=== PATIENT | female | born 1950 | race Hispanic/Latino ===

== ENCOUNTER 2021-06-17 10:28 | Emergency (ER) | payer OTHER ==
[2021-06-17 11:01] LABS: Absolute Lymphocytes (CBC) 1.4 K/uL (0.7-4.9); Basophils % 0.9 % (0-1.3); Hematocrit 31.3 % (36.0-45.0); Lymphocytes % 19.1 % (15.3-44.8); MPV 7.1 fL (7.6-11.3); RBC Red Blood Cell Count 3.62 M/uL (3.86-4.86)
--- NOTE | 2021-06-17 11:14 | RAD REPORT ---
EXAM DESCRIPTION: CT - Head Brain Wo Cont - 06/17/2021 11:06 am CLINICAL HISTORY: AMS;Confused COMPARISON: No comparisons TECHNIQUE: All CT scans are performed using dose optimization technique as appropriate and may inclu de automated exposure control or mA/KV adjustment according to patient size. FINDINGS: No intracranial hemorrhage, hydrocephalus or extra-axial fluid collection.No areas of brai n edema or evidence of midline shift. The paranasal sinuses and mastoids are clear. The calvarium is intact. IMPRESSION: No acute intracranial abnormality.
[2021-06-17 11:19] LABS: BUN Blood Urea Nitrogen 66 mg/dL (7-18); Bicarbonate 23 mmol/L (21-32); Magnesium 1.6 mg/dL (1.8-2.4); Potassium 4.4 mmol/L (3.5-5.1); Sodium Level 137 mmol/L (136-145); Troponin (Emerg Dept Use Only) < 0.02 ng/mL (0.0-0.045)
[2021-06-17 11:21] LABS: Glucose Level 404 mg/dL (74-106)
--- NOTE | 2021-06-17 11:21 | RAD REPORT ---
EXAM DESCRIPTION: RAD - Chest Single View - 06/17/2021 11:14 am CLINICAL HISTORY: AMS COMPARISON: Chest Pa And Lat (2 Views) dated 03/30/2016 FINDINGS: Lines: None. Lungs: No evidence of edema or pneumonia. Pleural: No significant pleural effusions or pneumothorax. Cardiac: The heart size is within normal limits. Bones: No acute fractures. Sternotomy. Other: IMPRESSION: No acute cardiopulmonary disease.
[2021-06-17 11:27] LABS: Protime INR 1.34
[2021-06-17] MEDS ORDERED: INSULIN -REGULAR HUMAN 50 UNIT/0.5 ML ML ONE (12:21)
[2021-06-17] MEDS ORDERED: NA CHLORIDE 0.9% 1,000 ML ONE (12:41)
--- NOTE | 2021-06-17 14:31 | EDPHYS ---
Physician Documentation [facility] Name: Consuelo Trujillo Age: 70 yrs Sex: Female : 1950 Arrival Date: 06/17/2021 Time: 10:25 Bed 4 Private MD: ED Physician Gorge Munoz HPI: 06/17 13:57 This 70 yrs old Female presents to ER via EMS with complaints of Altered rn Mental Status. 13:57 The patient presents with decreased responsiveness. Onset: The symptoms/episode rn began/occurred this morning. Possible causes: unknown. Associated signs and symptoms: Pertinent positives: confusion, Pertinent negatives: abdominal pain, chest pain, headache, shortness of breath. Current symptoms: In the emergency department the patient's symptoms have improved. The patient has experienced similar episodes in the past. The patient has been recently seen by a physician:. Per EMS report patient was at doctor's office and became lethargic. No seizure-like activity. Did not complain about anything prior to. Has been reports some decreased appetite and not really eating or drinking much lately. states has a history of small seizures and compliant with medication.. Historical: - Allergies: 10:33 PENICILLINS; ss 10:33 Hydrocodone Bitartrate; ss - Home Meds: 10:33 ranolazine 500 mg oral Tb12 1 tab 2 times per day [Active]; metoprolol succinate ER 50 ss mg 1 tablet PO BID [Active]; mirtazapine 15 mg Oral TbDi 1 tab once daily [Active]; atorvastatin 40 mg oral tab 1 tab once daily [Active]; Eliquis 5 mg oral tab 1 tab 2 times per day [Active]; quetiapine 25 mg oral tab 1 tab nightly [Active]; furosemide 40 mg Oral tab 2 tabs once daily [Active]; omeprazole 40 mg Oral cpDR 1 cap once daily [Active]; - PMHx: 10:33 Diabetes mellitus; End stage renal disease; CAD; GERD; Hypertensive disorder; ss Depressive disorder; Anxiety; L 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 - Family history:: not pertinent. - Social history:: Smoking status: Patient denies any tobacco usage or history of. - Hospitalizations: : No recent hospitalization is reported. ROS: 14:26 Constitutional: Negative for fever, chills, and weight loss, Eyes: Negative for injury, rn pain, redness, and discharge, ENT: Negative for injury, pain, and discharge, Neck: Negative for injury, pain, and swelling, Cardiovascular: Negative for chest pain, palpitations, and edema, Respiratory: Negative for shortness of breath, cough, wheezing, and pleuritic chest pain, Abdomen/GI: Negative for abdominal pain, nausea, vomiting, diarrhea, and constipation, Back: Negative for injury and pain, : Negative for injury, bleeding, discharge, and swelling, MS/Extremity: Negative for injury and deformity, Skin: Negative for injury, rash, and discoloration, Neuro: Negative for headache, numbness, tingling, and seizure. Exam: 14:26 Constitutional: This is a well developed, well nourished patient who is awake, rn somnolent but awakens to voice and painful stimulation Head/Face: Normocephalic, atraumatic. Eyes: Periorbital areas with no swelling, redness, or edema. ENT: Dry mucous membranes Neck: Trachea midline, no masses palpated, and no cervical lymphadenopathy. Supple, full range of motion without nuchal rigidity, or vertebral point tenderness. No Meningismus. Cardiovascular: Regular rate and rhythm . No pulse deficits. Respiratory: No increased work of breathing, no retractions or nasal flaring. Abdomen/GI: Soft, non-tender Skin: Warm, dry MS/ Extremity: Pulses equal, no cyanosis. Neuro: Somnolent but awakens to voice and painful stimulus. Moves all 4 extremities with residual weakness of the left side due to previous stroke. 14:26 ECG was reviewed by the Attending Physician. rn Vital Signs: 12:32 BP 99 / 69; Pulse 65; Resp 12; Pulse Ox 97% on NC; Pain 0/10; ch5 12:45 BP 99 / 67; Pulse 15; Resp 61; Pulse Ox 100% on R/A; hb 13:31 BP 110 / 56; Pulse 63; Resp 14; Pulse Ox 100% on R/A; hb MDM: 10:25 Patient medically screened. rn 14:26 Differential Diagnosis: CVA, electrolyte abnormality, hypoglycemia, intracranial bleed, rn seizure, TIA, volume depletion. Data reviewed: vital signs, nurses notes, lab test result(s), EKG, radiologic studies, CT scan, plain films, and as a result, I will discharge patient. 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 Interpretation: normal. Test interpretation: by ED physician or midlevel provider: ECG, plain radiologic studies, Chest x-ray negative for acute pneumonia or pneumothorax. 14:26 Counseling: I had a detailed discussion with the patient and/or guardian regarding: the rn historical points, exam findings, and any diagnostic results supporting the discharge/admit diagnosis, lab results, radiology results, the need for outpatient follow up, to return to the emergency department if symptoms worsen or persist or if there are any questions or concerns that arise at home. Response to treatment: the patient's symptoms have markedly improved after treatment, the patient's condition has returned to base line, the patient is now symptom free, patient is well hydrated. and as a result, I will discharge patient. Special discussion: I discussed with the patient/guardian in detail that at this point there is no indication for admission to the hospital. It is understood, however, that if the symptoms persist or worsen the patient needs to return immediately for re-evaluation. ED course: Patient with complete return to baseline after fluids and insulin. No acute findings and work-up here. Could have had a small seizure given altered mental status and with time return to baseline. CT head does not show anything acute. Patient states that she is hungry and wants to go home. states that she is at baseline currently. Return precautions given and understood.. 06/17 10: Order name: Basic Metabolic Panel; Complete Time: rn 06/17 10: Order name: CBC with Diff; Complete Time: rn 06/17 10: Order name: Magnesium; Complete Time: rn 06/17 10: Order name: Protime (+inr); Complete Time: : rn 06/17 10: Order name: Ptt, Activated; Complete Time: 12: rn 06/17 10: Order name: Troponin (emerg Dept Use Only); Complete Time: rn 06/17 10: Order name: CT Head Brain wo Cont; Complete Time: 11:22 rn 06/17 10:26 Order name: XRAY Chest (1 view); Complete Time: 11:22 rn 06/17 10:31 Order name: glucometer results - FOR PT WITH NO ID; Complete Time: 14:26 hb 06/17 12:21 Order name: SARS-COV-2 RT PCR; Complete Time: 12:30 EDMS 06/17 13:51 Order name: glucometer results - FOR PT WITH NO ID hb 06/17 13:51 Order name: Glucose, Ancillary(No Armband) EDMS 06/17 10:26 Order name: EKG; Complete Time: 10:29 rn 06/17 10:26 Order name: Cardiac monitoring; Complete Time: : rn 06/17 10:26 Order name: EKG - Nurse/Tech; Complete Time: : rn 06/17 10:26 Order name: IV Saline Lock; Complete Time: : rn 06/17 10:26 Order name: Labs collected and sent; Complete Time: 11:38 rn 06/17 10:26 Order name: NPO; Complete Time: : rn 06/17 10:26 Order name: O2 Per Protocol; Complete Time: : rn 06/17 10:26 Order name: O2 Sat Monitoring; Complete Time: : rn 06/17 10:26 Order name: Glucose Level; Complete Time: 10:31 rn EC:26 Rate is 114 beats/min. Rhythm is regular. QRS [place] is Normal. [place] interval is normal. rn QRS interval is normal. QT interval is normal. No Q waves. T waves are Normal. No ST changes noted. Clinical impression: Sinus tachycardia. Interpreted by me. Reviewed by me. Administered Medications: 12:00 Drug: Insulin Regular Human 10 units {Co-Signature: ch5 (Khoa Potter RN).} Route: hb Sub-Q; Site: left upper arm; 12:26 Follow up: Response: Blood sugar is lowered ch5 12:26 Drug: NS 0.9% 1000 ml Route: IV; Rate: 1 bolus; Site: right forearm; ch5 Point of Care Testing: Blood Glucose: 13:50 Blood Glucose: 288 mg/dL; hb Ranges: Critical Glucose Levels:Adult <50 mg/dl or >400 mg/dl <40 mg/dl or >180 mg/dl Disposition Summary: 10/05/21 14:30 Discharge Ordered Location: Home rn Problem: new rn Symptoms: have improved rn Condition: Stable rn Diagnosis - Altered mental status, unspecified rn - Hyperglycemia, unspecified rn - Dehydration rn Followup: rn - With: Private Physician - When: As needed - Reason: Recheck today's complaints, Re-evaluation by your physician Discharge Instructions: - Discharge Summary Sheet rn - Confusion rn - Dehydration, Adult rn - Hyperglycemia rn Forms: - Medication Reconciliation Form rn - Thank You Letter rn - 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 EDLA EDMS
--- NOTE | 2021-06-17 14:31 | ER ---
Nurse's Notes [facility] Name: Consuelo Trujillo Age: 70 yrs Sex: Female : 1950 Arrival Date: 06/17/2021 Time: 10:25 Bed 4 Private MD: Diagnosis: Altered mental status, unspecified;Hyperglycemia, unspecified;Dehydration Presentation: 06/17 10:25 Chief complaint: EMS states: Pt was at a follow up appointment at Dr. Bunn office ss when she suddenly became lethargic and drowsy. HX of CVA, DVT. Coronavirus screen: Client denies travel out of the [place] in the last 14 days. Ebola Screen: Patient denies exposure to infectious person. Patient denies travel to an Ebola-affected area in the 21 days before illness onset. Initial Sepsis Screen: Does the patient meet any 2 criteria? No. Patient's initial sepsis screen is negative. Does the patient have a suspected source of infection? No. Patient's initial sepsis screen is negative. Risk Assessment: Do you want to hurt yourself or someone else? Unable to obtain. Onset of symptoms was June 17, 2021. 10:25 Method Of Arrival: EMS: [facility] ss 10:25 Acuity: SUE 2 ss 10:27 Care prior to arrival: IV initiated. 20 GA, in the right antecubital area. ss 10:30 Care prior to arrival: Reported VS en route were 112/78 110 87% O2 VIA 3L NC BGL 369. ss Historical: - Allergies: 10:33 PENICILLINS; ss 10:33 Hydrocodone Bitartrate; ss - Home Meds: 10:33 ranolazine 500 mg oral Tb12 1 tab 2 times per day [Active]; metoprolol succinate ER 50 ss mg 1 tablet PO BID [Active]; mirtazapine 15 mg Oral TbDi 1 tab once daily [Active]; atorvastatin 40 mg oral tab 1 tab once daily [Active]; Eliquis 5 mg oral tab 1 tab 2 times per day [Active]; quetiapine 25 mg oral tab 1 tab nightly [Active]; furosemide 40 mg Oral tab 2 tabs once daily [Active]; omeprazole 40 mg Oral cpDR 1 cap once daily [Active]; - PMHx: 10:33 Diabetes mellitus; End stage renal disease; CAD; GERD; Hypertensive disorder; ss Depressive disorder; Anxiety; L 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 - Family history:: not pertinent. - Social history:: Smoking status: Patient denies any tobacco usage or history of. - Hospitalizations: : No recent hospitalization is reported. Screenin:27 Abuse screen: Denies threats or abuse. Denies injuries from another. Nutritional hb screening: No deficits noted. Tuberculosis screening: No symptoms or risk factors identified. Assessment: 10:48 Reassessment: at bedside. Pt seems to be improving. Is becoming more alert. Dr. loan Munoz notified. 11:45 Reassessment: Patient appears in no apparent distress at this time. Patient and/or hb family updated on plan of care and expected duration. Pain level reassessed. Patient is alert, oriented x 3, equal unlabored respirations, skin warm/dry/pink. 12:45 Reassessment: Patient appears in no apparent distress at this time. No changes from hb previously documented assessment. Patient and/or family updated on plan of care and expected duration. Pain level reassessed. 13:31 Reassessment: Patient appears in no apparent distress at this time. No changes from hb previously documented assessment. Patient and/or family updated on plan of care and expected duration. Pain level reassessed. 14:25 Reassessment: Patient appears in no apparent distress at this time. Patient and/or hb family updated on plan of care and expected duration. Pain level reassessed. Patient is alert, oriented x 3, equal unlabored respirations, skin warm/dry/pink. Vital Signs: 12:32 BP 99 / 69; Pulse 65; Resp 12; Pulse Ox 97% on NC; Pain 0/10; ch5 12:45 BP 99 / 67; Pulse 15; Resp 61; Pulse Ox 100% on R/A; hb 13:31 BP 110 / 56; Pulse 63; Resp 14; Pulse Ox 100% on R/A; hb ED Course: 10:25 Patient arrived in ED. ss 10:25 Gorge Munoz MD is Attending Physician. rn 10:27 Triage completed. ss 10:27 Arm band placed on. hb 11:05 CT Head Brain wo Cont In Process Unspecified. EDMS 11:13 XRAY Chest (1 view) In Process Unspecified. EDMS 11:18 Khoa Potter, RN is Primary Nurse. [facility] 14:22 glucometer results - FOR PT WITH NO ID Sent. hb 15:07 No provider procedures requiring assistance completed. IV discontinued, intact, hb bleeding controlled, No redness/swelling at site. Pressure dressing applied. Administered Medications: 12:00 Drug: Insulin Regular Human 10 units {Co-Signature: 5 (Koha Potter RN).} Route: hb Sub-Q; Site: left upper arm; 12:26 Follow up: Response: Blood sugar is lowered [facility] 12:26 Drug: NS 0.9% 1000 ml Route: IV; Rate: 1 bolus; Site: right forearm; [facility] Point of Care Testing: Blood Glucose: 13:50 Blood Glucose: 288 mg/dL; hb Ranges: Outcome: 14:30 Discharge ordered by MD. rn 15:07 Discharged to home via wheelchair, with significant other. hb 15:07 Condition: stable 15:07 Discharge instructions given to patient, significant other, Instructed on discharge instructions, follow up and referral plans. medication usage, Demonstrated understanding of instructions, follow-up care, medications. 15:07 Patient left the ED. hb Signatures: Dispatcher [employer] EDSC Gorge Munoz MD MD rn Smirch, Shelby, RN RN ss Baxter, Heather, RN RN Khoa Potter, RN RN [facility] Khoa Potter RN [facility]
[2021-06-17 15:12] VITALS: O2SAT 100
[2021-06-17 15:13] VITALS: BP 110/56
--- NOTE | 2021-06-17 18:06 | EKG ---
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
== END 2021-06-17 15:07 | disposition home or self-care (01) ==
LOC: ER 10:28
DX: E11.65 Type 2 diabetes mellitus with hyperglycemia (principal); E86.0 Dehydration; E11.22 Type 2 diabetes mellitus with diabetic chronic kidney disease; I13.2 Hypertensive heart and chronic kidney disease with heart failure and with stage 5 chronic kidney disease, or end stage renal disease; I50.9 Heart failure, unspecified; N18.6 End stage renal disease; Z99.2 Dependence on renal dialysis; Z20.822 Contact with and (suspected) exposure to COVID-19
CPT/HCPCS: 93005; 85025; 80048; 36415; 83735; 85610; 82947 ×2; 85730; 84484; 70450; 71045; 96372; 99284; U0003; J7030

== ENCOUNTER 2021-09-08 11:35 | Emergency (ER) | payer OTHER ==
--- NOTE | 2021-09-08 12:53 | RAD REPORT ---
EXAM DESCRIPTION: US - Extremity Venous Uni Ltd - 09/08/2021 12:45 pm CLINICAL HISTORY: Pain;Swelling Leg swelling and edema. COMPARISON: No comparisons FINDINGS: Right lower extremity venous system was interrogated with Doppler technique. Normal flow, compressibility and augmentation was noted. There is no DVT present. IMPRESSION: No evidence of right lower extremity deep venous thrombosis.
[2021-09-08] MEDS ORDERED: TRAMADOL HCL 50 MG TAB ONE (14:30)
--- NOTE | 2021-09-08 14:43 | RAD REPORT ---
EXAM DESCRIPTION: US - Lower Extremity Artery Uni Ltd - 09/08/2021 2:08 pm CLINICAL HISTORY: SWELLING COMPARISON: No comparisons FINDINGS: Grayscale, color and spectral right lower extremity arterial Doppler was performed. Largely biphasic waveforms are seen to the level of the right popliteal artery. Monophasic waveforms are seen popliteal artery and distal. No complete occlusion evident. IMPRESSION: Right lower extremity arterial Doppler demonstrates mildly disease waveforms of a diffus e pattern. This suggests mild inflow disease.
--- NOTE | 2021-09-08 14:57 | EDPHYS ---
Physician Documentation [facility] Name: Consuelo Trujillo Age: 70 yrs Sex: Female : 1950 Arrival Date: 09/08/2021 Time: 11:36 Bed 20 Private MD: DANYEL Physician Christopher Gentile HPI: 09/08 15:15 This 70 yrs old Female presents to ER via Wheelchair with complaints of Leg kb Pain. 15:15 The patient presents with pain, swelling. The complaints affect the right leg. Context: kb The problem was sustained at home. Onset: The symptoms/episode began/occurred 2 month(s) ago. Modifying factors: The symptoms are alleviated by nothing. the symptoms are aggravated by nothing. Associated signs and symptoms: Pertinent positives: swelling, Pertinent negatives calf tenderness, fever, nausea, numbness, rash, tingling, vomiting, warmth, weakness. Treatment prior to arrival includes: no previous treatment. Severity of symptoms: At their worst the symptoms were moderate, in the emergency department the symptoms are unchanged. The patient has not experienced similar symptoms in the past. The patient has not recently seen a physician. states pt has had pain and swelling in right leg for months. PT told them to get it checked for a DVT. . Historical: - Allergies: 11:44 hydrocodone bitartrate; ap3 11:44 PENICILLINS; ap3 - Home Meds: 13:31 atorvastatin 40 mg Oral tab 1 tab once daily [Active]; sodium bicarbonate 650 mg Oral eo2 tab 650 mg twice a day [Active]; warfarin 5 mg Oral tab 1 tab once daily [Active]; aspirin 81 mg Oral TbEC 1 tab once daily [Active]; cyanocobalamin (vitamin B-12) 1,000 mcg oral cap [Active]; divalproex 500 mg oral Tb24 2 tabs once daily [Active]; ferrous sulfate 325 mg (65 mg iron) Oral cpER [Active]; furosemide 20 mg Oral tab .5 tab 2 times per day [Active]; levothyroxine 150 mcg cap 1 cap once daily [Active]; ranolazine 500 mg Oral Tb12 1 tab 2 times per day [Active]; - PMHx: 11:44 angina pectoris; Anxiety; CAD; CHF; chronic DVT; CVA; depressive disorder; diabetes ap3 mellitus; End stage renal disease; GERD; Hyperlipidemia; Hypertensive disorder; L sided weakness from previous CVA; Sleep Apnea; - Immunization history:: Client reports receiving the 2nd dose of the Covid vaccine. - Social history:: Smoking status: Patient denies any tobacco usage or history of. ROS: 15:08 Constitutional: Negative for fever, chills, and weight loss. kb 15:08 MS/extremity: Positive for pain, swelling, of the right leg. 15:08 All other systems are negative. Exam: 15:08 Constitutional: This is a well developed, well nourished patient who is awake, alert, kb and in no acute distress. Head/Face: Normocephalic, atraumatic. ENT: Moist Mucous membranes Cardiovascular: Regular rate and rhythm with a normal S1 and S2. No gallops, murmurs, or rubs. No pulse deficits. Respiratory: Respirations even and unlabored. No increased work of breathing. Talking in full sentences Skin: Warm, dry with normal turgor. Normal color. Neuro: Awake and alert, GCS 15, oriented to person, place, time, and situation. Moves all extremities. Normal gait. Psych: Awake, alert, with orientation to person, place and time. Behavior, mood, and affect are within normal limits. 15:08 Musculoskeletal/extremity: Extremities: grossly normal except: noted in the right leg: pain, swelling, ROM: no acute changes, Circulation is intact in all extremities. Sensation intact. Vital Signs: 11:46 BP 191 / 92; Pulse 85; Resp 17; Temp 97.6(TE); Pulse Ox 98% ; Weight 86.18 kg; Height 5 ap3 ft. 3 in. (160.02 cm); Pain 8/10; 13:07 BP 168 / 75; Pulse 77; Resp 17; Pulse Ox 96% ; Pain 9/10; eo2 14:28 BP 178 / 84; Pulse 73; Resp 17; Pulse Ox 95% ; Pain 8/10; eo2 15:00 BP 162 / 76; Pulse 72; Resp 17; Pulse Ox 95% ; eo2 15:34 Pain 5/10; eo2 15:50 Pain 5/10; eo2 11:46 Body Mass Index 33.66 (86.18 kg, 160.02 cm) ap3 MDM: 12:38 Patient medically screened. kb 14:56 Data reviewed: vital signs, nurses notes. Data interpreted: Pulse oximetry: on room air kb is 96 %. Interpretation: normal. Counseling: I had a detailed discussion with the patient and/or guardian regarding: the historical points, exam findings, and any diagnostic results supporting the discharge/admit diagnosis, radiology results, the need for outpatient follow up, a family practitioner, to return to the emergency department if symptoms worsen or persist or if there are any questions or concerns that arise at home. 09/08 11:55 Order name: Extremity Venous Unilateral Ltd; Complete Time: 12:57 kb 09/08 13:05 Order name: LE Artery Uni Ltd; Complete Time: 14:45 kb Administered Medications: 14:34 Drug: traMADol 50 mg Route: PO; eo2 15:34 Follow up: Pain 01/20 Adult eo2 Disposition: 09/09 12:57 Co-signature as Attending Physician, Christopher Gentile MD I agree with the assessment and sudha plan of care. Disposition Summary: 09/08/21 14:56 Discharge Ordered Location: Home kb Condition: Stable kb Diagnosis - Pain in right leg kb Followup: kb - With: Emergency Department - When: As needed - Reason: Worsening of condition Followup: kb - With: Private Physician - When: 2 - 3 days - Reason: Recheck today's complaints, Continuance of care, Re-evaluation by your physician Discharge Instructions: - Discharge Summary Sheet kb - Musculoskeletal Pain kb - Edema, [id number] kb Forms: - Medication Reconciliation Form kb - Thank You Letter kb - Antibiotic Education kb - Prescription Opioid Use kb Signatures: Dispatcher [employer] EDAga Kenny, DIRECTOR OF INSTITUTIONAL RESEARCH-C DIRECTOR OF INSTITUTIONAL RESEARCH-Christopher Marshall MD MD cha Prokisch, Amanda, RN RN ap3 Bela Lanier, RN RN eo2
--- NOTE | 2021-09-08 14:57 | ER ---
Nurse's Notes [facility] Name: Consuelo Trujillo Age: 70 yrs Sex: Female : 1950 Arrival Date: 09/08/2021 Time: 11:36 Bed 20 Private MD: Diagnosis: Pain in right leg Presentation: 09/08 11:42 Chief complaint: Spouse and/or significant other states: patient has right lower leg ap3 pain. Patient reports swelling in the right leg. Leg is observed to have an tommie wrap from above the knee to the ankle. Patient was seen by home health this morning and was advised to come get evaluated to rule out blood clot. Coronavirus screen: At this time, the client does not indicate any symptoms associated with coronavirus-19. Ebola Screen: No symptoms or risks identified at this time. Initial Sepsis Screen: Does the patient meet any 2 criteria? No. Patient's initial sepsis screen is negative. Does the patient have a suspected source of infection? No. Patient's initial sepsis screen is negative. Risk Assessment: Do you want to hurt yourself or someone else? Patient reports no desire to harm self or others. Onset of symptoms was September 08, 2021. 11:42 Method Of Arrival: Wheelchair ap3 11:46 Acuity: SUE 3 ap3 Triage Assessment: 11:45 General: Appears in no apparent distress. Behavior is calm, cooperative. Pain: ap3 Complains of pain in right leg. Neuro: Level of Consciousness is awake, alert, Oriented to person, place, time, situation, Gait is unsteady, Speech is normal. Cardiovascular: Patient's skin is warm and dry. Respiratory: Airway is patent Respiratory effort is even, unlabored, Respiratory pattern is regular, symmetrical. Musculoskeletal:. Historical: - Allergies: 11:44 hydrocodone bitartrate; ap3 11:44 PENICILLINS; ap3 - Home Meds: 13:31 atorvastatin 40 mg Oral tab 1 tab once daily [Active]; sodium bicarbonate 650 mg Oral eo2 tab 650 mg twice a day [Active]; warfarin 5 mg Oral tab 1 tab once daily [Active]; aspirin 81 mg Oral TbEC 1 tab once daily [Active]; cyanocobalamin (vitamin B-12) 1,000 mcg oral cap [Active]; divalproex 500 mg oral Tb24 2 tabs once daily [Active]; ferrous sulfate 325 mg (65 mg iron) Oral cpER [Active]; furosemide 20 mg Oral tab .5 tab 2 times per day [Active]; levothyroxine 150 mcg cap 1 cap once daily [Active]; ranolazine 500 mg Oral Tb12 1 tab 2 times per day [Active]; - PMHx: 11:44 angina pectoris; Anxiety; CAD; CHF; chronic DVT; CVA; depressive disorder; diabetes ap3 mellitus; End stage renal disease; GERD; Hyperlipidemia; Hypertensive disorder; L sided weakness from previous CVA; Sleep Apnea; - Immunization history:: Client reports receiving the 2nd dose of the Covid vaccine. - Social history:: Smoking status: Patient denies any tobacco usage or history of. Screenin:47 Abuse screen: Denies threats or abuse. Nutritional screening: No deficits noted. ap3 Tuberculosis screening: No symptoms or risk factors identified. Fall Risk Fall in past 12 months (25 points). Secondary diagnosis (15 points) impaired mobility, No IV (0 pts). Ambulatory Aid- None/Bed Rest/Nurse Assist (0 pts). Gait- Weak (10 pts.). Mental Status- Oriented to own ability (0 pts). Total Gill Fall Scale indicates High Risk Score (45 or more points). Fall prevention measures have been instituted. Frequent Obs/Assessments Occuring Family Present and informed to notify staff if the need to leave the bedside As available patient and family educated on Fall Prevention Program and Strategies. Assessment: 13:37 General: Appears in no apparent distress. uncomfortable, Behavior is calm, cooperative. eo2 Neuro: Denies dizziness, headache. Cardiovascular: Denies chest pain. Respiratory: Denies shortness of breath. Musculoskeletal: Swelling present in right leg, going for over two months per , worsened in the last week Reports pain, difficulty moving RLE. Vital Signs: 11:46 BP 191 / 92; Pulse 85; Resp 17; Temp 97.6(TE); Pulse Ox 98% ; Weight 86.18 kg; Height 5 ap3 ft. 3 in. (160.02 cm); Pain 8/10; 13:07 BP 168 / 75; Pulse 77; Resp 17; Pulse Ox 96% ; Pain 9/10; eo2 14:28 BP 178 / 84; Pulse 73; Resp 17; Pulse Ox 95% ; Pain 8/10; eo2 15:00 BP 162 / 76; Pulse 72; Resp 17; Pulse Ox 95% ; eo2 15:34 Pain 5/10; eo2 15:50 Pain 5/10; eo2 11:46 Body Mass Index 33.66 (86.18 kg, 160.02 cm) ap3 ED Course: 11:36 Patient arrived in ED. ds1 11:47 Triage completed. ap3 11:48 Arm band placed on right wrist. ap3 11:48 Patient has correct armband on for positive identification. Adult w/ patient. Pulse ox ap3 on. NIBP on. 11:55 Aga Egan FNP-C is PHCP. kb 11:55 Christopher Gentile MD is Attending Physician. kb 12:45 US Extremity Venous Unilateral Ltd In Process Unspecified. EDMS 13:07 Door closed. Noise minimized. Warm blanket given. eo2 13:07 No provider procedures requiring assistance completed. eo2 13:30 Bela Lanier, RN is Primary Nurse. eo2 14:07 US LE Artery Uni Ltd In Process Unspecified. EDMS 15:50 Patient did not have IV access during this emergency room visit. eo2 Administered Medications: 14:34 Drug: traMADol 50 mg Route: PO; eo2 15:34 Follow up: Pain 5/10 Adult eo2 Outcome: 14:56 Discharge ordered by . kb 15:50 Discharged to home via wheelchair, with family. eo2 15:50 Condition: stable 15:50 Discharge instructions given to patient, family, Instructed on discharge instructions, follow up and referral plans. Demonstrated understanding of instructions, follow-up care. 15:51 Patient left the ED. eo2 Signatures: Dispatcher [employer] EDNE Aga Egan FNP-C FNP-Ckb Sanford, Demi ds1 Gay Reyes RN RN ap3 Bela Lanier, CRIS LYNCH eo2
[2021-09-08 16:11] VITALS: TEMP 97.6
[2021-09-08 16:16] VITALS: O2SAT 95
[2021-09-08 16:17] VITALS: BP 162/76
== END 2021-09-08 15:51 | disposition home or self-care (01) ==
LOC: ER 11:35
DX: M79.604 Pain in right leg (principal); E11.22 Type 2 diabetes mellitus with diabetic chronic kidney disease; I13.2 Hypertensive heart and chronic kidney disease with heart failure and with stage 5 chronic kidney disease, or end stage renal disease; I50.9 Heart failure, unspecified; N18.6 End stage renal disease; Z86.718 Personal history of other venous thrombosis and embolism; Z86.73 Personal history of transient ischemic attack (TIA), and cerebral infarction without residual deficits; Z79.01 Long term (current) use of anticoagulants; Z88.0 Allergy status to penicillin; Z88.5 Allergy status to narcotic agent
CPT/HCPCS: 93926; 93971; 99284

== ENCOUNTER 2021-11-22 08:12 | Inpatient (IN) | payer OTHER ==
[2021-11-22 09:23] LABS: Absolute Lymphocytes (CBC) 1.4 K/uL (0.7-4.9); Hematocrit 25.7 % (36.0-45.0); Lymphocytes % 38.5 % (15.3-44.8); MPV 7.6 fL (7.6-11.3)
[2021-11-22 09:25] LABS: Protime INR 3.28
[2021-11-22 09:57] LABS: AST/SGOT 10 U/L (15-37); Albumin 2.3 g/dL (3.4-5.0); Alkaline Phosphatase 69 U/L (45-117); BUN Blood Urea Nitrogen 52 mg/dL (7-18); Bicarbonate 22 mmol/L (21-32); Bilirubin Total 0.2 mg/dL (0.2-1.0); Glucose Level 96 mg/dL (74-106); NT PRO-BNP 60449 pg/mL (<125); Potassium 4.4 mmol/L (3.5-5.1); Protein, Total 5.8 g/dL (6.4-8.2); Sodium Level 134 mmol/L (136-145)
[2021-11-22 09:58] LABS: ALT/SGPT < 6 U/L (12-78); Bilirubin Direct < 0.1 mg/dL (0-0.2)
--- NOTE | 2021-11-22 10:43 | RAD REPORT ---
EXAM DESCRIPTION: RAD - Chest Single View - 11/22/2021 9:49 am CLINICAL HISTORY: SOB Chest pain. COMPARISON: Chest Single View dated 06/17/2021; Chest Pa And Lat (2 Views) dated 03/30/2016 FINDINGS: Portable technique limits examination quality. Moderate pulmonary edema is suspected with small pleural effusions. Atelectasis is also likely presen t left lung base. The heart is moderately enlarged. Sternotomy wires present. IMPRESSION: Moderate CHF versus volume overload pattern.
--- NOTE | 2021-11-22 12:56 | RAD REPORT ---
EXAM DESCRIPTION: CT - Chest Abd Pelvis Wo Con - 11/22/2021 12:48 pm CLINICAL HISTORY: Chest and abdomen pain. abd pain COMPARISON: No comparisons TECHNIQUE: Limited noncontrast study was performed. All CT scans are performed using dose optimization technique as appropriate and may include automated exposure control or mA/KV adjustment according to patient size. FINDINGS: Mild to moderate pulmonary edema is present.Bilateral pleural effusions are present, large r on the left.No intrathoracic adenopathy. A significant anasarca pattern is present. Cholelithiasis. Solid organ is are unremarkable for limited noncontrast study. IVC filter noted. Mild free fluid is seen in the left upper quadrant. No bowel obstruction. Small volume of free fluid is seen in the anterior pelvis. Normal appendix. Heavy atherosclerosis. Multilevel spinal degenerative changes. IMPRESSION: Moderate CHF versus volume overload pattern in the chest. Advanced soft tissue anasarca. Small amount of free fluid in the left upper quadrant. Cholelithiasis.
--- NOTE | 2021-11-22 14:25 | EDPHYS ---
Physician Documentation [facility] Name: Consuelo Trujillo Age: 71 yrs Sex: Female : 1950 Arrival Date: 11/22/2021 Time: 08:15 Bed 15 Private MD: Michelle Currie ED Physician Christopher Gentile HPI: 11/22 09:08 This 71 yrs old Female presents to ER via Wheelchair with complaints of pm1 Constipation, Leg Swelling. 09:08 Patient presented to ER with a primary complaint of generalized swelling. Swelling has pm1 been going on for approximately 3 weeks per . Patient seen by community health education coordinator Dr. Sosa about 5 weeks ago and was prescribed Bumex 1 mg twice daily. Patient states swelling increased and was eventually increased by PCP to 2 mg twice daily. Patient's swelling worse yesterday with some generalized weakness and she was given 3 mg Bumex yesterday after her contacted Dr. Currie. Severity of symptoms: in the emergency department the symptoms are worse. The patient has experienced similar episodes in the past, chronically, but today's symptoms are worse, Patient with history of CHF. Patient also complaining of constipation for three days that was addressed with lactulose by her PCP and patient had a BM yesterday. Historical: - Allergies: 08:42 hydrocodone bitartrate; ww 08:42 PENICILLINS; ww - Home Meds: 08:42 warfarin 3 mg oral tab [Active]; ranolazine 500 mg Oral Tb12 1 tab 2 times per day ww [Active]; levothyroxine 150 mcg cap 1 cap once daily [Active]; atorvastatin 40 mg Oral tab 1 tab once daily [Active]; aspirin 81 mg Oral TbEC 1 tab once daily [Active]; divalproex 500 mg Oral Tb24 2 tabs once daily [Active]; cyanocobalamin (vitamin B-12) 1,000 mcg Oral cap [Active]; ferrous sulfate 325 mg (65 mg iron) Oral cpER [Active]; isosorbide dinitrate 10 mg Oral tab 1 tab 3 times per day [Active]; Bumex 1 mg Oral tab 1 tab 2 times per day [Active]; Coreg 6.25 mg Oral tab 1 tab 2 times per day [Active]; omeprazole 40 mg Oral cpDR 1 cap once daily [Active]; mirtazapine 15 mg Oral tab 1 tab once daily [Active]; meclizine 12.5 mg Oral chew every 8 hours [Active]; hydralazine 50 mg Oral tab every 8 hours [Active]; tamsulosin 0.4 mg oral cap 1 cap once daily [Active]; - PMHx: 08:42 angina pectoris; CAD; Sleep Apnea; L sided weakness from previous CVA; Hypertensive ww disorder; Hyperlipidemia; GERD; End stage renal disease; diabetes mellitus; depressive disorder; CVA; chronic DVT; CHF; Anxiety; - Immunization history:: Adult Immunizations up to date. - Social history:: Smoking status: Patient denies any tobacco usage or history of. ROS: 09:08 Constitutional: Negative for fever, chills, and weight loss, Cardiovascular: Negative pm1 for chest pain, palpitations, and edema. 09:08 Back: Negative for injury and pain, MS/Extremity: Negative for injury and deformity, Skin: Negative for injury, rash, and discoloration. 09:08 Respiratory: Positive for shortness of breath, Negative for cough. 09:08 Abdomen/GI: Positive for constipation, Negative for abdominal pain, nausea, vomiting, and diarrhea. 09:08 Neuro: Positive for weakness, generalized. 09:08 All other systems are negative. Exam: 09:08 Head/Face: Normocephalic, atraumatic. pm1 09:08 Back: No spinal tenderness. No costovertebral tenderness. Full range of motion. Skin: Warm, dry with normal turgor. Normal color with no rashes, no lesions, and no evidence of cellulitis. MS/ Extremity: Pulses equal, no cyanosis. Neurovascular intact. Full, normal range of motion. 09:08 Constitutional: The patient appears in no acute distress, alert, awake, comfortable, non-diaphoretic, non-toxic, well developed, well hydrated, well groomed, well nourished, obese. 09:08 Cardiovascular: Edema: Patient with edema present from feet to thighs bilaterally, ascites, mild swelling to face and neck and left upper estremity. 09:08 Respiratory: Exam negative for acute changes, the patient does not display signs of respiratory distress, Respirations: normal, Breath sounds: decreased breath sounds, are located in both bases. 09:08 Abdomen/GI: Inspection: distension, that is mild, obese Palpation: abdomen is soft and non-tender, in all quadrants. 09:08 Neuro: Exam negative for acute changes, Orientation: is normal, Mentation: is normal, Motor: is normal. Vital Signs: 08:40 BP 164 / 80; Pulse 79; Resp 13; Temp 97.9; Pulse Ox 94% on R/A; Weight 107.05 kg; ww Height 5 ft. 2 in. (157.48 cm); 10:38 BP 168 / 86; Pulse 66; Resp 16; Temp 98.7; Pain 0/10; cb5 08:40 Body Mass Index 43.16 (107.05 kg, 157.48 cm) ww MDM: 08:52 Patient medically screened. pm1 08:52 Patient medically screened. [facility] 10:16 Data reviewed: vital signs. pm1 14:23 Physician consultation: Saroj Oneal was called at 14:23, was contacted at 14:23, pm1 regarding admission, patient's condition, would like consultation with Dr. Oneal, would like medications started, Lasix, 80 mg now . 14:41 Physician consultation: Drew Oneal MD would like further tests performed, pm1 echocardiogram, cannon catheter and lasix, in the emergency department to see patient at 14:34. 11/22 09:07 Order name: Basic Metabolic Panel; Complete Time: 10:16 pm1 11/22 09:07 Order name: CBC with Diff; Complete Time: 09:27 pm1 11/22 09:07 Order name: LFT's; Complete Time: 10:16 pm1 11/22 09:07 Order name: NT PRO-BNP; Complete Time: 10:16 pm1 11/22 09:07 Order name: PT-INR; Complete Time: 09:27 pm1 11/22 09:07 Order name: Troponin HS; Complete Time: 10:16 pm1 03 09:29 Order name: COVID-19 SARS RT PCR (Document "Date of Onset" if Symptomatic) pm1 11/22 09:30 Order name: SARS-COV-2 RT PCR; Complete Time: 11:20 EDMS 11/22 14:56 Order name: Ferritin EDMS 11/22 14:56 Order name: Transferrin Sat/Iron Binding EDMS 11/22 14:58 Order name: Creatine Phosphokinase EDNY 11/22 14:58 Order name: Magnesium EDMS 11/22 14:58 Order name: Osmolality, Urine EDMS 11/22 14:58 Order name: Phosphorus EDMS 11/22 09:07 Order name: XRAY Chest (1 view); Complete Time: 10:48 pm1 11/22 09:07 Order name: EKG; Complete Time: 09:08 pm1 11/22 09:07 Order name: Cardiac monitoring; Complete Time: 09:14 pm1 11/22 09:07 Order name: EKG - Nurse/Tech; Complete Time: 09:14 pm1 11/22 09:07 Order name: IV Saline Lock; Complete Time: 09:16 pm1 11/22 09:07 Order name: Labs collected and sent; Complete Time: 09:16 pm1 11/22 09:07 Order name: O2 Per Protocol; Complete Time: 09:14 pm1 11/22 09:07 Order name: O2 Sat Monitoring; Complete Time: 09:14 pm1 11/22 12:23 Order name: CT Chest Abdomen Pelvis W/O Contrast; Complete Time: 13:31 aa5 11/22 14:41 Order name: Cannon; Complete Time: 15:00 pm1 11/22 14:58 Order name: UR POTASSIUM EDMS 11/22 14:58 Order name: UR SODIUM EDMS 11/22 15:08 Order name: PTH Intact EDMS 11/22 15:08 Order name: Vitamin D, 25 ([place]), TOTAL EDMS Administered Medications: 14:55 Drug: Lasix (furosemide) 80 mg Route: IVP; Site: right antecubital; cb5 Disposition Summary: 11/22/21 14:25 Hospitalization Ordered Hospitalization Status: Inpatient Admission pm1 Provider: Saroj Oneal pm1 Location: Telemetry/[facility] (Inpatient) pm1 Condition: Stable pm1 Problem: new pm1 Symptoms: have improved pm1 Bed/Room Type: Standard pm1 Room Assignment: 219(11/22/21 15:39) dw Diagnosis - 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 Signatures: Dispatcher [employer] EDMS Emily Callejas, RN RN Christopher Redmond MD MD cha Marinas, Patrick, CLINICAL ADMINISTRATOR CLINICAL ADMINISTRATOR pm1 Norma Nugent RN RN ww Laura Méndez RN RN cb5 Corrections: (The following items were deleted from the chart) 11/22 12:43 11:16 Abdomen Pelvis Wo Con+CT.RAD.BRZ ordered. EDNY EDNY 15:39 14:25 pm1 toro
--- NOTE | 2021-11-22 14:25 | ER ---
Nurse's Notes [facility] Name: Consuelo Trujillo Age: 71 yrs Sex: Female : 1950 Arrival Date: 11/22/2021 Time: 08:15 Bed 15 Private MD: Michelle Currie Diagnosis: Acute on chronic combined systolic (congestive) and diastolic (congestive) heart failure Presentation: 11/22 08:40 Chief complaint: Spouse and/or significant other states: Generalized swelling all over ww the body. Had constipation and received some medicine from PCP and had a bowel movement yesterday. Spouse states she was removed from HD about 3 months ago. Has a history of blood clots and right leg is swollen and painful to touch. Coronavirus screen: Vaccine status: Patient reports receiving the 2nd dose of the covid vaccine. Client denies travel out of the [place] in the last 14 days. Ebola Screen: Patient denies travel to an Ebola-affected area in the 21 days before illness onset. Initial Sepsis Screen: Does the patient meet any 2 criteria? No. Patient's initial sepsis screen is negative. Does the patient have a suspected source of infection? No. Patient's initial sepsis screen is negative. Risk Assessment: Do you want to hurt yourself or someone else? Patient reports no desire to harm self or others. Onset of symptoms is unknown. 08:40 Method Of Arrival: Wheelchair ww 08:40 Acuity: SUE 3 ww Triage Assessment: 08:42 General: Appears uncomfortable, Behavior is calm. Pain: Complains of pain in right leg. ww Neuro: Level of Consciousness is awake, alert, obeys commands, Oriented to person, place, time, situation, Weakness. Cardiovascular: Capillary refill is sluggish Patient's skin is warm and dry. Rhythm is regular. Respiratory: Airway is patent Respiratory effort is labored, Respiratory pattern is regular, symmetrical. GI: Abdomen is obese. Derm: Skin generalized edema with eczema to the back. Historical: - Allergies: 08:42 hydrocodone bitartrate; ww 08:42 PENICILLINS; ww - Home Meds: 08:42 warfarin 3 mg oral tab [Active]; ranolazine 500 mg Oral Tb12 1 tab 2 times per day ww [Active]; levothyroxine 150 mcg cap 1 cap once daily [Active]; atorvastatin 40 mg Oral tab 1 tab once daily [Active]; aspirin 81 mg Oral TbEC 1 tab once daily [Active]; divalproex 500 mg Oral Tb24 2 tabs once daily [Active]; cyanocobalamin (vitamin B-12) 1,000 mcg Oral cap [Active]; ferrous sulfate 325 mg (65 mg iron) Oral cpER [Active]; isosorbide dinitrate 10 mg Oral tab 1 tab 3 times per day [Active]; Bumex 1 mg Oral tab 1 tab 2 times per day [Active]; Coreg 6.25 mg Oral tab 1 tab 2 times per day [Active]; omeprazole 40 mg Oral cpDR 1 cap once daily [Active]; mirtazapine 15 mg Oral tab 1 tab once daily [Active]; meclizine 12.5 mg Oral chew every 8 hours [Active]; hydralazine 50 mg Oral tab every 8 hours [Active]; tamsulosin 0.4 mg oral cap 1 cap once daily [Active]; - PMHx: 08:42 angina pectoris; CAD; Sleep Apnea; L sided weakness from previous CVA; Hypertensive ww disorder; Hyperlipidemia; GERD; End stage renal disease; diabetes mellitus; depressive disorder; CVA; chronic DVT; CHF; Anxiety; - Immunization history:: Adult Immunizations up to date. - Social history:: Smoking status: Patient denies any tobacco usage or history of. Screenin:46 Abuse screen: Denies threats or abuse. Denies injuries from another. Nutritional cb5 screening: No deficits noted. Tuberculosis screening: No symptoms or risk factors identified. Fall Risk Ambulatory Aid- Crutches/Cane/Walker (15 pts). Sepsis Screening: . Infection: Patient has no suspected or documented infection. Exposure risk/Travel Screening: None identified. 08:49 Abuse screen: Denies threats or abuse. Denies injuries from another. Nutritional ww screening: No deficits noted. Tuberculosis screening: No symptoms or risk factors identified. Assessment: 08:41 General: Appears uncomfortable, obese, Behavior is calm, cooperative, appropriate for cb5 age. Pain: Complains of pain in generalized pain. Neuro: No deficits noted. Level of Consciousness is awake, alert, obeys commands, Oriented to person, place, time, situation, Appropriate for age. Cardiovascular: Reports fatigue, shortness of breath, history of CABG Heart tones S1 S2 Capillary refill < 3 seconds Rhythm is. Respiratory: Reports shortness of breath Airway is patent Breath sounds with wheezes bilaterally. GI: Bowel sounds present X 4 quads. Abd is soft Abd is non tender. : No deficits noted. EENT: No deficits noted. Derm: Skin is fragile, with poor turgor pt with poor skin turgor. Musculoskeletal: Swelling edema nirmal lower extremity, and lhands. Requested patients to remove round metal object from patients left ring finger due to swelling.. removed and has in his possession. 10:00 Reassessment: Patient and/or family updated on plan of care and expected duration. Pain cb5 level reassessed. Vital Signs: 08:40 BP 164 / 80; Pulse 79; Resp 13; Temp 97.9; Pulse Ox 94% on R/A; Weight 107.05 kg; ww Height 5 ft. 2 in. (157.48 cm); 10:38 BP 168 / 86; Pulse 66; Resp 16; Temp 98.7; Pain 0/10; cb5 08:40 Body Mass Index 43.16 (107.05 kg, 157.48 cm) ww ED Course: 08:15 Patient arrived in ED. as 08:15 Michelle Currie MD is Private Physician. as 08:41 Laura Méndez, CRIS is Primary Nurse. cb5 08:42 Triage completed. ww 08:42 Arm band placed on right wrist. ww 08:44 Alfredo Frazier NP is PHCP. pm1 08:44 Christopher Gentile MD is Attending Physician. pm1 08:49 Patient has correct armband on for positive identification. Placed in gown. Bed in low ww position. Call light in reach. Side rails up X 1. Adult w/ patient. 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 Pulse ox on. NIBP on. 09:15 Initial lab(s) drawn, by me, sent to lab. Inserted saline lock: 20 gauge in right dh3 antecubital area, using aseptic technique. Blood collected. 09:16 Basic Metabolic Panel Sent. cb5 09:16 CBC with Diff Sent. cb5 09:16 LFT's Sent. cb5 09:16 NT PRO-BNP Sent. cb5 09:16 PT-INR Sent. cb5 09:16 Troponin HS Sent. cb5 09:50 XRAY Chest (1 view) In Process Unspecified. EDMS 11:59 COVID-19 SARS RT PCR (Document "Date of Onset" if Symptomatic) Sent. aa5 12:43 CT Chest Abdomen Pelvis W/O Contrast In Process Unspecified. EDMS 14:24 Saroj Oneal is Hospitalizing Provider. pm1 14:40 [place] cath inserted, using sterile technique, 18 Fr., by ok, balloon inflated, to cb5 gravity drainage, other pt huan procedure well. Used customer support technician. Received yellow urine in return. 16:18 Report given to Gave report to Cameron Bishop cb5 Administered Medications: 14:55 Drug: Lasix (furosemide) 80 mg Route: IVP; Site: right antecubital; cb5 Output: 16:25 Urine: 450ml; Total: 450ml. cb5 Outcome: 14:25 Decision to Hospitalize by Provider. pm1 16:28 Patient left the ED. cb5 Signatures: Dispatcher [employer] EDNE Sofía Diez Audri, RN RN aa5 Alfredo Frazier, GRANITE INSTALLER GRANITE INSTALLER pm1 Kaley Rutherford 3 Norma Nugent, RN RN ww Laura Méndez, RN RN cb5
[2021-11-22] MEDS ORDERED: FUROSEMIDE 40 MG/4 ML VIAL ONE (14:41)
[2021-11-22] MEDS: FUROSEMIDE 100 MG/10 ML VIAL IV SCH ×2 (15:00→21:19)
--- NOTE | 2021-11-22 15:08 | P.CNS ---
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 GFR on admission is 11 ml/min. Allergies hydrocodone Allergy (Verified 11/22/21 16:55) Hives/Rash Penicillins Allergy (Verified 11/22/21 16:55) Hives/Rash Review of Systems General: Weakness Eyes: Unremarkable ENT: Other (facial swelling) Respiratory: Shortness of Breath, SOB with Excertion Cardiovascular: Orthopnea, Edema Gastrointestinal: Unremarkable Genitourinary: Unremarkable Musculoskeletal: Pedal edema Integumentary: As per HPI Neurological: Weakness Lymphatics: Unremarkable Physical Examination General: Other (chronically ill appearing) HEENT: Atraumatic, Normocephalic, Other (facial edema) Neck: Supple, JVD not distended Respiratory: Normal air movement Cardiovascular: No rubs, No murmurs Gastrointestinal: Soft and benign, No guarding Musculoskeletal: Swelling Integumentary: No warmth Neurological: Other (lethargy) Urinary: Other (no bladder distention) External genitalia: Deferred Rectal: Deferred Laboratory Data (last 24 hrs) 11/22/21 09:15: PT 37.0 H, INR 3.28 11/22/21 09:15: WBC 3.60 L, Hgb 8.3 L, Hct 25.7 L, Plt Count 159 11/22/21 09:15: Sodium 134 L, Potassium 4.4, BUN 52 H, Creatinine 3.90 H, Glucose 96, Total Bilirubin 0.2, AST 10 L, ALT < 6 L, Alkaline Phosphatase 69 Conclusions/Impression: # EUNICE vs progressive proteinuric CKD4-5 presumed to be 2/2 DM/Htn Baseline GFR 15-17 as of 08/2021 GFR 11 on hosp adm Hx of EUNICE 2/2 ischemic ATN in the setting of SSS c/b cardiac arrest. Received HD 12/2020-04/2021. F/u urinalysis, urine chem, upcr, CPK Insert cannon Renal diet At high risk of needing HD in the next 2-3d Monitor I/O, renal panel # Anasarca +Hypoalbuminemia BNP sig elevated TTE on 08/20 showed LVEF 40-44%, gr. 1 diastolic dysfxn. Recheck TTE Start Lasix 160 mg IV q6h x 8 doses Insert cannon # RLE provoked DVT (from R femoral dialysis catheter) Hx provoked SVC thrombus (from dialysis catheter) & bilateral PE, started therapeutic anticoagulation on 03/19/21 S/p IVC filter placement on 06/02 using Cordis TrapEase vena cava filter Will need to wear graduated compression stocking (GCS) thigh-high on RLE, at least 20-30 mmHg, for at least 2 years, wear during the daytime, remove at bedtime, to prevent post-thrombotic syndrome Check BLE dopper US Has been on coumadin planned for long-term Monitor INR # CAD s/p LA s/p PCI s/p CABG, SSS s/p PPM Per other services Lasix as above Continue other cardioprudent meds # PVD Per Surgery service # Anemia F/u iron panel Resume Retacrit # HyperPO4 Was on sevelamer at home Monitor Ca & Phos Avoid Ca-based phos binder # Secondary hyperPTH Cont Calcitriol 0.25 mcg po daily Cont D3 2000 IU po daily # Debility PT/OT
--- NOTE | 2021-11-22 15:42 | P.HP ---
Certification for Inpatient Patient admitted to: Inpatient With expected LOS: >2 Midnights Practitioner: I am a practitioner with admitting privileges, knowledge of patient current condition, hospital course, and medical plan of care. Services: Services provided to patient in accordance with Admission requirements found in Title 42 Section 412.3 of the Code of Federal Regulations Patient History Date of Service: 11/22/21 Reason for admission: Anasarca History of Present Illness: 71-year-old woman with a history of CAD s/p CABG, end-stage renal disease, off dialysis for months, history of congestive heart failure, hypothyroidism was brought to the emergency department accompanied by her with a complaint of progressive generalized edema and shortness of breath. Hemodialysis was discontinued a few months ago due to multiple DVTs associated with multiple dialysis catheter. Chest x-ray in the ED demonstrated pulmonary edema. Patient has massive lower extremity edema. Her PCP recently increased her Bumex dose which did not help the edema. Patient has failed outpatient treatment and she is admitted for further management. - Past Medical/Surgical History -: ESRD -: Chronic diastolic heart failure -: Hypertension -: Diabetes mellitus -: Hypothyroidism -: Coronary artery disease -: CABG - Family History Family History: Reviewed- Non-Contributory - Social History Alcohol use: No CD- Drugs: No Place of Residence: Home Physical Examination - Physical Exam General: In no apparent distress, Oriented x3 HEENT: PERRLA, Mucous membr. moist/pink, Sclerae nonicteric Neck: Supple, JVD not distended Respiratory: Diminished, Crackles/rales (Mild bibasilar rales) Cardiovascular: Regular rate/rhythm, Normal S1 S2, No murmurs, Edema (3+ bilateral lower extremity edema up to thighs) Gastrointestinal: Normal bowel sounds, Soft and benign, Non-distended, No tenderness Musculoskeletal: Swelling (Bilateral legs) Integumentary: No breakdown, No erythema, No cyanosis Neurological: Normal speech, Other (No focal motor deficits) Lymphatics: No axilla or inguinal lymphadenopathy - Studies Laboratory Data (last 24 hrs) 11/22/21 09:15: PT 37.0 H, INR 3.28 11/22/21 09:15: WBC 3.60 L, Hgb 8.3 L, Hct 25.7 L, Plt Count 159 11/22/21 09:15: Sodium 134 L, Potassium 4.4, BUN 52 H, Creatinine 3.90 H, Glucose 96, Total Bilirubin 0.2, AST 10 L, ALT < 6 L, Alkaline Phosphatase 69 Assessment and Plan - Problems (Diagnosis) (1) Anasarca associated with disorder of kidney Current Visit: Yes Status: Acute (2) ESRD (end stage renal disease) Current Visit: Yes Status: Acute (3) Acute on chronic diastolic heart failure Current Visit: Yes Status: Acute (4) Morbid obesity Current Visit: Yes Status: Acute (5) Diabetes mellitus Current Visit: Yes Status: Acute (6) History of DVT (deep vein thrombosis) Current Visit: Yes Status: Acute (7) Chronic anticoagulation Current Visit: Yes Status: Acute - Plan Admit patient to the medical floor. Consulted nephrology. Patient seen by Dr. Oneal and she is started on high-dose Lasix. [place] catheter inserted Strict intake and output monitoring. Daily weight Check TSH Monitor renal function on IV Lasix Resume Coumadin at a lower dose. Monitor PT and INR Continue home dose heart failure and CAD medications. Insulin sliding scale for glucose management. - Advance Directives Does patient have a Living Will: No Does patient have a Durable POA for Healthcare: No
[2021-11-22 16:36] LABS: Ferritin 117.1 ng/mL (8-388); Magnesium 1.7 mg/dL (1.8-2.4); Phosphorus 3.3 mg/dL (2.5-4.9)
[2021-11-22] MEDS: INSULIN -REGULAR HUMAN 50 UNIT/0.5 ML ML SQ SCH ×2 (16:55→21:00)
[2021-11-22] MEDS ORDERED: ONDANSETRON 4 MG/2 ML VIAL IV PRN (16:55)
[2021-11-22] MEDS: WARFARIN SODIUM 1 MG TAB PO SCH (17:00)
[2021-11-22 18:50] VITALS: BMI 43.1
[2021-11-22 21:03] LABS: Urine Appearance CLOUDY (Clear); Urine Bilirubin NEGATIVE (Negative); Urine Blood 1+ (Negative); Urine Color YELLOW (Yellow); Urine Glucose NEGATIVE (Negative); Urine Protein 1+ (Negative); Urine Specific Gravity <=1.005 (1.005-1.030); Urine Urobilinogen 0.2 mg/dL (0.2-1.0)
[2021-11-22 21:04] LABS: Urine Microscopic Reflex ORDER UMIC
[2021-11-22 21:09] LABS: Urine Bacteria >50 /HPF (<20)
[2021-11-23] MEDS: FUROSEMIDE 100 MG/10 ML VIAL IV SCH ×4 (03:34→21:32)
[2021-11-23 06:25] LABS: Hematocrit 28.6 % (36.0-45.0); Lymphocytes % 27.5 % (15.3-44.8); MPV 7.3 fL (7.6-11.3); Protime INR 3.28; RBC Red Blood Cell Count 3.02 M/uL (3.86-4.86)
[2021-11-23 06:32] LABS: Potassium 4.5 mmol/L (3.5-5.1)
[2021-11-23 06:55] LABS: Magnesium 1.8 mg/dL (1.8-2.4); Phosphorus 3.5 mg/dL (2.5-4.9)
[2021-11-23 06:56] LABS: Thyroid Stimulating Hormone 55.1 uIU/mL (0.360-3.740)
[2021-11-23] MEDS: INSULIN -REGULAR HUMAN 50 UNIT/0.5 ML ML SQ SCH ×4 (07:30→21:00)
[2021-11-23] MEDS ORDERED: INFLUENZA VACCINE (for 6+ mo) 0.5 ML DOSE IMVAC ONE (11:00)
[2021-11-23] MEDS: CALCIUM CARBONATE CHEW 500MG TAB PO SCH (11:03)
[2021-11-23] MEDS: ASPIRIN 81 MG CHEWABLE TABLET PO SCH (11:04)
[2021-11-23] MEDS: HYDRALAZINE HCL 25 MG TABLET PO SCH ×2 (11:04→21:33)
[2021-11-23] MEDS: TAMSULOSIN 0.4 MG SR CAP PO SCH (11:05)
[2021-11-23] MEDS: CYANOCOBALAMIN 1,000 MCG TAB PO SCH (11:06)
[2021-11-23] MEDS: MECLIZINE HCL 12.5 MG TAB PO SCH ×2 (13:31→21:34)
[2021-11-23] MEDS: ISOSORBIDE DINIT 20 MG TAB PO SCH ×2 (13:32→21:34)
--- NOTE | 2021-11-23 13:42 | P.PN ---
Subjective Date of Service: 11/23/21 Chief Complaint: Anasarca Patient is doing much better today. She is more awake and alert. Her peripheral edema has significantly improved compared to yesterday. She denies shortness of breath but she is maintained on 2 L oxygen by nasal cannula. Physical Examination - Vital Signs Temperature: 97.8 F Blood Pressure: 128/62 Pulse: 85 Respirations: 16 Pulse Ox (%): 98 - Physical Exam General: Alert, In no apparent distress, Oriented x3 HEENT: Mucous membr. moist/pink, Sclerae nonicteric Neck: Supple, JVD not distended Respiratory: Clear to auscultation bilaterally, Normal air movement Cardiovascular: Regular rate/rhythm, Normal S1 S2, Edema (Bilateral lower extremities significantly improved) Gastrointestinal: Soft and benign, Non-distended, No tenderness Musculoskeletal: Swelling (Bilateral lower extremities.) Integumentary: Other (Bilateral lower extremity venous stasis dermatitis) Neurological: Normal speech, Normal strength at 5/5 x4 extr, Cranial nerves 3-12 intact Assessment And Plan - Current Problems (Diagnosis) (1) Anasarca associated with disorder of kidney Current Visit: Yes Status: Acute (2) ESRD (end stage renal disease) Current Visit: Yes Status: Acute (3) Acute on chronic diastolic heart failure Current Visit: Yes Status: Acute (4) Morbid obesity Current Visit: Yes Status: Acute (5) Diabetes mellitus Current Visit: Yes Status: Acute (6) History of DVT (deep vein thrombosis) Current Visit: Yes Status: Acute (7) Chronic anticoagulation Current Visit: Yes Status: Acute - Plan Patient clinically improved. Continue Lasix therapy as recommended by nephrology Maintain Hays catheter Intake and output monitoring. Daily weight Renal function is stable on IV Lasix Continue Coumadin at a lower dose. Monitor PT and INR Continue home dose heart failure and CAD medications. Insulin sliding scale for glucose management.
--- NOTE | 2021-11-23 15:06 | P.PN ---
Subjective Date of Service: 11/23/21 Chief Complaint: Anasarca Subjective: Other (Became unresponsive today. Head CT done.) Physical Examination - Vital Signs Temperature: 97.8 F Blood Pressure: 128/62 Pulse: 85 Respirations: 16 Pulse Ox (%): 98 - Physical Exam General: Other (appears chronically ill) HEENT: Atraumatic, Normocephalic Neck: Supple, JVD not distended Respiratory: Other (symmetric chest expansion) Cardiovascular: No rubs, No murmurs Gastrointestinal: Soft and benign, No guarding Musculoskeletal: No clubbing, Swelling Integumentary: No warmth Neurological: Normal tone Lymphatics: No axilla or inguinal lymphadenopathy Urinary: Cannon catheter, Other (no bladder distention) External genitalia: Deferred Rectal: Deferred Assessment And Plan - Plan # EUNICE vs progressive proteinuric CKD4-5 presumed to be 2/2 DM/Htn Baseline GFR 15-17 as of 08/2021 GFR 11 on hosp adm, at 12 today Hx of EUNICE 2/2 ischemic ATN in the setting of SSS c/b cardiac arrest. Received HD 12/2020-04/2021. Urinalysis inadeq sample, urine chem non-prerenal, mild proteinuria, CPK wnl no rhabdo No emergent indication for HD Vascular Surg eval for AVF vs AVG as outpt Cont cannon Renal diet Monitor I/O, renal panel # Anasarca +Hypoalbuminemia BNP sig elevated TTE on 08/20 showed LVEF 40-44%, gr. 1 diastolic dysfxn Cont Lasix 160 mg IV q6h x 8 doses Cont cannon # AMS CT head on 11/23 unremarkable Monitor Continue anti-epileptic/s # RLE provoked DVT (from R femoral dialysis catheter) Hx provoked SVC thrombus (from dialysis catheter) & bilateral PE, started therapeutic anticoagulation on 03/19/21 S/p IVC filter placement on 06/02 using Cordis TrapEase vena cava filter Will need to wear graduated compression stocking (GCS) thigh-high on RLE, at le ast 20-30 mmHg, for at least 2 years, wear during the daytime, remove at bedtime, to prevent post-thrombotic syndrome Has been on coumadin planned for long-term Monitor INR # CAD s/p CA s/p PCI s/p CABG, SSS s/p PPM Per other services Lasix as above Continue other cardioprudent meds # PVD Per Surgery service # Anemia Iron panel showed adeq iron stores Received Epo on 11/23 # HyperPO4 Sevelamer # Secondary hyperPTH Cont Calcitriol 0.25 mcg po daily Cont D3 2000 IU po daily # Debility PT/OT
[2021-11-23] MEDS ORDERED: levETIRAcetam 500 MG in NA CHLORIDE 0.9% 100 ML IV SCH (15:45)
[2021-11-23] MEDS ORDERED: EPOETIN ALFA 10,000 UNIT/ML VIAL SQ SCH (16:00)
[2021-11-23] MEDS ORDERED: levETIRAcetam 500 MG in NA CHLORIDE 0.9% 100 ML IV ONE (16:00)
[2021-11-23] MEDS: WARFARIN SODIUM 1 MG TAB PO SCH (16:41)
--- NOTE | 2021-11-23 16:47 | RAD REPORT ---
EXAM DESCRIPTION: CT - Head Brain Wo Cont - 11/23/2021 4:34 pm CLINICAL HISTORY: code stroke COMPARISON: Pelvis Wo Cont dated 07/05/2021Head Brain Wo Cont dated 06/17/2021 TECHNIQUE: All CT scans are performed using dose optimization technique as appropriate and may inclu de automated exposure control or mA/KV adjustment according to patient size. FINDINGS: No intracranial hemorrhage, hydrocephalus or extra-axial fluid collection.No areas of brai n edema or evidence of midline shift. Cerebral atrophy. The paranasal sinuses and mastoids are clear. The calvarium is intact. IMPRESSION: No acute intracranial abnormality.
[2021-11-23] MEDS: DIVALPROEX ER 250 MG TAB PO SCH (21:32)
[2021-11-23] MEDS: ATORVASTATIN 40 MG TAB PO SCH (21:32)
[2021-11-23] MEDS: MIRTAZAPINE 15 MG TAB PO SCH (21:33)
[2021-11-23] MEDS: carvediloL 6.25 MG TAB PO SCH (21:33)
[2021-11-23] MEDS: QUETIAPINE 25 MG TAB PO SCH (21:34)
[2021-11-24 05:36] LABS: Absolute Lymphocytes (CBC) 1.2 K/uL (0.7-4.9); Hematocrit 25.5 % (36.0-45.0); Lymphocytes % 35.4 % (15.3-44.8); MPV 7.9 fL (7.6-11.3); RBC Red Blood Cell Count 2.71 M/uL (3.86-4.86)
[2021-11-24 05:43] LABS: Magnesium 1.8 mg/dL (1.8-2.4); Phosphorus 3.6 mg/dL (2.5-4.9); Potassium 4.5 mmol/L (3.5-5.1)
[2021-11-24] MEDS: FUROSEMIDE 100 MG/10 ML VIAL IV SCH ×2 (05:43→10:23)
[2021-11-24] MEDS: LEVOTHYROXINE SOD 0.075 MG TAB PO SCH (05:47)
[2021-11-24 05:48] LABS: Protime INR 2.64
[2021-11-24] MEDS: INSULIN -REGULAR HUMAN 50 UNIT/0.5 ML ML SQ SCH ×4 (07:30→20:45)
[2021-11-24] MEDS ORDERED: VITAMIN D 1000 UNIT TAB PO SCH (09:00)
[2021-11-24] MEDS: SEVELAMER CARBONATE 800 MG TABLET PO SCH ×3 (10:21→16:34)
[2021-11-24] MEDS: ISOSORBIDE DINIT 20 MG TAB PO SCH ×3 (10:21→20:44)
[2021-11-24] MEDS: VITAMIN D 1000 UNIT TAB PO SCH (10:21)
[2021-11-24] MEDS: HYDRALAZINE HCL 25 MG TABLET PO SCH ×3 (10:21→20:44)
[2021-11-24] MEDS: MECLIZINE HCL 12.5 MG TAB PO SCH ×3 (10:21→20:44)
[2021-11-24] MEDS: PANTOPRAZOLE 40MG TABLET PO SCH (10:22)
[2021-11-24] MEDS: carvediloL 6.25 MG TAB PO SCH ×2 (10:22→20:44)
[2021-11-24] MEDS: FERROUS SULFATE 325 MG TAB PO SCH (10:22)
[2021-11-24] MEDS: DIVALPROEX ER 250 MG TAB PO SCH ×2 (10:22→20:44)
[2021-11-24] MEDS: CALCITROL 0.25 MCG CAP PO SCH (10:23)
[2021-11-24] MEDS ORDERED: Levofloxacin500mg IV 500 MG/100 ML BAG IV SCH (14:00)
--- NOTE | 2021-11-24 15:19 | P.PN ---
Subjective Date of Service: 11/24/21 Chief Complaint: Anasarca Patient is drowsy today. More arousable at the moment. Suspect that she is assisted in the afternoon. Patient given a dose of IV Keppra. She continues to diurese well with the IV Lasix. Physical Examination - Vital Signs Temperature: 97.1 F Blood Pressure: 130/62 Pulse: 73 Respirations: 16 Pulse Ox (%): 96 - Physical Exam General: Other (Drowsy) HEENT: PERRLA, Mucous membr. moist/pink, Sclerae nonicteric Neck: Supple, JVD not distended Respiratory: Clear to auscultation bilaterally, Normal air movement Cardiovascular: Regular rate/rhythm, Normal S1 S2, Edema (Bilateral legs) Gastrointestinal: Normal bowel sounds, Soft and benign, Non-distended, No tenderness Musculoskeletal: No tenderness Integumentary: No rashes, No cyanosis Neurological: Normal strength at 5/5 x4 extr, Other (Drowsy) Assessment And Plan - Current Problems (Diagnosis) (1) Anasarca associated with disorder of kidney Current Visit: Yes Status: Acute (2) ESRD (end stage renal disease) Current Visit: Yes Status: Acute (3) Acute on chronic diastolic heart failure Current Visit: Yes Status: Acute (4) Morbid obesity Current Visit: Yes Status: Acute (5) Diabetes mellitus Current Visit: Yes Status: Acute (6) History of DVT (deep vein thrombosis) Current Visit: Yes Status: Acute (7) Chronic anticoagulation Current Visit: Yes Status: Acute - Plan UA suggest the presence of UTI, urine culture growing gram-negative rods. Started IV Levaquin. Follow urine culture. Lasix therapy as recommended by nephrology. It appears patient will complete the higher dose Lasix today. Maintain Hays catheter Intake and output monitoring. Daily weight Renal function is stable on IV Lasix Continue Coumadin for history of DVT. Monitor PT and INR Continue home dose heart failure and CAD medications. Insulin sliding scale for glucose management. Continue Depakote for history of seizures.
[2021-11-24] MEDS: WARFARIN SODIUM 1 MG TAB PO SCH (16:34)
[2021-11-24] MEDS: QUETIAPINE 25 MG TAB PO SCH (20:44)
[2021-11-24] MEDS: ATORVASTATIN 40 MG TAB PO SCH (20:44)
[2021-11-24] MEDS: MIRTAZAPINE 15 MG TAB PO SCH (20:45)
[2021-11-24] MEDS: LACTULOSE 20 GM/30 ML UCUP PO PRN (22:46)
--- NOTE | 2021-11-24 23:04 | PN ---
Date of Progress Note: 11/24/2021 Chief Complaint: Lhsxo-fw-tizipng kidney injury, fluid overload, anasarca. History Of Present Illness: The patient developed gjjkw-pz-hmudxoh kidney injury. She has history o f proteinuric chronic kidney disease stage 4 advancing to stage 5 baseline. GFR is 15. During this admission the baseline creatinine level was elevated and GFR dropped to 11. Renal function is platea uing and GFR is worse. The patient has fluid overload. She denies fever or chills. Physical Examination: Lungs: Equal chest expansion. Heart: S1, S2. Abdomen: Soft, benign. Extremities: Edema present. Impression And Plan: 1.Acute kidney injury on chronic kidney disease. The patient has nonoliguric urine output. The pat ient developed acute kidney injury due to acute tubular necrosis in setting of cardiac arrest and sic k sinus syndrome. The patient received dialysis November 14 and November 18. Urinalysis was inadequate and the patient will have a urinalysis evaluated. CPK was within normal limits. With no evidence of rhabdomyolysis. At this point, renal function is gradually improving and dialysis is on hold. [facility] Service is evaluating for evaluate for possible AV fistula or AV graft. Plan is to monitor deborah l function and continue Hays catheter. Monitor I's and O's and provide adequate hydration. 2.Anasarca. The patient has multiple medical problems. She has history of left ventricular ejectio n fraction of 40%-44%, diastolic congestive heart failure and systolic congestive heart failure. The patient will continue Lasix IV 160 mg every 6 hours for 8 doses. 3.Altered mental status. The patient had a CT scan done on November 23, which was unremarkable and t he patient will continue on antiepileptic medication. 4.Coronary artery disease with history of myocardial infarction, history of percutaneous coronary in tervention, status post coronary artery bypass graft. Lasix for congestive heart failure will be giv en. 5.Hyperphosphatemia. Continue Renvela. 6.Secondary hyperparathyroidism. Continue calcitriol and vitamin D. EB/MODL Voice ID: [id number] Report ID: [id number]
[2021-11-25] MEDS: LEVOTHYROXINE SOD 0.075 MG TAB PO SCH (05:36)
[2021-11-25 05:46] LABS: Absolute Lymphocytes (CBC) 1.1 K/uL (0.7-4.9); Lymphocytes % 23.4 % (15.3-44.8); MPV 7.3 fL (7.6-11.3); RBC Red Blood Cell Count 2.64 M/uL (3.86-4.86)
[2021-11-25 05:48] LABS: Protime INR 2.23
[2021-11-25 06:00] LABS: Albumin 1.9 g/dL (3.4-5.0); Magnesium 1.8 mg/dL (1.8-2.4); Phosphorus 3.5 mg/dL (2.5-4.9); Potassium 4.3 mmol/L (3.5-5.1)
[2021-11-25 06:43] LABS: Potassium 4.4 mmol/L (3.5-5.1)
[2021-11-25] MEDS: INSULIN -REGULAR HUMAN 50 UNIT/0.5 ML ML SQ SCH ×4 (07:30→20:24)
[2021-11-25] MEDS ORDERED: ERTAPENEM SODIUM 1 GM VIAL IVPB SCH (08:00)
[2021-11-25] MEDS ORDERED: Meropenem 1,000 MG in NA CHLORIDE 0.9% 100 ML IV SCH (09:00)
[2021-11-25] MEDS: Meropenem 500 MG in NA CHLORIDE 0.9% 100 ML IV SCH ×2 (09:21→20:22)
[2021-11-25] MEDS: DIVALPROEX ER 250 MG TAB PO SCH ×2 (11:12→20:22)
[2021-11-25] MEDS: FERROUS SULFATE 325 MG TAB PO SCH (11:12)
[2021-11-25] MEDS: SEVELAMER CARBONATE 800 MG TABLET PO SCH ×3 (11:12→17:44)
[2021-11-25] MEDS: PANTOPRAZOLE 40MG TABLET PO SCH (11:13)
[2021-11-25] MEDS: CALCIUM CARBONATE CHEW 500MG TAB PO SCH (11:13)
[2021-11-25] MEDS: CALCITROL 0.25 MCG CAP PO SCH (11:13)
[2021-11-25] MEDS: TAMSULOSIN 0.4 MG SR CAP PO SCH (11:13)
[2021-11-25] MEDS: carvediloL 6.25 MG TAB PO SCH ×2 (11:14→20:24)
[2021-11-25] MEDS: ISOSORBIDE DINIT 20 MG TAB PO SCH ×3 (11:14→20:23)
[2021-11-25] MEDS: HYDRALAZINE HCL 25 MG TABLET PO SCH ×3 (11:14→20:23)
[2021-11-25] MEDS: ASPIRIN 81 MG CHEWABLE TABLET PO SCH (11:14)
[2021-11-25] MEDS: CYANOCOBALAMIN 1,000 MCG TAB PO SCH (11:20)
[2021-11-25] MEDS: VITAMIN D 1000 UNIT TAB PO SCH (11:20)
[2021-11-25] MEDS: MECLIZINE HCL 12.5 MG TAB PO SCH ×3 (11:20→20:23)
--- NOTE | 2021-11-25 12:48 | P.PN ---
Subjective Date of Service: 11/25/21 Chief Complaint: Anasarca Subjective: Improving (Found to have ESBL UTI) Physical Examination - Vital Signs Temperature: 98.8 F Blood Pressure: 140/57 Pulse: 79 Respirations: 20 Pulse Ox (%): 98 - Physical Exam General: Cooperative, Other (emotionally labile) HEENT: Atraumatic, Normocephalic Cardiovascular: Regular rate/rhythm, Normal S1 S2, Edema Musculoskeletal: Swelling Assessment And Plan - Current Problems (Diagnosis) (1) Acute on chronic diastolic heart failure Current Visit: Yes Status: Acute (2) Anasarca associated with disorder of kidney Current Visit: Yes Status: Acute (3) Chronic anticoagulation Current Visit: Yes Status: Acute (4) Diabetes mellitus Current Visit: Yes Status: Acute (5) ESRD (end stage renal disease) Current Visit: Yes Status: Acute (6) History of DVT (deep vein thrombosis) Current Visit: Yes Status: Acute (7) Morbid obesity Current Visit: Yes Status: Acute Physician Review Additional Text: Assessment Patient is a 71 year old female with a past medical history of morbid obesity, ESRD, HTN, CAD S/P CABG. She was brought in by for progressively worsening anasarca and shortness of breath. Her renal function was found to have acute on chronic, non-oliguric renal failure. She is in early recovery for EUNICE. Acute on chronic renal failure Anasarca HD access issues ESBL UTI Morbid obesity CAD S/P CABG PLAN: Started on meropenem for Klebsiella ESBL UTI DC levofloxacin Continue lasix for management of volume overload Maintain Hays catheter Intake and output monitoring. Continue Coumadin for history of DVT. INR of 2.23 today Continue home dose heart failure and CAD medications. Continue Depakote for history of seizures Insulin sliding scale
--- NOTE | 2021-11-25 13:41 | RAD REPORT ---
EXAM DESCRIPTION: US - Lower Extremity Arterial Bilat - 11/25/2021 6:55 am CLINICAL HISTORY: Leg pain COMPARISON: None FINDINGS: The common femoral, superficial femoral and popliteal arteries bilaterally demonstrate monophasic wav eforms The posterior tibial and dorsalis pedis arteries demonstrate monophasic waveforms bilaterally. Grayscale, color and spectral analysis performed on all vessels IMPRESSION: Monophasic bilateral arterial waveforms. This may indicate aortoiliac disease
[2021-11-25] MEDS: WARFARIN SODIUM 2 MG TAB PO SCH (17:44)
[2021-11-25] MEDS: QUETIAPINE 25 MG TAB PO SCH (20:22)
[2021-11-25] MEDS: BUMETANIDE 1 MG TABLET PO SCH (20:23)
[2021-11-25] MEDS: MIRTAZAPINE 15 MG TAB PO SCH (20:23)
[2021-11-25] MEDS: ATORVASTATIN 40 MG TAB PO SCH (20:23)
[2021-11-26] MEDS: ACETAMINOPHEN 500 MG TAB PO PRN ×3 (02:50→22:03)
--- NOTE | 2021-11-26 03:16 | PN ---
Date of Progress Note: 11/25/2021 Chief Complaint: Acute on chronic kidney injury, fluid overload, anasarca, urinary tract infection. Subjective: Patient has history of chronic kidney disease stage 4, which is advancing to stage 5. G FR is 13, it dropped to 11, but it has improved somewhat and patient has nonoliguric urine output. Review of Systems: Denies fever, chills. Objective: Lungs: Clear to auscultation bilaterally. Heart: S1, S2. Abdomen: Soft, benign. Extremities: Edema present. Impression And Plan: 1.Acute kidney injury on chronic kidney disease. Renal function is plateauing. Urine output is sta ble. The patient developed acute kidney injury due to acute tubular necrosis in setting of cardiac a rrest and sick sinus syndrome. CPK was within normal limits. There is no evidence of rhabdomyolysis . Patient has urinary tract infection. Continue antibiotics. 2.Anasarca. The patient has multiple medical problems including history of congestive heart failure with systolic dysfunction. Continue low-sodium diet. Patient will continue Lasix 160 mg every 6 ho urs for 8 doses. 3.Altered mental status. The patient had a CT scan done on November 23, was unremarkable for stroke. Patient will continue anti-epileptic medication. 4.Coronary artery disease. Continue Lasix for congestive heart failure. 5.Hyperphosphatemia. Patient is taking Renvela. Continue low-phosphorous diet. 6.Secondary hyperparathyroidism of renal origin. Continue vitamin D and. 7.calcitriol. EB/MODL Voice ID: [id number] Report ID: [id number]
[2021-11-26] MEDS: LEVOTHYROXINE SOD 0.075 MG TAB PO SCH ×2 (05:32→06:00)
[2021-11-26 05:38] LABS: Protime INR 1.77
[2021-11-26 05:48] LABS: Albumin 1.9 g/dL (3.4-5.0); Phosphorus 3.3 mg/dL (2.5-4.9); Potassium 4.2 mmol/L (3.5-5.1)
--- NOTE | 2021-11-26 07:25 | EKG ---
Test Date: 2021-11-25 Test Time: 09:42:04 Paper Processing Machine Helper: MIKE MEASUREMENT RESULTS: Intervals: Rate: 82 ND: 142 QRSD: 122 QT: 400 QTc: 467 [place]: P: 39 ND: 142 QRS: 141 T: 72 INTERPRETIVE STATEMENTS: Normal sinus rhythm Right bundle branch block T wave abnormality, consider inferior ischemia Abnormal ECG Compared to ECG 11/22/2021 09:09:54 T-wave abnormality now present Possible ischemia now present Myocardial infarct finding no longer present Electronically Signed On 11-26-21 07:22:13 CDT by Waylon Shanks
[2021-11-26] MEDS: INSULIN -REGULAR HUMAN 50 UNIT/0.5 ML ML SQ SCH ×4 (07:30→21:00)
[2021-11-26] MEDS ORDERED: WARFARIN SODIUM 3 MG TAB PO SCH (09:00)
--- NOTE | 2021-11-26 09:49 | P.PN ---
Subjective Date of Service: 11/26/21 Chief Complaint: Anasarca Subjective: Improving (Patient is doing well. Completing a course of meropenem) Physical Examination - Vital Signs Temperature: 97 F Blood Pressure: 108/45 Pulse: 78 Respirations: 19 Pulse Ox (%): 94 - Physical Exam General: Alert, Cooperative, Obese HEENT: Atraumatic, Normocephalic Neck: Supple Respiratory: Clear to auscultation bilaterally, Normal air movement Cardiovascular: Regular rate/rhythm, Normal S1 S2 Gastrointestinal: Soft and benign, Non-distended Musculoskeletal: Swelling Neurological: Normal speech, Normal affect Assessment And Plan - Current Problems (Diagnosis) (1) Acute on chronic diastolic heart failure Current Visit: Yes Status: Acute (2) Anasarca associated with disorder of kidney Current Visit: Yes Status: Acute (3) Chronic anticoagulation Current Visit: Yes Status: Acute (4) Diabetes mellitus Current Visit: Yes Status: Acute (5) ESRD (end stage renal disease) Current Visit: Yes Status: Acute (6) History of DVT (deep vein thrombosis) Current Visit: Yes Status: Acute (7) Morbid obesity Current Visit: Yes Status: Acute Physician Review Additional Text: Assessment Patient is a 71 year old female with a past medical history of morbid obesity, ESRD, HTN, CAD S/P CABG, cardiac arrest after SSS. She was brought in by for progressively worsening anasarca and shortness of breath. Her renal function was found to have acute on chronic, non-oliguric renal failure. She was found to have ESBL UTI. Currently w/o HD access after multiple line- associated DVTs Acute on chronic renal failure - non-oliguric Anasarca HD access issues - hx of DVTs. ESBL UTI Morbid obesity CAD S/P CABG PLAN: Day 2 of 3 of meropenem for Klebsiella ESBL UTI Plan to discharge w/o long-term IV antibiotics Monitor I/O Continue Coumadin for history of recurrent DVT. INR goal of 2-3 Briefly held warfarin for subtherapeutic INR, now resumed at a lower dose. INR 1.77 Continue home dose heart failure and CAD medications. Continue Depakote for history of seizures Insulin sliding scale Will need to follow up with her Vascular surgeon for AVF/graft placement
[2021-11-26] MEDS: VITAMIN D 1000 UNIT TAB PO SCH (09:55)
[2021-11-26] MEDS: ASPIRIN 81 MG CHEWABLE TABLET PO SCH (09:55)
[2021-11-26] MEDS: carvediloL 6.25 MG TAB PO SCH ×2 (09:55→22:03)
[2021-11-26] MEDS: CALCIUM CARBONATE CHEW 500MG TAB PO SCH (09:55)
[2021-11-26] MEDS: MECLIZINE HCL 12.5 MG TAB PO SCH ×3 (09:56→22:01)
[2021-11-26] MEDS: CYANOCOBALAMIN 1,000 MCG TAB PO SCH (09:56)
[2021-11-26] MEDS: HYDRALAZINE HCL 25 MG TABLET PO SCH ×3 (09:56→22:02)
[2021-11-26] MEDS: TAMSULOSIN 0.4 MG SR CAP PO SCH (09:56)
[2021-11-26] MEDS: CALCITROL 0.25 MCG CAP PO SCH (09:59)
[2021-11-26] MEDS: PANTOPRAZOLE 40MG TABLET PO SCH (09:59)
[2021-11-26] MEDS: BUMETANIDE 1 MG TABLET PO SCH ×2 (09:59→22:02)
[2021-11-26] MEDS: DIVALPROEX ER 250 MG TAB PO SCH ×2 (09:59→22:01)
[2021-11-26] MEDS: ISOSORBIDE DINIT 20 MG TAB PO SCH ×3 (09:59→22:03)
[2021-11-26] MEDS: SEVELAMER CARBONATE 800 MG TABLET PO SCH ×3 (10:00→17:51)
[2021-11-26] MEDS: Meropenem 500 MG in NA CHLORIDE 0.9% 100 ML IV SCH ×2 (10:00→22:01)
[2021-11-26] MEDS: FERROUS SULFATE 325 MG TAB PO SCH (10:03)
[2021-11-26] MEDS ORDERED: CODEINE 30MG/APAP 300MG TAB PO ONE (12:41)
[2021-11-26] MEDS: LACTULOSE 20 GM/30 ML UCUP PO PRN (12:57)
--- NOTE | 2021-11-26 13:08 | ECHO ---
HEIGHT: 5 ft 2 in WEIGHT: 236 lb 0 oz DATE OF STUDY: 11/26/[address]: Prince Remy Sánchez MD 2-DIMENSIONAL: YES M.MODE: YES DOPPLER: YES COLOR FLOW: YES TDS: NO PORTABLE: NO DEFINITY: NO BUBBLE STUDY: NO DIAGNOSIS: RULE OUT CONGESTIVE HEART FAILURE CARDIAC HISTORY: CATHERIZATION:YES SURGERY: YES PROSTHETIC VALVE: NO PACEMAKER: YES MEASUREMENTS (cm) DIASTOLIC (NORMALS) SYSTOLIC (NORMALS) IVSd 1.2 (0.6-1.2) LA Diam 4.0 (1.9-4.0) LVEF 40-45% LVIDd 4.9 (3.5-5.7) LVIDs 3.6 (2.0-3.5) %FS % LVPWd 1.3 (0.6-1.2) Ao Diam 2.5 (2.0-3.7) 2 DIMENSIONAL ASSESSMENT: RIGHT ATRIUM: NORMAL LEFT ATRIUM: NORMAL RIGHT VENTRICLE: NORMAL LEFT VENTRICLE: NORMAL TRICUSPID VALVE: NORMAL MITRAL VALVE: NORMAL PULMONIC VALVE: NORMAL AORTIC VALVE: NORMAL PERICARDIAL EFFUSION: NONE AORTIC ROOT: NORMAL LEFT VENTRICULAR WALL MOTION: MILD GLOBAL HYPOKINESIS. DOPPLER/COLOR FLOW: NORMAL COMMENTS: MILD GLOBAL HYPOKINESIS. LEFT VENTRICULAR EJECTION FRACTION 40-45%. NO EFFUSION. TECHNOLOGIST: Jarett CABRAL
[2021-11-26] MEDS: WARFARIN SODIUM 2 MG TAB PO SCH (17:51)
[2021-11-26 20:52] VITALS: O2SAT 98
[2021-11-26] MEDS: ATORVASTATIN 40 MG TAB PO SCH (22:01)
[2021-11-26] MEDS: MIRTAZAPINE 15 MG TAB PO SCH (22:03)
[2021-11-26] MEDS: QUETIAPINE 25 MG TAB PO SCH (22:03)
--- NOTE | 2021-11-27 03:12 | PN ---
Date of Progress Note: 11/26/2021 Chief Complaint: Acute kidney injury on advanced chronic kidney disease, fluid overload, anasarca, u rinary tract infection. The patient has history of chronic kidney disease stage 4, is advancing to s tage 5. ESR dropped to 13 and later on to 11. The patient has nonoliguric urine output. She does n ot have uremic symptomatology. She denies nausea and vomiting. Metallic taste in her mouth. Renal function somewhat improved over last 24 hours. The patient is on IV Lasix for diastolic congestive h eart failure and fluid overload. Review of Systems: Denies fever or chills. Physical Examination: Lungs: Clear to auscultation bilaterally. Heart: S1 and S2. Abdomen: Soft. Benign. Extremities: Edema present. Impression And Plan: 1.Acute kidney injury on chronic kidney disease. Renal function is plateauing. 2.Urine output is stable. Continue IV Lasix. CPK level was normal. There is no evidence of rhabdo myolysis. Patient has urinary tract infection. Continue cefepime. 3.Anasarca. Patient will continue low-sodium diet. Monitor blood pressure closely and adjust medic ation according to blood pressure level. 4.Patient will continue IV Lasix. Monitor potassium level. EB/MODL Voice ID: [id number] Report ID: [id number]
[2021-11-27 05:50] LABS: Protime INR 1.36
[2021-11-27] MEDS: LEVOTHYROXINE SOD 0.075 MG TAB PO SCH (06:25)
[2021-11-27] MEDS: INSULIN -REGULAR HUMAN 50 UNIT/0.5 ML ML SQ SCH ×2 (07:30→11:30)
[2021-11-27] MEDS ORDERED: NA CHLORIDE 0.9% 100 ML ONE (08:36)
[2021-11-27] MEDS ORDERED: Meropenem 500 MG VIAL IV ONE (08:38)
[2021-11-27] MEDS: LACTULOSE 20 GM/30 ML UCUP PO PRN (08:45)
[2021-11-27] MEDS: CALCITROL 0.25 MCG CAP PO SCH (08:46)
[2021-11-27] MEDS: VITAMIN D 1000 UNIT TAB PO SCH (08:46)
[2021-11-27] MEDS: CYANOCOBALAMIN 1,000 MCG TAB PO SCH (08:46)
[2021-11-27] MEDS: DIVALPROEX ER 250 MG TAB PO SCH (08:46)
[2021-11-27] MEDS: CALCIUM CARBONATE CHEW 500MG TAB PO SCH (08:46)
[2021-11-27] MEDS: FERROUS SULFATE 325 MG TAB PO SCH (08:46)
[2021-11-27] MEDS: TAMSULOSIN 0.4 MG SR CAP PO SCH (08:46)
[2021-11-27] MEDS: HYDRALAZINE HCL 25 MG TABLET PO SCH (08:47)
[2021-11-27] MEDS: carvediloL 6.25 MG TAB PO SCH (08:47)
[2021-11-27] MEDS: BUMETANIDE 1 MG TABLET PO SCH (08:47)
[2021-11-27] MEDS: ASPIRIN 81 MG CHEWABLE TABLET PO SCH (08:47)
[2021-11-27] MEDS: PANTOPRAZOLE 40MG TABLET PO SCH (08:47)
[2021-11-27] MEDS: ISOSORBIDE DINIT 20 MG TAB PO SCH (08:47)
[2021-11-27] MEDS: SEVELAMER CARBONATE 800 MG TABLET PO SCH ×2 (08:48→12:37)
[2021-11-27] MEDS: MECLIZINE HCL 12.5 MG TAB PO SCH (08:48)
[2021-11-27] MEDS: Meropenem 500 MG in NA CHLORIDE 0.9% 100 ML IV SCH (08:50)
--- NOTE | 2021-11-27 09:27 | P.DS ---
Admission Date: 11/22/21 Discharge Date: 11/27/21 Disposition: ROUTINE DISCHARGE Discharge Condition: GOOD Reason for Admission: Anasarca - Problems (1) Acute on chronic diastolic heart failure Current Visit: Yes Status: Acute (2) Anasarca associated with disorder of kidney Current Visit: Yes Status: Acute (3) Chronic anticoagulation Current Visit: Yes Status: Acute (4) Diabetes mellitus Current Visit: Yes Status: Acute (5) ESRD (end stage renal disease) Current Visit: Yes Status: Acute (6) History of DVT (deep vein thrombosis) Current Visit: Yes Status: Acute (7) Morbid obesity Current Visit: Yes Status: Acute Hospital Course: Patient is a 71 year old female with a past medical history of morbid obesity, ESRD, HTN, CAD S/P CABG, cardiac arrest after SSS. She was brought in by for progressively worsening anasarca and shortness of breath. Her renal function was found to have acute on chronic, non-oliguric renal failure. She was found to have ESBL UTI. She received 3 days of Meropenem. She is currently w/o HD access after multiple line-associated DVTs. She will need to follow up with Vascular surgery. Nephrology has reached out to Marianne Stephenson MD to address access placement Vital Signs/Physical Exam: Temp Pulse Resp BP Pulse Ox 98.1 F 74 16 167/72 H 97 11/27/21 08:00 11/27/21 08:47 11/27/21 08:00 11/27/21 08:47 11/27/21 08:00 General: Alert, In no apparent distress, Cooperative, Obese HEENT: Atraumatic, Normocephalic Respiratory: Clear to auscultation bilaterally, Normal air movement Cardiovascular: Regular rate/rhythm, Normal S1 S2 Neurological: Normal speech, Normal affect Laboratory Data at Discharge: WBC 4.60 K/uL (4.3-10.9) D 11/25/21 05:25 Hgb 8.4 g/dL (12.0-15.0) L 11/25/21 05:25 Hct 25.0 % (36.0-45.0) L 11/25/21 05:25 Plt Count 133 K/uL (152-406) L 11/25/21 05:25 PT 15.0 SECONDS (9.5-12.5) H 11/27/21 05:27 INR 1.36 11/27/21 05:27 Sodium 138 mmol/L (136-145) 11/26/21 05:05 Potassium 4.2 mmol/L (3.5-5.1) 11/26/21 05:05 BUN 52 mg/dL (7-18) H 11/26/21 05:05 Creatinine 3.59 mg/dL (0.55-1.3) H 11/26/21 05:05 Glucose 80 mg/dL (74-106) 11/26/21 05:05 Phosphorus 3.3 mg/dL (2.5-4.9) 11/26/21 05:05 Magnesium 1.8 mg/dL (1.8-2.4) 11/25/21 05:25 Total Bilirubin 0.2 mg/dL (0.2-1.0) 11/22/21 09:15 AST 10 U/L (15-37) L 11/22/21 09:15 ALT < 6 U/L (12-78) L 11/22/21 09:15 Alkaline Phosphatase 69 U/L (45-117) 11/22/21 09:15 Home Medications: Aspirin 81 mg PO DAILY 11/23/21 Atorvastatin Calcium 40 mg PO BEDTIME 11/23/21 Calcium Carbonate [Calcium] 600 mg PO DAILY 11/23/21 Cholecalciferol (Vitamin D3) [Vitamin D3] 25 mcg PO DAILY 11/23/21 Divalproex Sodium [Divalproex Sodium ER] 500 mg PO BID 11/23/21 Hydralazine [Apresoline*] 50 mg PO TID 11/23/21 Iron 18 mg PO DAILY 11/23/21 Isosorbide Dinit [Isordil*] 20 mg PO TID 11/23/21 Lactulose 10 gm PO DAILYPRN PRN 11/23/21 Levothyroxine Sodium [Levothyroxine] 150 mcg PO [id number] 11/23/21 Meclizine HCl 12.5 mg PO TID 11/23/21 Mecobalamin [B12 Active] 1,000 mcg PO DAILY 11/23/21 Mirtazapine 15 mg PO BEDTIME 11/23/21 Omeprazole [Prilosec] 40 mg PO DAILY 11/23/21 Quetiapine [Seroquel*] 25 mg PO BEDTIME 11/23/21 Ranolazine [Ranolazine ER] 500 mg PO BID 11/23/21 Tamsulosin [Flomax*] 0.4 mg PO DAILY 11/23/21 carvediloL [Carvedilol] 6.25 mg PO BID 11/23/21 Bumetanide 1 mg PO BID #60 11/27/21 Calcitrol [Rocaltrol*] 0.25 mcg PO DAILY cap 11/27/21 Sevelamer Carbonate [Renvela*] 800 mg PO TIDWM tablet 11/27/21 Warfarin Sodium [Coumadin*] 2.5 mg PO DAILY #30 tab 11/27/21 New Medications: Bumetanide 1 mg PO BID #60 Warfarin Sodium [Coumadin*] 2.5 mg PO DAILY #30 tab Followup: Michelle Currie DO [Primary Care Provider] -
[2021-11-27] MEDS: ACETAMINOPHEN 500 MG TAB PO PRN (09:47)
[2021-11-27 12:34] VITALS: BP 182/75; TEMP 98
--- NOTE | 2021-11-28 02:49 | PN ---
Date of Progress Note: 11/27/2021 Chief Complaint: [id number]-[id number] kidney disease. History Of Present Illness: The patient has underlying advanced chronic kidney disease. She present ed to the hospital with fluid overload and anasarca. She is on IV Lasix and she also had urinary tra ct infection and she is on antibiotics for the urinary tract infection. She denies uremic symptomato logy. Denies nausea or vomiting. Denies metallic taste in her mouth. Renal function has improved o edwardo last few days and the patient will have p.o. intake for maintenance diuretic management. Review of Systems: Denies complaints. Physical Examination: Lungs: Clear to auscultation bilaterally. Heart: S1, S2. Abdomen: Soft, benign. Extremities: Edema present. Impression And Plan: 1.Acute kidney injury. Renal function has improved and serum creatinine level is plateauing. 2.Urine output is stable. Continue p.o. Bumex for maintenance diuretic effect. 3.There is no evidence of rhabdomyolysis. 4.Urinary tract infection. The patient denies hematuria or dysuria and she is on cefepime. 5.Anasarca. Continue low-sodium diet. The patient completed treatment with IV Lasix. Monitor elec trolytes and renal panel. EB/MODL Voice ID: [id number] Report ID: [id number]
== END 2021-11-27 14:37 | disposition home health service (06) | DRG 291 ==
LOC: ER 08:12 → ERHOLD 15:41 → 2ND 16:19
PROVIDERS: ADMIT Internal Medicine; ATTEND Internal Medicine
DX: I13.2 Hypertensive heart and chronic kidney disease with heart failure and with stage 5 chronic kidney disease, or end stage renal disease (principal); N18.6 End stage renal disease; I50.33 Acute on chronic diastolic (congestive) heart failure; N17.9 Acute kidney failure, unspecified; Z68.41 Body mass index [BMI] 40.0-44.9, adult; N39.0 Urinary tract infection, site not specified; Z16.12 Extended spectrum beta lactamase (ESBL) resistance; N25.81 Secondary hyperparathyroidism of renal origin; E11.22 Type 2 diabetes mellitus with diabetic chronic kidney disease; E66.01 Morbid (severe) obesity due to excess calories; B96.1 Klebsiella pneumoniae [K. pneumoniae] as the cause of diseases classified elsewhere; I25.10 Atherosclerotic heart disease of native coronary artery without angina pectoris; E83.39 Other disorders of phosphorus metabolism; E03.9 Hypothyroidism, unspecified; R53.81 Other malaise; Z86.718 Personal history of other venous thrombosis and embolism; Z79.01 Long term (current) use of anticoagulants; Z95.1 Presence of aortocoronary bypass graft; Z20.822 Contact with and (suspected) exposure to COVID-19
CPT/HCPCS: 36415; 51702; 70450; 71045; 71250; 74176; 80048; 80069; 80076; 81003; 81015; 82306; 82550; 82728; 82947; 83540; 83735; 83880; 83935; 83970; 84100; 84132; 84300; 84439; 84443; 84466; 84484; 85025; 85610; 86704; 86706; 86803; 87077; 87086; 87088; 87186; 87340; 93005; 93306; 93925; 94760; 96374; 99285; J1940; J1953; J8597; Q5105; U0003

== ENCOUNTER 2021-12-31 06:28 | Inpatient (IN) | payer OTHER ==
[2021-12-31 07:07] LABS: Hematocrit 26.7 % (36.0-45.0); RBC Red Blood Cell Count 2.91 M/uL (3.86-4.86)
--- NOTE | 2021-12-31 07:23 | RAD REPORT ---
EXAM DESCRIPTION: RAD - Chest Single View - 12/31/2021 7:06 am CLINICAL HISTORY: SOB COMPARISON: Chest Single View dated 12/18/2021; Chest Single View dated 11/22/2021; Chest Single View d ated 06/17/2021; Chest Pa And Lat (2 Views) dated 03/30/2016; Chest Abd Pelvis Wo Con dated 11/22/2021 FINDINGS: Lines: None. Lungs: Widespread pulmonary opacities with decreased lung volumes compared with 12/18/2021. Pleural: Moderate left pleural effusion. Probable small right pleural effusion . Cardiac: Cardiomegaly. Sternotomy. Bones: No acute fractures. Other: IMPRESSION: Pulmonary edema with bilateral effusions, moderate on the left. Decreased lung volumes s singh 12/18/2021.
[2021-12-31 07:26] LABS: Potassium 3.5 mmol/L (3.5-5.1)
--- NOTE | 2021-12-31 07:43 | EDPHYS ---
Physician Documentation [facility] Name: Consuelo Trujillo Age: 71 yrs Sex: Female : 1950 Arrival Date: 12/31/2021 Time: 06:35 Bed 3 Private MD: ED Physician Christopher Gentile HPI: 12/31 07:38 This 71 yrs old Female presents to ER via EMS with complaints of Doesn't Feel sudha Right. 07:38 The patient has shortness of breath at rest. Onset: The symptoms/episode began/occurred sudha 2 day(s) ago. Duration: The symptoms are continuous, and are steadily getting worse. The patient's shortness of breath has no apparent modifying factors. Onset: The symptoms/episode began/occurred this morning, today. Associated signs and symptoms: Pertinent positives: dizziness. Severity of symptoms: At their worst the symptoms were mild in the emergency department the symptoms are unchanged. Historical: - Allergies: 06:38 hydrocodone bitartrate; sm5 06:38 PENICILLINS; sm5 - Home Meds: 06:38 aspirin 81 mg Oral TbEC 1 tab once daily [Active]; atorvastatin 40 mg Oral tab 1 tab sm5 once daily [Active]; Bumex 1 mg Oral tab 1 tab 2 times per day [Active]; Coreg 6.25 mg Oral tab 1 tab 2 times per day [Active]; cyanocobalamin (vitamin B-12) 1,000 mcg Oral cap [Active]; divalproex 500 mg Oral Tb24 2 tabs once daily [Active]; ferrous sulfate 325 mg (65 mg iron) Oral cpER [Active]; hydralazine 50 mg Oral tab every 8 hours [Active]; isosorbide dinitrate 10 mg Oral tab 1 tab 3 times per day [Active]; levothyroxine 150 mcg cap 1 cap once daily [Active]; meclizine 12.5 mg Oral chew every 8 hours [Active]; mirtazapine 15 mg Oral tab 1 tab once daily [Active]; omeprazole 40 mg Oral cpDR 1 cap once daily [Active]; ranolazine 500 mg Oral Tb12 1 tab 2 times per day [Active]; tamsulosin 0.4 mg Oral cap 1 cap once daily [Active]; warfarin 3 mg Oral tab [Active]; - PMHx: 06:38 angina pectoris; Anxiety; Sleep Apnea; 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 - Social history:: Smoking status: Patient denies any tobacco usage or history of. - Family history:: not pertinent. ROS: 07:38 Constitutional: Negative for fever, chills, and weight loss, Eyes: Negative for injury, sudha pain, redness, and discharge, ENT: Negative for injury, pain, and discharge, Neck: Negative for injury, pain, and swelling, Cardiovascular: Negative for chest pain, palpitations, and edema, Abdomen/GI: Negative for abdominal pain, nausea, vomiting, diarrhea, and constipation, Back: Negative for injury and pain, : Negative for injury, bleeding, discharge, and swelling, MS/Extremity: Negative for injury and deformity, Skin: Negative for injury, rash, and discoloration, Psych: Negative for depression, anxiety, suicide ideation, homicidal ideation, and hallucinations, Allergy/Immunology: Negative for hives, rash, and allergies, Endocrine: Negative for neck swelling, polydipsia, polyuria, polyphagia, and marked weight changes, Hematologic/Lymphatic: Negative for swollen nodes, abnormal bleeding, and unusual bruising. 07:38 Respiratory: Positive for cough, shortness of breath. 07:38 Neuro: Positive for seizure activity. Exam: 07:38 Constitutional: This is a well developed, well nourished patient who is awake, alert, sudha and in no acute distress. Head/Face: Normocephalic, atraumatic. Eyes: Pupils equal round and reactive to light, extra-ocular motions intact. Lids and lashes normal. Conjunctiva and sclera are non-icteric and not injected. Cornea within normal limits. Periorbital areas with no swelling, redness, or edema. ENT: Nares patent. No nasal discharge, no septal abnormalities noted. Tympanic membranes are normal and external auditory canals are clear. Oropharynx with no redness, swelling, or masses, exudates, or evidence of obstruction, uvula midline. Mucous membranes moist. Neck: Trachea midline, no thyromegaly or masses palpated, and no cervical lymphadenopathy. Supple, full range of motion without nuchal rigidity, or vertebral point tenderness. No Meningismus. Chest/axilla: Normal chest wall appearance and motion. Nontender with no deformity. No lesions are appreciated. Cardiovascular: Regular rate and rhythm with a normal S1 and S2. No gallops, murmurs, or rubs. Normal PMI, no JVD. No pulse deficits. Abdomen/GI: Soft, non-tender, with normal bowel sounds. No distension or tympany. No guarding or rebound. No evidence of tenderness throughout. Back: No spinal tenderness. No costovertebral tenderness. Full range of motion. Female : Normal external genitalia. Skin: Warm, dry with normal turgor. Normal color with no rashes, no lesions, and no evidence of cellulitis. MS/ Extremity: Pulses equal, no cyanosis. Neurovascular intact. Full, normal range of motion. Neuro: Awake and alert, GCS 15, oriented to person, place, time, and situation. Cranial nerves II-XII grossly intact. Motor strength 5/5 in all extremities. Sensory grossly intact. Cerebellar exam normal. Normal gait. Psych: Awake, alert, with orientation to person, place and time. Behavior, mood, and affect are within normal limits. 07:38 Respiratory: the patient does not display signs of respiratory distress, Respirations: normal, no acute changes, Breath sounds: decreased breath sounds, that are mild, rhonchi, that are mild, Respiratory rate: 20 07:41 Radiologist reports: see report [facility] 07:44 ECG was reviewed by the Attending Physician. [facility] Vital Signs: 06:35 BP 166 / 93; Pulse 80; Resp 20; Temp 98(O); Pulse Ox 100% on R/A; Weight 107.05 kg; sm5 Height 5 ft. 3 in. (160.02 cm); 08:38 BP 170 / 90; Pulse 77; Temp 96.9(TE); Pulse Ox 100% on 2 lpm NC; Pain 3/10; dw3 10:12 BP 177 / 84; Pulse 78; Resp 27; Temp 96.2(TE); Pulse Ox 95% on 2 lpm NC; Pain 2/10; dw3 12:01 BP 147 / 86; Pulse 79; Resp 19; Temp 97.6; Pulse Ox 95% on 2 lpm NC; Pain 3/10; dw3 06:35 Body Mass Index 41.81 (107.05 kg, 160.02 cm) 5 12:01 pt stated "she feels pain at her naval." 11/20 dw3 MDM: 07:17 Patient medically screened. [facility] 07:40 Differential diagnosis: asthma, Bronchitis CHF exacerbation, pulmonary edema, reactive sudha airway disease. Antibiotic administration: Not indicated. The patient's Wells Deep Vein Thrombosis Score was calculated as follows: Total Score: 0-2 Pts- Low Risk. The patient's pulmonary embolism risk score was calculated as follows: Total Score: 0-2 points. This patient was found to be at low risk for a pulmonary embolism by using the Well's assessment criteria. Immunization status: Pneumococcal vaccine: Influenza vaccine: Data reviewed: vital signs, nurses notes, lab test result(s), EKG, radiologic studies, CT scan, plain films. Data interpreted: media monitor: rate is 80 beats/min, rhythm is regular, Pulse oximetry: on room air is 100 %. Test interpretation: by ED physician or midlevel provider: ECG, plain radiologic studies. Counseling: I had a detailed discussion with the patient and/or guardian regarding: the presence of at least one elevated blood pressure reading (>120/80) during this emergency department visit, lab results, radiology results, the need for outpatient follow up. 12/31 06:54 Order name: Basic Metabolic Panel [facility] 12/31 06:54 Order name: CBC with Diff; Complete Time: 07:35 [facility] 12/31 06:54 Order name: Troponin HS [facility] 12/31 07:34 Order name: Depakote [facility] 12/31 07:50 Order name: SARS-COV-2 RT PCR (Document "Date of Onset" if Symptomatic) [facility] 12/31 09:16 Order name: Urine Culture [facility] 12/31 09:16 Order name: Urine Dipstick-Ancillary [facility] 12/31 10:04 Order name: CBC with Automated Diff [facility] 12/31 10:04 Order name: CBC with Automated Diff [facility] 12/31 10:04 Order name: Comprehensive Metabolic Panel [facility] 12/31 10:04 Order name: Comprehensive Metabolic Panel [facility] 12/31 10:04 Order name: Magnesium [facility] 12/31 10:04 Order name: Magnesium [facility] 12/31 10:04 Order name: NT PRO-BNP [facility] 12/31 06:54 Order name: XRAY Chest (1 view); Complete Time: 07:35 5 12/31 07:42 Order name: Head Brain Wo Cont CT bd 12/31 10:04 Order name: Echo with Doppler [facility] 12/31 10:04 Order name: Echo with Doppler [facility] 12/31 10:04 Order name: NT PRO-BNP [facility] 12/31 10:04 Order name: Phosphorus [facility] 12/31 10:04 Order name: Phosphorus [facility] 12/31 10:07 Order name: Troponin High Sensitivity [facility] 12/31 10:07 Order name: Troponin High Sensitivity [facility] 12/31 10:07 Order name: Troponin High Sensitivity [facility] 12/31 13:55 Order name: Glucose, Ancillary Testing [facility] 12/31 15:16 Order name: Glucose, Ancillary Testing [facility] 12/31 17:50 Order name: Glucose, Ancillary Testing [facility] 12/31 19:40 Order name: Glucose, Ancillary Testing [facility] 12/31 06:54 Order name: EKG; Complete Time: 06:55 [facility] 12/31 06:54 Order name: Cardiac monitoring; Complete Time: 07:02 [facility] 12/31 06:54 Order name: EKG - Nurse/Tech; Complete Time: 07:28 [facility] 12/31 06:54 Order name: IV Saline Lock; Complete Time: 07:02 [facility] 12/31 06:54 Order name: Labs collected and sent; Complete Time: 07:02 [facility] 12/31 06:54 Order name: O2 Per Protocol; Complete Time: 07:02 [facility] 12/31 06:54 Order name: O2 Sat Monitoring; Complete Time: 07:02 [facility] 12/31 07:34 Order name: Urine Dipstick-Ancillary (obtain specimen); Complete Time: 09:36 [facility] 12/31 07:34 Order name: Seizure Precautions; Complete Time: 07:45 [facility] 12/31 07:35 Order name: [place]; Complete Time: 09:35 [facility] 12/31 10:04 Order name: CONS Physician Consult [facility] 12/31 10:04 Order name: Heart Healthy [facility] EC:44 Rate is 79 beats/min. Rhythm is regular. QRS Rhodelia is Normal. ME interval is normal. QRS sudha interval is normal. QT interval is normal. No Q waves. T waves are Normal. No ST changes noted. Clinical impression: NSR w/ Non-specific ST/T Changes and No evidence of ischemia. Interpreted by me. Reviewed by me. Administered Medications: 08:45 Drug: Keppra (levETIRAcetam) 1000 mg Route: IV; Rate: per protocol; Site: right dw3 antecubital; 09:00 Follow up: IV Status: Completed infusion dw3 09:10 Drug: Lasix (furosemide) 40 mg Route: IVP; Site: right antecubital; dw3 10:15 Follow up: Response: No adverse reaction dw3 13:55 Drug: D10 in Water [2 mL/kg] 250 ml Route: IVP; Site: right antecubital; aa5 Disposition Summary: 12/31/21 07:43 Hospitalization Ordered Hospitalization Status: Inpatient Admission sudha Provider: Yoon Silverman cha Location: Telemetry/MedSurg (Inpatient) sudha Condition: Stable sudha Problem: new sudha Symptoms: have improved sudha Bed/Room Type: Standard sudha Room Assignment: 222(12/31/21 15:30) bd Diagnosis - Unspecified combined systolic (congestive) and diastolic (congestive) heart failure sudha - Epileptic seizures related to external causes sudha - Obesity, unspecified sudha - Pleural condition, unspecified sudha Forms: - Medication Reconciliation Form sudha - SBAR form sudha Signatures: Dispatcher [employer] EDJosselyn Arceo Corey, MD MD cha Calderon, Audri, RN RN aa5 Agata Gonzales RN RN sm5 Maribel Galloway, RN RN dw3 Corrections: (The following items were deleted from the chart) 15:30 07:43 sudha bd
--- NOTE | 2021-12-31 07:43 | ER ---
Nurse's Notes [facility] Name: Consuelo Trujillo Age: 71 yrs Sex: Female : 1950 Arrival Date: 12/31/2021 Time: 06:35 Bed 3 Private MD: Diagnosis: Unspecified combined systolic (congestive) and diastolic (congestive) heart failure;Epileptic seizures related to external causes;Obesity, unspecified;Pleural condition, unspecified Presentation: 12/31 06:35 Chief complaint: EMS states: called ems stating pt has not been feeling well [facility] the past few days, unsure if pt had a seizure as she has a hx of seizures. pt states she is unable to catch her breath, wears O2 at home hx of copd. also states she is more swollen than normal. Coronavirus screen: Vaccine status: Patient reports receiving the 2nd dose of the covid vaccine. Ebola Screen: No symptoms or risks identified at this time. Initial Sepsis Screen: Does the patient meet any 2 criteria? No. Patient's initial sepsis screen is negative. Does the patient have a suspected source of infection? No. Patient's initial sepsis screen is negative. Risk Assessment: Do you want to hurt yourself or someone else? Patient reports no desire to harm self or others. Onset of symptoms was December 31, 2021. 06:35 Method Of Arrival: EMS: [place] [id number] 06:35 Acuity: SUE 3 5 Triage Assessment: 06:39 General: Appears in no apparent distress. Behavior is cooperative. Pain: Denies pain. sm5 Neuro: No deficits noted. Level of Consciousness is awake, alert, obeys commands, Oriented to person, place, time, situation. Cardiovascular: Capillary refill < 3 seconds Patient's skin is warm and dry. Cardiovascular: Edema pitting to bilateral lower extremities. Respiratory: Reports shortness of breath Airway is patent Trachea midline Respiratory effort is even, unlabored. GI: Abdomen is obese. Historical: - Allergies: 06:38 hydrocodone bitartrate; sm5 06:38 PENICILLINS; sm5 - Home Meds: 06:38 aspirin 81 mg Oral TbEC 1 tab once daily [Active]; atorvastatin 40 mg Oral tab 1 tab sm5 once daily [Active]; Bumex 1 mg Oral tab 1 tab 2 times per day [Active]; Coreg 6.25 mg Oral tab 1 tab 2 times per day [Active]; cyanocobalamin (vitamin B-12) 1,000 mcg Oral cap [Active]; divalproex 500 mg Oral Tb24 2 tabs once daily [Active]; ferrous sulfate 325 mg (65 mg iron) Oral cpER [Active]; hydralazine 50 mg Oral tab every 8 hours [Active]; isosorbide dinitrate 10 mg Oral tab 1 tab 3 times per day [Active]; levothyroxine 150 mcg cap 1 cap once daily [Active]; meclizine 12.5 mg Oral chew every 8 hours [Active]; mirtazapine 15 mg Oral tab 1 tab once daily [Active]; omeprazole 40 mg Oral cpDR 1 cap once daily [Active]; ranolazine 500 mg Oral Tb12 1 tab 2 times per day [Active]; tamsulosin 0.4 mg Oral cap 1 cap once daily [Active]; warfarin 3 mg Oral tab [Active]; - PMHx: 06:38 angina pectoris; Anxiety; Sleep Apnea; 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 - Social history:: Smoking status: Patient denies any tobacco usage or history of. - Family history:: not pertinent. Screenin:41 Abuse screen: Denies threats or abuse. Denies injuries from another. Nutritional sm5 screening: No deficits noted. Tuberculosis screening: No symptoms or risk factors identified. Fall Risk No fall in past 12 months (0 pts). Secondary diagnosis (15 points) CVA, IV access (20 points). Ambulatory Aid- None/Bed Rest/Nurse Assist (0 pts). Gait- Normal/Bed Rest/Wheelchair (0 pts) Mental Status- Oriented to own ability (0 pts). Total Gill Fall Scale indicates Low Risk Score (25-44 pts). Fall prevention measures have been instituted. Side Rails Up X 2 Placed close to Nursing Station 1:1 attendant Assigned to Pt. Frequent Obs/Assesments occuring. Assessment: 07:50 General: Appears in no apparent distress. Behavior is calm, cooperative, quiet. Neuro: dw3 Level of Consciousness is awake, alert, obeys commands, Oriented to person, place, time, situation. Cardiovascular: Heart tones S1 S2 present. Respiratory: Breath sounds with wheezes bilaterally. GI: Bowel sounds present X 4 quads. normoactive Reports constipation, for the past 3 to 4 days. : No signs and/or symptoms were reported regarding the genitourinary system. EENT: Reports decreased hearing in right ear and left ear. Derm: Skin is thin, with poor turgor Skin is pt has some slight brownish discoloration on both her right and left arms Skin temperature is cold. Musculoskeletal: Capillary refill unable to test, pt has pink nail hebrew on both finger nails and toe nails . 07:50 Pain: Complains of pain in xiphoid area and mid-sternal area Pain currently is 3 out of dw3 10 on a pain scale. 19:32 General: attempted to call report. Per Elizabeth Agata will call back for report lg3 shortly. . Vital Signs: 06:35 BP 166 / 93; Pulse 80; Resp 20; Temp 98(O); Pulse Ox 100% on R/A; Weight 107.05 kg; sm5 Height 5 ft. 3 in. (160.02 cm); 08:38 BP 170 / 90; Pulse 77; Temp 96.9(TE); Pulse Ox 100% on 2 lpm NC; Pain 3/10; dw3 10:12 BP 177 / 84; Pulse 78; Resp 27; Temp 96.2(TE); Pulse Ox 95% on 2 lpm NC; Pain 2/10; dw3 12:01 BP 147 / 86; Pulse 79; Resp 19; Temp 97.6; Pulse Ox 95% on 2 lpm NC; Pain 3/10; dw3 06:35 Body Mass Index 41.81 (107.05 kg, 160.02 cm) 5 12:01 pt stated "she feels pain at her naval." 310 3 ED Course: 06:35 Patient arrived in ED. 5 06:38 Triage completed. 5 06:41 Arm band placed on right wrist. 5 06:41 Patient has correct armband on for positive identification. Bed in low position. Call [facility] light in reach. Side rails up X2. phototypesetting equipment monitor on. Pulse ox on. NIBP on. 06:51 Agata Gonzales, RN is Primary Nurse. 5 06:52 Maintain EMS IV. Dressing intact. Good blood return noted. Site clean \\T\\ dry. Gauge \\T\\ sm 5 site: 20G RAC. 07:03 Basic Metabolic Panel Sent. lg3 07:03 CBC with Diff Sent. lg3 07:03 Troponin HS Sent. lg3 07:07 XRAY Chest (1 view) In Process Unspecified. EDMS 07:17 Christopher Gentile MD is Attending Physician. sudha 07:42 Yoon Silverman MD is Hospitalizing Provider. sudha 08:25 Head Brain Wo Cont CT In Process Unspecified. EDMS 09:00 [place] cath inserted, using sterile technique, 16 Fr., by ca, balloon inflated, to dw3 gravity drainage, urine specimen collected. returned cloudy urine. Patient tolerated well. Administered Medications: 08:45 Drug: Keppra (levETIRAcetam) 1000 mg Route: IV; Rate: per protocol; Site: right dw3 antecubital; 09:00 Follow up: IV Status: Completed infusion dw3 09:10 Drug: Lasix (furosemide) 40 mg Route: IVP; Site: right antecubital; dw3 10:15 Follow up: Response: No adverse reaction dw3 13:55 Drug: D10 in Water [2 mL/kg] 250 ml Route: IVP; Site: right antecubital; aa5 Outcome: 07:43 Decision to Hospitalize by Provider. sudha 20:08 Patient left the ED. tw5 Signatures: Dispatcher [employer] EDMI Christopher Gentile MD MD cha Calderon, Audri, RN RN aa5 Maria Esther Price, RN RN taty3 Sandhya Nugent tw5 Agata Gonzales, RN RN 5 Maribel Galloway, RN RN dw3 Corrections: (The following items were deleted from the chart) 10:14 08:38 BP 170 / 90; Pulse 77bpm; Pulse Ox 100% 2 lpm Nasal Cannula; Temp 96.9F Temporal; dw3 dw3
[2021-12-31] MEDS ORDERED: LEVETIRACETAM 500 MG/5 ML VIAL IV ONE (07:54)
[2021-12-31] MEDS ORDERED: FUROSEMIDE 40 MG TABLET ONE (07:55)
[2021-12-31] MEDS ORDERED: NA CHLORIDE 0.9% 100 ML IV ONE (07:55)
[2021-12-31] MEDS ORDERED: FUROSEMIDE 40 MG/4 ML VIAL ONE (08:01)
--- NOTE | 2021-12-31 08:40 | RAD REPORT ---
EXAM DESCRIPTION: CT - Head Brain Wo Cont - 12/31/2021 8:23 am CLINICAL HISTORY: Weakness COMPARISON: Ct Stroke Brain Wo Cont dated 12/18/2021; Head Brain Wo Cont dated 11/23/2021 TECHNIQUE: All CT scans are performed using dose optimization technique as appropriate and may inclu de automated exposure control or mA/KV adjustment according to patient size. FINDINGS: No intracranial hemorrhage, hydrocephalus or extra-axial fluid collection.No areas of brai n edema or evidence of midline shift. Cerebral atrophy and mild chronic small vessel ischemic changes . Remote right thalamic infarct. The paranasal sinuses and mastoids are clear. The calvarium is intact. IMPRESSION: No acute intracranial abnormality.
[2021-12-31 09:16] LABS: Urine Blood Trace-intact (Negative); Urine Glucose Negative (Negative); Urine Protein 3+ (Negative)
[2021-12-31] MEDS ORDERED: ONDANSETRON 4 MG/2 ML VIAL IV PRN (10:00)
[2021-12-31] MEDS ORDERED: CALCITROL 0.25 MCG CAP PO SCH (12:00)
[2021-12-31] MEDS ORDERED: EPOETIN ALFA-EPBX 10,000 UNIT/ML VIAL SQ SCH (12:00)
--- NOTE | 2021-12-31 12:14 | CON ---
Date of Consultation: 12/31/2021 Reason For Consultation: Elevated BUN and creatinine. History Of Present Illness: This is a 71year-old female, well known to me from the office with significant past medical history of diabetes since 1999, complicated with neuropathy and nephropathy, CAD status post CABG x2 complicated with congestive heart failure, ejection fraction of 45% as of March 2021, status post cardiac arrest, status post ICD placement, hyperlipidemia, PAD, chronic kidney disease stage 4/5, normal size kidney secondary to diabetes nephropathy chronic and cardiorenal, the patient's baseline creatinine as of an early December was 2.8 with GFR of 17. The patient required dialysis back last year. Weaned from the dialysis back in April 2021. The patient came to the office early in the month in December 09. At that time, she was feeling well. Kidney function was stable. For that reason, we added metolazone for better volume control. The patient according to the family started having seizure for the last few days on and off. To the point that she has postictal and without waking up in between, for that reason brought to the hospital. Upon arrival to the hospital, the patient found to have elevation in BUN and creatinine, creatinine 3.9, GFR of 11. No hyponatremia. The patient still on nasal cannula. The patient found to be over volume. For that reason, we have been consulted. The patient compliant with her medications including the metolazone and the Bumex. Past Medical History: Includes; 1. Seizure. 2. Diabetes complicated with neuropathy and nephropathy. 3. CAD, status post CABG, complicated with congestive heart failure, status post cardiac arrest, status post ICD. 4. Chronic kidney disease, stage 4/5, secondary to cardiorenal, diabetes nephropathy, normal-sized kidney. 5. Renal cyst. 6. Seizure. 7. Hyperlipidemia. Past Surgical History: Includes CABG, ICD placement. Family History: Positive for hypertension and diabetes. Social History: Denied smoking, denied drinking, denied drug abuse. Review of Systems: Head and Neck: No red eye. No ear pain. GI: No nausea. No vomiting. : No polyuria. No dysuria. No hematuria. Channel Layer: No vaginal discharge. Respiratory: Has shortness of breath. Cardiovascular: Has leg edema. Has orthopnea. Endocrine: No polydipsia. Skin: No rash. Neuro: Has seizure. Musculoskeletal: Generalized fatigue. Physical Examination: General: When I saw the patient; the patient lying on the stretcher. Vital Signs: Blood pressure 142/62, pulse of 88. Chest: Crackles bilateral. Heart: S1, S2. Systolic murmur. Abdomen: Soft, nontender. Extremity: Plus edema. Neuro: The patient is sleepy, moving 4 extremities. No focality. Laboratory Data: WBC 3.3, H and H 9/26.7, platelet 153. Sodium 138, potassium 3.5, bicarb 28, BUN 60, creatinine 3.9, GFR of 11, calcium 7.8. Assessment And Plan: 1. Acute kidney injury on advanced chronic kidney disease, slow progression, the acute kidney injury is mostly secondary to cardiorenal. Given the recurrent seizure to rule out any rhabdomyolysis, I am going to go ahead and send for CK. We will start the patient on aggressive diuresis including the Bumex and metolazone and we will monitor the patient on a daily basis. If kidney function continued to decline, the patient may need to re-initiate the renal replacement therapy. The current presentation with altered mental status I doubt to be secondary to uremia as her BUN not significantly increased compared to when I saw her a few days ago. Nevertheless if kidney function worsening, the patient may need renal replacement therapy. 2. Hypokalemia. I am not going to be supplementing currently given the advanced kidney disease. We will monitor cautiously. We will send for magnesium level. 3. Congestive heart failure with exacerbation as above. 4. Anemia with the presence of renal failure. I am going to send for anemia workup and we will follow up the patient. The anemia workup was done on . We will start the patient on IV iron and FIDELIA. 5. Hypertension. We will utilize blood pressure for more diuresis. Avoid HANNAH inhibitor or ARB. 6. Diabetes as by primary. 7. Seizure as by primary and Neurology. Time spent examining the patient, [id number], discussing the case with by bedside, reviewing the data including radiology and laboratory, discussing the case with the production team member including ER staff, nursing, and hospitalist 65 minutes. NEGRA Voice ID: [id number] Report ID: [id number] [facility] HOSPITALRubén
[2021-12-31 13:38] VITALS: BMI 43.0
[2021-12-31] MEDS ORDERED: DEXTROSE 10%-WATER 500 ML IV ONE (13:50)
[2021-12-31] MEDS ORDERED: HEPARIN 5000 UNIT/ML 1 ML VIAL ONE (14:11)
[2021-12-31] MEDS ORDERED: CALCITROL 0.25 MCG CAP PO ONE (14:14)
[2021-12-31] MEDS: HEPARIN 5000 UNIT/ML 1 ML VIAL SQ SCH ×2 (15:05→22:42)
[2021-12-31] MEDS: SOD FERRIC GLUC COMPLX/SUCROSE 250 MG in NA CHLORIDE 0.9% 250 ML IV SCH (15:13)
[2021-12-31] MEDS ORDERED: D5W 1,000 ML IV ONE (18:23)
[2021-12-31] MEDS ORDERED: D5W 1,000 ML IV SCH (18:30)
[2021-12-31] MEDS: BUMETANIDE 1 MG/4 ML VIAL IV SCH (22:45)
[2022-01-01 06:08] LABS: Absolute Lymphocytes (CBC) 0.8 K/uL (0.7-4.9); Hematocrit 27.3 % (36.0-45.0); Lymphocytes % 24.9 % (15.3-44.8); MPV 7.7 fL (7.6-11.3); RBC Red Blood Cell Count 2.94 M/uL (3.86-4.86)
[2022-01-01 06:46] LABS: AST/SGOT 9 U/L (15-37); Albumin 2.1 g/dL (3.4-5.0); Alkaline Phosphatase 64 U/L (45-117); BUN Blood Urea Nitrogen 61 mg/dL (7-18); Bicarbonate 27 mmol/L (21-32); Bilirubin Total 0.2 mg/dL (0.2-1.0); Creatine Phosphokinase 52 U/L (26-192); Glucose Level 87 mg/dL (74-106); Magnesium 1.5 mg/dL (1.8-2.4); NT PRO-BNP 95401 pg/mL (<125); Phosphorus 3.5 mg/dL (2.5-4.9); Potassium 3.5 mmol/L (3.5-5.1); Protein, Total 5.5 g/dL (6.4-8.2); Sodium Level 138 mmol/L (136-145); Troponin High Sensitivity 47.2 pg/mL (<58.9)
[2022-01-01 06:47] LABS: ALT/SGPT < 10 U/L (12-78)
[2022-01-01] MEDS: HEPARIN 5000 UNIT/ML 1 ML VIAL SQ SCH ×2 (08:13→21:53)
[2022-01-01] MEDS: BUMETANIDE 1 MG/4 ML VIAL IV SCH ×3 (08:14→21:53)
[2022-01-01] MEDS ORDERED: ENOXAPARIN 40 MG/0.4 ML SQ SCH (09:00)
[2022-01-01] MEDS ORDERED: METOLAZONE 2.5 MG TABLET PO SCH ×2 (09:00→21:00)
[2022-01-01] MEDS ORDERED: POTASSIUM 25 MEQ EFFERV TAB PO ONE (11:47)
[2022-01-01] MEDS ORDERED: Magnesium Sulfate 2gm IVPB 2 G/50 ML BAG IV ONE (11:47)
[2022-01-01] MEDS ORDERED: CALCITROL 0.25 MCG CAP PO SCH (12:00)
[2022-01-01] MEDS ORDERED: ALBUMIN HUMAN 25% 100 ML IV ONE (12:06)
--- NOTE | 2022-01-01 12:30 | PN ---
Date of Progress Note: 01/01/2022 Subjective: The patient was admitted with status epileptic, altered mental status. The patient today more awake. Yesterday, we started the patient on the Bumex. The patient had good urine output, but blood pressure still elevated. The patient still has shortness of breath, on nasal cannula. Physical Examination: Vital Signs: Blood pressure 195/84, pulse of 75, afebrile. The patient had urine output of 850, even balance. Chest: Crackles bilateral. Heart: S1, S2. Systolic murmur. Abdomen: Soft, nontender. Extremities: +2 edema, but much better than before with showing some skin wrinkles. Neurological: Alert, oriented x3. No focal. No tremor. Laboratory Data: WBC 3.1, H and H 9.1/27.3, platelet of 156. Sodium 138, potassium 3.5, bicarb 27, BUN 61, creatinine 3.8, GFR of 12. Calcium 7.6, phosphorus 3.5, magnesium 1.5. Troponin 59. BNP 95,000. TSH 33. Albumin 2.1. Corrected calcium is 9.2. Urinalysis; +3 protein. Current Medications: The patient on include; 1. IV iron. 2. Heparin. 3. Bumex 2 mg b.i.d. 4. Metolazone 2.5 mg daily. 5. Zofran. 6. D5. 7. Calcitriol. Assessment And Plan: 1. Acute kidney injury on advanced chronic kidney disease secondary to cardiorenal, used to be on dialysis and weaned the acute kidney injury. The patient does not have any uremic symptoms. No hyperkalemia yet. She is over volume. I am going to go ahead and increase her Bumex to 2 mg t.i.d., increase metolazone to 5 [address] We will place the patient on nitroglycerin and we will monitor. I had long discussion with the patient regarding that. If kidney function continued to decline, the patient may need to initiate on renal replacement therapy. Discussed with the patient and family including the by bedside, verbalized understanding and agreement. We will monitor closely. 2. Hypertension, not controlled. Given the over volume, I am going to go ahead and start the patient on nitroglycerin. We will resume her carvedilol. We will increase her Bumex and metolazone. We will try to achieve better volume control. 3. Anasarca, multifactorial, secondary to cardiorenal/hypothyroidism. We will increase levothyroxine to 175 and we will increase the diuresis as above. 4. Iron deficiency anemia. Start the patient on IV iron. 5. Anemia of chronic kidney disease, received FIDELIA. 6. Secondary hyperparathyroidism. Continue calcitriol. I am going to increase it to 0.5. 7. Hypokalemia. We will supplement cautiously. 8. Hypomagnesemia. We will supplement. 9. Congestive heart failure with exacerbation. We will optimize the fluid status. We will follow up with Cardiology. Time spent examining the patient, [id number] communicating with the patient and family, discussing the case with the nursing staff, reviewing the data including lab and radiology,discussing with other speciality placing order 35 minutes NEGRA Voice ID: [id number] Report ID: [id number] ALAN
[2022-01-01] MEDS ORDERED: cloNIDine HCL 0.1 MG TAB PO ONE (15:43)
[2022-01-01] MEDS: carvediloL 12.5 MG TAB PO SCH (17:00)
--- NOTE | 2022-01-01 19:46 | P.HP ---
Certification for Inpatient Patient admitted to: Inpatient With expected LOS: >2 Midnights Patient will require the following post-hospital care: None Practitioner: I am a practitioner with admitting privileges, knowledge of patient current condition, hospital course, and medical plan of care. Services: Services provided to patient in accordance with Admission requirements found in Title 42 Section 412.3 of the Code of Federal Regulations Patient History Date of Service: 12/31/21 Reason for admission: Fluid overload; acute on chronic respiratory distress History of Present Illness: Patient is a 71-year-old female came to the hospital with shortness of breath. Patient was confused and altered. Patient was found to be hypoxic and hypoglycemic. Patient was brought into the emergency room for further evaluation. Patient was also found to have elevated creatinine. Baseline creatinine is 2.8. Patient came in with a creatinine of 3.8. Patient will be admitted to the hospital for further treatment. Patient will be gently diuresed. Patient will also be monitored for the amount of insulin she is taking. Continue with oral hypoglycemic agents. Patient will be admitted for further treatment. Allergies hydrocodone Allergy (Verified 11/22/21 16:55) Hives/Rash Penicillins Allergy (Verified 11/22/21 16:55) Hives/Rash Home Medications: Aspirin 81 mg PO DAILY 11/23/21 Atorvastatin Calcium 40 mg PO BEDTIME 11/23/21 Calcium Carbonate [Calcium] 600 mg PO DAILY 11/23/21 Cholecalciferol (Vitamin D3) [Vitamin D3] 25 mcg PO DAILY 11/23/21 Hydralazine [Apresoline*] 50 mg PO TID 11/23/21 Iron 18 mg PO DAILY 11/23/21 Isosorbide Dinit [Isordil*] 20 mg PO TID 11/23/21 Lactulose 10 gm PO DAILYPRN PRN 11/23/21 Levothyroxine Sodium [Levothyroxine] 150 mcg PO [id number] 11/23/21 Meclizine HCl 12.5 mg PO TID 11/23/21 Mecobalamin [B12 Active] 1,000 mcg PO DAILY 11/23/21 Mirtazapine 15 mg PO BEDTIME 11/23/21 Omeprazole [Prilosec] 40 mg PO DAILY 11/23/21 Ranolazine [Ranolazine ER] 500 mg PO BID 11/23/21 Tamsulosin [Flomax*] 0.4 mg PO DAILY 11/23/21 carvediloL [Carvedilol] 6.25 mg PO BID 11/23/21 Bumetanide [Bumex*] 1 mg PO BID #60 tab 11/27/21 Calcitrol [Rocaltrol*] 0.25 mcg PO DAILY cap 11/27/21 Sevelamer Carbonate [Renvela*] 800 mg PO TIDWM tablet 11/27/21 Divalproex ER [Depakote *ER] 750 mg PO BID #180 tab 12/21/21 Warfarin Sodium [Coumadin*] 3 mg PO DAILY 12/31/21 - Past Medical/Surgical History Has patient received pneumonia vaccine in the past: Yes Diabetic: Yes -: Chronic kidney disease stage V -: Chronic diastolic heart failure -: Hypertension -: Diabetes mellitus -: Hypothyroidism -: Coronary artery disease -: CABG -: Clemente knee replacement - Family History Father Family History: Reviewed- Non-Contributory - Social History Smoking Status: Never smoker Alcohol use: No CD- Drugs: No Caffeine use: No Review of Systems 10-point ROS is otherwise unremarkable Physical Examination - Vital Signs Temperature: 98.0 F Blood Pressure: 147/67 Pulse: 83 Respirations: 20 Pulse Ox (%): 95 - Physical Exam General: Alert, In no apparent distress, Oriented x3 HEENT: Atraumatic, PERRLA, Mucous membr. moist/pink, EOMI, Sclerae nonicteric Neck: Supple, 2+ carotid pulse no bruit, No LAD, Without JVD or thyroid abnormality Respiratory: Diminished, Crackles/rales Cardiovascular: Regular rate/rhythm, Normal S1 S2, No murmurs Gastrointestinal: Normal bowel sounds, Soft and benign, Non-distended, No tenderness, Other (Abdominal swelling) Musculoskeletal: No clubbing, No tenderness Integumentary: Tenderness/swelling, Other (Patient with bilateral lower extremity edema) Neurological: Sensation intact, Cranial nerves 3-12 intact, Normal affect, Abnormal gait, Abnormal speech, Abnormal strength Lymphatics: No axilla or inguinal lymphadenopathy Assessment & Plan - Problems (Diagnosis) (1) Chronic kidney disease, stage V Current Visit: Yes Status: Acute (2) AMS (altered mental status) Current Visit: No Status: Acute (3) Acute on chronic diastolic heart failure Current Visit: No Status: Acute (4) Anasarca associated with disorder of kidney Current Visit: No Status: Acute (5) Diabetes mellitus Current Visit: No Status: Acute (6) Hypoglycemia Current Visit: Yes Status: Acute - Plan Plan: 1. Nephrology consultation 2. Diurese 3. Monitor strict blood sugar control 4. HD evaluation 5. Monitor CBC 6. GI/DVT prophylaxis Discharge Plan: Home Plan to discharge in: Greater than 2 days - Advance Directives Does patient have a Living Will: No Does patient have a Durable POA for Healthcare: No - Code Status/Comfort Care Code Status Assessed: Yes Code Status: Full Code Critical Care: No Time Spent Managing PTS Care (In Minutes): 45
--- NOTE | 2022-01-01 19:47 | P.PN ---
Subjective Date of Service: 01/01/22 Subjective: No new changes, No C/O voiced, Improving, Doing well Review of Systems 10-point ROS is otherwise unremarkable Physical Examination - Vital Signs Temperature: 98.0 F Blood Pressure: 147/67 Pulse: 83 Respirations: 20 Pulse Ox (%): 95 - Physical Exam General: Alert, In no apparent distress, Oriented x3 HEENT: Atraumatic, PERRLA, EOMI Neck: Supple, JVD not distended Respiratory: Clear to auscultation bilaterally, Normal air movement Cardiovascular: Regular rate/rhythm, Normal S1 S2 Gastrointestinal: Normal bowel sounds, No tenderness Musculoskeletal: No tenderness Integumentary: No rashes Neurological: Normal speech, Normal tone, Normal affect Lymphatics: No axilla or inguinal lymphadenopathy - Studies Medications List Reviewed: Yes Assessment & Plan - Problems (Diagnosis) (1) Chronic kidney disease, stage V Current Visit: Yes Status: Acute (2) AMS (altered mental status) Current Visit: No Status: Acute (3) Acute on chronic diastolic heart failure Current Visit: No Status: Acute (4) Anasarca associated with disorder of kidney Current Visit: No Status: Acute (5) Diabetes mellitus Current Visit: No Status: Acute (6) Hypoglycemia Current Visit: Yes Status: Acute - Plan Plan: 1. Nephrology and neurology consultation 2. Continue with diuresing 3. Monitor strict blood sugar control 4. Continue with antiepileptics 5. Monitor labs 6. GI/DVT prophylaxis Discharge Plan: Home Plan to discharge in: Greater than 2 days - Advance Directives Does patient have a Living Will: No Does patient have a Durable POA for Healthcare: No - Code Status/Comfort Care Code Status: Full Code Critical Care: No Time Spent Managing PTS Care (In Minutes): 35
[2022-01-01] MEDS: METOLAZONE 5 MG TABLET PO SCH (21:54)
[2022-01-02 05:07] LABS: Albumin 2.1 g/dL (3.4-5.0); Phosphorus 3.6 mg/dL (2.5-4.9); Potassium 3.8 mmol/L (3.5-5.1)
[2022-01-02] MEDS ORDERED: LEVOTHYROXINE SOD 0.125 MG TAB PO SCH (06:30)
[2022-01-02] MEDS ORDERED: LEVOTHYROXINE SOD 0.05 MG TABLET PO SCH (06:30)
[2022-01-02] MEDS: carvediloL 12.5 MG TAB PO SCH (06:41)
[2022-01-02] MEDS ORDERED: HOME MED 1 EA UNK (Lactulose [Lactulose] 10 GM/15 ML Solution) PO PRN (08:46)
[2022-01-02] MEDS ORDERED: HOME MED 1 EA UNK (Omeprazole [Prilosec] 40 MG Capsule.Dr) PO SCH (09:00)
[2022-01-02] MEDS: TAMSULOSIN 0.4 MG SR CAP PO SCH (09:00)
[2022-01-02] MEDS ORDERED: ALBUMIN HUMAN 25% 100 ML IV ONE (09:00)
[2022-01-02] MEDS ORDERED: HOME MED 1 EA UNK (Calcium Carbonate [Calcium] 600 MG Tablet) PO SCH (09:00)
[2022-01-02] MEDS ORDERED: HOME MED 1 EA UNK (Iron [Iron] 18 MG Tablet) PO SCH (09:00)
[2022-01-02] MEDS ORDERED: HOME MED 1 EA UNK (Cholecalciferol (Vitamin D3) [Vitamin D3] 25 MCG Capsule) PO SCH (09:00)
[2022-01-02] MEDS ORDERED: HOME MED 1 EA UNK (Mecobalamin [B12 Active] 1,000 MCG Tab.Chew) PO SCH (09:00)
[2022-01-02] MEDS: BUMETANIDE 1 MG TABLET PO SCH ×2 (10:11→20:29)
[2022-01-02] MEDS: HYDRALAZINE HCL 25 MG TABLET PO SCH ×3 (10:12→20:28)
[2022-01-02] MEDS: ASPIRIN 81 MG CHEWABLE TABLET PO SCH (10:12)
[2022-01-02] MEDS: CALCITROL 0.25 MCG CAP PO SCH (10:13)
[2022-01-02] MEDS: carvediloL 6.25 MG TAB PO SCH ×2 (10:14→20:29)
[2022-01-02] MEDS: CALCIUM CARBONATE 500 MG TAB PO SCH (10:14)
[2022-01-02] MEDS: HEPARIN 5000 UNIT/ML 1 ML VIAL SQ SCH ×2 (10:15→20:34)
[2022-01-02] MEDS: DIVALPROEX ER 250 MG TAB PO SCH ×2 (10:22→20:32)
[2022-01-02] MEDS: MECLIZINE HCL 12.5 MG TAB PO SCH ×3 (10:25→20:33)
[2022-01-02] MEDS: METOLAZONE 5 MG TABLET PO SCH ×2 (10:59→20:28)
[2022-01-02] MEDS: ISOSORBIDE DINIT 20 MG TAB PO SCH ×3 (11:00→20:33)
[2022-01-02] MEDS: LACTULOSE 20 GM/30 ML UCUP PO PRN (11:00)
[2022-01-02] MEDS: NITROGLYCERIN 0.4 MG/HR (10 MG) PATCH TD SCH (11:04)
[2022-01-02] MEDS: SEVELAMER CARBONATE 800 MG TABLET PO SCH ×2 (13:29→18:30)
--- NOTE | 2022-01-02 14:15 | P.PN ---
Subjective Date of Service: 01/02/22 Chief Complaint: Fluid overload; acute on chronic respiratory distress Subjective: No new changes Physical Examination - Vital Signs Temperature: 97.1 F Blood Pressure: 187/85 Pulse: 70 Respirations: 18 Pulse Ox (%): 96 - Physical Exam General: Other (appears chronically ill) HEENT: Atraumatic, Normocephalic Neck: Supple, JVD not distended Respiratory: Other (Symmetric chest expansion) Cardiovascular: No rubs, No murmurs Gastrointestinal: Soft and benign, No guarding Musculoskeletal: Swelling Integumentary: No warmth Neurological: Normal speech, Normal tone Lymphatics: No axilla or inguinal lymphadenopathy Urinary: Other (No bladder distention) External genitalia: Deferred Rectal: Deferred - Studies Microbiology Data (last 24 hrs): 12/31/21 09:16 Catheterized Urine [place] Count - Final >100,000 CFU/ML. 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 Received HD 12/2020-04/2021. Renal diet Monitor I/O, renal panel AV fistula planning/surgery as outpt # KlebsiellaUTI Abx per primary team # Hx of seizure Depakote # Htn BP above goal Start Amlodipine 5 mg po daily Increase Hydralazine to 100 mg po tid Increase Carvedilol 6.25 mg po bid # Anasarca +Hypoalbuminemia BNP sig elevated TTE on 08/20 showed LVEF 40-44%, gr. 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) & bilateral PE, started therapeutic anticoagulation on 03/19/21 S/p IVC filter placement on 06/02 using Cordis TrapEase vena cava filter Will need to wear graduated compression stocking (GCS) thigh-high on RLE, at least 20-30 mmHg, for at least 2 years, wear during the daytime, remove at bedtime, to prevent post-thrombotic syndrome Has been on coumadin planned for long-term Monitor INR # CAD s/p OR s/p PCI s/p CABG, SSS s/p PPM Per other services Diuretics as above Continue other cardioprudent meds # PVD Per Surgery service # Anemia Received Epo 10T u SQ on 12/19/21 Dose Epo on 01/03 when BP better controlled # HyperPO4 Sevelamer # Secondary hyperPTH Cont Calcitriol 0.25 mcg po daily Cont D3 2000 IU po daily # Debility PT/OT # Dispo Dc tomorrow if BP better controlled
[2022-01-02] MEDS: ACETAMINOPHEN 500 MG TAB PO PRN (14:26)
[2022-01-02] MEDS ORDERED: AMLODIPINE 5 MG TAB PO STA (14:39)
[2022-01-02] MEDS ORDERED: HYDRALAZINE HCL 25 MG TABLET PO STA (14:41)
[2022-01-02 18:52] LABS: Protime INR 2.01
[2022-01-02] MEDS: WARFARIN SODIUM 3 MG TAB PO SCH (20:31)
[2022-01-02] MEDS: MIRTAZAPINE 15 MG TAB PO SCH (20:31)
[2022-01-02] MEDS: FERROUS SULFATE 325 MG TAB PO SCH (20:33)
[2022-01-02] MEDS: ATORVASTATIN 40 MG TAB PO SCH (20:41)
--- NOTE | 2022-01-02 23:32 | CON ---
Consultation called because of altered mental status. History Of Present Illness: Ms. Trujillo is a 71-year-old right-handed patient with history o f seizures, chronic kidney failure, diabetes type 2, hypertension, hypothyroidism, and remote stroke, who per her has had perhaps about 4 or 5 seizures since Wednesday. Today is Wednesday and said sh lavinia would become unresponsive maybe 30 minutes or more. Did not initially want to come back to the [facility] as she was admitted earlier this month with seizures and her Depakote dosage was adjusted from 500 twice a day to 750 twice a day. Blood levels at her last visit prior to this admission of Depako te was 54.8 on the 19 of December, on the 02 January 71.9. The patient and her said she has be en poorly hydrated and in addition, appeared to have urinary tract infection as noted at last 3 visit s, she grew Klebsiella pneumoniae ESBL in the urine and again, on the when she came in, there wa s ESBL Klebsiella pneumoniae identified in the urine. Throughout, she remained afebrile, but has had very elevated blood pressures. Since hospitalization, her said she may have had a brief epi sode earlier in the week, but no further seizure-like activity and she has been back to her normal [facility] level of functioning. Past Medical History: As noted. Past Surgical History: Coronary artery bypass grafting. Allergies: HYDROCODONE AND PENICILLIN. Medications: At home, aspirin 81 mg daily, atorvastatin 40 mg daily, calcium 600 mg daily, vitamin D 3 daily, valproic acid 750 mg twice daily, Apresoline 50 mg 3 times daily, iron supplement ation 18 mg daily, Isordil 20 mg 3 times daily, lactulose 10 g daily, levothyroxine 150 mcg daily, me clizine 12.5 mg twice daily, vitamin B12 1000 mcg daily, mirtazapine 15 mg at night, Prilosec 40 mg d aily, Seroquel 25 mg at bedtime, carvedilol 6.25 mg twice daily, Bumex 1 mg daily, Rocaltrol __ daily, Renvela 800 mg 3 times daily, and Coumadin 2.5 mg daily. Her INR last checked was 1.38 on December 18, 2021. Family History: Noncontributory. Review of Systems: No recent fevers, chills, nausea, vomiting, myalgias, arthralgias, rash, headache, or weight change, just the confusion and seizure-like activity, which did not involve tonic or clonic changes, but just confusion and poor responsiveness. Physical Examination: Vital Signs: Blood pressure 187/85, pulse 70, respiratory rate 18, temperature 97.1, oxygen saturati on 96% on oxygen 4 L. General: Ms. Trujillo is sitting in a chair beside the bed. She had lunch. She is in no acute distre ss. HEENT: She is normocephalic, atraumatic. Sclerae anicteric. Oropharynx is pink and moist. Neck: Supple. Chest: Clear. Heart: Regular. Extremities: Show no clubbing, cyanosis, or edema. Neurological: She is alert and oriented to situation, place, and person. She follows commands appro priately. She has no significant deficits of cranial nerves. Motor, no focal weakness in the arms a nd legs. Sensory exam, stocking-glove loss, light touch temperature. Reflexes are symmetric in uppe r and lower extremities. Coordination is slow and intact in upper and lower extremities. In terms o f gait, she did ambulate about 120 feet, did use a 2-wheeled walker and standby assistance and she di d sit to stand without an assistive device. Assessment: Ms. Trujillo is a 71-year-old patient with multiple medical problems as indicated includin g seizures. She has had urinary tract infections at least 3 different admissions with Klebsiella pne umoniae, extended-spectrum beta-lactamase and is now on antibiotics. She is managed by primary team for her urinary tract infection, which may be a reason for lowered seizure threshold and seizures. Plan: 1.At this point, Keppra 750 twice daily. If additional seizures occur, increase Depakote to 1000 mg twice daily. 2.The patient is told of the importance to hydrate to help with kidney function. She is currently n ot on dialysis, that is being evaluated by the Renal Service. 3.Recommend cranberry 400 mg twice daily. 4.A routine electroencephalogram may be ordered outpatient to evaluate for potential interictal epil eptiform activity. 5.The patient may be discharged home today. MOISE Voice ID: [id number] Report ID: [id number]
[2022-01-03 05:42] LABS: Hematocrit 26.4 % (36.0-45.0); Lymphocytes % 30.7 % (15.3-44.8); MPV 7.9 fL (7.6-11.3); RBC Red Blood Cell Count 2.85 M/uL (3.86-4.86)
[2022-01-03 05:46] LABS: Protime INR 2.02
[2022-01-03 05:59] LABS: Albumin 2.1 g/dL (3.4-5.0); Magnesium 1.8 mg/dL (1.8-2.4); Phosphorus 3.6 mg/dL (2.5-4.9); Potassium 3.8 mmol/L (3.5-5.1)
[2022-01-03] MEDS ORDERED: HOME MED 1 EA UNK (Levothyroxine Sodium [Levothyroxine] 150 MCG Capsule) PO SCH (06:00)
[2022-01-03] MEDS: LEVOTHYROXINE SOD 0.075 MG TAB PO SCH (06:30)
[2022-01-03] MEDS ORDERED: EPOETIN ALFA-EPBX 10,000 UNIT/ML VIAL SQ ONE ×2 (09:00)
[2022-01-03] MEDS: HYDRALAZINE HCL 25 MG TABLET PO SCH ×2 (09:00→13:09)
[2022-01-03] MEDS: HEPARIN 5000 UNIT/ML 1 ML VIAL SQ SCH (09:14)
[2022-01-03] MEDS: VITAMIN D 1000 UNIT TAB PO SCH (09:15)
[2022-01-03] MEDS: MECLIZINE HCL 12.5 MG TAB PO SCH ×3 (09:15→22:25)
[2022-01-03] MEDS: METOLAZONE 5 MG TABLET PO SCH (09:15)
[2022-01-03] MEDS: CYANOCOBALAMIN 1,000 MCG TAB PO SCH (09:16)
[2022-01-03] MEDS: FERROUS SULFATE 325 MG TAB PO SCH ×2 (09:16→22:25)
[2022-01-03] MEDS: TAMSULOSIN 0.4 MG SR CAP PO SCH (09:16)
[2022-01-03] MEDS: DIVALPROEX ER 250 MG TAB PO SCH ×2 (09:16→22:23)
[2022-01-03] MEDS: PANTOPRAZOLE 40MG TABLET PO SCH (09:16)
[2022-01-03] MEDS: BUMETANIDE 1 MG TABLET PO SCH ×2 (09:16→22:25)
[2022-01-03] MEDS: ISOSORBIDE DINIT 20 MG TAB PO SCH ×3 (09:16→22:25)
[2022-01-03] MEDS: NITROGLYCERIN 0.4 MG/HR (10 MG) PATCH TD SCH (09:17)
[2022-01-03] MEDS: ASPIRIN 81 MG CHEWABLE TABLET PO SCH (09:17)
[2022-01-03] MEDS: SEVELAMER CARBONATE 800 MG TABLET PO SCH ×3 (09:17→16:18)
[2022-01-03] MEDS: carvediloL 6.25 MG TAB PO SCH ×2 (09:17→22:23)
[2022-01-03] MEDS: CALCITROL 0.25 MCG CAP PO SCH (09:17)
--- NOTE | 2022-01-03 12:47 | P.PN ---
Subjective Date of Service: 01/03/22 Chief Complaint: Fluid overload; acute on chronic respiratory distress Subjective no overnight events BP better controlled Cr stable ca be discharged from nephrology point of view Physical exam General: Awake and alert, NAD, obese on O2 CHEST; CTAB, no wheezes or rales HEART : RRR. 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 Received HD 12/2020-04/2021. Renal diet Monitor I/O, renal panel no indication for renal replacement therapy at this time AV fistula planning/surgery as outpt # KlebsiellaUTI Abx per primary team # Hx of seizure Depakote # Htn BP controlled on Hydralazine and Carvedilol 6.25 mg po bid # Anasarca +Hypoalbuminemia BNP sig elevated TTE on 08/20 showed LVEF 40-44%, gr. 1 diastolic dysfxn Cont Bumex + Metolazone # CAD s/p [place] s/p PCI s/p CABG, SSS s/p PPM Per other services Diuretics as above Continue other cardioprudent meds # PVD Per Surgery service # Anemia Received Epo 10T u SQ on 12/19/21 Dose Epo on 01/03 when BP better controlled # HyperPO4 Sevelamer # Secondary hyperPTH Cont Calcitriol 0.25 mcg po daily Cont D3 2000 IU po daily # Debility PT/OT Physical Examination - Vital Signs Temperature: 96.9 F Blood Pressure: 129/61 Pulse: 60 Respirations: 16 Pulse Ox (%): 94 - Studies Medications List Reviewed: Yes
[2022-01-03] MEDS: SOD FERRIC GLUC COMPLX/SUCROSE 250 MG in NA CHLORIDE 0.9% 250 ML IV SCH (13:09)
[2022-01-03] MEDS: ACETAMINOPHEN 500 MG TAB PO PRN (16:18)
[2022-01-03] MEDS: WARFARIN SODIUM 3 MG TAB PO SCH (16:19)
[2022-01-03 17:03] LABS: Urine Appearance TURBID (Clear); Urine Bilirubin Negative (Negative); Urine Blood Trace-intact (Negative); Urine Glucose Negative (Negative); Urine Protein 3+ (Negative); Urine Urobilinogen 0.2 mg/dL (0.2-1.0); Urine pH 7.5 (5.0-7.0)
[2022-01-03 17:06] LABS: Urine Bacteria LOADED /HPF (<20); Urine Color DK YELLOW (Yellow); Urine Microscopic Reflex ORDER UMIC
[2022-01-03] MEDS: ATORVASTATIN 40 MG TAB PO SCH (22:24)
[2022-01-04] MEDS: HYDRALAZINE HCL 25 MG TABLET PO SCH ×5 (00:06→21:13)
[2022-01-04] MEDS: METOLAZONE 5 MG TABLET PO SCH ×4 (00:06→21:11)
[2022-01-04] MEDS: MIRTAZAPINE 15 MG TAB PO SCH ×3 (00:07→21:12)
--- NOTE | 2022-01-04 02:26 | P.PN ---
Date of Service: 01/04/22 Received a call at 02:10 from patient's nurse stating that she experienced an absence seizure lasting about 1 minute. States she was just staring blankly and would not respond. I went to assess patient and she was awake, alert, oriented x4. However when speaking with her, she was declining to take any of her antihypertensive medications and sounded very paranoid that we would not give her the correct medications. Per Dr. Hartman's last note, he recommended to increase Depakote from 75 to 100 twice daily if patient experienced another seizure. Will increase at this time. <Anne Hanson - Last Filed: 01/04/22 02:26> Agree with plan of care as mentioned above <Yoon Silverman - Last Filed: 01/04/22 21:40>
[2022-01-04 05:35] LABS: Protime INR 2.46
[2022-01-04 05:49] LABS: Albumin 2.2 g/dL (3.4-5.0); Phosphorus 3.5 mg/dL (2.5-4.9); Potassium 3.9 mmol/L (3.5-5.1)
[2022-01-04] MEDS ORDERED: DIAZEPAM 5 MG TABLET PO ONE (05:49)
[2022-01-04] MEDS: LEVOTHYROXINE SOD 0.075 MG TAB PO SCH (06:11)
[2022-01-04] MEDS: VITAMIN D 1000 UNIT TAB PO SCH (09:33)
[2022-01-04] MEDS: CALCIUM CARBONATE 500 MG TAB PO SCH (09:33)
[2022-01-04] MEDS: ASPIRIN 81 MG CHEWABLE TABLET PO SCH (09:33)
[2022-01-04] MEDS: CALCITROL 0.25 MCG CAP PO SCH (09:34)
[2022-01-04] MEDS: BUMETANIDE 1 MG TABLET PO SCH ×2 (09:34→21:13)
[2022-01-04] MEDS: CYANOCOBALAMIN 1,000 MCG TAB PO SCH (09:34)
[2022-01-04] MEDS: DIVALPROEX ER 250 MG TAB PO SCH ×2 (09:34→21:12)
[2022-01-04] MEDS: PANTOPRAZOLE 40MG TABLET PO SCH (09:35)
[2022-01-04] MEDS: TAMSULOSIN 0.4 MG SR CAP PO SCH (09:35)
[2022-01-04] MEDS: MECLIZINE HCL 12.5 MG TAB PO SCH ×3 (09:35→21:12)
[2022-01-04] MEDS: ISOSORBIDE DINIT 20 MG TAB PO SCH ×3 (09:35→21:12)
[2022-01-04] MEDS: FERROUS SULFATE 325 MG TAB PO SCH ×2 (09:35→21:11)
[2022-01-04] MEDS: carvediloL 6.25 MG TAB PO SCH ×2 (09:35→21:12)
[2022-01-04] MEDS: SEVELAMER CARBONATE 800 MG TABLET PO SCH ×3 (09:35→16:12)
[2022-01-04] MEDS: NITROGLYCERIN 0.4 MG/HR (10 MG) PATCH TD SCH (09:35)
[2022-01-04] MEDS: Meropenem 500 MG in NA CHLORIDE 0.9% 100 ML IV SCH ×2 (13:27→16:12)
--- NOTE | 2022-01-04 15:31 | P.PN ---
Subjective Date of Service: 01/04/22 Chief Complaint: Fluid overload; acute on chronic respiratory distress Subjective had seizure last night Cr stable pt had 2 seizure epiosde during this hospitalization will monitor fo now and consider to initiate renal replacement therapy Physical exam General: Awake and alert, NAD, obese on O2 CHEST; CTAB, no wheezes or rales HEART : RRR. 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 Received HD 12/2020-04/2021. Renal diet Monitor I/O, renal panel no indication for renal replacement therapy at this time AV fistula planning/surgery as outpt # Klebsiella UTI Abx per primary team # Hx of seizure Depakote, dose increase plan to repeat EEG and head CT will monitor fo now and consider to initiate renal replacement therapy # Htn BP controlled on Hydralazine and Carvedilol 6.25 mg po bid # Anasarca +Hypoalbuminemia BNP sig elevated TTE on 08/20 showed LVEF 40-44%, gr. 1 diastolic dysfxn Cont Bumex + Metolazone # CAD s/p [place] s/p PCI s/p CABG, SSS s/p PPM Per other services Diuretics as above Continue other cardioprudent meds # PVD Per Surgery service # Anemia Received Epo 10T u SQ on 12/19/21 Dose Epo on 01/03 when BP better controlled # HyperPO4 Sevelamer # Secondary hyperPTH Cont Calcitriol 0.25 mcg po daily Cont D3 2000 IU po daily # Debility PT/OT Physical Examination - Vital Signs Temperature: 96.9 F Blood Pressure: 171/76 Pulse: 75 Respirations: 18 Pulse Ox (%): 94 - Studies Medications List Reviewed: Yes
[2022-01-04] MEDS: ATORVASTATIN 40 MG TAB PO SCH (21:13)
--- NOTE | 2022-01-04 21:26 | P.PN ---
Date of Service: 01/04/22 Subjective Subjective: Patient s/p seizures; post-ictal today; will function slowly worsening. Spoke with nephrology and they are contemplating starting dialysis. Patient also with multidrug-resistant UTI and will start antibiotic therapy. Patient may need central line prior to discharge. Family decided to proceed with SNF and hoping to go to [facility] Review of Systems 10-point ROS is otherwise unremarkable Physical Examination - Vital Signs reviewed - Physical Exam General: Alert, In no apparent distress, Oriented x3 Respiratory: Clear to auscultation bilaterally, Normal air movement Cardiovascular: Regular rate/rhythm, Normal S1 S2 Gastrointestinal: Normal bowel sounds, No tenderness Neurological: NO focal deficits Assessment & Plan - Problems (Diagnosis) (1) Chronic kidney disease, stage V Current Visit: Yes Status: Acute (2) AMS (altered mental status) Current Visit: No Status: Acute (3) Acute on chronic diastolic heart failure Current Visit: No Status: Acute (4) Anasarca associated with disorder of kidney Current Visit: No Status: Acute (5) Diabetes mellitus Current Visit: No Status: Acute (6) Hypoglycemia Current Visit: Yes Status: Acute (7) ESBL Klebsiella Current Visit: Yes Status: Acute (6) Hypoglycemia Current Visit: Yes Status: Acute - Plan Continue with plan of care: 1. Nephrology consultation appreciated 2. Continue with diuresing 3. Monitor strict blood sugar control 4. Continue with antiepileptics 5. EEG 6. PT eval 7. [place] has decided [place] [facility] [place] and they would request [facility] 8. IV meropenem x7 to 10 days 9. GI/DVT prophylaxis - Advance Directives Does patient have a Living Will: No Does patient have a Durable POA for Healthcare: No - Code Status/Comfort Care Code Status: Full Code
--- NOTE | 2022-01-04 21:33 | P.PN ---
Date of Service: 01/03/22 Subjective Subjective: Patient doing better. Waiting for repeat UA. Continue with diuresing along with strict blood sugar control. Renal function is stable. Review of Systems 10-point ROS is otherwise unremarkable Physical Examination - Vital Signs reviewed - Physical Exam General: Alert, In no apparent distress, Oriented x3 Respiratory: Clear to auscultation bilaterally, Normal air movement Cardiovascular: Regular rate/rhythm, Normal S1 S2 Gastrointestinal: Normal bowel sounds, No tenderness Neurological: NO focal deficits Assessment & Plan - Problems (Diagnosis) (1) Chronic kidney disease, stage V Current Visit: Yes Status: Acute (2) AMS (altered mental status) Current Visit: No Status: Acute (3) Acute on chronic diastolic heart failure Current Visit: No Status: Acute (4) Anasarca associated with disorder of kidney Current Visit: No Status: Acute (5) Diabetes mellitus Current Visit: No Status: Acute (6) Hypoglycemia Current Visit: Yes Status: Acute (7) ESBL Klebsiella Current Visit: Yes Status: Acute (6) Hypoglycemia Current Visit: Yes Status: Acute - Plan Continue with plan of care: 1. Nephrology consultation appreciated 2. Continue with diuresing 3. Monitor strict blood sugar control 4. Continue with antiepileptics 5. EEG 6. PT eval 7. Family has decided to go to a senior living facility and they would request [facility] 8. UA with micro pending 9. GI/DVT prophylaxis - Advance Directives Does patient have a Living Will: No Does patient have a Durable POA for Healthcare: No - Code Status/Comfort Care Code Status: Full Code
--- NOTE | 2022-01-04 21:37 | P.PN ---
Date of Service: 01/02/22 Subjective Subjective: Patient doing better. Patient is doing well with no new complaints. Review of Systems 10-point ROS is otherwise unremarkable Physical Examination - Vital Signs reviewed - Physical Exam General: Alert, In no apparent distress, Oriented x3 Respiratory: Clear to auscultation bilaterally, Normal air movement Cardiovascular: Regular rate/rhythm, Normal S1 S2 Gastrointestinal: Normal bowel sounds, No tenderness Neurological: NO focal deficits Assessment & Plan - Problems (Diagnosis) (1) Chronic kidney disease, stage V Current Visit: Yes Status: Acute (2) AMS (altered mental status) Current Visit: No Status: Acute (3) Acute on chronic diastolic heart failure Current Visit: No Status: Acute (4) Anasarca associated with disorder of kidney Current Visit: No Status: Acute (5) Diabetes mellitus Current Visit: No Status: Acute (6) Hypoglycemia Current Visit: Yes Status: Acute (7) UTI Current Visit: Yes Status: Acute (6) Hypoglycemia Current Visit: Yes Status: Acute - Plan Continue with plan of care: 1. Nephrology consultation appreciated 2. Continue with diuresing 3. Monitor strict blood sugar control 4. Continue with antibiotics 5. Continue with Depakote 6. Arrange for outpatient home health 7. GI/DVT prophylaxis - Advance Directives Does patient have a Living Will: No Does patient have a Durable POA for Healthcare: No - Code Status/Comfort Care Code Status: Full Code
[2022-01-05 04:19] LABS: Protime INR 2.37
[2022-01-05 04:35] LABS: Albumin 2.1 g/dL (3.4-5.0); Phosphorus 3.6 mg/dL (2.5-4.9); Potassium 3.8 mmol/L (3.5-5.1)
[2022-01-05] MEDS: LEVOTHYROXINE SOD 0.075 MG TAB PO SCH (05:37)
[2022-01-05] MEDS: NITROGLYCERIN 0.4 MG/HR (10 MG) PATCH TD SCH (08:05)
[2022-01-05] MEDS: Meropenem 500 MG in NA CHLORIDE 0.9% 100 ML IV SCH ×4 (08:05→21:37)
[2022-01-05] MEDS: PANTOPRAZOLE 40MG TABLET PO SCH (08:06)
[2022-01-05] MEDS: SEVELAMER CARBONATE 800 MG TABLET PO SCH ×3 (08:06→16:28)
[2022-01-05] MEDS: ISOSORBIDE DINIT 20 MG TAB PO SCH ×3 (08:06→21:40)
[2022-01-05] MEDS: DIVALPROEX ER 250 MG TAB PO SCH ×2 (08:07→21:38)
[2022-01-05] MEDS: VITAMIN D 1000 UNIT TAB PO SCH (08:07)
[2022-01-05] MEDS: FERROUS SULFATE 325 MG TAB PO SCH ×2 (08:07→21:38)
[2022-01-05] MEDS: CYANOCOBALAMIN 1,000 MCG TAB PO SCH (08:07)
[2022-01-05] MEDS: CALCITROL 0.25 MCG CAP PO SCH (08:08)
[2022-01-05] MEDS: CALCIUM CARBONATE 500 MG TAB PO SCH (08:08)
[2022-01-05] MEDS: MECLIZINE HCL 12.5 MG TAB PO SCH ×3 (08:09→21:40)
[2022-01-05] MEDS: TAMSULOSIN 0.4 MG SR CAP PO SCH (08:09)
[2022-01-05] MEDS: BUMETANIDE 1 MG TABLET PO SCH ×2 (08:09→21:39)
[2022-01-05] MEDS: HYDRALAZINE HCL 25 MG TABLET PO SCH ×3 (08:10→21:39)
[2022-01-05] MEDS: METOLAZONE 5 MG TABLET PO SCH ×2 (08:10→21:37)
[2022-01-05] MEDS: carvediloL 6.25 MG TAB PO SCH ×2 (08:10→21:39)
[2022-01-05] MEDS: ASPIRIN 81 MG CHEWABLE TABLET PO SCH (08:14)
--- NOTE | 2022-01-05 16:07 | P.PN ---
Subjective Date of Service: 01/05/22 Chief Complaint: Fluid overload; acute on chronic respiratory distress Subjective: No new changes, Tolerating diet (Still mild shortness of breath, feels drowsy today. Easily arousable and conversant Spouse at bedside discussed with also No new seizures overnight) Physical Examination - Vital Signs Temperature: 97.2 F Blood Pressure: 147/65 Pulse: 68 Respirations: 16 Pulse Ox (%): 95 - Studies Medications List Reviewed: Yes Assessment And Plan Physician Review: Patient Assessed, Agree with Above Assessment and Plan Physician Review Additional Text: - Physical Exam General: Alert, In no apparent distress, Oriented x3 Respiratory: Clear to auscultation bilaterally, Normal air movement Cardiovascular: Regular rate/rhythm, Normal S1 S2 Gastrointestinal: Normal bowel sounds, No tenderness Neurological: NO focal deficits Assessment & Plan - Problems (Diagnosis) (1) Chronic kidney disease, stage V Current Visit: Yes Status: Acute (2) AMS (altered mental status) Current Visit: No Status: Acute (3) Acute on chronic diastolic heart failure Current Visit: No Status: Acute (4) Anasarca associated with disorder of kidney Current Visit: No Status: Acute (5) Diabetes mellitus Current Visit: No Status: Acute (6) Hypoglycemia Current Visit: Yes Status: Acute (7) ESBL Klebsiella Current Visit: Yes Status: Acute (6) Hypoglycemia Current Visit: Yes Status: Acute Patient with history of prolonged EUNICE on CKD, hypertension, seizure disorder, diabetes admitted for Klebsiella UTI, recurrent seizures as well as noted with marked azotemia. Renal planning initiation of renal replacement therapy. - Plan Continue empiric antibiotics for Klebsiella UTI Blood cultureno growth to date Follow nephrology plan for initiation of Replacement therapy for CKD stage V C clinically fluid overloaded, continue diuretics, follow-up with dialysis initiation Still mild weakness expected to improve with azotemia clearance, initiate PT and OT Follow case management for plan for SNF post discharge Spouse and patient discussed with and they are agreeable to SNF Status post evaluation by neurology, Depakote dose increased, no recurrent seizures now -Continue IV meropenem x7 to 10 days total until 01/11 9. GI/DVT prophylaxis
[2022-01-05] MEDS: ATORVASTATIN 40 MG TAB PO SCH (21:39)
[2022-01-05] MEDS: MIRTAZAPINE 15 MG TAB PO SCH (21:40)
--- NOTE | 2022-01-05 22:05 | PN ---
Date of Progress Note: 01/05/2022 Chief Complaint: Advanced chronic kidney disease stage 4/5 due to diabetes mellitus and hypertension . Baseline creatinine level is 4 and 3.8. Baseline GFR 15 to 17. Subjective: The patient presented to the hospital because of generalized weakness. She was found to have elevated BUN and creatinine levels. She was found to have seizure activity during this hospita lization. The patient has fluid overload, acute on chronic respiratory failure. Review of Systems: The patient is feeling better today. Physical Examination: Lungs: Clear to auscultation bilaterally. Heart: S1, S2. Abdomen: Benign. Extremities: Edema present. Impression And Plan: 1.Chronic kidney disease stage 4/5 due to diabetes mellitus and hypertension. There is ongoing acut e on chronic kidney injury with prerenal azotemia. The patient has history of acute kidney injury se condary to ischemic acute tubular necrosis in the setting of sick sinus syndrome with cardiac arrest. The patient previously was dialyzed in 2020. Subsequently, she was taken off dialysis. She may ne ed dialysis in near future if renal function does not improve. Continue to monitor urine output, kalie ctrolytes, BUN and creatinine. 2.Urinary tract infection with klebsiella. Continue antibiotics. 3.History of seizure. The patient received Depakote dose adjustment per Primary team. 4.Hypertension. Continue hydralazine and carvedilol. 5.Anasarca secondary to hypoalbuminemia and advanced chronic kidney disease. Continue Bumex and met olazone. Monitor electrolytes, including magnesium level. 6.Congestive heart failure with diastolic dysfunction and systolic dysfunction. Continue diuretics. EB/MODL Voice ID: [id number] Report ID: [id number]
[2022-01-06] MEDS: ACETAMINOPHEN 500 MG TAB PO PRN (01:11)
[2022-01-06 04:16] LABS: Protime INR 1.7
[2022-01-06] MEDS ORDERED: LEVOTHYROXINE SOD 0.075 MG TAB ONE (05:13)
[2022-01-06] MEDS: LACTULOSE 20 GM/30 ML UCUP PO PRN (05:28)
[2022-01-06] MEDS ORDERED: LEVOTHYROXINE SOD 0.075 MG TAB PO SCH (06:30)
[2022-01-06] MEDS: VITAMIN D 1000 UNIT TAB PO SCH (08:52)
[2022-01-06] MEDS: CALCIUM CARBONATE 500 MG TAB PO SCH (08:52)
[2022-01-06] MEDS: HYDRALAZINE HCL 25 MG TABLET PO SCH ×3 (08:52→22:22)
[2022-01-06] MEDS: FERROUS SULFATE 325 MG TAB PO SCH (08:52)
[2022-01-06] MEDS: CYANOCOBALAMIN 1,000 MCG TAB PO SCH (08:53)
[2022-01-06] MEDS: TAMSULOSIN 0.4 MG SR CAP PO SCH (08:53)
[2022-01-06] MEDS: SEVELAMER CARBONATE 800 MG TABLET PO SCH ×2 (08:53→12:45)
[2022-01-06] MEDS: ISOSORBIDE DINIT 20 MG TAB PO SCH ×3 (08:53→22:22)
[2022-01-06] MEDS: ASPIRIN 81 MG CHEWABLE TABLET PO SCH (08:54)
[2022-01-06] MEDS: BUMETANIDE 1 MG TABLET PO SCH ×2 (08:54→22:21)
[2022-01-06] MEDS: carvediloL 6.25 MG TAB PO SCH ×2 (08:55→22:23)
[2022-01-06] MEDS: MECLIZINE HCL 12.5 MG TAB PO SCH ×3 (08:55→22:22)
[2022-01-06] MEDS: METOLAZONE 5 MG TABLET PO SCH ×2 (08:55→22:23)
[2022-01-06] MEDS: DIVALPROEX ER 250 MG TAB PO SCH ×2 (08:55→22:22)
[2022-01-06] MEDS: PANTOPRAZOLE 40MG TABLET PO SCH (08:55)
[2022-01-06] MEDS: Meropenem 500 MG in NA CHLORIDE 0.9% 100 ML IV SCH ×2 (08:56→22:24)
[2022-01-06] MEDS: CALCITROL 0.25 MCG CAP PO SCH (08:56)
[2022-01-06] MEDS: NITROGLYCERIN 0.4 MG/HR (10 MG) PATCH TD SCH (08:57)
--- NOTE | 2022-01-06 10:17 | P.PN ---
Subjective Date of Service: 01/06/22 Chief Complaint: Fluid overload; acute on chronic respiratory distress Subjective: No new changes, No C/O voiced (anxious to go home soon) Physical Examination - Vital Signs Temperature: 97.1 F Blood Pressure: 163/69 Pulse: 94 Respirations: 20 Pulse Ox (%): 97 - Studies Medications List Reviewed: Yes Assessment And Plan Physician Review: Patient Assessed, Agree with Above Assessment and Plan Physician Review Additional Text: - Physical Exam General: Alert, In no apparent distress, Oriented x3 Respiratory: Clear to auscultation bilaterally, Normal air movement Cardiovascular: Regular rate/rhythm, Normal S1 S2 Gastrointestinal: Normal bowel sounds, No tenderness Neurological: NO focal deficits Assessment & Plan - Problems (Diagnosis) (1) Chronic kidney disease, stage V Current Visit: Yes Status: Acute (2) AMS (altered mental status) Current Visit: No Status: Acute (3) Acute on chronic diastolic heart failure Current Visit: No Status: Acute (4) Anasarca associated with disorder of kidney Current Visit: No Status: Acute (5) Diabetes mellitus Current Visit: No Status: Acute (6) Hypoglycemia Current Visit: Yes Status: Acute (7) ESBL Klebsiella Current Visit: Yes Status: Acute (6) Hypoglycemia Current Visit: Yes Status: Acute Patient with history of prolonged EUNICE on CKD, hypertension, seizure disorder, diabetes admitted for Klebsiella UTI, recurrent seizures as well as noted with marked azotemia. Renal planning initiation of renal replacement therapy. - Plan -follow plan for HD start -Family hesitant to start , will defer to renal team to d/w more with them -Benefit of HD for volume control discussed Continue empiric antibiotics for Klebsiella UTI -Blood cultureno growth till date -Replacement therapy for CKD stage V -clinically fluid overloaded, continue diuretics, Still mild weakness expected to improve with azotemia clearance, initiate PT and OT Follow case management for plan for SNF post discharge Spouse and patient discussed with and they are agreeable to SNF Status post evaluation by neurology, Depakote dose increased, no recurrent seizures now -Continue IV meropenem x7 to 10 days total until 01/11 GI/DVT prophylaxis 01/06/22 10:14
[2022-01-06] MEDS: SOD FERRIC GLUC COMPLX/SUCROSE 250 MG in NA CHLORIDE 0.9% 250 ML IV SCH (13:17)
--- NOTE | 2022-01-06 15:17 | RAD REPORT ---
EXAM DESCRIPTION: RAD - Chest Single View - 01/06/2022 3:03 pm CLINICAL HISTORY: COPD COMPARISON: Chest Single View dated 12/31/2021; Chest Single View dated 12/18/2021; Chest Single View d ated 11/22/2021; Chest Single View dated 06/17/2021; Chest Abd Pelvis Wo Con dated 11/22/2021 FINDINGS: Lines: None. Lungs: Widespread pulmonary opacities again identified . Pleural: Similar to slightly decreased left pleural effusion . Small right effusion probably present. Cardiac: Cardiomegaly. Sternotomy. Bones: No acute fractures. Other: IMPRESSION: Pulmonary edema with only slight decrease in size of the left pleural effusion.
--- NOTE | 2022-01-06 19:33 | PN ---
Date of Progress Note: 01/06/2022 Subjective: The patient was admitted with postictal altered mental status, cardiorenal syndrome. The patient was diuresed. Her swelling has been subsided. The patient seen by Neurology. The patient still requires high FiO2 because of the respiratory distress. Physical Examination: Vital Signs: Blood pressure 140/89, pulse of 83, afebrile. General: The patient had good urine output voiding. Chest: Crackles bilateral. Heart: S1, S2. Systolic murmur. Abdomen: Soft, nontender. Extremities: +1 edema, much better than before. Neuro: Alert. No tremor. Sleepy. Laboratory Data: WBC 3.1, H and H 8.7/26.4. Sodium 133, potassium 3.8, bicarb 29, BUN 67, creatinine 4.2, GFR of 10, calcium 7.9, phosphorus 3.6, albumin 2.1. Corrected calcium is 9.5. Current Medications: The patient on include, 1. Meropenem 500 b.i.d. 2. Flomax. 3. IV iron. 4. Epogen. 5. Coumadin. 6. Calcium carbonate. 7. Atorvastatin. 8. Carvedilol 6.25 b.i.d. 9. Nitroglycerin. 10. Isosorbide. 11. Ranexa. 12. Metolazone 5 mg b.i.d. 13. Renvela. 14. Pantoprazole. 15. Levothyroxine. 16. Calcitriol. 17. Cholecalciferol. Assessment And Plan: 1. Acute kidney injury on advanced chronic kidney disease, poor recovery, nonoliguric, still on the over volume side. I am going to go ahead and continue current diuresis. I had a long discussion with by bedside regarding the need to initiate renal replacement therapy given the lack of improvement since admission and possible that she has some uremic symptoms causing her altered mental status and poor improvement. The patient and verbalized understanding. We will proceed with the placement of the PermCath. We will consult Surgery, and we will do dialysis after. 2. Hypertension, controlled. We will continue to utilize blood pressure for more diuresis and ultrafiltration after dialysis to establish better volume control. 3. Anasarca, multifactorial, secondary to cardiorenal and hepatorenal. We will continue supplement, followup TSH. 4. Anemia of chronic kidney disease/iron deficiency anemia. Continue IV iron. Status post FIDELIA. 5. Iron deficiency anemia. Continue IV iron. 6. SHPTH Phos normalized. I am going to go ahead and decrease her Renvela and continue with the calcium carbonate. 7. Seizure, postictal as by Neurology. 8. Diabetes as by primary. 9. Coronary artery disease with congestive heart failure exacerbation as above. Time spent examining the patient, [id number] communicating with the patient and family, discussing the case with the nursing staff, reviewing the data including lab and radiology,discussing with other speciality placing order 35 minutes NEGRA Voice ID: [id number] Report ID: [id number] ALAN
[2022-01-06] MEDS: ATORVASTATIN 40 MG TAB PO SCH (22:22)
[2022-01-06] MEDS: MIRTAZAPINE 15 MG TAB PO SCH (22:23)
[2022-01-07 04:28] LABS: Protime INR 1.39
[2022-01-07 04:40] LABS: AST/SGOT 10 U/L (15-37); Alkaline Phosphatase 74 U/L (45-117); BUN Blood Urea Nitrogen 67 mg/dL (7-18); Bicarbonate 29 mmol/L (21-32); Bilirubin Total 0.2 mg/dL (0.2-1.0); Glucose Level 116 mg/dL (74-106); Magnesium 1.8 mg/dL (1.8-2.4); Potassium 3.8 mmol/L (3.5-5.1); Protein, Total 5.1 g/dL (6.4-8.2); Sodium Level 133 mmol/L (136-145)
[2022-01-07 04:41] LABS: ALT/SGPT < 6 U/L (12-78)
[2022-01-07] MEDS: LEVOTHYROXINE SOD 0.075 MG TAB PO SCH (05:45)
[2022-01-07] MEDS: LEVOTHYROXINE SOD 0.1 MG TAB PO SCH (05:45)
[2022-01-07] MEDS: PANTOPRAZOLE 40MG TABLET PO SCH (07:30)
[2022-01-07] MEDS: VITAMIN D 1000 UNIT TAB PO SCH (09:00)
[2022-01-07] MEDS: BUMETANIDE 1 MG TABLET PO SCH ×2 (09:00→21:35)
[2022-01-07] MEDS: ASPIRIN 81 MG CHEWABLE TABLET PO SCH (09:00)
[2022-01-07] MEDS: MECLIZINE HCL 12.5 MG TAB PO SCH ×3 (09:00→21:37)
[2022-01-07] MEDS: METOLAZONE 5 MG TABLET PO SCH ×2 (09:00→21:36)
[2022-01-07] MEDS: DIVALPROEX ER 250 MG TAB PO SCH ×2 (09:00→21:35)
[2022-01-07] MEDS: carvediloL 6.25 MG TAB PO SCH ×2 (09:00→21:36)
[2022-01-07] MEDS: HYDRALAZINE HCL 25 MG TABLET PO SCH ×3 (09:00→21:36)
[2022-01-07] MEDS: TAMSULOSIN 0.4 MG SR CAP PO SCH (09:00)
[2022-01-07] MEDS: CALCIUM CARBONATE 500 MG TAB PO SCH (09:00)
[2022-01-07] MEDS: CYANOCOBALAMIN 1,000 MCG TAB PO SCH (09:00)
[2022-01-07] MEDS: CALCITROL 0.25 MCG CAP PO SCH (09:00)
[2022-01-07] MEDS: ISOSORBIDE DINIT 20 MG TAB PO SCH ×3 (09:00→21:37)
[2022-01-07] MEDS: Meropenem 500 MG in NA CHLORIDE 0.9% 100 ML IV SCH ×2 (09:38→21:37)
[2022-01-07] MEDS ORDERED: VALPROATE SODIUM INJ 1,000 MG in NA CHLORIDE 0.9% 100 ML IV ONE (11:35)
--- NOTE | 2022-01-07 12:31 | P.OP ---
Preoperative diagnosis: Acute on Chronic Renal Failure Postoperative diagnosis: Acute on Chronic Renal Failure Primary procedure: Placement of Temporary LEFT Femoral HD Catheter Secondary procedure: micro-introducer used Anesthesia: 1% Lidocaine Estimated blood loss: <10cc Specimen: none Findings: dark, non-pulsatile blood returned Complications: None Implants: Mah[employer]ker Uncuffed Double Lumen HD Catheter Transferred to: Other (floor bed) Condition: Good
--- NOTE | 2022-01-07 12:48 | P.PN ---
Subjective Date of Service: 01/07/22 Chief Complaint: Fluid overload; acute on chronic respiratory distress Subjective: No new changes (Noted with mild confusion and drowsiness this morning, nurse unsure if she was postictal Tunnel dialysis line placement consult Bedside temporary dialysis line placed For initiation of dialysis today) Physical Examination - Vital Signs Temperature: 97.1 F Blood Pressure: 157/68 Pulse: 74 Respirations: 16 Pulse Ox (%): 95 - Studies Medications List Reviewed: Yes Assessment And Plan Physician Review: Patient Assessed, Agree with Above Assessment and Plan Physician Review Additional Text: - Physical Exam General: Alert, In no apparent distress, Oriented x3, alert, in mild discomfort Respiratory: Clear to auscultation bilaterally, Normal air movement Cardiovascular: Regular rate/rhythm, Normal S1 S2 Gastrointestinal: Normal bowel sounds, No tenderness Neurological: NO focal deficits Assessment & Plan - Problems (Diagnosis) (1) Chronic kidney disease, stage V Current Visit: Yes Status: Acute (2) AMS (altered mental status) Current Visit: No Status: Acute (3) Acute on chronic diastolic heart failure Current Visit: No Status: Acute (4) Anasarca associated with disorder of kidney Current Visit: No Status: Acute (5) Diabetes mellitus Current Visit: No Status: Acute (6) Hypoglycemia Current Visit: Yes Status: Acute (7) ESBL Klebsiella Current Visit: Yes Status: Acute (6) Hypoglycemia Current Visit: Yes Status: Acute Patient with history of prolonged EUNICE on CKD, hypertension, seizure disorder, diabetes admitted for Klebsiella UTI, recurrent seizures as well as noted with marked azotemia. Renal planning initiation of renal replacement therapy. - Plan -Follow initiation of dialysis today Continue temporary dialysis catheter use We will recall neurology for evaluation for recurrent seizure Obtain valproic acid level today Dose IV Depakote after level obtain Resume current p.o. Depakote levelstatus post increase after admission Continue PT OT, plan for SNF after stable on dialysis Follow volume status with ultrafiltration in dialysis continue diuretics, Status post evaluation by neurology, Depakote dose increased, no recurrent seizures now Continue IV meropenem x7 to 10 days total for Klebsiella UTI until 01/11 GI/DVT prophylaxis 01/07/22 12:46 Time Spent Managing PTS Care (In Minutes): 35
--- NOTE | 2022-01-07 13:00 | EKG ---
Test Date: 2022-01-06 Test Time: 01:47:21 Marble Machine Operator: RT-O MEASUREMENT RESULTS: Intervals: Rate: 82 NE: 176 QRSD: 140 QT: 414 QTc: 483 [place]: P: 57 NE: 176 QRS: 25 T: 26 INTERPRETIVE STATEMENTS: Normal sinus rhythm Right bundle branch block Septal infarct, age undetermined Abnormal ECG Compared to ECG 12/31/2021 07:11:11 Myocardial infarct finding now present Electronically Signed On 01-07-22 12:57:40 CDT by Waylon Shanks
[2022-01-07] MEDS: NITROGLYCERIN 0.4 MG/HR (10 MG) PATCH TD SCH (13:01)
--- NOTE | 2022-01-07 15:24 | PN ---
Date of Progress Note: 01/07/2022 Subjective: The patient doing the same. The patient had episode of seizure today. The patient is scheduled for PermCath placement. Currently, more awake after the seizure. Objective: Vital Signs: Blood pressure 157/68, pulse of 74, afebrile. Chest: Crackles bilateral. Heart: S1, S2. Systolic murmur. Abdomen: Soft, nontender. Extremities: Plus edema. Neurologic: Alert. No focality. Laboratory Data: WBC 3.1, H and H 8.7/26.4. Sodium 133, potassium 3.8, bicarb 29, BUN 67, creatinine 4.4, GFR of 10, calcium of 8. Albumin of 2. Current Medications: The patient on include; 1. Aspirin. 2. Meropenem. 3. Flomax. 4. IV iron. 5. Epogen. 6. Coumadin. 7. Calcium carbonate. 8. Carvedilol 6.25. 9. Hydralazine 100 t.i.d. 10. Ranexa. 11. Remeron. 12. Bumex 1 mg b.i.d. 13. Metolazone 5 b.i.d. 14. Pantoprazole. 15. Levothyroxine. 16. Calcitriol. Assessment And Plan: 1. Acute kidney injury on advanced chronic kidney disease secondary to cardiorenal, diabetes nephropathy. The acute component is secondary to cardiorenal, nonoliguric. The patient still on the over volume side. I am going to continue on the diuresis. The patient is scheduled to have PermCath placement and initiate dialysis. Unfortunately with the seizure, we will go ahead and place a temporary catheter and we will follow up to convert to tunneled catheter. 2. Hypertension. We will continue to utilize blood pressure for more diuresis. 3. Anasarca secondary to cardiorenal/hypothyroidism. Yesterday, we increased the levothyroxine. Continue diuresis to establish better volume control. 4. Anemia of chronic kidney disease with iron deficiency anemia. Continue IV iron. Continue FIDELIA. 5. Secondary hyperparathyroidism. Continue current binder. We will monitor the patient. 6. Seizure, uncontrolled. We will follow up with Neurology. 7. Diabetes as by primary. 8. Congestive heart failure exacerbation with cardiorenal as above. Time spent examining the patient, [id number] communicating with the patient and family, discussing the case with the nursing staff, reviewing the data including lab and radiology,discussing with other speciality placing order 35 minutes NEGRA Voice ID: [id number] Report ID: [id number] MTDD
--- NOTE | 2022-01-07 18:30 | CON ---
Date of Consultation: 01/06/2022 Brief History Of Present Illness: The patient is a 71-year-old female, who presented to the hospital with shortness of breath. She was confused and altered. She was found to be hypoxic and hypoglycem ic. She was brought to the emergency room on 12/31/2021, had a workup and had preexisting medical co ndition of chronic renal dysfunction and now appears to have acute on chronic renal dysfunction neces sitating initiation of hemodialysis. She is admitted for evaluation of the above stated condition. Past Medical History: Significant for CKD stage 5, chronic diastolic heart failure, hypertension, di abetes, hypothyroidism, coronary artery disease. Past Surgical History: Includes CABG, bilateral knee replacements, hemodialysis catheter placement m ultiple times before in the past, she cannot recall details of that. Allergies: TO HYDROCODONE AND PENICILLIN. Home Medications: Include aspirin, atorvastatin, calcium, vitamin D3, Apresoline, iron, Isordil, lac tulose, levothyroxine, meclizine, B12, mirtazapine, Prilosec, ranolazine, Flomax, carvedilol, Bumex, calcitriol, Renvela, Depakote, Coumadin. Family History: Noncontributory. Social History: She denies smoking, alcohol, or recreational drug use. Review of Systems: Ten-point review of systems other than HPI, she has general malaise, weakness and fatigue. Physical Examination: Vital Signs: At the time of my examination; her BMI is 43. Her blood pressure is 125/69, heart rate 74, respiratory rate 17, temperature 97.0, SpO2 100% on nasal cannula oxygen 2 L. General: She is awake. She is lethargic, but arousable. She answers questions appropriately for th e most part, but is continuously complaining of malaise, fatigue, and her is by her bedside w ho gives majority of information regarding her condition. She requires frequent awakening to complet e the exam. HEENT: Otherwise normocephalic. Neck: Supple without JVD. Chest: Expansion and excursion. Cardiovascular: Regular rate and rhythm. Pulmonary: Decreased breath sounds bilaterally. Abdomen: Obese, soft, nontender. Extremities: She has a well-healed surgical scar in the right groin area and previous surgical scars on her abdomen are noted as well. She does have general anasarca consistent with fluid overload as well examination with edema. Laboratory Data: Revealed her PT was 26.5 and INR was 2.37. Sodium 133, potassium 3.8, chloride 100 , carbon dioxide 29, BUN 67, creatinine 4.2, glucose of 115. Her calcium was 7.9, phosphorus 3.6, ma gnesium was 1.7. She had imaging performed, which included a head CT on 12/31 for her altered mental status, which showed no acute intracranial abnormality. She had a chest x-ray performed on 01/06, o fficially read as pulmonary edema with only slight decrease in size of the left pleural effusion. Assessment And Plan: A 71-year-old female, who comes in with signs and symptoms of acute on chronic renal failure. 1.Continue medical management. 2.I have explained the risks, benefits, and alternatives of placement of tunneled hemodialysis merlin ter including, but not limited to bleeding, infection, damage to surrounding tissue, need for further operation and procedures. The patient's family agrees to proceed as indicated. Thank you for this interesting consult. TAMMI/KERI Voice ID: [id number] Report ID: [id number]
[2022-01-07] MEDS: WARFARIN SODIUM 3 MG TAB PO SCH (18:51)
[2022-01-07] MEDS: MIRTAZAPINE 15 MG TAB PO SCH (21:36)
[2022-01-07] MEDS: ATORVASTATIN 40 MG TAB PO SCH (21:37)
--- NOTE | 2022-01-07 23:21 | OP ---
Date of Procedure: 01/07/2022 Surgeon: Chepe Sterling MD, Preoperative Diagnosis: Gxfkz-pj-htxmmsy renal failure. Postoperative Diagnosis: Pkgit-pe-iohsgeu renal failure. Procedure: Placement of a temporary left femoral hemodialysis catheter. Secondary procedure was santa rointroducer was utilized. Anesthesia: 1% lidocaine plain utilized. Estimated Blood Loss: Less than 10 cc. Specimen: None. Findings: Dark nonpulsatile blood return. Complications: None. Implants: Mahurkar cuffed double-lumen hemodialysis catheter. Condition: The patient remained on the floor bed and in good condition throughout the procedure. Indications: The patient is a 71-year-old female with wuwlf-er-phohndz renal failure, who was recent ly scheduled for placement of tunneled hemodialysis catheter. However, she had a seizure event on e floor and has a past medical history significant for seizure disorder. As such it was determined t hat she should have temporary hemodialysis to optimize her medical condition prior to general anesthe babatunde or increased anesthetic being applied in the operating room, as she wanted a higher level of lynnette tion for her tunnel hemodialysis catheter placement. As such, I opted to discuss the placement of a temporary hemodialysis catheter, have her medical condition optimized, have neurologic clearance with Dr. Hartman prior to any surgical intervention being entertained to make sure the patient is as opt imized as possible for the operating room. Procedure In Detail: The patient was prepped and draped in the usual sterile fashion in the bed. Af ter interrogating the left groin with ultrasound, I identified the femoral artery and femoral vein. Then, I placed additional prep in the left groin area. I used a microintroducer set to anesthetize t he skin and cannulated the left femoral vein with dark red nonpulsatile blood return. A small roddy i ncision was made after advancing the microwire into the groin and the needle was removed. The introd ucer sheath was then advanced over the microwire at this point. The micro wire was removed and the i nner portion of the introducer sheath was removed. Dark red nonpulsatile blood was returned. At thi s point, I advanced a standard wire through the introducer sheath and removed the introducer sheath. At this point, the standard wire was placed. I performed sequential dilatation using dilators and u ltimately placed the catheter in using Seldinger technique over a wire. At this point, the wire was removed and the catheter was tested and yfn back dark red nonpulsatile blood and flushed quite easil y with sterile saline at this point. At this point then, I secured the catheter to the skin using an attached 2-0 nylon suture and a sterile dressing placed over top. The patient tolerated the procedu re well with no evidence of any complication and remained in the room throughout the procedure in goo d condition. All counts were correct at the end of the case. TAMMI/KERI Voice ID: [id number] Report ID: [id number]
[2022-01-08 04:18] LABS: Protime INR 1.28
[2022-01-08 04:39] LABS: AST/SGOT 13 U/L (15-37); Albumin 2.1 g/dL (3.4-5.0); Alkaline Phosphatase 64 U/L (45-117); BUN Blood Urea Nitrogen 49 mg/dL (7-18); Bicarbonate 28 mmol/L (21-32); Bilirubin Total 0.3 mg/dL (0.2-1.0); Glucose Level 85 mg/dL (74-106); Magnesium 1.8 mg/dL (1.8-2.4); Potassium 3.6 mmol/L (3.5-5.1); Protein, Total 5.3 g/dL (6.4-8.2); Sodium Level 138 mmol/L (136-145)
[2022-01-08 04:42] LABS: ALT/SGPT < 6 U/L (12-78)
[2022-01-08] MEDS: LEVOTHYROXINE SOD 0.1 MG TAB PO SCH (06:08)
[2022-01-08] MEDS: LEVOTHYROXINE SOD 0.075 MG TAB PO SCH (06:08)
[2022-01-08] MEDS: PANTOPRAZOLE 40MG TABLET PO SCH (07:30)
[2022-01-08] MEDS ORDERED: VALPROATE SODIUM INJ 1,000 MG in NA CHLORIDE 0.9% 100 ML IV ONE (08:00)
[2022-01-08] MEDS: carvediloL 6.25 MG TAB PO SCH ×2 (09:00→21:42)
[2022-01-08] MEDS: METOLAZONE 5 MG TABLET PO SCH ×2 (09:00→21:43)
[2022-01-08] MEDS: HYDRALAZINE HCL 25 MG TABLET PO SCH ×3 (09:00→21:00)
[2022-01-08] MEDS: VITAMIN D 1000 UNIT TAB PO SCH (11:07)
[2022-01-08] MEDS: TAMSULOSIN 0.4 MG SR CAP PO SCH (11:07)
[2022-01-08] MEDS: CALCITROL 0.25 MCG CAP PO SCH (11:07)
[2022-01-08] MEDS: ASPIRIN 81 MG CHEWABLE TABLET PO SCH (11:07)
[2022-01-08] MEDS: CYANOCOBALAMIN 1,000 MCG TAB PO SCH (11:07)
[2022-01-08] MEDS: MECLIZINE HCL 12.5 MG TAB PO SCH ×3 (11:08→21:44)
[2022-01-08] MEDS: BUMETANIDE 1 MG TABLET PO SCH ×2 (11:08→21:42)
[2022-01-08] MEDS: ISOSORBIDE DINIT 20 MG TAB PO SCH ×3 (11:10→21:42)
[2022-01-08] MEDS: CALCIUM CARBONATE 500 MG TAB PO SCH (11:11)
[2022-01-08] MEDS: DIVALPROEX ER 250 MG TAB PO SCH ×3 (11:24→21:43)
--- NOTE | 2022-01-08 12:50 | P.PN ---
Subjective Date of Service: 01/08/22 Chief Complaint: Fluid overload; acute on chronic respiratory distress Subjective: New changes (Initiated on hemodialysis yesterday Shortness of breath better today Status post temporary dialysis catheter placement yesterday, refused permacath placement today) Physical Examination - Vital Signs Temperature: 97.6 F Blood Pressure: 132/63 Pulse: 83 Respirations: 18 Pulse Ox (%): 90 - Studies Medications List Reviewed: Yes Assessment And Plan Physician Review: Patient Assessed, Agree with Above Assessment and Plan Physician Review Additional Text: - Physical Exam General: Alert, In no apparent distress, Oriented x3, alert, on nasal cannula O2 Respiratory: Clear to auscultation bilaterally, Normal air movement Cardiovascular: Regular rate/rhythm, Normal S1 S2 Gastrointestinal: Normal bowel sounds, No tenderness Neurological: NO focal deficits Assessment & Plan - Problems (Diagnosis) (1) Chronic kidney disease, stage V Current Visit: Yes Status: Acute (2) AMS (altered mental status) Current Visit: No Status: Acute (3) Acute on chronic diastolic heart failure Current Visit: No Status: Acute (4) Anasarca associated with disorder of kidney Current Visit: No Status: Acute (5) Diabetes mellitus Current Visit: No Status: Acute (6) Hypoglycemia Current Visit: Yes Status: Acute (7) ESBL Klebsiella Current Visit: Yes Status: Acute (6) Hypoglycemia Current Visit: Yes Status: Acute Patient with history of prolonged EUNICE on CKD, hypertension, seizure disorder, history of cardiac arrest during hospitalization in August 2021 that was complicated with worsening of renal function and initiated on dialysis but have recurrent dialysis line associated DVT; diabetes admitted for Klebsiella UTI, recurrent seizures as well as noted with marked azotemia. Renal initiation of renal replacement therapy. - Plan Continue hemodialysis todaystarted yesterday Refusing tunneled dialysis catheter placement today, site fear of cardiac arrest with surgery We will consult cardiology for clearance Still low valproic acid level despite loading dose yesterday O2 on dialysis now Increase dose to twice daily although I am unsure if patient is actually getting her dose Do IV loading dose for now Continue temporary dialysis catheter use Patient refusing SNF/acute rehab, wants to be discharged home with home PT Start arrangement for outpatient dialysis placement Volume status improving, wean O2 off with daily ultrafiltration Continue PT/OT s/p evaluation by neurology, Depakote dose increased Continue IV meropenem x7 to 10 days total for Klebsiella UTI until 01/11 GI/DVT prophylaxis 01/08/22 12:48 Time Spent Managing PTS Care (In Minutes): 35
--- NOTE | 2022-01-08 15:52 | PN ---
Date of Progress Note: 01/08/2022 Subjective: The patient was admitted with acute kidney injury on advanced chronic kidney disease. The patient had dialysis yesterday. We managed to remove 2 L. The patient is supposed to be scheduled for PermCath today, but she refused. Physical Examination: Vital Signs: Blood pressure 132/63, pulse of 83, afebrile. Chest: Crackles bilateral. Heart: S1, S2. Systolic murmur. Abdomen: Soft, nontender. Extremities: +2 edema. Neurologic: Alert. No focality. Laboratory Data: WBC 3.1, H and H 8.7/26.4. Sodium 138, potassium 3.6, bicarb 28, BUN 49, creatinine 3.5, GFR of 13, calcium 8.1, albumin 2.1. Corrected calcium 9.7. Current Medications: The patient on include; 1. Meropenem. 2. Aspirin. 3. Flomax. 4. IV iron. 5. Epogen. 6. Coumadin. 7. Calcium carbonate. 8. Carvedilol 6.25 b.i.d. 9. Hydralazine 100 t.i.d. 10. Metolazone. 11. Lactulose. 12. Bumex. 13. Levothyroxine 175. 14. Meclizine. 15. Depakote. 16. Isosorbide. 17. Ranexa. Assessment And Plan: 1. Acute kidney injury on advanced chronic kidney disease secondary to cardiorenal, over volume. I am going to do another session of dialysis today. We will try to establish better volume control. I had long discussion with the patient regarding the need for dialysis. The patient verbalized understanding. I agree on that. We will proceed. 2. Hypertension, controlled, optimal. With starting dialysis and starting ultrafiltration, I am going to go ahead and decrease hydralazine to 50 t.i.d. with parameter to hold it if the blood pressure up below 150 to allow better blood pressure for ultrafiltration. 3. Anemia of iron deficiency and chronic kidney disease. Continue IV iron and Epogen. 4. Cardiorenal syndrome. We will try to establish better volume control with dialysis and diuresis. 5. Diabetes as by primary. 6. Seizure as by Neurology. time spend exam the patient face to face diswcussing with patient, placing order , reviewing the data , discussing the case with user experience team lead including nursing and hospitalist 35min JUANITA/KERI Voice ID: [id number] Report ID: [id number]
[2022-01-08] MEDS: NITROGLYCERIN 0.4 MG/HR (10 MG) PATCH TD SCH (17:38)
[2022-01-08] MEDS: WARFARIN SODIUM 3 MG TAB PO SCH (17:40)
--- NOTE | 2022-01-08 18:47 | P.PN ---
Subjective Date of Service: 01/08/22 Chief Complaint: Fluid overload; acute on chronic respiratory distress Subjective: Improving (Patient was scheduled for placement of tunnelled HD catheter today, she had a possible seizure yesterday, but has been doing well.) Physical Examination - Vital Signs Temperature: 96.5 F Blood Pressure: 135/65 Pulse: 84 Respirations: 20 Pulse Ox (%): 96 - Physical Exam General: Alert, In no apparent distress, Cooperative, Obese Cardiovascular: Other (LEFT femoral HD catheter in place.) - Studies Medications List Reviewed: Yes Assessment And Plan - Current Problems (Diagnosis) (1) Chronic kidney disease, stage V Current Visit: Yes Status: Acute Plan: - Discussed case with Dr. Hartman regarding management of possible seizure - patient loaded with Dilantin per Dr. Hartman recommendation - patient has temporaryHD catheter in place, used for dialysis yesterday - patient has decided not to have permacath placed today, she wants to reconsider dialysis - continue medical management Physician Review: Patient Assessed, Agree with Above Assessment and Plan
[2022-01-08] MEDS: Meropenem 500 MG in NA CHLORIDE 0.9% 100 ML IV SCH (21:37)
[2022-01-08] MEDS: MIRTAZAPINE 15 MG TAB PO SCH (21:42)
[2022-01-08] MEDS: ATORVASTATIN 40 MG TAB PO SCH (21:43)
--- NOTE | 2022-01-09 05:05 | P.PN ---
Subjective Date of Service: 01/09/22 Chief Complaint: Fluid overload; acute on chronic respiratory distress Subjective: No new changes Physical Examination - Vital Signs Temperature: 97.3 F Blood Pressure: 156/66 Pulse: 84 Respirations: 18 Pulse Ox (%): 99 - Physical Exam General: Other (Frail-looking) HEENT: Atraumatic, Normocephalic Neck: Supple, JVD not distended Respiratory: Other (Symmetric chest expansion) Cardiovascular: No rubs, No murmurs Gastrointestinal: Soft and benign, Non-distended Musculoskeletal: No clubbing Integumentary: No warmth Neurological: Normal speech, Normal tone Lymphatics: No axilla or inguinal lymphadenopathy Urinary: Other (no bladder distention) External genitalia: Deferred Rectal: Deferred - Studies Medications List Reviewed: Yes Assessment And Plan - Plan # 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 Received HD 12/2020-04/2021. Now restarted on HD for volume overload HD received yesterday. Next HD tomorrow. HD access: L femoral Renal diet Monitor I/O, renal panel AV fistula planning/surgery as outpt # KlebsiellaUTI Received abx # Hx of seizure Depakote # Htn BP above goal Increase Coreg to 12.5 mg po bid # Anasarca +Hypoalbuminemia BNP sig elevated TTE on 08/20 showed LVEF 40-44%, gr. 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) & bilateral PE, started therapeutic anticoagulation on 03/19/21 S/p IVC filter placement on 06/02 using Cordis TrapEase vena cava filter Will need to wear graduated compression stocking (GCS) thigh-high on RLE, at least 20-30 mmHg, for at least 2 years, wear during the daytime, remove at bedtime, to prevent post-thrombotic syndrome Has been on coumadin planned for long-term Monitor INR # CAD s/p PR s/p PCI s/p CABG, SSS s/p PPM Per other services Diuretics as above Continue other cardioprudent meds # PVD Per Surgery service # Anemia Epo Monitor H/H # HyperPO4 Sevelamer # Secondary hyperPTH Cont Calcitriol 0.25 mcg po daily Cont D3 2000 IU po daily # Debility PT/OT Physician Review: Patient Assessed, Agree with Above Assessment and Plan
[2022-01-09 06:13] LABS: Protime INR 1.36
[2022-01-09] MEDS: LEVOTHYROXINE SOD 0.075 MG TAB PO SCH (06:30)
[2022-01-09] MEDS: LEVOTHYROXINE SOD 0.1 MG TAB PO SCH (06:30)
[2022-01-09 07:37] LABS: AST/SGOT 10 U/L (15-37); Albumin 2.1 g/dL (3.4-5.0); Alkaline Phosphatase 69 U/L (45-117); BUN Blood Urea Nitrogen 38 mg/dL (7-18); Bicarbonate 28 mmol/L (21-32); Bilirubin Total 0.2 mg/dL (0.2-1.0); Glucose Level 92 mg/dL (74-106); Potassium 3.6 mmol/L (3.5-5.1); Protein, Total 5.3 g/dL (6.4-8.2); Sodium Level 138 mmol/L (136-145); Valproic Acid (Depakene) Level 29.1 ug/mL (50-100)
[2022-01-09 07:50] LABS: ALT/SGPT < 6 U/L (12-78)
[2022-01-09] MEDS: VITAMIN D 1000 UNIT TAB PO SCH (10:43)
[2022-01-09] MEDS: ASPIRIN 81 MG CHEWABLE TABLET PO SCH ×2 (10:43→10:45)
[2022-01-09] MEDS: TAMSULOSIN 0.4 MG SR CAP PO SCH (10:43)
[2022-01-09] MEDS: CALCITROL 0.25 MCG CAP PO SCH (10:44)
[2022-01-09] MEDS: HYDRALAZINE HCL 25 MG TABLET PO SCH ×3 (10:44→21:00)
[2022-01-09] MEDS: ISOSORBIDE DINIT 20 MG TAB PO SCH ×3 (10:44→21:47)
[2022-01-09] MEDS: CYANOCOBALAMIN 1,000 MCG TAB PO SCH (10:44)
[2022-01-09] MEDS: CALCIUM CARBONATE 500 MG TAB PO SCH (10:45)
[2022-01-09] MEDS: PANTOPRAZOLE 40MG TABLET PO SCH (10:45)
[2022-01-09] MEDS: DIVALPROEX ER 250 MG TAB PO SCH ×3 (10:46→21:47)
[2022-01-09] MEDS: BUMETANIDE 1 MG TABLET PO SCH ×2 (10:46→21:46)
[2022-01-09] MEDS: carvediloL 6.25 MG TAB PO SCH (10:47)
[2022-01-09] MEDS: MECLIZINE HCL 12.5 MG TAB PO SCH ×3 (10:47→21:46)
[2022-01-09] MEDS: METOLAZONE 5 MG TABLET PO SCH ×2 (10:47→21:46)
[2022-01-09] MEDS: NITROGLYCERIN 0.4 MG/HR (10 MG) PATCH TD SCH (11:00)
[2022-01-09] MEDS ORDERED: carvediloL 6.25 MG TAB PO STA (12:00)
[2022-01-09] MEDS: SOD FERRIC GLUC COMPLX/SUCROSE 250 MG in NA CHLORIDE 0.9% 250 ML IV SCH (12:35)
--- NOTE | 2022-01-09 13:07 | P.PN ---
Subjective Date of Service: 01/09/22 Chief Complaint: Fluid overload; acute on chronic respiratory distress Subjective: No new changes, No C/O voiced (Feels fine, later complaining of chest pain when ambulating with physical therapy) Physical Examination - Vital Signs Temperature: 96.7 F Blood Pressure: 148/70 Pulse: 84 Respirations: 22 Pulse Ox (%): 98 - Studies Medications List Reviewed: Yes Assessment And Plan Physician Review: Patient Assessed, Agree with Above Assessment and Plan Physician Review Additional Text: - Physical Exam General: Alert, In no apparent distress, Oriented x3, alert, on nasal cannula O2 Respiratory: Clear to auscultation bilaterally, Normal air movement Cardiovascular: Regular rate/rhythm, Normal S1 S2 Gastrointestinal: Normal bowel sounds, No tenderness Neurological: NO focal deficits Assessment & Plan - Problems (Diagnosis) (1) Chronic kidney disease, stage V Current Visit: Yes Status: Acute (2) AMS (altered mental status) Current Visit: No Status: Acute (3) Acute on chronic diastolic heart failure Current Visit: No Status: Acute (4) Anasarca associated with disorder of kidney Current Visit: No Status: Acute (5) Diabetes mellitus Current Visit: No Status: Acute (6) Hypoglycemia Current Visit: Yes Status: Acute (7) ESBL Klebsiella Current Visit: Yes Status: Acute (6) Hypoglycemia Current Visit: Yes Status: Acute Patient with history of prolonged EUNICE on CKD, hypertension, seizure disorder, history of cardiac arrest during hospitalization in August 2021 that was complicated with worsening of renal function and initiated on dialysis but have recurrent dialysis line associated DVT; diabetes admitted for Klebsiella UTI, recurrent seizures as well as noted with marked azotemia. Renal initiation of renal replacement therapy. - Plan Continue hemodialysis Follow-up plan for tunneled dialysis catheter on Wednesday Await cardiology consult for clearance Since mild chest pain with physical therapy today, dose repeat set of cardiac enzymes Recurrent seizures, valproic acid level increasing although not still at target recent dose increase at 1 g 3 times daily for now Continue temporary dialysis catheter use Patient refusing SNF/acute rehab, wants to be discharged home with home PT Start arrangement for outpatient dialysis placement Volume status improving, wean O2 off with daily ultrafiltration Continue PT/OT Blood pressure improving, status post adjusted regimen s/p evaluation by neurology, Depakote dose increased Continue IV meropenem x7 to 10 days total for Klebsiella UTI until 01/11 GI/DVT prophylaxis 01/09/22 13:06 01/09/22 13:07
[2022-01-09] MEDS: WARFARIN SODIUM 3 MG TAB PO SCH (17:42)
[2022-01-09] MEDS: MIRTAZAPINE 15 MG TAB PO SCH (21:47)
[2022-01-09] MEDS: carvediloL 12.5 MG TAB PO SCH (21:47)
[2022-01-09] MEDS: ATORVASTATIN 40 MG TAB PO SCH (21:47)
[2022-01-09] MEDS: Meropenem 500 MG in NA CHLORIDE 0.9% 100 ML IV SCH (22:33)
[2022-01-10 04:28] LABS: Protime INR 1.45
[2022-01-10 04:44] LABS: AST/SGOT 14 U/L (15-37); Albumin 2.1 g/dL (3.4-5.0); Alkaline Phosphatase 77 U/L (45-117); BUN Blood Urea Nitrogen 41 mg/dL (7-18); Bicarbonate 25 mmol/L (21-32); Bilirubin Total 0.2 mg/dL (0.2-1.0); Glucose Level 119 mg/dL (74-106); Potassium 3.7 mmol/L (3.5-5.1); Protein, Total 5.4 g/dL (6.4-8.2); Sodium Level 136 mmol/L (136-145); Valproic Acid (Depakene) Level 26.9 ug/mL (50-100)
[2022-01-10 04:48] LABS: ALT/SGPT < 6 U/L (12-78)
[2022-01-10] MEDS: LEVOTHYROXINE SOD 0.1 MG TAB PO SCH ×2 (06:30→06:34)
[2022-01-10] MEDS: LEVOTHYROXINE SOD 0.075 MG TAB PO SCH ×2 (06:30→06:34)
[2022-01-10] MEDS: carvediloL 12.5 MG TAB PO SCH ×2 (09:00→22:16)
[2022-01-10] MEDS: HYDRALAZINE HCL 25 MG TABLET PO SCH ×3 (09:00→22:15)
[2022-01-10] MEDS: METOLAZONE 5 MG TABLET PO SCH ×2 (09:00→22:16)
[2022-01-10] MEDS: ISOSORBIDE DINIT 20 MG TAB PO SCH ×3 (09:00→22:17)
[2022-01-10] MEDS: BUMETANIDE 1 MG TABLET PO SCH ×2 (09:00→22:15)
[2022-01-10] MEDS: DIVALPROEX ER 250 MG TAB PO SCH ×4 (09:26→22:26)
[2022-01-10] MEDS: PANTOPRAZOLE 40MG TABLET PO SCH (09:27)
[2022-01-10] MEDS: MECLIZINE HCL 12.5 MG TAB PO SCH ×3 (09:27→22:30)
[2022-01-10] MEDS: VITAMIN D 1000 UNIT TAB PO SCH (09:27)
[2022-01-10] MEDS: TAMSULOSIN 0.4 MG SR CAP PO SCH (09:27)
[2022-01-10] MEDS: CALCITROL 0.25 MCG CAP PO SCH (09:27)
[2022-01-10] MEDS: CYANOCOBALAMIN 1,000 MCG TAB PO SCH (09:27)
[2022-01-10] MEDS: CALCIUM CARBONATE 500 MG TAB PO SCH (09:27)
[2022-01-10] MEDS: NITROGLYCERIN 0.4 MG/HR (10 MG) PATCH TD SCH (09:29)
[2022-01-10] MEDS: NEPRO SHAKE 237 ML CAN PO SCH (09:32)
--- NOTE | 2022-01-10 11:55 | P.PN ---
Subjective Date of Service: 01/10/22 Chief Complaint: Fluid overload; acute on chronic respiratory distress Subjective: No new changes, No C/O voiced (Anxious to go home) Physical Examination - Vital Signs Temperature: 97.4 F Blood Pressure: 174/80 Pulse: 75 Respirations: 16 Pulse Ox (%): 98 - Studies Medications List Reviewed: Yes Assessment And Plan Physician Review: Patient Assessed, Agree with Above Assessment and Plan Physician Review Additional Text: - Physical Exam General: Alert, In no apparent distress, Oriented x3, alert, on nasal cannula O2 Respiratory: Clear to auscultation bilaterally, Normal air movement Cardiovascular: Regular rate/rhythm, Normal S1 S2 Gastrointestinal: Normal bowel sounds, No tenderness Neurological: NO focal deficits Assessment & Plan - Problems (Diagnosis) (1) Chronic kidney disease, stage V Current Visit: Yes Status: Acute (2) AMS (altered mental status) Current Visit: No Status: Acute (3) Acute on chronic diastolic heart failure Current Visit: No Status: Acute (4) Anasarca associated with disorder of kidney Current Visit: No Status: Acute (5) Diabetes mellitus Current Visit: No Status: Acute (6) Hypoglycemia Current Visit: Yes Status: Acute (7) ESBL Klebsiella Current Visit: Yes Status: Acute (6) Hypoglycemia Current Visit: Yes Status: Acute Patient with history of prolonged EUNICE on CKD, hypertension, seizure disorder, history of cardiac arrest during hospitalization in August 2021 that was complicated with worsening of renal function and initiated on dialysis but have recurrent dialysis line associated DVT; diabetes admitted for Klebsiella UTI, recurrent seizures as well as noted with marked azotemia. Renal initiation of renal replacement therapy. - Plan Clinically improving but still O2 dependent Continue hemodialysis over the weekend Patient still undecided about wanting long-term tunneled permacath, she is hesitant today. She is anxious to go home I repeatedly explained to her risk of dying from uremia if she does not have chronic dialysis She says she needs more time to think about needing dialysis as well as permacath placement on Wednesday We are with patient full decision and then discussed with surgery for tunneled catheter placement Spouse appears to be agreeable to dialysis but patient undecided Follow-up plan for tunneled dialysis catheter on Wednesday Await cardiology consult for clearance Since mild chest pain with physical therapy today, dose repeat set of cardiac enzymes Resolved recurrent seizures, still low valproic acid level, increase dose to 1 g 4 times daily Continue temporary dialysis catheter use Patient refusing SNF/acute rehab, wants to be discharged home with home PT Continue PT/OT Blood pressure improving, status post adjusted regimen s/p evaluation by neurology, Depakote dose increased Continue IV meropenem x7 to 10 days total for Klebsiella UTI until 01/11 GI/DVT prophylaxis 01/09/22 13:06 01/09/22 13:07 01/10/22 11:52 01/10/22 11:54
[2022-01-10] MEDS: WARFARIN SODIUM 3 MG TAB PO SCH (18:00)
--- NOTE | 2022-01-10 19:46 | CON ---
Date of Consultation: 01/09/2022 This is a patient who was admitted on 12/31/2021. I am asked to see the patient for cardiac clearanc e for temporary placement of a hemodialysis catheter for dialysis. The patient was admitted to Dr. Remy odell and Dr. Woodruff. I saw the patient on 01/09/2022. History Of Present Illness: Ms. Trujillo is 71. She is not having any cardiac symptoms. She does hav e a history of coronary artery disease. She is status post CABG. Has a history of chronic diastolic congestive heart failure, chronic renal disease, diabetes, history of DVT in the past, anxiety. She also has a history of seizure disorder. Again, she has no cardiac complaint. Past Medical History: As stated above. Allergies: NONE. Review of Systems: Negative. Social History: Negative. Family History: Negative. Medications: Include aspirin, Lipitor, Bumex, Imdur, hydralazine, Synthroid, Coreg, metolazone, Елена xa. Physical Examination: Vital Signs: Stable, afebrile. HEENT: Negative. Neck: Supple. No bruit. Chest: Clear. Cardiac: Revealed a regular rhythm and rate with an S4 gallop. Abdomen: Benign. Extremities: Revealed no clubbing, cyanosis, or edema. Diagnostic Data: Chest x-ray was negative. EKG showed right bundle-branch block. Creatinine is 3.1 2. Impression And Plan: 1.This is a patient with chronic diastolic congestive heart failure without any symptoms at this poi nt. Echocardiogram is pending, but I think she is at low risk for perioperative mortality from a sharri lysis catheter placement. 2.History of coronary artery disease, status post bypass. 3.End-stage renal disease. 4.Depression. 5.Diabetes. 6.History of deep vein thrombosis. 7.History of seizure. 8.History of anxiety. 9.History of cerebrovascular accident in the past. 10.Dyslipidemia, well controlled. 11.History of gastroesophageal reflux disease. Again, I agree with her present regimen which includes beta blockade, statin, diuretics, Ranexa, and hydralazine, as well as aspirin. We will see what her echo shows, but nevertheless, she can undergo her catheter placement at low risk. I will be available for questions if the need arises. NB/MODL Voice ID: [id number] Report ID: [id number]
[2022-01-10] MEDS: Meropenem 500 MG in NA CHLORIDE 0.9% 100 ML IV SCH (22:14)
[2022-01-10] MEDS: ATORVASTATIN 40 MG TAB PO SCH (22:16)
[2022-01-10] MEDS: MIRTAZAPINE 15 MG TAB PO SCH (22:16)
--- NOTE | 2022-01-11 02:07 | PN ---
Date of Progress Note: 01/10/2022 Chief Complaint: Acute on chronic kidney injury, fluid overload, respiratory distress. Subjective: The patient was started on dialysis. The patient has advanced chronic kidney disease. She is more alert today. She denies complaints. Review of Systems: Denies fevers or chills. Objective: Vital Signs: Blood pressure is 150/67, heart rate 84, respiratory rate 18, SpO2 of 98%. Lungs: Clear to auscultation bilaterally. HEART: S1 and S2. Abdomen: Soft, benign. Extremities: Slight edema in both legs. Impression And Plan: Acute on chronic kidney injury. The patient has proteinuria and chronic kidney advancing from stage IV to stage V. The patient has underlying diabetic and hypertensive kidney dis ease, measuring GFR was ranging a few months ago from 15 to 17. The patient developed acute on chron ic kidney injury due to ATN in the setting of SSS. The patient received back in 2020. Currently, shane kate is resumed on hemodialysis for volume overload. The patient will continue dialysis 3 times per norbert moore. Today, she is scheduled to have dialysis with ultrafiltration to control volemia. Continue low-s odium diet. Monitor renal function and continue to adjust blood pressure medication. EB/MODL Voice ID: [id number] Report ID: [id number]
[2022-01-11 05:59] LABS: Hematocrit 27.1 % (36.0-45.0); Lymphocytes % 32.6 % (15.3-44.8); RBC Red Blood Cell Count 2.89 M/uL (3.86-4.86)
[2022-01-11 06:12] LABS: Protime INR 1.61
[2022-01-11] MEDS: LEVOTHYROXINE SOD 0.1 MG TAB PO SCH (06:18)
[2022-01-11] MEDS: LEVOTHYROXINE SOD 0.075 MG TAB PO SCH (06:18)
[2022-01-11] MEDS ORDERED: ENOXAPARIN 40 MG/0.4 ML SQ SCH (09:00)
[2022-01-11] MEDS: VITAMIN D 1000 UNIT TAB PO SCH (11:12)
[2022-01-11] MEDS: BUMETANIDE 1 MG TABLET PO SCH ×2 (11:12→20:44)
[2022-01-11] MEDS: ASPIRIN 81 MG CHEWABLE TABLET PO SCH (11:12)
[2022-01-11] MEDS: METOLAZONE 5 MG TABLET PO SCH ×2 (11:12→20:46)
[2022-01-11] MEDS: TAMSULOSIN 0.4 MG SR CAP PO SCH (11:13)
[2022-01-11] MEDS: PANTOPRAZOLE 40MG TABLET PO SCH (11:13)
[2022-01-11] MEDS: CALCIUM CARBONATE 500 MG TAB PO SCH (11:13)
[2022-01-11] MEDS: ISOSORBIDE DINIT 20 MG TAB PO SCH ×3 (11:13→20:45)
[2022-01-11] MEDS: HYDRALAZINE HCL 25 MG TABLET PO SCH ×3 (11:13→20:43)
[2022-01-11] MEDS: CALCITROL 0.25 MCG CAP PO SCH (11:14)
[2022-01-11] MEDS: carvediloL 12.5 MG TAB PO SCH ×2 (11:14→20:44)
[2022-01-11] MEDS: MECLIZINE HCL 12.5 MG TAB PO SCH ×3 (11:14→20:43)
[2022-01-11] MEDS: CYANOCOBALAMIN 1,000 MCG TAB PO SCH (11:14)
[2022-01-11] MEDS: DIVALPROEX ER 250 MG TAB PO SCH ×4 (11:15→20:48)
[2022-01-11] MEDS: NITROGLYCERIN 0.4 MG/HR (10 MG) PATCH TD SCH (11:15)
[2022-01-11] MEDS: NEPRO SHAKE 237 ML CAN PO SCH (11:15)
[2022-01-11] MEDS: WARFARIN SODIUM 3 MG TAB PO SCH (13:12)
--- NOTE | 2022-01-11 13:33 | P.PN ---
Subjective Date of Service: 01/11/22 Chief Complaint: Fluid overload; acute on chronic respiratory distress Subjective: No new changes, No C/O voiced Physical Examination - Vital Signs Temperature: 97.2 F Blood Pressure: 164/74 Pulse: 72 Respirations: 18 Pulse Ox (%): 96 - Studies Medications List Reviewed: Yes Assessment And Plan Physician Review: Patient Assessed, Agree with Above Assessment and Plan Physician Review Additional Text: - Physical Exam General: Alert, In no apparent distress, Oriented x3, alert, on nasal cannula O2 Respiratory: Clear to auscultation bilaterally, Normal air movement Cardiovascular: Regular rate/rhythm, Normal S1 S2 Gastrointestinal: Normal bowel sounds, No tenderness Extremitiesno pedal edema, no calf tenderness Neurological: NO focal deficits Assessment & Plan - Problems (Diagnosis) (1) Chronic kidney disease, stage V Current Visit: Yes Status: Acute (2) AMS (altered mental status) Current Visit: No Status: Acute (3) Acute on chronic diastolic heart failure Current Visit: No Status: Acute (4) Anasarca associated with disorder of kidney Current Visit: No Status: Acute (5) Diabetes mellitus Current Visit: No Status: Acute (6) Hypoglycemia Current Visit: Yes Status: Acute (7) ESBL Klebsiella Current Visit: Yes Status: Acute (6) Hypoglycemia Current Visit: Yes Status: Acute Patient with history of prolonged EUNICE on CKD, hypertension, seizure disorder, history of cardiac arrest during hospitalization in August 2021 that was complicated with worsening of renal function and initiated on dialysis but have recurrent dialysis line associated DVT; diabetes admitted for Klebsiella UTI, recurrent seizures as well as noted with marked azotemia. Renal initiation of renal replacement therapy. - Plan Clinically improving Agreeable to tunneled catheter placement in a.m. as well as continued dialysis Clinically improving but still O2 dependent Follow-up plan for surgical permacath placement in a.m. Follow case management for outpatient HD placement No recurrence of chest pain Resolved recurrent seizures, Still subtherapeutic valproic acid level pain improving, continue Depakote 1 g 4 times daily Patient refusing SNF/acute rehab, wants to be discharged home with home PT Continue PT/OT Blood pressure improving, status post adjusted regimen s/p evaluation by neurology, Depakote dose increased Continue IV meropenem x7 to 10 days total for Klebsiella UTI until 01/11-today GI/DVT prophylaxis 01/11/22 13:33
[2022-01-11] MEDS: ATORVASTATIN 40 MG TAB PO SCH (20:45)
[2022-01-11] MEDS: MIRTAZAPINE 15 MG TAB PO SCH (20:45)
--- NOTE | 2022-01-12 01:37 | PN ---
Date of Progress Note: 01/11/2022 Chief Complaint: Acute on chronic kidney injury, fluid overload, respiratory distress, anxiety. The patient is doing better today. She received dialysis yesterday to control and to provide negative fluid balance. The patient is undergoing physical therapy today. At this time, she is doi ng better. The patient is more alert and she denies complaints. Physical Examination: Lungs: Clear to auscultation bilaterally. Heart: S1, S2. Abdomen: Soft, benign. Extremities: Slight edema in both legs. Impression And Plan: Acute on chronic kidney injury. The patient has proteinuric chronic kidney dis ease stage 4, advancing to stage 5. The patient has underlying diabetic and hypertensive kidney dise ase. The patient's GFR was ranging from 16 to 17. The patient may need to continue dialysis for end -stage renal disease and further recommendation after observation of at least 6 weeks. The patient m ay need to stay on dialysis. An outpatient dialysis will be set up during this admission. The patient has chronic kidney injury due to diabetes mellitus and hypertension, acute tubular necros is developing setting of SSS and cardiorenal syndrome. The patient resumed on dialysis because of fl uid overload. Continue ultrafiltration to control volemia. Continue to monitor fluid balance. Cont inue low-sodium diet. Advance nephrotoxic medication. Continue dialysis 3 times per week. DEA/MODL Voice ID: [id number] Report ID: [id number]
[2022-01-12] MEDS: DIVALPROEX ER 250 MG TAB PO SCH ×5 (01:44→21:15)
[2022-01-12] MEDS: LEVOTHYROXINE SOD 0.1 MG TAB PO SCH (05:47)
[2022-01-12] MEDS: LEVOTHYROXINE SOD 0.075 MG TAB PO SCH (05:47)
[2022-01-12 05:53] LABS: Protime INR 1.45
[2022-01-12 06:02] LABS: Absolute Lymphocytes (CBC) 1.1 K/uL (0.7-4.9); Hematocrit 28.4 % (36.0-45.0); Lymphocytes % 33.5 % (15.3-44.8); MPV 7.4 fL (7.6-11.3); RBC Red Blood Cell Count 3.01 M/uL (3.86-4.86)
[2022-01-12 06:11] LABS: AST/SGOT 16 U/L (15-37); Alkaline Phosphatase 76 U/L (45-117); BUN Blood Urea Nitrogen 38 mg/dL (7-18); Bicarbonate 27 mmol/L (21-32); Bilirubin Total 0.2 mg/dL (0.2-1.0); Glucose Level 97 mg/dL (74-106); Potassium 3.9 mmol/L (3.5-5.1); Protein, Total 5.2 g/dL (6.4-8.2); Sodium Level 138 mmol/L (136-145); Valproic Acid (Depakene) Level 20.3 ug/mL (50-100)
[2022-01-12 06:18] LABS: ALT/SGPT < 10 U/L (12-78)
[2022-01-12] MEDS: PANTOPRAZOLE 40MG TABLET PO SCH (07:30)
--- NOTE | 2022-01-12 08:00 | ECHO ---
HEIGHT: 5 ft 3 in WEIGHT: 243 lb 0 oz DATE OF STUDY: 01/09/[address]: Waylon Shanks MD 2-DIMENSIONAL: YES M.MODE: YES DOPPLER: YES COLOR FLOW: YES TDS: YES PORTABLE: YES DEFINITY: NO BUBBLE STUDY: NO DIAGNOSIS: CONGESTIVE HEART DISEASE CARDIAC HISTORY: CATHERIZATION:YES SURGERY: YES PROSTHETIC VALVE: NO PACEMAKER: YES MEASUREMENTS (cm) DIASTOLIC (NORMALS) SYSTOLIC (NORMALS) IVSd 1.0 (0.6-1.2) LA Diam 4.1 (1.9-4.0) LVEF 45% LVIDd 5.1 (3.5-5.7) LVIDs 4.0 (2.0-3.5) %FS 23% LVPWd 1.1 (0.6-1.2) Ao Diam 2.3 (2.0-3.7) 2 DIMENSIONAL ASSESSMENT: RIGHT ATRIUM: NORMAL LEFT ATRIUM: DILATED RIGHT VENTRICLE: NORMAL LEFT VENTRICLE: NORMAL SIZE TRICUSPID VALVE: NORMAL MITRAL VALVE: NORMAL PULMONIC VALVE: NORMAL AORTIC VALVE: STENOSIS PERICARDIAL EFFUSION: NONE AORTIC ROOT: NORMAL LEFT VENTRICULAR WALL MOTION: MILD GLOBAL HYPOKINESIS. DOPPLER/COLOR FLOW: MODERATE AORTIC STENOSIS. MILD TRICUSPID REGURGITATION. NORMAL RIGHT VENTRICULAR SYSTOLIC PRESSURE. COMMENTS: MODERATE AORTIC STENOSIS. LEFT VENTRICULAR EJECTION FRACTION 45%. MILD GLOBAL HYPOKINESIS. MILD TRICUSPID REGURGITATION. NORMAL RIGHT VENTRICULAR SYSTOLIC PRESSURE. TECHNOLOGIST: Jarett CABRAL
[2022-01-12] MEDS: ASPIRIN 81 MG CHEWABLE TABLET PO SCH (09:00)
[2022-01-12] MEDS: MECLIZINE HCL 12.5 MG TAB PO SCH ×3 (09:00→21:25)
[2022-01-12] MEDS: NITROGLYCERIN 0.4 MG/HR (10 MG) PATCH TD SCH (09:00)
[2022-01-12] MEDS: CYANOCOBALAMIN 1,000 MCG TAB PO SCH (09:00)
[2022-01-12] MEDS: HYDRALAZINE HCL 25 MG TABLET PO SCH ×3 (09:00→21:00)
[2022-01-12] MEDS: TAMSULOSIN 0.4 MG SR CAP PO SCH (09:00)
[2022-01-12] MEDS: BUMETANIDE 1 MG TABLET PO SCH ×2 (09:00→21:23)
[2022-01-12] MEDS: METOLAZONE 5 MG TABLET PO SCH ×2 (09:00→21:27)
[2022-01-12] MEDS: ISOSORBIDE DINIT 20 MG TAB PO SCH ×3 (09:00→21:27)
[2022-01-12] MEDS: CALCITROL 0.25 MCG CAP PO SCH (09:00)
[2022-01-12] MEDS: NEPRO SHAKE 237 ML CAN PO SCH (09:00)
[2022-01-12] MEDS: VITAMIN D 1000 UNIT TAB PO SCH (09:00)
[2022-01-12] MEDS: CALCIUM CARBONATE 500 MG TAB PO SCH (09:00)
[2022-01-12] MEDS: carvediloL 12.5 MG TAB PO SCH ×2 (09:29→21:27)
[2022-01-12] MEDS ORDERED: NA CHLORIDE 0.9% 500 ML ONE (09:49)
[2022-01-12] MEDS ORDERED: CLINDAMYCIN 600MG/D5W 600 MG/50 ML BAG IV ONE (10:00)
[2022-01-12] MEDS ORDERED: NA CHLORIDE 0.9% 50 ML ONE (10:11)
[2022-01-12] MEDS: BUPIVACAINE 0.25% PF 10 ML VIAL ONE ×2 (10:17→11:18)
[2022-01-12] MEDS: HEPARIN 5000 UNIT/ML 1 ML VIAL ONE ×2 (10:18→11:32)
[2022-01-12] MEDS ORDERED: FENTANYL CITR 100 MCG/2 ML ONE (10:27)
[2022-01-12] MEDS ORDERED: LIDOCAINE 2% MPF 5 ML VIAL ONE (10:28)
[2022-01-12] MEDS ORDERED: ONDANSETRON 4 MG/2 ML VIAL ONE (10:28)
[2022-01-12] MEDS ORDERED: propofoL 200 MG/20 ML VIAL IV ONE (10:28)
[2022-01-12] MEDS ORDERED: MIDAZOLAM HCL 2 MG/2 ML INJ ONE (10:28)
[2022-01-12] MEDS ORDERED: EPHEDRINE SULF 50 MG/ML VIAL ONE (10:33)
[2022-01-12] MEDS ORDERED: Phenylephrine HCl 10 MG/ML 1 ML VIAL ONE (11:41)
--- NOTE | 2022-01-12 11:41 | P.OP ---
Preoperative diagnosis: End Stage Renal Disease Postoperative diagnosis: End Stage Renal Disease Primary procedure: Placement of Tunnelled RIGHT internal jugular hemosplit catheter Secondary procedure: micro-introducer used, ultrasound, flouroscopy utilized Anesthesia: MAC + Local Estimated blood loss: <10cc Specimen: none Findings: dark, non-pulsatile blood returned Complications: None Implants: 19cm Hemosplit curved catheter Transferred to: Recovery Room Condition: Good
[2022-01-12] MEDS ORDERED: FLUMAZENIL 0.1 MG/ML (5 mL VIAL) IV ONE (12:02)
--- NOTE | 2022-01-12 13:06 | RAD REPORT ---
EXAM DESCRIPTION: RAD - Fluoroscopy <1 Hour - 01/12/2022 1:00 pm FINDINGS: There were 11 portable C-arm views submitted from fluoroscopic assisted placement of a hem odialysis catheter on the right side. No suspicious or unexpected finding. Fluoro time was 0.1 minutes. Cumulative dose was 4.20 mGy.
--- NOTE | 2022-01-12 13:07 | RAD REPORT ---
EXAM DESCRIPTION: RAD - Chest Single View - 01/12/2022 1:01 pm CLINICAL HISTORY: S/P HD CATH PLACEMENT COMPARISON: Portable 01/06/2022 TECHNIQUE: AP portable chest image was obtained 01/12/2022 1:01 pm . FINDINGS: Right-sided double-lumen hemodialysis catheter has been placed. There is no pneumothorax. Short arm of the catheter is in the proximal SVC with the long arm in the mid SVC. Heart size has not changed. Diffuse pleural and parenchymal opacities are not changed from January 06 i . IMPRESSION: Right-sided double-lumen dialysis catheter has been placed and is in good position. No pneumothorax.
[2022-01-12] MEDS: WARFARIN SODIUM 3 MG TAB PO SCH (17:00)
[2022-01-12] MEDS: ATORVASTATIN 40 MG TAB PO SCH (21:21)
[2022-01-12] MEDS: MIRTAZAPINE 15 MG TAB PO SCH (21:22)
[2022-01-13] MEDS: DIVALPROEX ER 250 MG TAB PO SCH ×3 (02:00→22:53)
--- NOTE | 2022-01-13 03:25 | PN ---
Date of Progress Note: 01/12/2022 Chief Complaint: Gkohz-wv-nleaydc kidney injury. Subjective: The patient has history of proteinuric chronic kidney disease stage 4 advancing to stage 5. She developed anxiety and fluid overload. She was found to have decreased p.o. intake and she w as resumed on dialysis today. She has undergone tunneled dialysis placement. Review of Systems: Denies fever or chills. She is feeling better today. Physical Examination: Lungs: Clear to auscultation bilaterally. Heart: S1, S2. Abdomen: Soft, benign. Extremities: Edema present in both legs. Impression And Plan: 1.Azigp-yi-plmosab kidney injury. The patient has proteinuria and chronic kidney disease advancing from stage 4 to stage 5. The patient has underlying diabetic kidney disease and hypertensive kidney disease. Recently GFR was ranging from 15-17, although the patient was symptomatic and she had decre ased p.o. intake and fluid overload. The patient developed stxkn-xv-akbduzp kidney injury due to acu te tubular necrosis in setting of SSS. The patient will continue p.o. fluid restriction and advance diet as tolerated. Continue renal diet including low-sodium diet. 2.Anemia. Monitor hemoglobin level. Adjust FIDELIA as needed. EB/MODL Voice ID: [id number] Report ID: [id number]
--- NOTE | 2022-01-13 05:31 | OP ---
Date of Procedure: 01/12/2022 Surgeon: Chepe Sterling MD, Preoperative Diagnosis: End-stage renal disease. Postoperative Diagnosis: End-stage renal disease. Procedure Performed: Placement of a tunneled right internal jugular HemoSplit catheter using microin troducer, ultrasound, and fluoroscopy with interpretation. Anesthesia: MAC plus local with 0.25% Marcaine. Estimated Blood Loss: Less than 10 cc. Specimen: None. Findings: Dark, nonpulsatile blood return. Complications: None. Implants: 19 cm HemoSplit curved catheter. Disposition: The patient transferred to recovery room in good condition. Procedure In Detail: After informed consent was obtained, the patient was brought to the operating r oom, prepped and draped in the usual sterile fashion, after adequate anesthesia was achieved, the pat ient was placed in steep Trendelenburg position using ultrasound guidance and micro introducer needle with a 5-Armenian sheath at standby. I cannulated the right internal jugular vein on the first attemp t. Dark red nonpulsatile blood was returned. I then advanced the micro wire at this point. Fluoros copy confirmed position in this confluence of the SVC into the atrium, at this point, the micro wire remained in place. I made a small roddy incision overlying the insertion site and introduced the 5-Fr ench sheath over this. I then removed the micro wire and advanced the standard wire, and fluoroscopy confirmed position once again in the SVC confluence into the right atrium of the standard wire. At this point, I created a tract on the chest wall, inferolateral under the subclavian anesthetizing the tract. I then used a knife 11 blade to make a small roddy incision over the skin and using the [employer] device brought the 19 cm HemoSplit catheter into the appropriate position. At this point, I the n positioned the catheter overlying and confirmed position of fluoroscopy. At this point, sequential dilatation was performed using Seldinger technique and the catheter introducer sheath was then place d, inner cannula portion removed, and the catheter was then advanced through the introducer sheath wi thout evidence of complication. I then removed the introducer sheath in its entirety and tested the catheter and both dark red nonpulsatile blood was returned from both ports and flushed quite easily w ith saline until completely clear. I then packed this with heparinized saline, at this point. Fluor oscopy confirmed final position, at this point. I then secured the catheter to the chest with a 3-0 nylon suture and irrigated the insertion site, at this point, and closed this with a single interrupt ed 2-0 nylon suture. The patient was then taken out of Trendelenburg position. Sterile dressing olamide xochitl over top. The patient tolerated the procedure without evidence of complication, transferred to P ACU in good condition. All counts were correct at the end of case. TAMMI/KERI Voice ID: [id number] Report ID: [id number]
[2022-01-13 06:05] LABS: Absolute Lymphocytes (CBC) 1.1 K/uL (0.7-4.9); Lymphocytes % 32.1 % (15.3-44.8); MPV 7.4 fL (7.6-11.3); RBC Red Blood Cell Count 3.04 M/uL (3.86-4.86)
[2022-01-13 06:09] LABS: AST/SGOT 15 U/L (15-37); Albumin 2.1 g/dL (3.4-5.0); Alkaline Phosphatase 68 U/L (45-117); BUN Blood Urea Nitrogen 28 mg/dL (7-18); Bicarbonate 29 mmol/L (21-32); Bilirubin Total 0.3 mg/dL (0.2-1.0); Glucose Level 84 mg/dL (74-106); Potassium 3.7 mmol/L (3.5-5.1); Protein, Total 5.3 g/dL (6.4-8.2); Sodium Level 139 mmol/L (136-145)
[2022-01-13 06:10] LABS: ALT/SGPT < 10 U/L (12-78)
[2022-01-13] MEDS: LEVOTHYROXINE SOD 0.075 MG TAB PO SCH (06:11)
[2022-01-13] MEDS: LEVOTHYROXINE SOD 0.1 MG TAB PO SCH (06:11)
[2022-01-13] MEDS: BUMETANIDE 1 MG TABLET PO SCH ×2 (08:27→22:51)
[2022-01-13] MEDS: CYANOCOBALAMIN 1,000 MCG TAB PO SCH (08:27)
[2022-01-13] MEDS: ASPIRIN 81 MG CHEWABLE TABLET PO SCH (08:28)
[2022-01-13] MEDS: TAMSULOSIN 0.4 MG SR CAP PO SCH (08:28)
[2022-01-13] MEDS: carvediloL 12.5 MG TAB PO SCH ×2 (08:28→22:53)
[2022-01-13] MEDS: CALCIUM CARBONATE 500 MG TAB PO SCH (08:29)
[2022-01-13] MEDS: CALCITROL 0.25 MCG CAP PO SCH (08:30)
[2022-01-13] MEDS: VITAMIN D 1000 UNIT TAB PO SCH (08:30)
[2022-01-13] MEDS: HYDRALAZINE HCL 25 MG TABLET PO SCH ×3 (08:30→18:59)
[2022-01-13] MEDS: NEPRO SHAKE 237 ML CAN PO SCH (08:32)
[2022-01-13] MEDS: NITROGLYCERIN 0.4 MG/HR (10 MG) PATCH TD SCH (08:35)
[2022-01-13] MEDS: PANTOPRAZOLE 40MG TABLET PO SCH (10:12)
[2022-01-13] MEDS: MECLIZINE HCL 12.5 MG TAB PO SCH ×3 (10:12→22:52)
[2022-01-13] MEDS: ISOSORBIDE DINIT 20 MG TAB PO SCH ×3 (10:13→22:53)
--- NOTE | 2022-01-13 11:58 | PN ---
Date of Progress Note: 01/13/2022 Subjective: The patient was admitted with acute kidney injury secondary to cardiorenal on advanced c hronic kidney disease. The patient was started on dialysis. The patient tolerated the dialysis. Physical Examination: Vital Signs: Blood pressure 167/70, pulse of 74. The patient had dialysis. We managed to remove 3 L. Chest: Crackles bilateral base. Heart: S1, S2, regular. Abdomen: Soft, nontender. Extremities: Plus edema. Neurologic: Alert. No focality. Laboratory Data: WBC 3.5, H and H 9.4/28. Sodium 139, potassium 3.7, bicarb 29. BUN 28, creatinine 2.3, GFR of 20, calcium 7.8, albumin 2.1. Current Medications: The patient on include; 1.Aspirin. 2.Flomax. 3.Clindamycin. 4.Coumadin 3 mg. 5.Calcium carbonate. 6.Carvedilol 12.5. 7.Atorvastatin. 8.Isosorbide. 9.Ranexa. 10.Bumex. 11.Metolazone. 12.Pantoprazole. 13.Levothyroxine. 14.Calcitriol. 15.Cholecalciferol. Assessment And Plan: 1.Acute kidney injury on advanced chronic kidney disease secondary to cardiorenal, still on the over volume side. I am going to continue dialysis. The patient is going to be scheduled for dialysis to day and we will follow up the patient. Then, we will do it every 3 times a week. The patient will u se her new PD permanent dialysis catheter today. If catheter working well, hopefully we can remove t he femoral. 2.Hypertension. We will utilize blood pressure for more diuresis and to establish better volume con trol. 3.Hypokalemia. The patient is going to be dialyze on 4K bath and we will follow up the patient. 4.Anemia of chronic kidney disease. Continue FIDELIA. 5.Secondary hyperparathyroidism, stable. 6.Anasarca, multifactorial, secondary to hypothyroidism, cardiorenal. Continue to try to establish better volume control. We increased the levothyroxine. We will follow up. 7.Deconditioning. Continue PT/OT. MA/MODL Voice ID: [id number] Report ID: [id number]
[2022-01-13] MEDS: METOLAZONE 5 MG TABLET PO SCH ×2 (13:20→22:52)
[2022-01-13] MEDS: WARFARIN SODIUM 3 MG TAB PO SCH (18:59)
[2022-01-13 20:33] LABS: HBsAG Nonreactive (Nonreactive)
[2022-01-13] MEDS: ATORVASTATIN 40 MG TAB PO SCH (22:52)
[2022-01-13] MEDS: MIRTAZAPINE 15 MG TAB PO SCH (22:52)
[2022-01-14 06:03] LABS: Absolute Lymphocytes (CBC) 1.2 K/uL (0.7-4.9); Hematocrit 28.3 % (36.0-45.0); Lymphocytes % 35.9 % (15.3-44.8); MPV 7.5 fL (7.6-11.3); RBC Red Blood Cell Count 3.01 M/uL (3.86-4.86)
[2022-01-14 06:14] LABS: AST/SGOT 17 U/L (15-37); Albumin 2.1 g/dL (3.4-5.0); Alkaline Phosphatase 71 U/L (45-117); BUN Blood Urea Nitrogen 22 mg/dL (7-18); Bicarbonate 29 mmol/L (21-32); Bilirubin Total 0.2 mg/dL (0.2-1.0); Glucose Level 89 mg/dL (74-106); Potassium 3.7 mmol/L (3.5-5.1); Protein, Total 5.2 g/dL (6.4-8.2); Sodium Level 138 mmol/L (136-145)
[2022-01-14 06:16] LABS: ALT/SGPT < 10 U/L (12-78)
[2022-01-14] MEDS: LEVOTHYROXINE SOD 0.1 MG TAB PO SCH (06:36)
[2022-01-14] MEDS: LEVOTHYROXINE SOD 0.075 MG TAB PO SCH (06:37)
[2022-01-14] MEDS: PANTOPRAZOLE 40MG TABLET PO SCH (06:37)
[2022-01-14 08:13] VITALS: O2SAT 94
[2022-01-14] MEDS: ISOSORBIDE DINIT 20 MG TAB PO SCH ×2 (09:00→17:19)
[2022-01-14] MEDS: MECLIZINE HCL 12.5 MG TAB PO SCH ×2 (09:00→17:18)
--- NOTE | 2022-01-14 10:22 | P.PN ---
Subjective Date of Service: 01/14/22 Chief Complaint: Fluid overload; acute on chronic respiratory distress Subjective: Improving (Patient dialysis via permacath) Physical Examination - Vital Signs Temperature: 97 F Blood Pressure: 149/66 Pulse: 66 Respirations: 16 Pulse Ox (%): 100 - Physical Exam General: Alert, In no apparent distress, Cooperative Respiratory: Clear to auscultation bilaterally, Normal air movement Cardiovascular: Other (LEFT groin HD catheter removed @ bedside) - Studies Medications List Reviewed: Yes Assessment And Plan - Current Problems (Diagnosis) (1) Chronic kidney disease, stage V Current Visit: Yes Status: Acute Plan: - Permacath used for dialysis yesterday - Temorary HD catheter removed @ bedside under sterile conditions - continue medical management Physician Review: Patient Assessed, Agree with Above Assessment and Plan
[2022-01-14 12:03] VITALS: BP 157/76; TEMP 97.2
[2022-01-14] MEDS ORDERED: HYDRALAZINE HCL 25 MG TABLET PO SCH (14:00)
--- NOTE | 2022-01-14 15:49 | PN ---
Subjective: The patient was admitted with acute kidney injury secondary to cardiorenal. The patient was initiated on dialysis because of difficulty fluid management. The patient is still nonoliguric. Physical Examination: Vital Signs: Blood pressure 149/66, pulse of 66, afebrile. The patient had dialysis yesterday, tamika ged to remove 3 L. Chest: Decreased entry bilateral base. Heart: S1, S2. Systolic murmur. Abdomen: Soft, nontender. Extremities: +1 edema. Neurologic: Alert. No focality. Laboratory Data: WBC 3.2, H and H 9.3/28.3. Sodium 138, potassium 3.7, bicarb 29, BUN 22, creatinin e 1.9, calcium 7.7. Current Medications: The patient on include; 1.Heparin. 2.Coumadin. 3.Calcium carbonate. 4.Atorvastatin. 5.Carvedilol. 6.Hydralazine 100 t.i.d. 7.Isosorbide. 8.Ranexa. 9.Remeron. 10.Bumex. 11.Lactulose. 12.Metolazone. 13.Pantoprazole. 14.Levothyroxine. 15.Cholecalciferol. 16.Calcitriol. Assessment And Plan: 1.Acute kidney injury on advanced chronic kidney disease secondary to cardiorenal, dialysis dependen t. I am going to continue dialysis 3 times a week. The patient planned for discharge. She is going to have dialysis on Wednesday. We will do dialysis today before she discharges and we will follow up. 2.Hypertension, controlled, optimal. We will utilize blood pressure for more ultrafiltration. I am going to decrease the hydralazine to 50 mg and we will follow up. 3.Iron deficiency anemia. Continue FIDELIA and IV iron. 4.Cardiorenal with over volume. We will try to establish better volume control. 5.Diabetes as by primary. 6.Secondary hyperparathyroidism. Continue calcitriol. Continue Tums. 7.Diabetes as by primary. JUANITA/KERI Voice ID: [id number] Report ID: [id number]
[2022-01-14] MEDS: CALCIUM CARBONATE 500 MG TAB PO SCH (17:13)
[2022-01-14] MEDS: TAMSULOSIN 0.4 MG SR CAP PO SCH (17:13)
[2022-01-14] MEDS: VITAMIN D 1000 UNIT TAB PO SCH (17:13)
[2022-01-14] MEDS: carvediloL 12.5 MG TAB PO SCH (17:14)
[2022-01-14] MEDS: WARFARIN SODIUM 3 MG TAB PO SCH (17:14)
[2022-01-14] MEDS: ASPIRIN 81 MG CHEWABLE TABLET PO SCH (17:14)
[2022-01-14] MEDS: CALCITROL 0.25 MCG CAP PO SCH (17:15)
[2022-01-14] MEDS: CYANOCOBALAMIN 1,000 MCG TAB PO SCH (17:15)
[2022-01-14] MEDS: BUMETANIDE 1 MG TABLET PO SCH (17:15)
[2022-01-14] MEDS: METOLAZONE 5 MG TABLET PO SCH (17:18)
[2022-01-14] MEDS: DIVALPROEX ER 250 MG TAB PO SCH (17:18)
== END 2022-01-14 18:00 | disposition home health service (06) | DRG 673 ==
LOC: ER 06:28 → ERHOLD 10:00 → 2ND 19:15
PROVIDERS: ADMIT Hospitalist; ATTEND Hospitalist
PROC: 0T9B70Z Drainage of Bladder with Drainage Device, Via Natural or Artificial Opening (ICD-10-PCS; principal; 2021-12-31)
PROC: 06HY33Z Insertion of Infusion Device into Lower Vein, Percutaneous Approach (ICD-10-PCS; 2022-01-07)
PROC: 5A1D70Z Performance of Urinary Filtration, Intermittent, Less than 6 Hours Per Day (ICD-10-PCS; 2022-01-07)
PROC: 5A1D70Z Performance of Urinary Filtration, Intermittent, Less than 6 Hours Per Day (ICD-10-PCS; 2022-01-08)
PROC: 5A1D70Z Performance of Urinary Filtration, Intermittent, Less than 6 Hours Per Day (ICD-10-PCS; 2022-01-10)
PROC: 0JH63XZ Insertion of Tunneled Vascular Access Device into Chest Subcutaneous Tissue and Fascia, Percutaneous Approach (ICD-10-PCS; 2022-01-12)
PROC: 05HM33Z Insertion of Infusion Device into Right Internal Jugular Vein, Percutaneous Approach (ICD-10-PCS; 2022-01-12)
PROC: 5A1D70Z Performance of Urinary Filtration, Intermittent, Less than 6 Hours Per Day (ICD-10-PCS; 2022-01-12)
PROC: 5A1D70Z Performance of Urinary Filtration, Intermittent, Less than 6 Hours Per Day (ICD-10-PCS; 2022-01-13)
PROC: 5A1D70Z Performance of Urinary Filtration, Intermittent, Less than 6 Hours Per Day (ICD-10-PCS; 2022-01-14)
DX: N17.0 Acute kidney failure with tubular necrosis (principal); I50.33 Acute on chronic diastolic (congestive) heart failure; I13.2 Hypertensive heart and chronic kidney disease with heart failure and with stage 5 chronic kidney disease, or end stage renal disease; N39.0 Urinary tract infection, site not specified; N18.6 End stage renal disease; N25.81 Secondary hyperparathyroidism of renal origin; E11.22 Type 2 diabetes mellitus with diabetic chronic kidney disease; E03.9 Hypothyroidism, unspecified; I25.10 Atherosclerotic heart disease of native coronary artery without angina pectoris; R60.1 Generalized edema; E11.649 Type 2 diabetes mellitus with hypoglycemia without coma; E78.5 Hyperlipidemia, unspecified; I73.9 Peripheral vascular disease, unspecified; E87.6 Hypokalemia; D63.1 Anemia in chronic kidney disease; G40.901 Epilepsy, unspecified, not intractable, with status epilepticus; E83.42 Hypomagnesemia; B96.1 Klebsiella pneumoniae [K. pneumoniae] as the cause of diseases classified elsewhere; E83.39 Other disorders of phosphorus metabolism; R53.81 Other malaise; I49.5 Sick sinus syndrome; F32.A Depression, unspecified; Z95.1 Presence of aortocoronary bypass graft; Z99.2 Dependence on renal dialysis; Z86.718 Personal history of other venous thrombosis and embolism; Z86.73 Personal history of transient ischemic attack (TIA), and cerebral infarction without residual deficits
CPT/HCPCS: 36415; 51702; 70450; 71045; 76000; 80048; 80053; 80069; 80164; 81003; 81015; 82550; 82947; 83735; 83880; 84439; 84443; 84484; 85025; 85610; 86317; 86705; 87077; 87086; 87088; 87186; 87340; 90935; 93005; 93306; 96374; 96375; 97110; 97112; 97116; 97161; 97165; 97530; 99285; C1752; J1644; J1940; J1953; J2250; J2370; J2405; J2704; J2916; J3010; J3475; J7040; J7050; J8597; Q5106; U0003

== ENCOUNTER 2023-01-25 09:49 | Inpatient (IN) | payer OTHER ==
--- NOTE | 2023-01-25 10:54 | RAD REPORT ---
EXAM DESCRIPTION: RAD - Chest Single View - 01/25/2023 10:42 am CLINICAL HISTORY: COUGH COMPARISON: Chest Single View dated 12/28/2022; Chest Single View dated 12/22/2022; Chest Single View dated 01/12/2022; Chest Single View dated 01/06/2022; Chest Abd Pelvis Wo Con dated 12/28/2022 FINDINGS: Lines: Right upper chest wall dialysis catheter with tip overlying the SVC. Loop recorder. Lungs: Bilateral interstitial and airspace disease. More consolidative opacities are present at the r ight lung base . Pleural: Small effusions suspected . Cardiac: Cardiomegaly. Sternotomy. Mediastinum: Within normal limits. Bones: No acute fractures. Other: Surgical clips in the left axilla . IMPRESSION: Increased consolidation in the right lower lobe compared with 12/28/2022 is suspicious f or pneumonia. Interstitial pulmonary edema is also present.a
--- NOTE | 2023-01-25 11:06 | EDPHYS ---
Physician Documentation [facility] Name: Consuelo Trujillo Age: 72 yrs Sex: Female : 1950 Arrival Date: 01/25/2023 Time: 09:49 Bed 2 Private MD: ED Physician Gorge Munoz HPI: 01/25 10:48 This 72 yrs old Female presents to ER via Ambulatory with complaints of cough, rn sob. 10:48 The patient has shortness of breath at rest. Onset: The symptoms/episode began/occurred rn 3 day(s) ago. Duration: The symptoms are intermittent. The patient's shortness of breath is aggravated by exertion, light activity, talking. Associated signs and symptoms: Pertinent positives: productive cough, fever, Pertinent negatives: hemoptysis, vomiting. Severity of symptoms: At their worst the symptoms were moderate in the emergency department the symptoms are unchanged. The patient has experienced a previous episode. The patient has not recently seen a physician. 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 - Social history:: Smoking status: Patient denies any tobacco usage or history of. - Family history:: not pertinent. - Hospitalizations: : No recent hospitalization is reported. 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 Cardiovascular: Tachycardic, regular. No pulse deficits. Respiratory: + mild tachypnea, no retractions Abdomen/GI: soft, non-tender Skin: Warm, dry MS/ Extremity: Pulses equal, no cyanosis. Neuro: Awake, somnolent, GCS15 11:16 ECG was reviewed by the Attending Physician. rn Vital Signs: 10:18 Pulse 101; Resp 28; Temp 100.4(O); Pulse Ox 90% on 3 lpm NC; Weight 83.91 kg; Height 5 nj1 ft. 3 in. ; 11:28 BP 148 / 68; Pulse 96; Resp 17; Pulse Ox 100% on 3 lpm NC; jl7 10:18 Body Mass Index 32.77 (83.91 kg, 160.02 cm) nj1 MDM: 10:04 Patient medically screened. rn 11:04 Differential diagnosis: Anemia Bronchitis CHF exacerbation, pneumonia, Pneumothorax rn pulmonary edema, Sepsis. Data reviewed: vital signs, nurses notes, radiologic studies, plain films, and as a result, I will admit patient. Consideration of Admission/Observation Patient was admitted/placed on observation. Escalation of care including admission/observation considered. Management of patient was discussed with the following: Hospitalist: . I considered the following discharge prescriptions or medication management in the emergency department Medications were administered in the Emergency Department. See MAR. Counseling: I had a detailed discussion with the patient and/or guardian regarding: the historical points, exam findings, and any diagnostic results supporting the discharge/admit diagnosis, radiology results, the need for further work-up and treatment in the hospital. 01/25 10:14 Order name: Blood Culture Adult (2) rn 01/25 10:14 Order name: CBC with Diff; Complete Time: rn 01/25 10:14 Order name: CMP; Complete Time: rn 01/25 10:14 Order name: Lactate w/ 2H reflex if indic.; Complete Time: rn 01/25 10:14 Order name: Protime (+inr); Complete Time: : rn 01/25 10:14 Order name: Ptt, Activated; Complete Time: : rn 01/25 10:14 Order name: COVID-19 SARS RT PCR; Complete Time: 13:28 rn 01/25 10:14 Order name: Flu; Complete Time: 13: rn 01/25 11:19 Order name: Glucose, Ancillary Testing; Complete Time: 11:31 EDMS 01/25 13:08 Order name: Magnesium; Complete Time: 14:07 EDMS 01/25 13:08 Order name: Phosphorus; Complete Time: 14:07 EDMS 01/25 13:08 Order name: Urinalysis w/ reflexes EDMS 01/25 13:08 Order name: Basic Metabolic Panel EDMS 01/25 13:08 Order name: Basic Metabolic Panel EDMS 01/25 13:08 Order name: CBC with Automated Diff EDMS 01/25 13:08 Order name: CBC with Automated Diff EDMS 01/25 13:08 Order name: Lipid Profile EDMS 01/25 13:08 Order name: Lipid Profile EDMS 01/25 15:46 Order name: Troponin High Sensitivity EDMS 01/25 15:46 Order name: Troponin High Sensitivity EDMS 01/25 15:46 Order name: Troponin High Sensitivity EDMS 01/25 15:46 Order name: Troponin High Sensitivity EDMS 01/25 10:14 Order name: Chest Single View XRAY; Complete Time: 11:03 rn 01/25 13:12 Order name: Thorax Wo Con; Complete Time: 14:07 EDMS 01/25 16:03 Order name: Head Brain Wo Cont; Complete Time: 16:37 EDMS 01/25 10:14 Order name: EKG; Complete Time: 10:14 rn 01/25 15:53 Order name: 60g Consistent Carbohydrate (ADA 1800/2000) EDMS 01/25 10:14 Order name: Accucheck; Complete Time: 11:08 rn 01/25 10:14 Order name: Cardiac monitoring; Complete Time: 10:50 rn 01/25 10:14 Order name: EKG - Nurse/Tech; Complete Time: 10:58 rn 01/25 10:14 Order name: IV Saline Lock - Large Bore; Complete Time: 10:57 rn 01/25 10:14 Order name: Labs collected and sent; Complete Time: 10:57 rn 01/25 10:14 Order name: O2 Per Protocol; Complete Time: 10:50 rn 01/25 10:14 Order name: O2 Sat Monitoring; Complete Time: 10:50 rn 01/25 10:14 Order name: Vital Signs; Complete Time: 10:50 rn EC:16 Rate is 97 beats/min. Rhythm is regular. QRS [place] is Normal. MT interval is normal. QRS rn interval is prolonged at 166 msec. QT interval is normal. No Q waves. T waves are Inverted in lead V1. No ST changes noted. Clinical impression: NSR w/ Non-specific ST/T Changes. Interpreted by me. Reviewed by me. Administered Medications: 11:28 Drug: levofloxacin IVPB 500 mg Volume: 100 ml; Route: IVPB; Infused Over: 60 mins; jl7 Site: right forearm; 12:17 Follow up: IV Status: Completed infusion ap3 Disposition Summary: 01/25/23 11:05 Hospitalization Ordered Hospitalization Status: Inpatient Admission rn Provider: Mirza Avery rn Location: Telemetry/MedSurg (Inpatient) rn Condition: Stable rn Problem: new rn Symptoms: have improved rn Bed/Room Type: Standard rn Room Assignment: 417(01/25/23 15:11) bd Diagnosis - Pneumonia, unspecified organism rn - End stage renal disease rn - Hypoxemia rn Forms: - Medication Reconciliation Form rn - SBAR form rn Signatures: Dispatcher [employer] EDMS Josselyn Norris Roman, MD MD rn Leal, Jahala RN RN jl7 Eliana Mitchell RN RN nj1 Gay Reyes RN ap3 Corrections: (The following items were deleted from the chart) 14:09 13:26 [facility] Healthy ordered. EDMS EDMS 15:11 11:05 rn bd 15:52 13:08 [facility] Healthy ordered. EDMS EDMS
--- NOTE | 2023-01-25 11:06 | ER ---
Nurse's Notes [facility] Name: Consuelo Trujillo Age: 72 yrs Sex: Female : 1950 Arrival Date: 01/25/2023 Time: 09:49 Bed 2 Private MD: Diagnosis: Pneumonia, unspecified organism;End stage renal disease;Hypoxemia Presentation: 01/25 10:18 Chief complaint: Spouse and/or significant other states: Congestion, cough, weakness nj1 over the weekend that has been getting worse. States it was hard to get her to respond to him this morning. He checked her temp last night and did not have a fever. Coronavirus screen: Vaccine status: Patient reports receiving the 2nd dose of the covid vaccine. Ebola Screen: Patient denies travel to an Ebola-affected area in the 21 days before illness onset. 10:18 Method Of Arrival: Ambulatory [facility] 10:18 Initial Sepsis Screen: Does the patient meet any 2 criteria? RR > 20 per min. Altered nj1 Mental Status. HR > 90 bpm. Yes Does the patient have a suspected source of infection? Yes: Productive cough/pneumonia If YES to both, name of provider notified: Gorge Munoz MD. Risk Assessment: Do you want to hurt yourself or someone else? Patient reports no desire to harm self or others. Onset of symptoms was January 22, 2023. 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 - Social history:: Smoking status: Patient denies any tobacco usage or history of. - Family history:: not pertinent. - Hospitalizations: : No recent hospitalization is reported. Screenin:30 [facility] [place] ED Fall Risk Assessment (Adult) History of falling in the last 3 months, jl7 including since admission No falls in past 3 months (0 pts) Confusion or Disorientation Yes (5 pts) Intoxicated or Sedated No (0 pts) Impaired Gait No (0 pts) Mobility Assist Device Used No (0 pt) Altered Elimination No (0 pt) Score/Fall Risk Level 3 or more points = High Risk Oriented to surroundings, Maintained a safe environment. Abuse screen: Denies threats or abuse. Denies injuries from another. Nutritional screening: No deficits noted. Tuberculosis screening: No symptoms or risk factors identified. Assessment: 10:30 General: Appears in no apparent distress. uncomfortable, Behavior is cooperative, jl7 drowsy, quiet. Pain: Denies pain. Neuro: Level of Consciousness is awake, alert, obeys commands, Oriented to person, place, time, situation. Cardiovascular: Patient's skin is warm and dry. Respiratory: Airway is patent Respiratory effort is even, unlabored, Respiratory pattern is regular, symmetrical, Breath sounds with crackles Breath sounds are diminished. Derm: Skin is pink, warm \T\ dry. 11:30 Reassessment: Patient appears in no apparent distress at this time. No changes from 7 previously documented assessment. Patient and/or family updated on plan of care and expected duration. Pain level reassessed. 12:30 Reassessment: Patient appears in no apparent distress at this time. No changes from jl7 previously documented assessment. Patient and/or family updated on plan of care and expected duration. Pain level reassessed. 13:30 Reassessment: Patient appears in no apparent distress at this time. No changes from jl7 previously documented assessment. Patient and/or family updated on plan of care and expected duration. Pain level reassessed. 14:30 Reassessment: Patient appears in no apparent distress at this time. No changes from jl7 previously documented assessment. Patient and/or family updated on plan of care and expected duration. Pain level reassessed. 15:30 Reassessment: Patient appears in no apparent distress at this time. No changes from jl7 previously documented assessment. Patient and/or family updated on plan of care and expected duration. Pain level reassessed. 16:15 Reassessment: Pt to CT, will transport to [facility] when she returns. jl7 Vital Signs: 10:18 Pulse 101; Resp 28; Temp 100.4(O); Pulse Ox 90% on 3 lpm NC; Weight 83.91 kg; Height 5 nj1 ft. 3 in. ; 11:28 BP 148 / 68; Pulse 96; Resp 17; Pulse Ox 100% on 3 lpm NC; jl7 10:18 Body Mass Index 32.77 (83.91 kg, 160.02 cm) nj1 ED Course: 09:51 Patient arrived in ED. rg4 10:04 Gorge Munoz MD is Attending Physician. rn 10:18 Arm band placed on. nj1 10:30 Patient has correct armband on for positive identification. Placed in gown. Bed in low jl7 position. Call light in reach. Side rails up X2. Client placed on continuous cardiac and pulse oximetry monitoring. NIBP monitoring applied. 10:40 Triage completed. nj1 10:43 Chest Single View XRAY In Process Unspecified. EDMS 10:44 First set of blood cultures drawn by in, EKG done, by ED staff, reviewed by Gorge hernandez MD. 10:49 Deyvi Olmos RN is Primary Nurse. jl7 10:58 Initial lab(s) drawn, by in, sent to lab. Inserted saline lock: 22 gauge in left jl7 forearm, using aseptic technique. Blood collected. 11:05 Mirza Avery MD is Hospitalizing Provider. rn 11:20 Second set of blood cultures drawn by in. jl7 13:32 Thorax Wo Con In Process Unspecified. EDMS 16:21 No provider procedures requiring assistance completed. Patient admitted, IV remains in jl7 place. intact, No redness/swelling at site. 16:30 Head Brain Wo Cont In Process Unspecified. EDMS Administered Medications: 11:28 Drug: levofloxacin IVPB 500 mg Volume: 100 ml; Route: IVPB; Infused Over: 60 mins; jl7 Site: right forearm; 12:17 Follow up: IV Status: Completed infusion ap3 Medication: 15:30 VIS not applicable for this client. jl7 Outcome: 11:05 Decision to Hospitalize by Provider. rn 16:21 Admitted to Med/surg accompanied by tech, via stretcher, room 417, with chart, Report jl7 called to CRIS Richardson 16:21 Condition: stable 16:21 Discharge instructions given to patient, family, Instructed on the need for admit, Demonstrated understanding of instructions. 16:54 Patient left the ED. jl7 Signatures: Dispatcher [employer] EDMS Gorge Munoz MD MD rn Garcia, Rubi rg4 Deyvi Olmos RN RN jl7 Gay Reyes RN RN ap3 Eliana Mitchell RN RN nj1 Corrections: (The following items were deleted from the chart) 10:42 10:41 Arm band placed on nj1 nj1
[2023-01-25] MEDS ORDERED: Levofloxacin500mg IV 500 MG/100 ML BAG IV ONE (11:09)
[2023-01-25 11:13] LABS: Absolute Lymphocytes (CBC) 0.8 K/uL (0.7-4.9); Hematocrit 29.4 % (36.0-45.0); Lymphocytes % 6.7 % (15.3-44.8); MCV 102.4 fL (80-100); MPV 7.1 fL (7.6-11.3); RBC Red Blood Cell Count 2.87 M/uL (3.86-4.86)
[2023-01-25 11:24] LABS: Albumin 2.9 g/dL (3.4-5.0); Bilirubin Total 0.3 mg/dL (0.2-1.0); Potassium 3.3 mEq/L (3.5-5.1); Protein, Total 7.4 g/dL (6.4-8.2)
[2023-01-25] MEDS ORDERED: ACETAMINOPHEN 325 MG TABLET PO PRN (13:02)
[2023-01-25] MEDS ORDERED: ONDANSETRON 4 MG/2 ML VIAL IV PRN (13:03)
[2023-01-25 13:41] LABS: Protime INR 2.75
--- NOTE | 2023-01-25 13:43 | RAD REPORT ---
EXAM DESCRIPTION: CT - Thorax Wo Con CLINICAL HISTORY: Chest pain Pneumonia COMPARISON: Chest Abd Pelvis Wo Con dated 12/28/2022 FINDINGS: Airspace consolidation is present in the right middle lobe. Ill-defined nodular opacities in the right upper lobe and lingula. Mild to moderate opacities are present in the left lung base. Sm all left pleural effusion. Trace right pleural effusion. No pneumothorax. No axillary, mediastinal or hilar adenopathy. Pacer device. No concerning bony finding. No gross upper abdominal finding. All CT scans are performed using dose optimization technique as appropriate and may include automated exposure control or mA/KV adjustment according to patient size. IMPRESSION: Bilateral pulmonary infiltrates are present, greatest in the right middle lobe, likely r epresenting infection/ pneumonia.Small left pleural effusion.
[2023-01-25 13:51] LABS: Magnesium 1.8 mg/dL (1.6-2.4); Phosphorus 3.8 mg/dL (2.5-4.9)
[2023-01-25] MEDS ORDERED: Levofloxacin500mg IV 500 MG/100 ML BAG IV SCH (14:00)
[2023-01-25] MEDS ORDERED: HEPARIN 5000 UNIT/ML 1 ML VIAL SQ SCH (14:00)
[2023-01-25] MEDS ORDERED: POTASSIUM CL SA 10 MEQ TAB PO ONE (14:11)
--- NOTE | 2023-01-25 14:15 | P.HP ---
Certification for Inpatient Patient admitted to: Inpatient With expected LOS: >2 Midnights Patient will require the following post-hospital care: None Practitioner: I am a practitioner with admitting privileges, knowledge of patient current condition, hospital course, and medical plan of care. Services: Services provided to patient in accordance with Admission requirements found in Title 42 Section 412.3 of the Code of Federal Regulations <GeoffreykristianDorota kate Myranda - Last Filed: 01/25/23 16:27> Patient History Date of Service: 01/25/23 Reason for admission: SOB, Cough, Chest pain History of Present Illness: Patient is a 72-year-old female with a past medical history significant for ESRD, hypertension, hyperlipidemia, DM 2 who presents with complaint of shortness of breath and cough that has been ongoing for the past 3 days. Patient currently alert and oriented x2. Patient noted to be confused. Patient reported associated signs and symptoms of headache, shortness of breath, fatigue, weakness, dizziness and substernal chest pain. Patient unable to qualify severity and description of chest pain. Patient denies any other signs and symptoms. Symptoms are aggravated or relieved by nothing. Patient reported that patient has been having intermittent confusions for the past 2 days. Family decided to bring patient to the hospital for medical evaluation. - Past Medical/Surgical History Diabetic: Yes -: Chronic kidney disease stage V -: Chronic diastolic heart failure -: Hypertension -: Diabetes mellitus -: Hypothyroidism -: Coronary artery disease -: CABG -: Clemente knee replacement - Social History Smoking Status: Never smoker Alcohol use: No CD- Drugs: No Caffeine use: No Place of Residence: Home <Dorota Turcios - Last Filed: 01/25/23 16:27> Date of Service: 01/25/23 <Mirza Avery - Last Filed: 01/25/23 19:18> Allergies hydrocodone Allergy (Verified 11/22/21 16:55) Hives/Rash Penicillins Allergy (Verified 11/22/21 16:55) Hives/Rash Home Medications: Aspirin 81 mg PO DAILY 11/23/21 Atorvastatin Calcium 80 mg PO BEDTIME 11/23/21 Hydralazine [Apresoline*] 50 mg PO TID 11/23/21 Isosorbide Dinit [Isordil*] 20 mg PO TID PRN 11/23/21 Lactulose 10 gm PO DAILYPRN PRN 11/23/21 Levothyroxine Sodium 175 mcg PO [id number] 11/23/21 Meclizine HCl 12.5 mg PO TID 11/23/21 Mirtazapine 15 mg PO BEDTIME 11/23/21 Omeprazole [Prilosec] 40 mg PO DAILY 11/23/21 Ranolazine [Ranolazine ER] 500 mg PO BID 11/23/21 carvediloL [Carvedilol] 6.25 mg PO BID 11/23/21 Warfarin Sodium [Coumadin*] 6 mg PO DAILY 12/31/21 Divalproex Sodium [Depakote ER] 1,000 mg PO BID #120 tab.er.24h 01/14/22 Nepro Shake [Nepro*] 237 ml PO DAILY #30 can 01/14/22 Allopurinol 100 mg PO DAILY 12/28/22 Bumetanide [Bumex*] 1 mg PO BID PRN 12/28/22 Calcium Acetate [Phoslo] 667 mg PO TID 12/28/22 Furosemide 40 mg PO DAILY PRN 12/28/22 Nitroglycerin 0.4 mg SL DIRECTED PRN 12/28/22 Sodium Bicarbonate 650 mg PO BID 12/28/22 clindamycin HCL [Clindamycin HCl] 300 mg PO Q6HR 12/28/22 Review of Systems General: Weakness, Other (Weakness ) Eyes: Unremarkable ENT: Unremarkable Respiratory: Shortness of Breath Cardiovascular: Chest Pain Gastrointestinal: Unremarkable Musculoskeletal: Unremarkable Integumentary: Unremarkable Neurological: Weakness, Confusion, Other (VALENCIA, Dizziness) Lymphatics: Unremarkable <Dorota Turcios - Last Filed: 01/25/23 16:27> Physical Examination - Physical Exam General: Alert, Oriented x2, Mild distress, Confused HEENT: Atraumatic, PERRLA, Mucous membr. moist/pink, EOMI, Sclerae nonicteric Neck: Supple, 2+ carotid pulse no bruit, No LAD, Without JVD or thyroid abnormality Respiratory: Crackles/rales, Expiratory wheezes Cardiovascular: No edema, Regular rate/rhythm, Normal S1 S2 Capillary refill: <2 Seconds Gastrointestinal: Normal bowel sounds, Non-distended, No tenderness Musculoskeletal: No clubbing, No swelling, No tenderness Integumentary: No rashes, No significant lesion Neurological: Normal speech, Normal tone, Normal affect Lymphatics: No axilla or inguinal lymphadenopathy - Studies Laboratory Data (last 24 hrs) 01/25/23 10:44: Phosphorus 3.8, Magnesium 1.8 01/25/23 10:44: PT 30.3 H, INR 2.75, APTT 48.8 H 01/25/23 10:44: Sodium 132 L, Potassium 3.3 L, BUN 54 H, Creatinine 5.00 H, Glucose 171 H, Total Bilirubin 0.3, AST 30, ALT 12 L, Alkaline Phosphatase 102 01/25/23 10:44: WBC 12.60 H, Hgb 10.1 L, Hct 29.4 L, Plt Count 266 Microbiology Data (last 24 hrs): 01/25/23 10:44 Nasopharnyx Influenza Type A Antigen Screen - Final 01/25/23 10:44 Nasopharnyx Influenza Type B Antigen Screen - Final <Dorota Turcios - Last Filed: 01/25/23 16:27> - Studies Laboratory Data (last 24 hrs) 01/25/23 10:44: Phosphorus 3.8, Magnesium 1.8 01/25/23 10:44: PT 30.3 H, INR 2.75, APTT 48.8 H 01/25/23 10:44: Sodium 132 L, Potassium 3.3 L, BUN 54 H, Creatinine 5.00 H, Glucose 171 H, Total Bilirubin 0.3, AST 30, ALT 12 L, Alkaline Phosphatase 102 01/25/23 10:44: WBC 12.60 H, Hgb 10.1 L, Hct 29.4 L, Plt Count 266 Microbiology Data (last 24 hrs): 01/25/23 10:44 Nasopharnyx Influenza Type A Antigen Screen - Final 01/25/23 10:44 Nasopharnyx Influenza Type B Antigen Screen - Final <Mirza Avery - Last Filed: 01/25/23 19:18> Assessment and Plan - Plan --COVID-[address] chest indicates Bilateral pulmonary infiltrates are present, greatest in the right middle lobe, likely representing infection/ pneumonia. Small left pleural effusion. Automatic Pinsetter Adjuster consulted. Continue antibiotics and O2 therapy. We will await further recommendation from project structural engineer. --Chest pain. Likely atypical. Patient was worked up for chest pain a month ago. We will trend serial troponins. Telemetry to monitor for any significant arrhythmia. Continue supportive care. --COVID-19 infection. Continue airborne and contact precautions. Further management per project structural engineer. --Leukocytosis. Likely secondary to pneumonia. Blood cultures pending. Continue antibiotics. We will continue to monitor WBC. --Acute metabolic encephalopathy. Likely secondary to pneumonia. CT head pending for further evaluation. Continue supportive care. --ESRD. Patient on MWF schedule. Nephrology consulted. Will await further recommendations. --DM2. BS monitoring with sliding scale insulin. --Hypothyroidism. Continue Synthroid. --Hyperlipidemia. Continue statin. --Hypertension. Poorly controlled. Continue home medications and hydralazine as needed. --Headache. Tylenol as needed. --Anemia of chronic disease. H&H stable. We will continue to monitor hemoglobin and transfuse if less than 7.0. --Hypokalemia. Replete as needed. --History of CAD\CABG. Continue aspirin, warfarin and statin. --Chronic diastolic CHF. BNP pending. Further management per linux server administrator. Daily weight and strict I/O. Continue supportive care. --HX of DVT. Continue warfarin --DVT prophylaxis with warfarin Discharge Plan: Home Plan to discharge in: Greater than 2 days - Advance Directives Does patient have a Living Will: No Does patient have a Durable POA for Healthcare: No - Code Status/Comfort Care Code Status Assessed: Yes Physician Review: Patient Assessed, Agree with Above Assessment and Plan Critical Care: No <Dorota Turcios - Last Filed: 01/25/23 16:27> Physician Review: Patient Assessed, Agree with Above Assessment and Plan Physician Review Additional Text: Levofloxacin discontinued as this may result in a supratherapeutic INR given warfarin use. Plan was to start ceftriaxone and doxycycline, but ceftriaxone not started due to penicillin allergy. Started on meropenem and doxycycline. Appreciate Pulmonology recommendations. Mirza Avery M.D. <Mirza Avery - Last Filed: 01/25/23 19:18>
[2023-01-25] MEDS ORDERED: GLUCAGON 1 MG/VIAL IM PRN (15:52)
[2023-01-25] MEDS ORDERED: D10W 250 ML BAG IV PRN (15:55)
[2023-01-25] MEDS: INSULIN -REGULAR HUMAN 50 UNIT/0.5 ML ML SQ SCH ×2 (16:30→21:00)
--- NOTE | 2023-01-25 16:35 | RAD REPORT ---
EXAM DESCRIPTION: CT - Head Brain Wo Cont - 01/25/2023 4:29 pm CLINICAL HISTORY: AMS Headache, drowsiness COMPARISON: Ct Stroke Brain Wo Cont dated 12/22/2022; Head Brain Wo Cont dated 12/31/2021 TECHNIQUE: All CT scans are performed using dose optimization technique as appropriate and may inclu de automated exposure control or mA/KV adjustment according to patient size. FINDINGS: No intracranial hemorrhage, hydrocephalus or extra-axial fluid collection.Prominent diffus e brain atrophy.No areas of brain edema or evidence of midline shift. The right mastoid air cell is opacified. The calvarium is intact. IMPRESSION: No acute intracranial abnormality. Significant right-sided mastoid effusion.
--- NOTE | 2023-01-25 16:45 | P.HP ---
Certification for Inpatient Patient admitted to: Inpatient With expected LOS: >2 Midnights Patient will require the following post-hospital care: None Practitioner: I am a practitioner with admitting privileges, knowledge of patient current condition, hospital course, and medical plan of care. Services: Services provided to patient in accordance with Admission requirements found in Title 42 Section 412.3 of the Code of Federal Regulations Patient History Date of Service: 01/25/23 Reason for admission: SOB, Cough, Chest pain History of Present Illness: Patient is a 72-year-old female with a past medical history significant for ESRD, hypertension, hyperlipidemia, DM 2 who presents with complaint of shortness of breath and cough that has been ongoing for the past 3 days. Patient currently alert and oriented x2. Patient noted to be confused. Patient reported associated signs and symptoms of headache, shortness of breath, fatigue, weakness, dizziness and substernal chest pain. Patient unable to qualify severity and description of chest pain. Patient denies any other signs and symptoms. Symptoms are aggravated or relieved by nothing. Patient reported that patient has been having intermittent confusions for the past 2 days. Family decided to bring patient to the hospital for medical evaluation. Allergies hydrocodone Allergy (Verified 11/22/21 16:55) Hives/Rash Penicillins Allergy (Verified 11/22/21 16:55) Hives/Rash Home Medications: Aspirin 81 mg PO DAILY 11/23/21 Atorvastatin Calcium 80 mg PO BEDTIME 11/23/21 Hydralazine [Apresoline*] 50 mg PO TID 11/23/21 Isosorbide Dinit [Isordil*] 20 mg PO TID PRN 11/23/21 Lactulose 10 gm PO DAILYPRN PRN 11/23/21 Levothyroxine Sodium 175 mcg PO [id number] 11/23/21 Meclizine HCl 12.5 mg PO TID 11/23/21 Mirtazapine 15 mg PO BEDTIME 11/23/21 Omeprazole [Prilosec] 40 mg PO DAILY 11/23/21 Ranolazine [Ranolazine ER] 500 mg PO BID 11/23/21 carvediloL [Carvedilol] 6.25 mg PO BID 11/23/21 Warfarin Sodium [Coumadin*] 6 mg PO DAILY 12/31/21 Divalproex Sodium [Depakote ER] 1,000 mg PO BID #120 tab.er.24h 01/14/22 Nepro Shake [Nepro*] 237 ml PO DAILY #30 can 01/14/22 Allopurinol 100 mg PO DAILY 12/28/22 Bumetanide [Bumex*] 1 mg PO BID PRN 12/28/22 Calcium Acetate [Phoslo] 667 mg PO TID 12/28/22 Furosemide 40 mg PO DAILY PRN 12/28/22 Nitroglycerin 0.4 mg SL DIRECTED PRN 12/28/22 Sodium Bicarbonate 650 mg PO BID 12/28/22 clindamycin HCL [Clindamycin HCl] 300 mg PO Q6HR 12/28/22 - Past Medical/Surgical History Diabetic: Yes -: Chronic kidney disease stage V -: Chronic diastolic heart failure -: Hypertension -: Diabetes mellitus -: Hypothyroidism -: Coronary artery disease -: CABG -: Clemente knee replacement - Social History Smoking Status: Never smoker Alcohol use: No CD- Drugs: No Caffeine use: No Place of Residence: Home Physical Examination - Physical Exam Integumentary: Other - Studies Laboratory Data (last 24 hrs) 01/25/23 10:44: Phosphorus 3.8, Magnesium 1.8 01/25/23 10:44: PT 30.3 H, INR 2.75, APTT 48.8 H 01/25/23 10:44: Sodium 132 L, Potassium 3.3 L, BUN 54 H, Creatinine 5.00 H, Glucose 171 H, Total Bilirubin 0.3, AST 30, ALT 12 L, Alkaline Phosphatase 102 01/25/23 10:44: WBC 12.60 H, Hgb 10.1 L, Hct 29.4 L, Plt Count 266 Microbiology Data (last 24 hrs): 01/25/23 10:44 Nasopharnyx Influenza Type A Antigen Screen - Final 01/25/23 10:44 Nasopharnyx Influenza Type B Antigen Screen - Final Assessment and Plan - Plan --COVID-[address] chest indicates Bilateral pulmonary infiltrates are present, greatest in the right middle lobe, likely representing infection/ pneumonia. Small left pleural effusion. Dairy Feed Sales Consultant consulted. Continue antibiotics and O2 therapy. We will await further recommendation from taxi driver supervisor. --Chest pain. Likely atypical. Patient was worked up for chest pain a month ago. We will trend serial troponins. Telemetry to monitor for any significant arrhythmia. Continue supportive care. --COVID-19 infection. Continue airborne and contact precautions. Further man agement per taxi driver supervisor. --Leukocytosis. Likely secondary to pneumonia. Blood cultures pending. Continue antibiotics. We will continue to monitor WBC. --Acute metabolic encephalopathy. Likely secondary to pneumonia. CT head pending for further evaluation. Continue supportive care. --ESRD. Patient on MWF schedule. Nephrology consulted. Will await further recommendations. --DM2. BS monitoring with sliding scale insulin. --Hypothyroidism. Continue Synthroid. --Hyperlipidemia. Continue statin. --Hypertension. Poorly controlled. Continue home medications and hydralazine as needed. --Headache. Tylenol as needed. --Anemia of chronic disease. H&H stable. We will continue to monitor hemoglobin and transfuse if less than 7.0. --Hypokalemia. Replete as needed. --History of CAD\CABG. Continue aspirin, warfarin and statin. --Chronic diastolic CHF. BNP pending. Further management per director furniture. Daily weight and strict I/O. Continue supportive care. --HX of DVT. Continue warfarin --DVT prophylaxis with warfarin - Advance Directives Does patient have a Living Will: No Does patient have a Durable POA for Healthcare: No Physician Review: Patient Assessed, Agree with Above Assessment and Plan
[2023-01-25 17:51] VITALS: BMI 32.8
[2023-01-25] MEDS: DOXYCYCLINE 100 MG in NA CHLORIDE 0.9% 100 ML IVPB SCH (22:48)
[2023-01-25] MEDS: Meropenem 500 MG in NA CHLORIDE 0.9% 100 ML IV SCH (22:49)
--- NOTE | 2023-01-25 23:44 | P.PN ---
Date of Service: 01/25/23 2307: notified [place] [address].9. It appears that her initial troponin ordered at 1543 was somehow cancelled. Troponin and EKG were not done while she was in the ED. She denies any chest pain at this time. Stat EKG ordered. 2349: EKG obtained- did not show any acute changes compared to prior completed 1 month ago. 2354: called cardiologyDr. Hyman, no answer. EKG image with prior EKG sent. awaiting call back. Cannot heparinize patient at this point as she is on daily warfarin with a current supratherapeutic INR of 2.75 which will likely increase significantly after receiving 500 mg IV levaquin earlier today. 324 mg aspirin given. Current PTT 48.8. 14: called cardiologyDr. Hyman recommended aspirin only and will see patient in the morning.
[2023-01-25] MEDS ORDERED: ASPIRIN EC 81 MG TAB PO ONE (23:57)
[2023-01-26 03:20] LABS: Urine Bacteria <20 /HPF (<20); Urine Bilirubin NEGATIVE (Negative); Urine Blood Trace (Negative); Urine Clarity Turbid (Clear); Urine Color Yellow (Yellow); Urine Glucose 1+ (Negative); Urine Protein 3+ (Negative); Urine RBC <5 /HPF (None Seen); Urine Urobilinogen Normal (Normal); Urine Yeast with Hyphae Trace /HPF (None Seen)
[2023-01-26 04:26] LABS: Protime INR 2.52
[2023-01-26 04:27] LABS: Absolute Lymphocytes (CBC) 1.1 K/uL (0.7-4.9); Hematocrit 25.6 % (36.0-45.0); Lymphocytes % 9.3 % (15.3-44.8); MCV 103.1 fL (80-100); MPV 7.4 fL (7.6-11.3); RBC Red Blood Cell Count 2.48 M/uL (3.86-4.86)
[2023-01-26 04:38] LABS: Potassium 3.3 mEq/L (3.5-5.1)
[2023-01-26] MEDS: INSULIN -REGULAR HUMAN 50 UNIT/0.5 ML ML SQ SCH ×4 (07:30→21:00)
--- NOTE | 2023-01-26 07:49 | EKG ---
Test Date: 2023-01-25 Test Time: 11:02:36 Industrial Accountant: ALP MEASUREMENT RESULTS: Intervals: Rate: 97 SD: 154 QRSD: 166 QT: 428 QTc: 543 [place]: P: 53 SD: 154 QRS: -20 T: 41 INTERPRETIVE STATEMENTS: Normal sinus rhythm Right bundle branch block Abnormal ECG Compared to ECG 12/28/2022 05:45:45 No significant changes Electronically Signed On 01-26-23 07:46:22 CDT by Waylon Shanks
[2023-01-26] MEDS: ASPIRIN 81 MG CHEWABLE TABLET PO SCH (09:00)
[2023-01-26] MEDS ORDERED: WARFARIN SODIUM 6 MG TAB PO SCH (09:00)
[2023-01-26] MEDS: Meropenem 500 MG in NA CHLORIDE 0.9% 100 ML IV SCH (09:26)
[2023-01-26] MEDS: DOXYCYCLINE 100 MG in NA CHLORIDE 0.9% 100 ML IVPB SCH (10:09)
[2023-01-26] MEDS ORDERED: LEVOFLOXACIN 750MG/D5W 150 ML IV SCH (11:00)
--- NOTE | 2023-01-26 12:08 | P.CNS ---
Date of Consult: 01/26/23 Reason for Consult: Coronavirus infection Chief Complaint: SOB, Cough, Chest pain History of Present Illness: Patient is 72 years of age hard of hearing end-stage renal disease hypertension hyperlipidemia diabetes coronary artery disease has been sick over the weekend became disoriented confused fatigue denies any chest pain here in the hospital is doing well was vaccinated against coronavirus Denies any shortness of breath or chest pain currently she missed dialysis last time Allergies hydrocodone Allergy (Verified 11/22/21 16:55) Hives/Rash Penicillins Allergy (Verified 11/22/21 16:55) Hives/Rash Home Medications: Aspirin 81 mg PO DAILY 11/23/21 Atorvastatin Calcium 80 mg PO BEDTIME 11/23/21 Hydralazine [Apresoline*] 50 mg PO TID 11/23/21 Isosorbide Dinit [Isordil*] 20 mg PO TID PRN 11/23/21 Lactulose 10 gm PO DAILYPRN PRN 11/23/21 Levothyroxine Sodium 175 mcg PO [id number] 11/23/21 Meclizine HCl 12.5 mg PO TID 11/23/21 Mirtazapine 15 mg PO BEDTIME 11/23/21 Omeprazole [Prilosec] 40 mg PO DAILY 11/23/21 Ranolazine [Ranolazine ER] 500 mg PO BID 11/23/21 carvediloL [Carvedilol] 6.25 mg PO BID 11/23/21 Warfarin Sodium [Coumadin*] 6 mg PO DAILY 12/31/21 Divalproex Sodium [Depakote ER] 1,000 mg PO BID #120 tab.er.24h 01/14/22 Nepro Shake [Nepro*] 237 ml PO DAILY #30 can 01/14/22 Allopurinol 100 mg PO DAILY 12/28/22 Bumetanide [Bumex*] 1 mg PO BID PRN 12/28/22 Calcium Acetate [Phoslo] 667 mg PO TID 12/28/22 Furosemide 40 mg PO DAILY PRN 12/28/22 Nitroglycerin 0.4 mg SL DIRECTED PRN 12/28/22 Sodium Bicarbonate 650 mg PO BID 12/28/22 clindamycin HCL [Clindamycin HCl] 300 mg PO Q6HR 12/28/22 - Past Medical/Surgical History Diabetic: Yes -: Chronic kidney disease stage V- HemoDialysis -: Chronic diastolic heart failure -: Hypertension -: Diabetes mellitus -: Hypothyroidism -: Coronary artery disease -: DVT -: CVA -: CABG -: Clemente knee replacement -: Fistula Left Upper Arm -: Right Subclavian Dialysis access - Social History Smoking Status: Unknown if ever smoked Alcohol use: No CD- Drugs: No Caffeine use: No Place of Residence: Home Review of Systems Unremarkable General: Weakness Physical Examination Temp Pulse Resp BP Pulse Ox 97.7 F 89 16 146/65 H 98 01/26/23 08:00 01/26/23 08:00 01/26/23 08:00 01/26/23 08:00 01/26/23 08:00 General: Alert, Oriented x3, Cooperative Respiratory: Clear to auscultation bilaterally Cardiovascular: No edema, Regular rate/rhythm, Normal S1 S2 Gastrointestinal: Normal bowel sounds, Soft and benign Laboratory Data (last 24 hrs) 01/25/23 10:44: Phosphorus 3.8, Magnesium 1.8 01/25/23 10:44: PT 30.3 H, INR 2.75, APTT 48.8 H - Problems (1) Coronavirus infection Current Visit: Yes Status: Acute Plan: Patient is 72 years of age tested positive for coronavirus admitted with altered mental status end-stage renal disease on dialysis which she missed the last 1 chemistries show significant elevation of troponin although EKG no ischemic changes denies any chest pain patient is on warfarin White count is mildly elevated CT scan shows bilateral patchy pneumonia patient was admitted with some fever hemodynamically stable cultures are negative can change coordinator to levofloxacin and doxycycline doubt cardiac is probably coronavirus infection causing elevation of her troponin may need a follow-up stress test
[2023-01-26] MEDS ORDERED: levoFLOXacin 500 MG TAB PO ONE (12:10)
--- NOTE | 2023-01-26 13:48 | EKG ---
Test Date: 2023-01-25 Test Time: 23:46:40 Commercial Lines Account Executive: ZOLTAN MEASUREMENT RESULTS: Intervals: Rate: 91 WI: 162 QRSD: 136 QT: 402 QTc: 494 [place]: P: 40 WI: 162 QRS: -1 T: 37 INTERPRETIVE STATEMENTS: Normal sinus rhythm Right bundle branch block Abnormal ECG Compared to ECG 01/25/2023 11:02:36 No significant changes Electronically Signed On 01-26-23 13:48:06 CDT by Alessio Hyman
--- NOTE | 2023-01-26 13:59 | P.PN ---
Subjective Date of Service: 01/26/23 Chief Complaint: SOB, Cough, Chest pain [place] [address].9, but it has been down-trending. She denies any chest pain or palpitations. She reports that her breathing is much improved compared to yesterday. She denies any abdominal pain, nausea, and vomiting. Review of Systems 10-point ROS is otherwise unremarkable Respiratory: Shortness of Breath Physical Examination - Vital Signs Temperature: 97.5 F Blood Pressure: 120/58 Pulse: 84 Respirations: 17 Pulse Ox (%): 92 - Physical Exam General: Alert, In no apparent distress, Oriented x3 HEENT: Atraumatic, Mucous membr. moist/pink, Sclerae nonicteric Neck: JVD not distended Respiratory: Diminished, Rhonchi/gurgles Cardiovascular: No edema, Regular rate/rhythm, Normal S1 S2, No gallops, No rubs, No murmurs Gastrointestinal: Normal bowel sounds, Soft and benign, Non-distended, No tenderness, No rebound, No guarding Musculoskeletal: No clubbing Integumentary: No rashes Neurological: Normal speech, Normal affect - Studies Microbiology Data (last 24 hrs): 01/25/23 11:17 Blood - Blood Anaerobic Blood Culture - Final 01/25/23 10:44 Nasopharnyx Influenza Type A Antigen Screen - Final 01/25/23 10:44 Nasopharnyx Influenza Type B Antigen Screen - Final Assessment And Plan - Plan # Viral Sepsis secondary to COVID-19 Pneumonia She met sepsis criteria based on temperature >= 100.4 F, HR > 90 bpm, RR > 20 breaths/min, and WBC > 12,000, and the suspected source is COVID-19. - Evaluation thus far: - COVID-19 positive - Procalcitonin = pending - Lactate = 1.3 - Blood cultures x 2 drawn - Chest x-ray = "increased consolidation in the right lower lobe compared with 12/28/2022 is suspicious for pneumonia. Interstitial pulmonary edema is also present." - CT chest = "bilateral pulmonary infiltrates are present, greatest in the right middle lobe, likely representing infection/ pneumonia.Small left pleural effusion." - Management plan: - Pulmonary Medicine consulted - recommendations appreciated - Consulted Respiratory Therapy - Initially started on levofloxacin, switched to meropenem + doxycylcine - Discussed with pharmacy, will switch meropenem to cefepime due to low cross-reactivity with penicillins - Levofloxacin discontinued as this can create supratherapuetic levels with warfarin - 30 mL/kg of IV fluids was not administered given SBP > 90, MAP > 65, lactic acid < 4 - Supplemental oxygen to maintain SpO2 > 92% - Encouraged incentive spirometry - PRN benzonatate, guaifenesin - Isolation precautions # Suspect Type II Non-ST Segment Elevation Myocardial Infarction (Demand Ischemia) due to above # Coronary Artery Disease s/p CABG # Hypertension # Hyperlipidemia # Chronic Diastolic Congestive Herat Failure # History of Deep Venous Thrombosis - Evaluation thus far: - EKG: without STEMI criteria - Serial troponin: 10951.9 -> 7863.6 - Ordered transthoracic echocardiogram - Management plan: - Consult Cardiology and spoke with Dr. Hyman - recommendations appreciated - Plan for inpatient nuclear stress test once better from COVID-19 - S/P aspirin 324 mg PO x 1 in ED - Continue aspirin, atorvastatin, carvedilol, warfarin - LMWH not started due to warfarin use - HANNAH-inhibitor/ARB not started due to ESRD # End-Stage Renal Disease on iHD - Nephrology consulted - recommendations appreciated # Type II Diabetes Mellitus - Correction scale insulin # Hypothyroidism - Continue home levothyroxine # Right-Sided Mastoid Effusion - Follow-up with ENT as an outpatient Mirza Avery M.D.
[2023-01-26] MEDS ORDERED: guaiFENesin 100 MG/5 ML UCUP PO PRN (14:49)
[2023-01-26] MEDS ORDERED: EPOETIN ALFA 10,000 UNIT/ML VIAL IV SCH (15:30)
--- NOTE | 2023-01-26 16:36 | CON ---
Date of Consultation: 01/26/2023 Reason For Consultation: Elevated BUN and creatinine, hypertension. History Of Present Illness: This is a pleasant 72-year-old female, well known to me from the dialysis with significant past medical history of end-stage renal disease, hypertension, hyperlipidemia, diabetes, complicated with neuropathy and nephropathy, congestive heart failure with ejection fraction of 45, status post ICD, PAD, the patient came to the hospital with chest pain. No nausea. No vomiting. The patient also complaining from confusion and shortness of breath. The patient found to have accelerated hypertension and gastroenteritis. For that reason, the patient was admitted. The patient denied any fever, any chills. Past Medical History: Includes; 1. Seizure. 2. Diabetes complicated with neuropathy and nephropathy. 3. CAD status post CABG, complicated with congestive heart failure, ejection fraction of 45%, status post cardiac arrest, status post ICD. 4. End-stage renal disease, on hemodialysis Wednesday, Wednesday, Wednesday through right IJ PermCath at [facility]. 5. Renal cyst. 6. Hyperlipidemia. Past Surgical History: Includes CABG, ICD, PermCath placement. Family History: Positive for diabetes and hypertension. Social History: Denied smoking, denied drinking, denied drugs abuse. Review of Systems: Head and Neck: No red eye. No ear pain. GI: No nausea. No vomiting. : No polyuria. No dysuria. No hematuria. Wastewater Analyst: No vaginal discharge. Respiratory: Has shortness of breath. Cardiovascular: Has chest pain. Endocrine: No polydipsia. Skin: No rash. Neuro: Has neuropathy. Musculoskeletal: No joint pain. Physical Examination: Vital Signs: When I saw the patient; blood pressure 120/58, pulse of 84, afebrile. Chest: Faint rales bilateral. Heart: S1, S2. Systolic murmur. Abdomen: Soft, nontender. Extremity: Trace edema. Neurologic: Alert. Pleasantly confused. No focality. Laboratory Data: Hemoglobin 8.7. Sodium 134, potassium 3.3, bicarb 30, BUN 33, creatinine 3.6, calcium 7.9. BNP of 7800. Current Medications: The patient on include; 1. Aspirin. 2. Cefepime. 3. Doxycycline. 4. Levofloxacin. 5. Heparin. 6. Coumadin. 7. Ranexa. 8. Carvedilol 6.25 b.i.d. 9. Atorvastatin. 10. Levothyroxine. 11. KCl. Assessment And Plan: 1. End-stage renal disease with over volume. I am going to go ahead and arrange for the dialysis and we will challenge the patient. 2. Hypertension, controlled, optimal. We will try to utilize blood pressure for more ultrafiltration to establish better volume control for the patient. 3. Anemia of chronic kidney disease. We will resume Retacrit. We will follow up hemoglobin for transfusion as needed. 4. Secondary hyperparathyroidism. Calcium and phosphorus on the goal. We will continue to monitor. 5. Congestive heart failure with exacerbation. Follow up with primary. We will dialyze the patient to establish better volume control. 6. Diabetes as by primary. 7. Hypokalemia. The patient is going to be dialyzed on high potassium bath. time spend exam the patient face to face , reviewing the DATA lab and Radiology, placing the order, discussing the case with the patient ,reviewing the care plan with cafe team member including the nursing staff , discussing with the hospitalist >35 min NEGRA Voice ID: [id number] Report ID: [id number] ALAN
--- NOTE | 2023-01-26 17:56 | CON ---
Date of Consultation: 01/26/2023 Reason For Consultation: Elevated troponin, COVID pneumonia, cough, and shortness of breath. History Of Present Illness: Ms. Trujillo is 72. Has a history of end-stage renal disease, on hemodial ysis, anxiety, stroke, diabetes, coronary artery disease, congestive heart failure, depression, hyper tension, sleep apnea, dyslipidemia and history of DVT for which she takes Coumadin. [facility], was found to have COVID pneumonia. Troponin was 7863. BNP was elevated. Her creatinine was 5, hemoglobin 8.7. INR was 2.75, appropriate for Coumadin. The patient never had any heart symptoms. Denied any chest pain. Past Medical History: As stated above. Allergies: INCLUDE HYDROCODONE AND PENICILLIN. Review of Systems: Negative. Social History: Negative. Family History: Negative. Medications: Include hydralazine, Lipitor, aspirin, Ranexa, Bumex, Lasix, Coumadin, Imdur, and Coreg . Physical Examination: Vital Signs: Stable, afebrile. HEENT: Negative. Neck: Supple with no bruit. Chest: Clear. Cardiac: Revealed S4 gallops. Regular rhythm and rate. Abdomen: Benign. Extremities: Revealed no clubbing, cyanosis. She has trace edema. Diagnostic Data: As stated earlier. Also include an echocardiogram from last month showing an eject ion fraction, which is normal with some mild pulmonary hypertension. Impression And Plan: Elevated troponin secondary to demand ischemia from renal failure, anemia, and COVID. No need for heart catheterization at this point. We may have to do a Lexiscan on her sometim e down the road. For now, I will keep her , continue her Coumadin, continue her rest of he r medication, continue her treatment for COVID. Nephrology consultation for continued dialysis. Do not change her medical regimen at this point. I would not repeat any cardiac workup now. Her other problems including cerebrovascular accident, anxiety, coronary artery disease, diabetes, dyslipidemia , diastolic congestive heart failure, depression, hypertension, history of deep vein thrombosis and s leep apnea are all stable. We will continue to follow. MARIA ISABEL/KERI Voice ID: [id number] Report ID: [id number]
[2023-01-26] MEDS: CEFEPIME 1 GM in NA CHLORIDE 0.9% 100 ML IV SCH (22:43)
[2023-01-26] MEDS: DOXYCYCLINE 100 MG CAP PO SCH (22:44)
[2023-01-26] MEDS: ATORVASTATIN 80 MG TAB PO SCH (22:44)
[2023-01-26] MEDS: carvediloL 6.25 MG TAB PO SCH (22:44)
[2023-01-27] MEDS: MELATONIN 5 MG TABLET PO PRN ×2 (03:05→20:04)
[2023-01-27] MEDS: LEVOTHYROXINE SOD 0.1 MG TAB PO SCH (05:34)
[2023-01-27] MEDS: LEVOTHYROXINE SOD 0.075 MG TAB PO SCH (05:35)
[2023-01-27] MEDS ORDERED: HOME MED 1 EA UNK (Levothyroxine Sodium [Levothyroxine Sodium] 150 MCG Capsule) PO SCH (06:00)
[2023-01-27 06:27] LABS: Hematocrit 22.8 % (36.0-45.0); Lymphocytes % 9.2 % (15.3-44.8); MPV 7.6 fL (7.6-11.3); RBC Red Blood Cell Count 2.19 M/uL (3.86-4.86)
[2023-01-27] MEDS ORDERED: LEVOTHYROXINE SOD 0.075 MG TAB PO SCH (06:30)
[2023-01-27 06:44] LABS: Albumin 2.2 g/dL (3.4-5.0); Magnesium 1.8 mg/dL (1.6-2.4); Potassium 3.7 mEq/L (3.5-5.1)
[2023-01-27] MEDS: INSULIN -REGULAR HUMAN 50 UNIT/0.5 ML ML SQ SCH ×4 (07:30→19:40)
[2023-01-27] MEDS ORDERED: ALBUMIN HUMAN 25% 100 ML IV ONE (08:55)
[2023-01-27] MEDS: carvediloL 6.25 MG TAB PO SCH ×2 (09:00→20:03)
[2023-01-27] MEDS: DOXYCYCLINE 100 MG CAP PO SCH ×2 (09:16→20:03)
[2023-01-27] MEDS: BENZONATATE 100 MG CAP PO PRN ×2 (09:16→20:03)
[2023-01-27] MEDS: ASPIRIN 81 MG CHEWABLE TABLET PO SCH (09:16)
[2023-01-27 10:17] LABS: Protime INR 1.75
[2023-01-27] MEDS: WARFARIN SODIUM 6 MG TAB PO SCH (11:17)
--- NOTE | 2023-01-27 12:28 | PN ---
Date of Progress Note: 01/27/2023 Subjective: Patient was admitted with COVID pneumonia. Patient is being on dialysis, doing well, seen on dialysis. Objective: Vital Signs: Blood pressure 126/59, pulse of 72. Chest: Faint crackles, bilateral. Heart: S1, S2. Regular. Abdomen: Soft, nontender. Extremities: Trace edema. Neurologic: Alert. No focality. Laboratory Data: Hemoglobin 7.8. Sodium 133, potassium 3.7 bicarb 27, BUN 54, creatinine 5.3, calcium 7.7. Phosphorous 5, magnesium 1.8. BNP 4500. Current Medications: Include cefepime, doxycycline, Levaquin, Epogen, Coumadin, carvedilol 6.25, atorvastatin, Ranexa, Zofran. Assessment And Plan: 1. End-stage renal disease. We will continue the patient on dialysis Wednesday, Wednesday, Wednesday. 2. Secondary hyperparathyroidism. We will monitor. 3. Over volume. Patient is going to challenge. 4. On the dialysis. 5. Hyponatremia, will be corrected on dialysis. 6. Hypokalemia, will be corrected on dialysis. 7. Hypertension. We will utilize blood pressure for more ultrafiltration. 8. COVID pneumonia. Continue current treatment. time spend exam the patient face to face , reviewing the DATA lab and Radiology, placing the order, discussing the case with the patient ,reviewing the care plan with steam tank operator including the nursing staff , discussing with the hospitalist >35 min NEGRA Voice ID: [id number] Report ID: [id number] ALAN
--- NOTE | 2023-01-27 13:48 | ECHO ---
HEIGHT: 5 ft 3 in WEIGHT: 184 lb 15.838 oz DATE OF STUDY: 01/27/[address]: Alessio Hyman 2-DIMENSIONAL: YES M.MODE: YES DOPPLER: YES COLOR FLOW: YES TDS: NO PORTABLE: YES DEFINITY: NO BUBBLE STUDY: NO DIAGNOSIS: ELEVATED TROPONIN CARDIAC HISTORY: CATHERIZATION: SURGERY: PROSTHETIC VALVE: PACEMAKER: MEASUREMENTS (cm) DIASTOLIC (NORMALS) SYSTOLIC (NORMALS) IVSd 1.1 (0.6-1.2) LA Diam 3.6 (1.9-4.0) LVEF 50% LVIDd 4.9 (3.5-5.7) LVIDs 3.6 (2.0-3.5) %FS 25% LVPWd 1.2 (0.6-1.2) Ao Diam 2.5 (2.0-3.7) 2 DIMENSIONAL ASSESSMENT: RIGHT ATRIUM: NORMAL LEFT ATRIUM: NORMAL RIGHT VENTRICLE: NORMAL LEFT VENTRICLE: NORMAL TRICUSPID VALVE: NORMAL MITRAL VALVE: NORMAL PULMONIC VALVE: NORMAL AORTIC VALVE: STENOTIC PERICARDIAL EFFUSION: NONE AORTIC ROOT: NORMAL LEFT VENTRICULAR WALL MOTION: NORMAL. DOPPLER/COLOR FLOW: MODERATE AORTIC STENOSIS 1.4 CENTIMETERS SQUARED. COMMENTS: MODERATE AORTIC STENOSIS 1. 4 CENTIMETERS SQAURED NORMAL LEFT VENTRICULAR SIZE AND function NO WALL MOTION ABNORMALITY NO EFFUSION TECHNOLOGIST: OLIVERIO MENA
--- NOTE | 2023-01-27 17:14 | P.PN ---
Subjective Date of Service: 01/27/23 Chief Complaint: SOB, Cough, Chest pain No acute events overnight. Her troponin continues to down-trend. Her symptoms have improved compared to admission. Her breathing is much improved. Plan to work with PT today. Spoke with Dr. Shanks, plan for nuclear stress test tomorrow. She denies any abdominal pain, nausea, and vomiting. Review of Systems 10-point ROS is otherwise unremarkable Respiratory: Shortness of Breath Physical Examination - Vital Signs Temperature: 97.1 F Blood Pressure: 138/62 Pulse: 71 Respirations: 18 Pulse Ox (%): 94 Assessment And Plan - Plan - Physical Exam General: Alert, In no apparent distress, Oriented x3 HEENT: Atraumatic, Mucous membr. moist/pink, Sclerae nonicteric Neck: JVD not distended Respiratory: Diminished, Scattered rhonchi/gurgles Cardiovascular: No edema, Regular rate/rhythm, No murmurs Gastrointestinal: Normal bowel sounds, Soft, Non-distended, No tenderness Musculoskeletal: No clubbing Integumentary: No rashes Neurological: Normal speech, Normal affect # Viral Sepsis secondary to COVID-19 Pneumonia She met sepsis criteria based on temperature >= 100.4 F, HR > 90 bpm, RR > 20 breaths/min, and WBC > 12,000, and the suspected source is COVID-19. - Evaluation thus far: - COVID-19 positive - Procalcitonin = 1.85 - Lactate = 1.3 - Blood cultures x 2 drawn - Chest x-ray = "increased consolidation in the right lower lobe compared with 12/28/2022 is suspicious for pneumonia. Interstitial pulmonary edema is also present." - CT chest = "bilateral pulmonary infiltrates are present, greatest in the right middle lobe, likely representing infection/ pneumonia.Small left pleural effusion." - Management plan: - Pulmonary Medicine consulted - recommendations appreciated - Consulted Respiratory Therapy - Initially started on levofloxacin, switched to meropenem + doxycylcine - Discussed with pharmacy, will switch meropenem to cefepime due to low cross-reactivity with penicillins - Levofloxacin discontinued as this can create supratherapuetic levels with warfarin - 30 mL/kg of IV fluids was not administered given SBP > 90, MAP > 65, lactic acid < 4 - Supplemental oxygen to maintain SpO2 > 92% - Encouraged incentive spirometry - PRN benzonatate, guaifenesin - Isolation precautions # Suspect Type II Non-ST Segment Elevation Myocardial Infarction (Demand Ischemia) due to above # Coronary Artery Disease s/p CABG # Hypertension # Hyperlipidemia # Chronic Diastolic Congestive Herat Failure # History of Deep Venous Thrombosis - Evaluation thus far: - EKG: without STEMI criteria - Serial troponin: 73441.9 -> 7863.6 -> 4579.6 - Transthoracic echocardiogram = "moderate aortic stenosis 1. 4 centimeters sqaured. normal left ventricular size and function. no wall motion abnormality. no effusion" - Management plan: - Consult Cardiology and spoke with Dr. Sahnks - recommendations appreciated - Plan for inpatient nuclear stress test tomorrow - S/P aspirin 324 mg PO x 1 in ED - Continue aspirin, atorvastatin, carvedilol, warfarin - LMWH not started due to warfarin use - HANNAH-inhibitor/ARB not started due to ESRD # End-Stage Renal Disease on iHD - Nephrology consulted - recommendations appreciated # Type II Diabetes Mellitus - Correction scale insulin # Hypothyroidism - Continue home levothyroxine # Right-Sided Mastoid Effusion - Follow-up with ENT as an outpatient Mirza Avery M.D.
[2023-01-27] MEDS: ATORVASTATIN 80 MG TAB PO SCH (20:03)
[2023-01-27] MEDS: CEFEPIME 1 GM in NA CHLORIDE 0.9% 100 ML IV SCH (20:07)
--- NOTE | 2023-01-27 22:58 | PN ---
Date of Progress Note: 01/26/2023 Ms. Trujillo came in with pneumonia, cough, shortness of breath, COVID was found to have significantly elevated troponin at 7863. She is a dialysis patient, has had chronic coronary artery disease, histo ry of CVA, diabetes, depression, hypertension, dyslipidemia, congestive heart failure, DVT, and sleep apnea. She had anemia. INR of 2.75, on Coumadin. Case was discussed with Dr. Avery and with Dr. Leslye krause regarding the possibility of catheterization. I think we should let her pneumonia recover. Pl an a stress test sometime as an inpatient and we will make a decision regarding possible heart cathet erization after that. Continue present regimen for now. We will continue to follow her. MARIA ISABEL/KERI Voice ID: [id number] Report ID: [id number]
[2023-01-28 04:38] LABS: Hematocrit 23.3 % (36.0-45.0)
[2023-01-28 04:42] LABS: Protime INR 1.8
[2023-01-28 04:59] LABS: Albumin 2.5 g/dL (3.4-5.0); Phosphorus 3.6 mg/dL (2.5-4.9); Potassium 3.6 mEq/L (3.5-5.1)
[2023-01-28 05:04] LABS: Troponin High Sensitivity 2958.6 pg/mL (<58.9)
[2023-01-28] MEDS: LEVOTHYROXINE SOD 0.075 MG TAB PO SCH (06:38)
[2023-01-28] MEDS: LEVOTHYROXINE SOD 0.1 MG TAB PO SCH (06:38)
[2023-01-28] MEDS: INSULIN -REGULAR HUMAN 50 UNIT/0.5 ML ML SQ SCH ×4 (07:30→21:00)
[2023-01-28] MEDS: DOXYCYCLINE 100 MG CAP PO SCH ×2 (08:40→21:47)
[2023-01-28] MEDS: carvediloL 6.25 MG TAB PO SCH ×2 (08:40→21:47)
[2023-01-28] MEDS: ASPIRIN 81 MG CHEWABLE TABLET PO SCH (08:40)
[2023-01-28] MEDS: WARFARIN SODIUM 6 MG TAB PO SCH (08:40)
--- NOTE | 2023-01-28 12:16 | P.PN ---
Subjective Date of Service: 01/28/23 Chief Complaint: SOB, Cough, Chest pain No acute events overnight. She appears much improved today. She is sitting upright eating breakfast this morning. Per Cardiology, plan is for an inpatient nuclear stress test due to her significantly elevated troponin levels. Per RN, [employer] notified her that they are unable to have her nuclear stress test until tomorrow. She denies any abdominal pain, nausea, and vomiting. Review of Systems 10-point ROS is otherwise unremarkable Physical Examination - Vital Signs Temperature: 97.9 F Blood Pressure: 132/49 Pulse: 64 Respirations: 16 Pulse Ox (%): 98 Assessment And Plan - Plan - Physical Exam General: Alert, In no apparent distress, Oriented x3 HEENT: Atraumatic, Sclerae nonicteric Neck: JVD not distended Respiratory: Diminished, Faint scattered rhonchi/gurgles Cardiovascular: No edema, Regular rate/rhythm, No murmurs Gastrointestinal: Soft, Non-distended, No tenderness Musculoskeletal: No clubbing Integumentary: No rashes Neurological: Normal speech, Normal affect # Viral Sepsis secondary to COVID-19 Pneumonia She met sepsis criteria based on temperature >= 100.4 F, HR > 90 bpm, RR > 20 breaths/min, and WBC > 12,000, and the suspected source is COVID-19. - Evaluation thus far: - COVID-19 positive - Procalcitonin = 1.85 - Lactate = 1.3 - Blood cultures x 2 drawn - Chest x-ray = "increased consolidation in the right lower lobe compared with 12/28/2022 is suspicious for pneumonia. Interstitial pulmonary edema is also present." - CT chest = "bilateral pulmonary infiltrates are present, greatest in the right middle lobe, likely representing infection/ pneumonia.Small left pleural effusion." - Management plan: - Pulmonary Medicine consulted - recommendations appreciated - Consulted Respiratory Therapy - Initially started on levofloxacin, switched to meropenem + doxycylcine - Discussed with pharmacy, will switch meropenem to cefepime due to low cross-reactivity with penicillins - Levofloxacin discontinued as this can create supratherapuetic levels with warfarin - 30 mL/kg of IV fluids was not administered given SBP > 90, MAP > 65, lactic acid < 4 - Supplemental oxygen to maintain SpO2 > 92% - Encouraged incentive spirometry - PRN benzonatate, guaifenesin - Isolation precautions # Suspect Type II Non-ST Segment Elevation Myocardial Infarction (Demand Ischemia) due to above # Coronary Artery Disease s/p CABG # Hypertension # Hyperlipidemia # Chronic Diastolic Congestive Herat Failure # History of Deep Venous Thrombosis - Evaluation thus far: - EKG: without STEMI criteria - Serial troponin: 27344.9 -> 7863.6 -> 4579.6 -> 2958.6 - Transthoracic echocardiogram = "moderate aortic stenosis 1. 4 centimeters sqaured. normal left ventricular size and function. no wall motion abnormality. no effusion" - Management plan: - Consult Cardiology and spoke with Dr. Shanks - recommendations appreciated - Unable to have nuclear stress test today. Plan for tomorrow - S/P aspirin 324 mg PO x 1 in ED - Continue aspirin, atorvastatin, carvedilol, warfarin - LMWH not started due to warfarin use - HANNAH-inhibitor/ARB not started due to ESRD # End-Stage Renal Disease on iHD - Nephrology consulted - recommendations appreciated # Type II Diabetes Mellitus - Correction scale insulin # Hypothyroidism - Continue home levothyroxine # Right-Sided Mastoid Effusion - Follow-up with ENT as an outpatient Mirza Avery M.D.
--- NOTE | 2023-01-28 13:01 | PN ---
Date of Progress Note: 01/28/2023 Subjective: The patient was admitted with COVID pneumonia, respiratory failure secondary to COVID an d over volume. The patient was dialyzed yesterday. We managed to remove 2400. Today, the patient i s much better. Physical Examination: Vital Signs: Blood pressure 134/57, pulse of 69, afebrile, saturation of 95 on 2 L. Chest: Clear to auscultation. Heart: S1, S2. Systolic murmur. Abdomen: Soft, nontender. Extremities: No edema. Neurologic: Alert. No focality. Current Medications: Include aspirin, cefepime, doxycycline, Epogen, carvedilol 6.25, atorvastatin, Ranexa, Tylenol, melatonin, heparin. Laboratory Data: Hemoglobin 7.9. Sodium 134, potassium 3.6, bicarb 30, BUN 41, creatinine 4.4, calc ium 8.1, phosphorus 3.6. Assessment And Plan: 1.End-stage renal disease with over volume. Continue dialysis. Currently normal volume. We will b ack to her schedule as Wednesday, Wednesday, Wednesday. 2.Hypertension, controlled. We will continue to utilize blood pressure for more ultrafiltration. 3.Respiratory failure secondary to COVID pneumonia/over volume, currently normal volume. Continue c urrent antibiotic. Follow up with primary. Continue dialysis 3 times a week. 4.Anemia of chronic kidney disease. Continue Retacrit. 5.Secondary hyperparathyroidism, stable. JUANITA/KERI Voice ID: [id number] Report ID: [id number]
--- NOTE | 2023-01-28 13:25 | PN ---
Date of Progress Note: 01/28/2023 Ms. Trujillo had came in with multiple problems including elevated troponin over 7000. Has a history o f CAD, CVA, end-stage renal disease, on hemodialysis. Came in with COVID infection. Has diabetes, h ypertension, dyslipidemia, moderate aortic stenosis with normal ejection fraction by echo. We had pl an to do a stress test today; however, apparently the stress lab is unavailable and her stress test w ill be done on 01/29/2023. We will see what that shows before making further decisions. If she is r derek to go home, she certainly can be discharged and have a stress test done as an outpatient, but I will leave that up to Dr. Avery. MARIA ISABEL/KERI Voice ID: [id number] Report ID: [id number]
[2023-01-28] MEDS: CEFEPIME 1 GM in NA CHLORIDE 0.9% 100 ML IV SCH (21:47)
[2023-01-28] MEDS: ATORVASTATIN 80 MG TAB PO SCH (21:48)
[2023-01-28 22:51] VITALS: O2SAT 96
[2023-01-29 04:17] LABS: Protime INR 1.78
[2023-01-29 04:19] LABS: Absolute Lymphocytes (CBC) 1.4 K/uL (0.7-4.9); Lymphocytes % 21.5 % (15.3-44.8); MCV 104.6 fL (80-100); MPV 7.8 fL (7.6-11.3); RBC Red Blood Cell Count 2.39 M/uL (3.86-4.86)
[2023-01-29 04:47] LABS: Albumin 2.5 g/dL (3.4-5.0); Phosphorus 4.1 mg/dL (2.5-4.9); Potassium 3.8 mEq/L (3.5-5.1)
[2023-01-29] MEDS: LEVOTHYROXINE SOD 0.075 MG TAB PO SCH (04:47)
[2023-01-29] MEDS: LEVOTHYROXINE SOD 0.1 MG TAB PO SCH (04:47)
[2023-01-29] MEDS ORDERED: REGADENOSON 0.4 MG/5 ML SYR IV ONE (07:09)
[2023-01-29] MEDS: INSULIN -REGULAR HUMAN 50 UNIT/0.5 ML ML SQ SCH ×3 (07:30→16:30)
[2023-01-29] MEDS: DOXYCYCLINE 100 MG CAP PO SCH (08:30)
[2023-01-29] MEDS: ASPIRIN 81 MG CHEWABLE TABLET PO SCH (08:30)
[2023-01-29] MEDS: carvediloL 6.25 MG TAB PO SCH (08:30)
[2023-01-29] MEDS: WARFARIN SODIUM 6 MG TAB PO SCH (08:31)
[2023-01-29] MEDS ORDERED: CEFUROXIME 250 MG TAB PO SCH (09:00)
--- NOTE | 2023-01-29 09:37 | RAD REPORT ---
EXAM DESCRIPTION: NM - Rest Stress Cardiac Imaging - 01/29/2023 8:14 am CLINICAL HISTORY: elevated troponin COMPARISON: No comparisons TECHNIQUE: The patient was administered approximately 10.3 mCi of Tc 99m Sestamibi prior to resting SPECT imaging of the heart. The patient was then administered approximately 31 mCi of Tc 99m Sestamib i following exercise or pharmacologic stress. Multiplanar SPECT images were reviewed. FINDINGS: No stress induced ischemic defect is seen to suggest stress induced ischemia. Fixed defect along the lateral wall apical to basal segments and the apex. Contiguous moderate areas of reversibl e defect or patchy reduced uptake along the junction with the inferior and anterior morelos and the mid segment of the inferior wall. The end diastolic volume is 132 ml, the end systolic volume is 78 ml, and the ejection fraction is 41 %. IMPRESSION: Fixed defect along the lateral wall apical to basal segments and the apex suggestive of an infarct. Contiguous moderate areas of reversible defect or patchy reduced uptake, concerning for myocardial is chemia, along the junction with the inferior and anterior morelos and the mid segment of the inferior w all. Reduced left ventricular ejection fraction, 41%. The findings were communicated to Dr. Mckeon on 01/29/2023 at 09:33 hours.
--- NOTE | 2023-01-29 14:47 | P.PN ---
Subjective Date of Service: 01/29/23 Chief Complaint: SOB, Cough, Chest pain Subjective: Other (Received HD today.) Physical Examination - Vital Signs Temperature: 98.3 F Blood Pressure: 114/55 Pulse: 64 Respirations: 17 Pulse Ox (%): 96 - Physical Exam General: Other (Chronically ill appearing) HEENT: Atraumatic, Normocephalic Neck: Supple, JVD not distended Respiratory: Other (Symmetric chest expansion) Cardiovascular: No rubs, No murmurs Gastrointestinal: Soft and benign, No guarding Musculoskeletal: No clubbing Integumentary: No warmth Urinary: Other (No bladder distention) External genitalia: Deferred Rectal: Deferred Assessment And Plan - Plan 1. End-stage renal disease on outpt HD MWF. HD received today. 2. Hypertension, controlled. Cont current med regimen. 3. Respiratory failure secondary to COVID pneumonia/over volume, currently normal volume. Continue current antibiotic. Follow up with primary. Continue dialysis 3 times a week. 4. Anemia of chronic kidney disease. Continue Retacrit. 5. Renal osteodystrophy. Monitor serum Ca & Phos. 6. Hypervolemia. HD as above. Physician Review: Patient Assessed, Agree with Above Assessment and Plan
[2023-01-30 09:47] VITALS: BP 114/55; TEMP 98.3
--- NOTE | 2023-02-01 11:06 | TREADPHA ---
DX: CHEST PAIN Date of Study: 01/29/2023 Ht: 5' 3 " Wt: 184 lb 15.838 oz Consulting Physician: LAWSON MEDICATIONS: ASPIRIN, LIPITOR, COREG, BENZONATATE, HEPARIN, NOVOLIN-R, WARFARIN HISTORY: 72 YEAR OLD FEMALE WITH COMPLAINTS OF CHEST PAIN. HISTORY OF CORONARY ARTERY BYPASS GRAFT X3, END STAGE RENAL DISEASE, DIALYSIS, DIABETES MELLITUS II PHYSICIAL EXAMINATION: RESTING B.P.: 161/65 RESTING H.R.: 74 RESTING EKG: NORMAL SINUS RHYTHM, RIGHT BUNDLE BRANCH BLOCK. PROTOCOL: LEXISCAN EXERCISE TIME: 3:30 B.P. AT PEAK STRESS: IMPRESSION: LEXISCAN INJECTED. CARDIOLITE GIVEN PER PROTOCOL. SEE NUCLEAR MEDICINE REPORT. NO PRAMATURE VENTRICULAR COMPLEXES. NO PREMATURE ATRIAL COMPLEXES. NO SUPRAVENTRICULAR OR VENTRICULAR TACHYCARDIA NOTED. PATIENT DENIES CHEST PAIN. COMPLAINTS OF SHORTNESS OF BREATH. NO EKG CHANGES OF ISCHEMIA ON STRESS TEST.
== END 2023-01-29 18:22 | disposition home or self-care (01) | DRG 871 ==
LOC: ER 09:49 → 4TH 16:40
PROVIDERS: ADMIT Internal Medicine; ATTEND Hospitalist
PROC: 5A1D70Z Performance of Urinary Filtration, Intermittent, Less than 6 Hours Per Day (ICD-10-PCS; principal; 2023-01-25)
DX: A41.89 Other specified sepsis (principal); G93.41 Metabolic encephalopathy; U07.1 COVID-19; J12.82 Pneumonia due to coronavirus disease 2019; N18.6 End stage renal disease; I21.A1 Myocardial infarction type 2; J96.90 Respiratory failure, unspecified, unspecified whether with hypoxia or hypercapnia; I50.32 Chronic diastolic (congestive) heart failure; I13.2 Hypertensive heart and chronic kidney disease with heart failure and with stage 5 chronic kidney disease, or end stage renal disease; N25.81 Secondary hyperparathyroidism of renal origin; E11.22 Type 2 diabetes mellitus with diabetic chronic kidney disease; E11.40 Type 2 diabetes mellitus with diabetic neuropathy, unspecified; D63.1 Anemia in chronic kidney disease; E78.5 Hyperlipidemia, unspecified; E03.9 Hypothyroidism, unspecified; E87.6 Hypokalemia; H91.90 Unspecified hearing loss, unspecified ear; K21.9 Gastro-esophageal reflux disease without esophagitis; K52.9 Noninfective gastroenteritis and colitis, unspecified; N28.1 Cyst of kidney, acquired; I35.0 Nonrheumatic aortic (valve) stenosis; I25.10 Atherosclerotic heart disease of native coronary artery without angina pectoris; Z95.1 Presence of aortocoronary bypass graft; Z88.5 Allergy status to narcotic agent; Z88.0 Allergy status to penicillin; Z86.73 Personal history of transient ischemic attack (TIA), and cerebral infarction without residual deficits; Z79.82 Long term (current) use of aspirin; Z79.01 Long term (current) use of anticoagulants; Z79.899 Other long term (current) drug therapy; Z79.890 Hormone replacement therapy; Z86.718 Personal history of other venous thrombosis and embolism; Z96.653 Presence of artificial knee joint, bilateral
CPT/HCPCS: 36415; 70450; 71045; 71250; 78452; 80048; 80053; 80061; 80069; 81001; 82947; 83605; 83735; 84100; 84145; 84484; 85014; 85018; 85025; 85610; 85730; 87040; 87804; 90935; 93005; 93017; 93306; 96365; 97116; 97161; 97530; 99285; A9500; J0692; J1644; J2785; P9047; U0003

== ENCOUNTER 2023-05-31 10:09 | Inpatient (IN) | payer OTHER ==
[2023-05-31 10:42] LABS: Absolute Lymphocytes (CBC) 1.2 K/uL (0.7-4.9); Hematocrit 37.1 % (36.0-45.0); Lymphocytes % 21.5 % (15.3-44.8); MCV 107.8 fL (80-100); MPV 8.3 fL (7.6-11.3); Platelets 176 thou/uL (152-406); RBC Red Blood Cell Count 3.44 M/uL (3.86-4.86)
[2023-05-31 10:53] LABS: SARS-CoV-2 Antigen Rapid Res Negative (Negative)
[2023-05-31 11:13] LABS: Albumin 3.1 g/dL (3.4-5.0); Bilirubin Direct 0.1 mg/dL (0-0.2); Bilirubin Indirect, Calculated 0.2 mg/dL (0.2-0.8); Bilirubin Total 0.3 mg/dL (0.2-1.0); Magnesium 2.3 mg/dL (1.6-2.4); Potassium 5.7 mEq/L (3.5-5.1); Protein, Total 7.5 g/dL (6.4-8.2); Troponin High Sensitivity 43.6 pg/mL (<58.9)
--- NOTE | 2023-05-31 11:23 | RAD REPORT ---
EXAM DESCRIPTION: CT - Head Brain Wo Cont - 05/31/2023 11:16 am CLINICAL HISTORY: Alteration of awareness/confusion. Declining state COMPARISON: January 2023 TECHNIQUE: Computed axial tomography of the head was obtained. IV contrast was not requested. All CT scans are performed using dose optimization technique as appropriate and may include automated exposure control or mA/KV adjustment according to patient size. FINDINGS: An intracranial bleed is not seen The ventricles are normal in caliber No extra-axial fluid collection is noted. Moderate cerebral atrophy Fluid within the right mastoids has mostly resolved since the prior exam. Visualized sinuses clear IMPRESSION: No acute intracranial abnormality is seen If patient's symptoms persist MRI of the brain would be recommended
[2023-05-31] MEDS ORDERED: INSULIN -REGULAR HUMAN 50 UNIT/0.5 ML ML ONE (11:31)
[2023-05-31] MEDS ORDERED: CALCIUM GLUCONATE 1 GM IVPB 1 GM/50 ML BAG IV ONE (11:45)
[2023-05-31] MEDS ORDERED: SOD POLYSTYREN SUL 15 GM/60 ML UCUP ONE (11:45)
[2023-05-31 12:01] LABS: Blood Morphology Comment NOTED (NOT SEEN); Platelet Estimate ADEQ; White Blood Cell Scan OK (OK)
[2023-05-31 12:02] LABS: Anisocytosis 1+; Macrocytosis 1+
--- NOTE | 2023-05-31 12:19 | RAD REPORT ---
EXAM DESCRIPTION: Hoa Single View05/31/2023 11:21 am CLINICAL HISTORY: Chest pain COMPARISON: January 2023 FINDINGS: Mild right upper lobe opacities. Left lung appears clear. Heart is mildly enlarged. Postsurgical changes involve chest IMPRESSION: Mild right upper lobe opacities may indicate a mild pneumonia
--- NOTE | 2023-05-31 12:35 | EDPHYS ---
Physician Documentation [facility] Name: Consuelo Trujillo Age: 72 yrs Sex: Female : 1950 Arrival Date: 05/31/2023 Time: 10:09 Bed 7 Private MD: ED Physician Raymon Blue HPI: 05/31 10:20 This 72 yrs old Female presents to ER via Wheelchair with complaints of snw Weakness. 10:20 The patient presents to the emergency department with weakness of the entire body, snw generalized weakness, that is moderate. Onset: The symptoms/episode began/occurred acutely. Associated signs and symptoms: Pertinent positives: This patient does not have any pertinent positives. Severity of symptoms: At their worst the symptoms were moderate. Current symptoms: Currently, the patient is not experiencing any symptoms. It is unknown whether or not the patient has had similar symptoms in the past. last Dialysis, finished [id number]. Historical: - Allergies: 10:18 hydrocodone bitartrate; jl7 10:18 PENICILLINS; jl7 - PMHx: 10:18 angina pectoris; Anxiety; CAD; CHF; chronic DVT; CVA; depressive disorder; diabetes jl7 mellitus; End stage renal disease; GERD; Hyperlipidemia; Hypertensive disorder; L sided weakness from previous CVA; Sleep Apnea; - PSHx: 10:18 left upper arm fistula; jl7 - Immunization history:: Adult Immunizations unknown. - Social history:: Smoking status: Patient denies any tobacco usage or history of. ROS: 10:20 Eyes: Negative for injury, pain, redness, and discharge, ENT: Negative for injury, snw pain, and discharge, Neck: Negative for injury, pain, and swelling, Cardiovascular: Negative for chest pain, palpitations, and edema, Respiratory: Negative for shortness of breath, cough, wheezing, and pleuritic chest pain, Abdomen/GI: Negative for abdominal pain, nausea, vomiting, diarrhea, and constipation, Back: Negative for injury and pain, : Negative for injury, bleeding, discharge, and swelling, MS/Extremity: Negative for injury and deformity, Skin: Negative for injury, rash, and discoloration, 10:20 Constitutional: Positive for body aches, malaise, poor PO intake, 10:20 Neuro: Positive for seizure activity, 10:20 Psych: Positive for "not herself", Exam: 10:19 Head/Face: Normocephalic, atraumatic. Eyes: Pupils equal round and reactive to light, snw extra-ocular motions intact. Lids and lashes normal. Conjunctiva and sclera are non-icteric and not injected. Cornea within normal limits. Periorbital areas with no swelling, redness, or edema. ENT: Nares patent. No nasal discharge, no septal abnormalities noted. Tympanic membranes are normal and external auditory canals are clear. Oropharynx with no redness, swelling, or masses, exudates, or evidence of obstruction, uvula midline. Mucous membranes moist. Neck: Trachea midline, no thyromegaly or masses palpated, and no cervical lymphadenopathy. Supple, full range of motion without nuchal rigidity, or vertebral point tenderness. No Meningismus. Chest/axilla: Normal chest wall appearance and motion. Nontender with no deformity. No lesions are appreciated. 10:19 Respiratory: Lungs have equal breath sounds bilaterally, clear to auscultation and percussion. No rales, rhonchi or wheezes noted. No increased work of breathing, no retractions or nasal flaring. Abdomen/GI: Soft, non-tender, with normal bowel sounds. No distension or tympany. No guarding or rebound. No evidence of tenderness throughout. Back: No spinal tenderness. No costovertebral tenderness. Full range of motion. Skin: Warm, dry with normal turgor. Normal color with no rashes, no lesions, and no evidence of cellulitis. MS/ Extremity: Pulses equal, no cyanosis. Neurovascular intact. Full, normal range of motion. Neuro: Awake and alert, GCS 15, oriented to person, place, time, and situation. Cranial nerves II-XII grossly intact. Motor strength 5/5 in all extremities. Sensory grossly intact. Cerebellar exam normal. Normal gait. Psych: Awake, alert, with orientation to person, place and time. Behavior, mood, and affect are within normal limits. 10:19 Constitutional: The patient appears awake, listless, 10:19 Cardiovascular: Rate: normal, Rhythm: regular, Pulses: no pulse deficits are appreciated, Heart sounds: murmur, systolic, Edema: is not appreciated, Vital Signs: 10:16 BP 130 / 45; Pulse 80; Resp 17; Temp 98.4; Pulse Ox 94% ; jl7 10:18 BP 116 / 95; Pulse 73; Resp 18; Pulse Ox 95% ; ko1 12:13 BP 112 / 44; Pulse 66; Resp 16; Pulse Ox 95% ; ko1 13:30 BP 139 / 49; Pulse 67; Resp 18; Pulse Ox 95% on R/A; ld1 14:38 BP 138 / 58; Pulse 69; Resp 16; Pulse Ox 95% ; ko1 15:09 BP 158 / 71; Pulse 69; Resp 16; Pulse Ox 95% ; ko1 MDM: 10:17 Patient medically screened. snw 10:25 Data reviewed: vital signs, nurses notes, lab test result(s), EKG, radiologic studies. snw 05/31 10:18 Order name: Basic Metabolic Panel; Complete Time: 11:15 snw 05/31 10:18 Order name: CBC with Diff; Complete Time: 12:03 snw 05/31 10:18 Order name: LFT's; Complete Time: 11:15 snw 05/31 10:18 Order name: Magnesium; Complete Time: 11:15 snw 05/31 10:18 Order name: NT PRO-BNP; Complete Time: 11:15 snw 05/31 10:18 Order name: PT-INR; Complete Time: 12:56 snw 05/31 10:18 Order name: Troponin HS; Complete Time: 11:15 snw 05/31 10:18 Order name: TS; Complete Time: 11:27 snw 05/31 10:18 Order name: SARS RAPID; Complete Time: 10:56 snw 05/31 11:01 Order name: CBC Smear Scan; Complete Time: 12:03 EDMS 05/31 11:42 Order name: Depakote; Complete Time: 12:25 snw 05/31 12:31 Order name: Blood Culture Adult (2) snw 05/31 13:02 Order name: ABO/RH no charge; Complete Time: 13:09 EDMS 05/31 14:03 Order name: Magnesium; Complete Time: 14:46 EDMS 05/31 14:03 Order name: Phosphorus; Complete Time: 14:46 EDMS 05/31 14:03 Order name: T4 Free; Complete Time: 14:46 EDMS 05/31 14:03 Order name: Thyroid Stimulating Hormone; Complete Time: 14:46 EDMS 05/31 14:03 Order name: Urinalysis w/ reflexes EDMS 05/31 14:03 Order name: Basic Metabolic Panel EDMS 05/31 14:04 Order name: Basic Metabolic Panel EDMS 05/31 14:04 Order name: CBC with Automated Diff EDMS 05/31 14:04 Order name: CBC with Automated Diff EDMS 05/31 14:04 Order name: Lipid Profile EDMS 05/31 14:04 Order name: Lipid Profile EDMS 05/31 10:18 Order name: XRAY Chest (1 view); Complete Time: 12:21 snw 05/31 11:02 Order name: Head Brain Wo Cont CT; Complete Time: 11:26 snw 05/31 10:18 Order name: EKG; Complete Time: 10:19 snw 05/31 13:13 Order name: Diet Renal; Complete Time: 13:14 bd 05/31 10:18 Order name: Cardiac monitoring; Complete Time: 10:23 snw 05/31 10:18 Order name: EKG - Nurse/Tech; Complete Time: 10:34 snw 05/31 10:18 Order name: IV Saline Lock; Complete Time: 10:34 snw 05/31 10:18 Order name: Labs collected and sent; Complete Time: 10:34 snw 05/31 10:18 Order name: O2 Per Protocol; Complete Time: 10:23 snw 05/31 10:18 Order name: O2 Sat Monitoring; Complete Time: 10:23 snw 05/31 10:22 Order name: Misc. Order: home medication list; Complete Time: 11:44 snw 05/31 11:02 Order name: Labs - recollect needed: recollect blue top; Complete Time: 11:44 bd 05/31 12:00 Order name: Labs - recollect needed: recollect blue top again; Complete Time: 12:28 bd EC:32 Rate is 76 beats/min. Rhythm is regular. QRS Georg[place] is Normal. MS interval is normal. QRS snw interval is prolonged. Clinical impression: Abnormal EKG without significant change. Administered Medications: 11:37 Drug: Calcium Gluconate IVPB 1 grams IVPB once over 60 mins; (mix in NS 100 mL) Route: ld1 IVPB; Infused Over: 60 mins; Site: right antecubital; 11:38 Drug: Insulin Regular Human IVP 5 units IVP once {Co-Signature: wilbur (Yvette Mattson1 RN).} Route: IVP; Site: right antecubital; 11:38 Drug: Kayexalate PO 15 grams PO once Route: PO; ld1 Disposition: 13:42 Co-signature as Attending Physician, Raymon Blue DO I was immediately available on-site ms3 in the Emergency Department for consultation in the care of the patient. Disposition Summary: 05/31/23 12:35 Hospitalization Ordered Notes: Hospitalization Status: Inpatient Admission snw Provider: Sarthak Kemp snw Location: Telemetry/MedSurg (Inpatient) snw Condition: Stable snw Problem: an acute exacerbation snw Symptoms: have worsened snw Bed/Room Type: Standard snw Room Assignment: 206(05/31/23 14:48) bd Diagnosis - Pneumonia, unspecified organism snw - End stage renal disease snw - Hyperkalemia snw - Muscle weakness (generalized) snw Forms: - Medication Reconciliation Form snw - SBAR form snw - Leadership Thank You Letter snw Signatures: Dispatcher [employer] EDMS Josselyn Norris bd Bailee Trujillo, ASSISTANT BRAND MANAGER-C ASSISTANT BRAND MANAGER-Csnw Deyvi Olmos RN RN [id number] Raymon Blue DO DO ms3 Ca Blue RN RN ld1 Yvette Mattson RN ko1 Corrections: (The following items were deleted from the chart) 14:48 12:35 snw bd
--- NOTE | 2023-05-31 12:35 | ER ---
Nurse's Notes [facility] Name: Consuelo Trujillo Age: 72 yrs Sex: Female : 1950 Arrival Date: 05/31/2023 Time: 10:09 Bed 7 Private MD: Diagnosis: Pneumonia, unspecified organism;End stage renal disease;Hyperkalemia;Muscle weakness (generalized) Presentation: 05/31 10:16 Chief complaint: Patient states: Generalized weakness and not feeling well x 2 days. jl7 Coronavirus screen: Client presents with at least one sign or symptom that may indicate coronavirus-19. Ebola Screen: No symptoms or risks identified at this time. Initial Sepsis Screen: Does the patient meet any 2 criteria? No. Patient's initial sepsis screen is negative. Does the patient have a suspected source of infection? No. Patient's initial sepsis screen is negative. Risk Assessment: Do you want to hurt yourself or someone else? Patient reports no desire to harm self or others. Onset of symptoms was May 29, 2023. 10:16 Method Of Arrival: Wheelchair jl7 10:16 Acuity: SUE 3 jl7 11:10 Acuity: SUE 2 jl7 Triage Assessment: 10:18 The onset of the patients symptoms was. jl7 10:18 General: Appears in no apparent distress. uncomfortable, Behavior is calm, cooperative, jl7 appropriate for age. Pain: Complains of pain in abdomen. Historical: - Allergies: 10:18 hydrocodone bitartrate; jl7 10:18 PENICILLINS; jl7 - PMHx: 10:18 angina pectoris; Anxiety; CAD; CHF; chronic DVT; CVA; depressive disorder; diabetes jl7 mellitus; End stage renal disease; GERD; Hyperlipidemia; Hypertensive disorder; L sided weakness from previous CVA; Sleep Apnea; - PSHx: 10:18 left upper arm fistula; jl7 - Immunization history:: Adult Immunizations unknown. - Social history:: Smoking status: Patient denies any tobacco usage or history of. Screenin:18 [facility] ED Fall Risk Assessment (Adult) History of falling in the last 3 months, ko1 including since admission No falls in past 3 months (0 pts) Confusion or Disorientation No (0 pts) Intoxicated or Sedated No (0 pts) Impaired Gait No (0 pts) Mobility Assist Device Used No (0 pt) Altered Elimination No (0 pt) Score/Fall Risk Level 0 - 2 = Low Risk Oriented to surroundings, Maintained a safe environment, Educated pt \T\ family on fall prevention, incl call for assistance when getting out of bed, Assessed \T\ reinforced patient's understanding of fall precautions, Provided non-skid footwear, Hourly rounding (assess needs \T\ fall precautionary measures) done, Used ambulatory aids as needed (educated on \T\ assisted with), Used gait belt as appropriate. Abuse screen: Denies threats or abuse. Denies injuries from another. Nutritional screening: No deficits noted. Tuberculosis screening: No symptoms or risk factors identified. Assessment: 10:18 General: Appears in no apparent distress. uncomfortable, Behavior is calm, cooperative, ko1 appropriate for age. Pain: Denies pain. Neuro: Reports weakness in generalized. Cardiovascular: No deficits noted. Respiratory: No deficits noted. GI: No deficits noted. : Parent/caregiver report the patient having dialysis patient. EENT: No deficits noted. Derm: No deficits noted. Musculoskeletal: No deficits noted. 11:15 Reassessment: Patient appears in no apparent distress at this time. No changes from ld1 previously documented assessment. Patient and/or family updated on plan of care and expected duration. Pain level reassessed. Patient is alert, oriented x 3, equal unlabored respirations, skin warm/dry/pink. 12:30 Reassessment: Patient appears in no apparent distress at this time. No changes from ld1 previously documented assessment. 13:30 Reassessment: Patient appears in no apparent distress at this time. No changes from ld1 previously documented assessment. Patient is alert, oriented x 3, equal unlabored respirations, skin warm/dry/pink. Vital Signs: 10:16 BP 130 / 45; Pulse 80; Resp 17; Temp 98.4; Pulse Ox 94% ; jl7 10:18 BP 116 / 95; Pulse 73; Resp 18; Pulse Ox 95% ; ko1 12:13 BP 112 / 44; Pulse 66; Resp 16; Pulse Ox 95% ; ko1 13:30 BP 139 / 49; Pulse 67; Resp 18; Pulse Ox 95% on R/A; ld1 14:38 BP 138 / 58; Pulse 69; Resp 16; Pulse Ox 95% ; ko1 15:09 BP 158 / 71; Pulse 69; Resp 16; Pulse Ox 95% ; ko1 ED Course: 10:10 Patient arrived in ED. rg4 10:11 [facility]C [facility] snw 10:11 Raymon Blue DO is Attending Physician. snw 10:17 Triage completed. jl7 10:18 Arm band placed on right wrist. jl7 10:18 Patient has correct armband on for positive identification. Bed in low position. Call ko1 light in reach. Side rails up X2. 10:20 school bus monitor on. Pulse ox on. NIBP on. ld1 10:20 Door closed. Noise minimized. Warm blanket given. ld1 10:20 No provider procedures requiring assistance completed. Inserted saline lock: 20 gauge ld1 in right antecubital area, using aseptic technique. Blood collected. 10:34 SARS RAPID Sent. ko1 10:34 TS Sent. ko1 10:34 Basic Metabolic Panel Sent. ko1 10:34 CBC with Diff Sent. ko1 10:34 LFT's Sent. ko1 10:34 Magnesium Sent. ko1 10:34 NT PRO-BNP Sent. ko1 10:34 PT-INR Sent. ko1 10:34 Troponin HS Sent. ko1 10:42 Ca Blue, RN is Primary Nurse. ld1 10:42 SARS RAPID Sent. ld1 11:17 Head Brain Wo Cont CT In Process Unspecified. EDMS 11:22 XRAY Chest (1 view) In Process Unspecified. EDMS 11:43 Depakote Sent. ko1 11:44 PT-INR Sent. ko1 11:44 CBC Smear Scan Sent. ko1 11:48 Depakote Sent. ld1 11:52 Inserted saline lock: 22 gauge in right hand, using aseptic technique. cp4 12:33 Sarthak Kemp MD is Hospitalizing Provider. snw 12:39 Blood Culture Adult (2) Sent. ko1 15:09 Provided Education on: na. ko1 15:09 Patient admitted, IV remains in place. ko1 Administered Medications: 11:37 Drug: Calcium Gluconate IVPB 1 grams IVPB once over 60 mins; (mix in NS 100 mL) Route: ld1 IVPB; Infused Over: 60 mins; Site: right antecubital; 11:38 Drug: Insulin Regular Human IVP 5 units IVP once {Co-Signature: ko1 (Yvette Mattson1 RN).} Route: IVP; Site: right antecubital; 11:38 Drug: Kayexalate PO 15 grams PO once Route: PO; ld1 Medication: 10:18 VIS not applicable for this client. ko1 Outcome: 12:35 Decision to Hospitalize by Provider. snw 15:09 Admitted to Tele accompanied by tech, via stretcher, room 206, with chart, Report ko1 called to Suzy 15:11 Condition: stable ko1 15:11 Instructed on the need for admit, 15:22 Patient left the ED. ko1 Signatures: Dispatcher [employer] EDMS Bailee Trujillo, VOCAL PERFORMER-C VOCAL PERFORMER-Csnw Niru Green rg4 Deyvi Olmos, RN RN jl7 Ca Blue RN RN ld1 Yvette Mattson, RN RN ko1 Saundra Santana cp4 Yvette Mattson RN ko1
[2023-05-31 12:55] LABS: Protime INR 6.92
[2023-05-31] MEDS ORDERED: ACETAMINOPHEN 325 MG TABLET PO PRN (13:59)
[2023-05-31] MEDS ORDERED: HYDROCODONE/APAP 5/325 MG TAB PO PRN (13:59)
[2023-05-31] MEDS ORDERED: ONDANSETRON 4 MG/2 ML VIAL IV PRN (14:01)
[2023-05-31] MEDS: IPRATROPIUM BROM 0.5MG/2.5ML NEB SCH ×2 (14:01→20:20)
[2023-05-31] MEDS: ALBUTEROL 2.5 MG/3 ML NEB SOL NEB SCH ×2 (14:01→20:20)
[2023-05-31] MEDS ORDERED: TRAMADOL HCL 50 MG TAB PO PRN (14:12)
[2023-05-31 14:45] LABS: Phosphorus 5.4 mg/dL (2.5-4.9); Thyroid Stimulating Hormone 21.1 uIU/mL (0.358-3.740)
[2023-05-31] MEDS ORDERED: ALBUTEROL 2.5 MG/3 ML NEB SOL ONE (14:53)
[2023-05-31] MEDS ORDERED: IPRATROPIUM BROM 0.5MG/2.5ML ONE (14:54)
[2023-05-31 16:01] VITALS: BMI 32.8
[2023-05-31] MEDS ORDERED: SODIUM ZIRCONIUM CYCLOSILICATE 10 GM/PKT PO ONE (20:00)
[2023-05-31] MEDS ORDERED: HEPARIN 5000 UNIT/ML 1 ML VIAL SQ SCH (21:00)
[2023-05-31 21:18] LABS: Potassium 6.2 mEq/L (3.5-5.1)
[2023-05-31] MEDS ORDERED: D50W 25 GM/50 ML SYRINGE IV ONE (21:32)
[2023-05-31] MEDS ORDERED: INSULIN -REGULAR HUMAN 50 UNIT/0.5 ML ML IV ONE (21:33)
[2023-05-31] MEDS ORDERED: D50W 25 GM/50 ML SYRINGE IV PRN (21:33)
[2023-05-31] MEDS ORDERED: GLUCAGON 1 MG/VIAL IM PRN (21:33)
[2023-05-31] MEDS ORDERED: SODIUM BICARB IV ONE (21:35)
[2023-05-31] MEDS ORDERED: SOD POLYSTYREN SUL 15 GM/60 ML UCUP PO ONE (21:50)
[2023-05-31] MEDS ORDERED: D10W 250 ML IV ONE ×2 (22:00)
[2023-05-31] MEDS ORDERED: D10W 250 ML IV PRN (22:00)
[2023-05-31] MEDS ORDERED: FUROSEMIDE 40 MG/4 ML VIAL IV ONE (22:09)
[2023-05-31] MEDS ORDERED: LEVOFLOXACIN 750MG/D5W 150 ML IV ONE (23:00)
--- NOTE | 2023-05-31 23:14 | P.HP ---
Certification for Inpatient Patient admitted to: Inpatient With expected LOS: >2 Midnights Patient will require the following post-hospital care: None Practitioner: I am a practitioner with admitting privileges, knowledge of patient current condition, hospital course, and medical plan of care. Services: Services provided to patient in accordance with Admission requirements found in Title 42 Section 412.3 of the Code of Federal Regulations Patient History Date of Service: 05/31/23 Reason for admission: Abdominal pain and generalized weakness History of Present Illness: Patient is a 72-year-old female with a past medical history significant for DVT, CVA, depression, DM 2, CAD, ESRD, GERD, hyperlipidemia, hypertension. sleep apnea, who presents with complaint of generalized abdominal pain onset 3 days ago. Patient rated pain as 9/10 in severity and described pain stabbing\tenderness in quality. Patient reported associated signs and symptoms of generalized weakness, itching, shortness of breath, tingling\numbness around face and lips. Spouse is reported that patient had episodes of confusion earlier in the day. Patient denies any other signs or symptoms. Symptoms are aggravated or relieved by nothing. Patient decided to present to the hospital due to worsening symptoms. Of note, patient reported that her last dialysis wa s on Wednesday. Spouse reported that patient had seizure activities in dialysis on Wednesday. Allergies hydrocodone Allergy (Verified 11/22/21 16:55) Hives/Rash Penicillins Allergy (Verified 11/22/21 16:55) Hives/Rash Home Medications: Atorvastatin Calcium 80 mg PO BEDTIME 11/23/21 Hydralazine [Apresoline*] 50 mg PO TID 11/23/21 Isosorbide Dinit [Isordil*] 20 mg PO TID PRN 11/23/21 Meclizine HCl 12.5 mg PO TID 11/23/21 Mirtazapine 15 mg PO BEDTIME 11/23/21 Omeprazole [Prilosec] 40 mg PO DAILY 11/23/21 Ranolazine [Ranolazine ER] 500 mg PO BID 11/23/21 carvediloL [Carvedilol] 6.25 mg PO BID 11/23/21 Allopurinol 100 mg PO DAILY 12/28/22 Bumetanide [Bumex*] 1 mg PO BID 12/28/22 Nitroglycerin 0.4 mg SL DIRECTED PRN 12/28/22 Sodium Bicarbonate 650 mg PO BID 12/28/22 Benzonatate [Tessalon Perle*] 100 mg PO TID PRN #30 cap 01/29/23 Warfarin Sodium [Coumadin*] 6 mg PO DAILY tab 01/29/23 Aspirin [Aspirin EC] 1 tab PO DAILY 05/31/23 Calcium Carbonate [Calcium] 1 tab PO DAILY 05/31/23 Cyanocobalamin (Vitamin B-12) [Vitamin B-12] 1 tab PO DAILY 05/31/23 Divalproex Sodium See Rx Instructions .ROUTE .COMPLEX 05/31/23 - Past Medical/Surgical History Has patient received pneumonia vaccine in the past: Yes Diabetic: Yes -: Chronic kidney disease stage V- HemoDialysis -: Chronic diastolic heart failure -: Hypertension -: Diabetes mellitus -: Hypothyroidism -: Coronary artery disease -: DVT -: CVA -: CABG -: Clemente knee replacement -: Fistula Left Upper Arm -: Right Subclavian Dialysis access - Family History Father -: Cancer, Other (see notes) Notes: Leukemia Mother -: Heart disease, Seizures - Social History Smoking Status: Never smoker Alcohol use: No CD- Drugs: No Caffeine use: No Place of Residence: Home Review of Systems General: Weakness, Malaise Eyes: Unremarkable ENT: Unremarkable Respiratory: Shortness of Breath Cardiovascular: Unremarkable Gastrointestinal: Abdominal Pain Genitourinary: Unremarkable Musculoskeletal: Unremarkable Integumentary: Unremarkable Neurological: Numbness, Other (Tingling ) Lymphatics: Unremarkable Physical Examination - Vital Signs Temperature: 97.5 F Blood Pressure: 137/68 Pulse: 70 Respirations: 18 Pulse Ox (%): 98 - Physical Exam General: Alert, In no apparent distress, Oriented x3, Cooperative HEENT: Atraumatic, PERRLA, Mucous membr. moist/pink, EOMI, Sclerae nonicteric Neck: Supple, 2+ carotid pulse no bruit, No LAD, Without JVD or thyroid abnormality Respiratory: Diminished Cardiovascular: No edema, Regular rate/rhythm, Normal S1 S2 Capillary refill: <2 Seconds Gastrointestinal: Normal bowel sounds, Tenderness Musculoskeletal: No clubbing, No swelling, No tenderness Integumentary: No rashes Neurological: Normal speech, Normal tone, Normal affect Lymphatics: No axilla or inguinal lymphadenopathy - Studies Laboratory Data (last 24 hrs) 05/31/23 05/31/2305/31/23 12:38 11:46 10:25 WBC 5.50 Hgb 12.4 Hct 37.1 Plt Count 176 PT 76.1 H INR 6.92 H* Sodium Potassium BUN Creatinine Glucose Phosphorus 5.4 H Magnesium 2.0 Total Bilirubin AST ALT Alkaline Phosphatase 05/31/23 10:25 WBC Hgb Hct Plt Count PT INR Sodium 131 L Potassium 5.7 H BUN 78 H Creatinine 6.76 H Glucose 202 H Phosphorus Magnesium 2.3 Total Bilirubin 0.3 AST 19 ALT 11 L Alkaline Phosphatase 122 H Assessment and Plan - Plan --Pneumonia. Continue antibiotics. Blood cultures pending. Continue Neb Tx with Albuterol\Atrovent and O2 therapy. --Facial numbness\tingling\Generalized weakness. MRI brain pending for further evaluation. Continue supportive care --Hx of Seizures. Continue Home medications. Seizures precautions -- Abdominal pain. CT abdomen pending for evaluation. --Hyperlipidemia. Continue statin. -- Gout. Continue home medication -- Hypertension. Poorly controlled. Continue home medications and hydralazine as needed.. -- History of DVT\CVA\CAD. Continue aspirin and statin. . Will hold off on warfarin due to Elevated INR --DM 2. BS monitoring with s\s insulin --Gout. Continue home medication. -- Hypertension. Poorly controlled. Continue home medications and hydralazine prn. -- Acute pain. Will manage pain with current medication management. -- ESRD. Nephrology consulted. Will await further recommendations. --Hyperkalemia. Kayexalate given x1 dose in the ER. Further mgt per Medical Device --DVT prophylaxis with SCDs Discharge Plan: Home Plan to discharge in: Greater than 2 days - Advance Directives Does patient have a Living Will: No Does patient have a Durable POA for Healthcare: No - Code Status/Comfort Care Code Status Assessed: Yes Physician Review: Patient Assessed, Agree with Above Assessment and Plan Critical Care: No
[2023-05-31] MEDS ORDERED: BENZONATATE 100 MG CAP PO PRN (23:21)
[2023-05-31] MEDS ORDERED: NITROGLYCERIN 0.4 MG/TAB SL PRN (23:21)
[2023-05-31] MEDS ORDERED: ISOSORBIDE DINIT 20 MG TAB PO PRN (23:21)
[2023-05-31] MEDS ORDERED: HYDRALAZINE HCL 20 MG/ML VIAL IV PRN (23:35)
[2023-05-31] MEDS ORDERED: Levofloxacin500mg IV 500 MG/100 ML BAG IV SCH (23:45)
[2023-06-01] MEDS ORDERED: PHYTONADIONE 1 MG/0.5 ML SYR SQ ONE (00:08)
[2023-06-01 00:21] LABS: ALT/SGPT < 10 U/L (13-56); AST/SGOT 16 U/L (15-37); Albumin 2.6 g/dL (3.4-5.0); Alkaline Phosphatase 109 U/L (45-117); BUN Blood Urea Nitrogen 78 mg/dL (7-18); Bicarbonate 26 mEq/L (21-32); Bilirubin Total 0.3 mg/dL (0.2-1.0); Glomerular Filtration Rate 6 ml/min (=/>90); Glucose Level 168 mg/dL (74-106); Potassium 5.9 mEq/L (3.5-5.1); Protein, Total 6.7 g/dL (6.4-8.2); Sodium Level 129 mEq/L (136-145)
[2023-06-01] MEDS ORDERED: D50W 25 GM/50 ML SYRINGE IV PRN (00:31)
[2023-06-01] MEDS ORDERED: GLUCAGON 1 MG/VIAL IM PRN (00:31)
[2023-06-01] MEDS: ALBUTEROL 2.5 MG/3 ML NEB SOL NEB SCH ×3 (00:35→07:40)
[2023-06-01] MEDS: IPRATROPIUM BROM 0.5MG/2.5ML NEB SCH ×3 (00:35→13:20)
[2023-06-01] MEDS ORDERED: D10W 125 ML IV PRN (00:39)
[2023-06-01 02:40] LABS: Specific Gravity 1.015 (1.005-1.030); Urine Bacteria None Seen /HPF (<20); Urine Bilirubin NEGATIVE (Negative); Urine Blood 2+ (Negative); Urine Clarity Extremely Turbid (Clear); Urine Color Light-Yellow (Yellow); Urine Crystals Unidentified Few /HPF (None Seen); Urine Glucose NEGATIVE (Negative); Urine Protein 3+ (Negative); Urine RBC 21-50 /HPF (None Seen); Urine Urobilinogen Normal (Normal); Urine pH 7.5 (5.0-7.0)
[2023-06-01 04:50] LABS: Absolute Lymphocytes (CBC) 1.5 K/uL (0.7-4.9); Hematocrit 32.2 % (36.0-45.0); Lymphocytes % 33.9 % (15.3-44.8); Platelets 160 thou/uL (152-406); RBC Red Blood Cell Count 3.03 M/uL (3.86-4.86)
[2023-06-01 04:54] LABS: MCV 106.5 fL (80-100)
[2023-06-01 05:03] LABS: Protime INR 5.35
[2023-06-01 05:05] LABS: Potassium 5.2 mEq/L (3.5-5.1)
[2023-06-01] MEDS ORDERED: PANTOPRAZOLE 40MG TABLET PO SCH (06:30)
[2023-06-01] MEDS ORDERED: LIOTHYRONINE SOD 5 MCG TAB PO SCH (06:30)
[2023-06-01] MEDS ORDERED: LEVOTHYROXINE SOD 0.05 MG TABLET PO SCH (06:30)
[2023-06-01] MEDS: INSULIN -REGULAR HUMAN 50 UNIT/0.5 ML ML SQ SCH ×2 (07:30→11:30)
[2023-06-01 07:38] LABS: Magnesium 2.1 mg/dL (1.6-2.4); Phosphorus 6.3 mg/dL (2.5-4.9)
[2023-06-01] MEDS ORDERED: carvediloL 6.25 MG TAB PO SCH (08:00)
[2023-06-01] MEDS: HYDRALAZINE HCL 25 MG TABLET PO SCH ×2 (08:50→13:29)
[2023-06-01] MEDS ORDERED: BUMETANIDE 1 MG TABLET PO SCH (09:00)
[2023-06-01] MEDS ORDERED: SODIUM BICARB 325 MG TAB PO SCH (09:00)
[2023-06-01] MEDS ORDERED: DIVALPROEX DR 500MG TAB PO SCH ×2 (09:00→21:00)
[2023-06-01] MEDS ORDERED: CYANOCOBALAMIN 1,000 MCG TAB PO SCH (09:00)
[2023-06-01] MEDS ORDERED: HOME MED 1 EA UNK (Omeprazole [Prilosec] 40 MG Capsule.Dr) PO SCH (09:00)
[2023-06-01] MEDS ORDERED: allopurinoL 100 MG TAB PO SCH (09:00)
[2023-06-01] MEDS ORDERED: ASPIRIN 81 MG CHEWABLE TABLET PO SCH (09:00)
[2023-06-01] MEDS ORDERED: CALCIUM CARBONATE 500 MG TAB PO SCH (09:00)
[2023-06-01] MEDS: MECLIZINE HCL 12.5 MG TAB PO SCH ×2 (09:41→13:29)
[2023-06-01] MEDS: SEVELAMER CARBONATE 800 MG TABLET PO SCH ×2 (09:41→12:00)
--- NOTE | 2023-06-01 10:44 | RAD REPORT ---
EXAM DESCRIPTION: CT - Abdomen Pelvis Wo Contrast - 06/01/2023 9:26 am CLINICAL HISTORY: Abd pain COMPARISON: Thorax Wo Con dated 01/25/2023; Chest Abd Pelvis Wo Con dated 12/28/2022 TECHNIQUE: Thin cut axial CT imaging of the abdomen and pelvis was performed without IV contrast. Mu ltiplanar reformats were generated and reviewed. All CT scans are performed using dose optimization technique as appropriate and may include automated exposure control or mA/KV adjustment according to patient size. FINDINGS: Stable small bilateral pleural effusions, since the prior CT. Underlying atelectasis. The liver, spleen, and pancreas show no suspicious findings. Gallbladder shows small layering gallsto jeanette near the neck Symmetric renal contour, without suspicious parenchymal findings within limits of noncontrast techniq ue. No evidence of radiopaque calculi or hydroureteronephrosis. No dilated bowel loops or bowel wall thickening. No free air, free fluid or inflammatory stranding. B road-based fat containing umbilical and supraumbilical midline hernia is. No suspicious mass or bulky lymphadenopathy. Medial arterial calcifications throughout, stable, could relate to long-standing di abetes. The urinary bladder is without significant finding. No suspicious bony findings. IMPRESSION: No acute abnormalities. Small bilateral layering pleural effusions, stable. Cholelithiasis.
[2023-06-01 11:55] LABS: Hepatitis B Surface Ab - Quant 39.28 mIU/mL (<8.0); Hepatitis B surface AG Interp. Nonreactive (Nonreactive)
--- NOTE | 2023-06-01 12:32 | P.DS ---
Admission Date: 05/31/23 Discharge Date: 06/01/23 Disposition: ROUTINE DISCHARGE Discharge Condition: FAIR Reason for Admission: Abdominal pain and generalized weakness - Problems (1) Nausea and vomiting Current Visit: Yes Status: Acute (2) Hyperkalemia Current Visit: Yes Status: Acute (3) Chronic anticoagulation Current Visit: No Status: Acute (4) Diabetes mellitus Current Visit: No Status: Acute (5) ESRD (end stage renal disease) Current Visit: No Status: Acute (6) History of DVT (deep vein thrombosis) Current Visit: No Status: Acute Brief History of Present Illness: Patient is a 72-year-old female with a past medical history significant for DVT, CVA, depression, DM 2, CAD, ESRD, GERD, hyperlipidemia, hypertension. sleep apnea, who presented with generalized abdominal pain of 3 days duration. Patient rated pain as 9/10 in severity and described pain stabbing\tenderness in quality. Patient reported associated signs and symptoms of generalized weakness, itching, shortness of breath, tingling\numbness around face and lips. Spouse is reported that patient had episodes of confusion earlier in the day. Of note, patient reported that her last dialysis was on Wednesday. Spouse reported that patient had seizure activities in dialysis on Wednesday. Patient was hospitalized for further management. Hospital Course: Patient admitted to the ICU due to hyperkalemia. She was noted to have significantly elevated urea level which could account for her symptoms. She was seen by nephrology and she underwent hemodialysis. Patient has been asymptomatic since admission. No seizures. She had borderline hyperkalemia today before dialysis. Her TSH noted to be elevated. Patient placed on Synthroid. Vitals have been stable, AMS resolved, she has tolerated her diet. Patient is deemed stable for discharge. Her INR is supratherapeutic. She is advised to skip 2 days of Coumadin, have her INR checked during next dialysis for Coumadin dose adjustment. Vital Signs/Physical Exam: Temp Pulse Resp BP Pulse Ox 97.1 F 78 15 115/55 L 99 06/01/23 08:00 06/01/23 11:00 06/01/23 11:00 06/01/23 11:00 06/01/23 11:00 General: Alert, In no apparent distress, Oriented x3 HEENT: Mucous membr. moist/pink Neck: Supple, JVD not distended Respiratory: Clear to auscultation bilaterally, Normal air movement Cardiovascular: No edema, Regular rate/rhythm, Normal S1 S2 Gastrointestinal: Normal bowel sounds, Soft and benign, Non-distended, No tenderness Musculoskeletal: No swelling Integumentary: No rashes, No cyanosis Neurological: Normal strength at 5/5 x4 extr Laboratory Data at Discharge: WBC 4.60 thou/uL (4.3-10.9) 06/01/23 04:21 Hgb 10.9 g/dL (12.0-15.0) L D 06/01/23 04:21 Hct 32.2 % (36.0-45.0) L 06/01/23 04:21 Plt Count 160 thou/uL (152-406) 06/01/23 04:21 PT 58.8 SECONDS (9.5-12.5) H 06/01/23 04:21 INR 5.35 06/01/23 04:21 APTT 91.1 SECONDS (24.3-36.9) H 06/01/23 04:21 Sodium 130 mEq/L (136-145) L 06/01/23 04:21 Potassium 5.2 mEq/L (3.5-5.1) H 06/01/23 04:21 BUN 82 mg/dL (7-18) H 06/01/23 04:21 Creatinine 6.86 mg/dL (0.55-1.02) H 06/01/23 04:21 Glucose 150 mg/dL (74-106) H 06/01/23 04:21 Phosphorus 6.3 mg/dL (2.5-4.9) H 06/01/23 04:21 Magnesium 2.1 mg/dL (1.6-2.4) 06/01/23 04:21 Total Bilirubin 0.3 mg/dL (0.2-1.0) 05/31/23 23:43 AST 16 U/L (15-37) 05/31/23 23:43 ALT < 10 U/L (13-56) L 05/31/23 23:43 Alkaline Phosphatase 109 U/L (45-117) 05/31/23 23:43 Triglycerides 129 mg/dL (<150) 06/01/23 04:21 Cholesterol 139 mg/dL (<200) 06/01/23 04:21 HDL Cholesterol 48 mg/dL (40-60) 06/01/23 04:21 Cholesterol/HDL Ratio 2.90 06/01/23 04:21 Home Medications: Atorvastatin Calcium 80 mg PO BEDTIME 11/23/21 Hydralazine [Apresoline*] 50 mg PO TID 11/23/21 Isosorbide Dinit [Isordil*] 20 mg PO TID PRN 11/23/21 Meclizine HCl 12.5 mg PO TID 11/23/21 Mirtazapine 15 mg PO BEDTIME 11/23/21 Omeprazole [Prilosec] 40 mg PO DAILY 11/23/21 Ranolazine [Ranolazine ER] 500 mg PO BID 11/23/21 carvediloL [Carvedilol] 6.25 mg PO BID 11/23/21 Allopurinol 100 mg PO DAILY 12/28/22 Bumetanide [Bumex*] 1 mg PO BID 12/28/22 Nitroglycerin 0.4 mg SL DIRECTED PRN 12/28/22 Sodium Bicarbonate 650 mg PO BID 12/28/22 Benzonatate [Tessalon Perle*] 100 mg PO TID PRN #30 cap 01/29/23 Warfarin Sodium [Coumadin*] 6 mg PO DAILY tab 01/29/23 Aspirin [Aspirin EC] 1 tab PO DAILY 05/31/23 Calcium Carbonate [Calcium] 1 tab PO DAILY 05/31/23 Cyanocobalamin (Vitamin B-12) [Vitamin B-12] 1 tab PO DAILY 05/31/23 Divalproex Sodium See Rx Instructions .ROUTE .COMPLEX 05/31/23 Levothyroxine [Synthroid*] 0.05 mg PO DAILYAC #30 tab 06/01/23 Sevelamer Carbonate [Renvela*] 800 mg PO TIDWM #90 tab 06/01/23 levoFLOXacin [Levaquin] 500 mg PO Q48H #3 tab 06/01/23 New Medications: levoFLOXacin [Levaquin] 500 mg PO Q48H #3 tab Sevelamer Carbonate [Renvela*] 800 mg PO TIDWM #90 tab Levothyroxine [Synthroid*] 0.05 mg PO DAILYAC #30 tab Physician Discharge Instructions: Please do not take your Coumadin for the next 2 days. Have your PT/INR checked within the next couple of days-next dialysis. Results to be called to your metal mold dresser-Dr. Gómez for Coumadin dose adjustment. Diet: Renal Activity: Ad mehnaz Time spent managing pt's care (in minutes): 33
[2023-06-01 16:09] VITALS: TEMP 97.2
[2023-06-01 16:10] VITALS: BP 138/59
[2023-06-01 16:13] VITALS: O2SAT 94
[2023-06-01] MEDS ORDERED: ATORVASTATIN 40 MG TAB PO SCH (21:00)
[2023-06-01] MEDS ORDERED: MIRTAZAPINE 15 MG TAB PO SCH (21:00)
--- NOTE | 2023-06-02 14:37 | EKG ---
Test Date: 2023-05-31 Test Time: 23:28:22 Salt Lifter: MARSHA MEASUREMENT RESULTS: Intervals: Rate: 77 NV: 188 QRSD: 194 QT: 490 QTc: 554 [place]: P: 74 NV: 188 QRS: 132 T: -3 INTERPRETIVE STATEMENTS: Normal sinus rhythm Right bundle branch block Left posterior fascicular block Bifascicular block Inferior infarct, age undetermined Abnormal ECG Compared to ECG 05/31/2023 10:30:49 Myocardial infarct finding now present Bifascicular block still present Electronically Signed On 06-02-23 14:33:07 CDT by Alessio Hyman
--- NOTE | 2023-06-02 14:42 | EKG ---
Test Date: 2023-05-31 Test Time: 10:30:49 Orthodontist: HARSHA MEASUREMENT RESULTS: Intervals: Rate: 76 MS: 178 QRSD: 176 QT: 474 QTc: 533 [place]: P: 61 MS: 178 QRS: 136 T: 32 INTERPRETIVE STATEMENTS: Normal sinus rhythm Right bundle branch block Left posterior fascicular block Bifascicular block Abnormal ECG Compared to ECG 01/25/2023 23:46:40 Left posterior fascicular block now present Bifascicular block now present Electronically Signed On 06-02-23 14:34:22 CDT by Alessio Hyman
[2023-06-02] MEDS ORDERED: Levofloxacin500mg IV 500 MG/100 ML BAG IV SCH (21:00)
== END 2023-06-01 15:50 | disposition home or self-care (01) | DRG 193 ==
LOC: ER 10:09 → ERHOLD 13:57 → 2ND 15:10 → 3RD-ICU 06-01 00:06
PROVIDERS: ADMIT Internal Medicine Nephrology; ATTEND Internal Medicine
PROC: 5A1D70Z Performance of Urinary Filtration, Intermittent, Less than 6 Hours Per Day (ICD-10-PCS; principal; 2023-05-31)
DX: J18.9 Pneumonia, unspecified organism (principal); N18.6 End stage renal disease; I50.32 Chronic diastolic (congestive) heart failure; I13.2 Hypertensive heart and chronic kidney disease with heart failure and with stage 5 chronic kidney disease, or end stage renal disease; E11.22 Type 2 diabetes mellitus with diabetic chronic kidney disease; E87.5 Hyperkalemia; E78.5 Hyperlipidemia, unspecified; M10.9 Gout, unspecified; E03.9 Hypothyroidism, unspecified; K21.9 Gastro-esophageal reflux disease without esophagitis; I25.10 Atherosclerotic heart disease of native coronary artery without angina pectoris; Z88.0 Allergy status to penicillin; Z95.1 Presence of aortocoronary bypass graft; Z99.2 Dependence on renal dialysis; Z86.73 Personal history of transient ischemic attack (TIA), and cerebral infarction without residual deficits; Z79.82 Long term (current) use of aspirin; Z79.01 Long term (current) use of anticoagulants; Z79.899 Other long term (current) drug therapy; Z86.718 Personal history of other venous thrombosis and embolism; Z96.653 Presence of artificial knee joint, bilateral; Z20.822 Contact with and (suspected) exposure to COVID-19
CPT/HCPCS: 36415; 70450; 71045; 74176; 80048; 80053; 80061; 80076; 80164; 81001; 82947; 83735; 83880; 84100; 84439; 84443; 84484; 85025; 85610; 85730; 86706; 86850; 86900; 86901; 87040; 87340; 87811; 90935; 93005; 94640; 96374; 96375; 99285; J0612; J1644; J1815; J1940; J7613; J7644; J8597

== ENCOUNTER 2023-06-20 12:48 | Inpatient (IN) | payer OTHER ==
[2023-06-20] MEDS ORDERED: NA CHLORIDE 0.9% 250 ML ONE (13:53)
--- NOTE | 2023-06-20 14:29 | RAD REPORT ---
EXAM DESCRIPTION: RAD - Chest Single View - 06/20/2023 2:23 pm CLINICAL HISTORY: fever, hypoxemia;Cough COMPARISON: Chest Single View dated 05/31/2023; Chest Single View dated 01/25/2023; Chest Single View dated 12/28/2022; Chest Single View dated 12/22/2022; Thorax Wo Con dated 01/25/2023 FINDINGS: Lines: None. Lungs: Developing consolidative airspace disease in the right upper lobe. Pleural: No significant pleural effusions or pneumothorax. Cardiac: Similar size and configuration. Loop recorder. Mediastinum: Within normal limits. Bones: No acute fractures. Sternotomy. Other: None IMPRESSION: Developing consolidation in the right upper lobe concerning for pneumonia.
[2023-06-20 14:42] LABS: Absolute Lymphocytes (CBC) 1.5 K/uL (0.7-4.9); Lymphocytes % 15.4 % (15.3-44.8); MCV 108.2 fL (80-100); MPV 8.2 fL (7.6-11.3); Platelets 118 thou/uL (152-406); RBC Red Blood Cell Count 2.86 M/uL (3.86-4.86)
[2023-06-20 14:48] LABS: Protime INR 3.17
[2023-06-20 15:07] LABS: Blood Morphology Comment NOTED (NOT SEEN); Macrocytosis 1+; Platelet Estimate DECR; Polychromasia 1+; White Blood Cell Scan OK (OK)
[2023-06-20 15:12] LABS: Albumin 2.3 g/dL (3.4-5.0); Bilirubin Total 0.4 mg/dL (0.2-1.0); Potassium 4.4 mEq/L (3.5-5.1); Protein, Total 6.2 g/dL (6.4-8.2)
[2023-06-20] MEDS ORDERED: Levofloxacin500mg IV 500 MG/100 ML BAG IV ONE (15:38)
--- NOTE | 2023-06-20 15:59 | ER ---
Nurse's Notes [facility] [place] Name: Consuelo Trujillo Age: 72 yrs Sex: Female : 1950 Arrival Date: 06/20/2023 Time: 12:48 Bed 20 Private MD: Diagnosis: Pneumonia, unspecified organism;Hypoxemia Presentation: 06/20 13:00 Chief complaint: Patient states: CP, cough, SOB, weak since last night. Coronavirus ll1 screen: Vaccine status: Patient reports receiving the 2nd dose of the covid vaccine. Client denies travel out of the [place] in the last 14 days. cough unrelated to allergies, difficulty breathing, fatigue, shortness of breath, Client presents with at least one sign or symptom that may indicate coronavirus-19. Standard/surgical mask placed on the client. Ebola Screen: Patient denies travel to an Ebola-affected area in the 21 days before illness onset. No acute neurological deficit is noted. Initial Sepsis Screen: Does the patient meet any 2 criteria? RR > 20 per min. Altered Mental Status. Does the patient have a suspected source of infection? Yes: Productive cough/pneumonia. Risk Assessment: Do you want to hurt yourself or someone else? Patient reports no desire to harm self or others. Onset of symptoms was June 19, 2023. 13:00 Method Of Arrival: Wheelchair ll1 13:00 Acuity: SUE 2 ll1 Triage Assessment: 13:00 General: Appears uncomfortable, ill, Behavior is cooperative, appropriate for age, ll1 listless. Pain: Complains of pain in chest Pain currently is 9 out of 10 on a pain scale. Quality of pain is described as aching. Neuro: Reports weakness. Cardiovascular: Reports chest pain, fatigue, shortness of breath. Respiratory: Reports shortness of breath cough that is. Stroke Activation: Symptom onset > 6 hours Physician: Stroke Attending; Name: ; Notified At: ; Arrived At: Physician: Chief Stroke Resident; Name: ; Notified At: ; Arrived At: Physician: Stroke Resident; Name: ; Notified At: ; Arrived At: Physician: ED Attending; Name: ; Notified At: ; Arrived At: Physician: ED Resident; Name: ; Notified At: ; Arrived At: Historical: - Allergies: 12:59 hydrocodone bitartrate; ll1 12:59 PENICILLINS; ll1 - PMHx: 12:59 End stage renal disease; CVA; angina pectoris; Hypertensive disorder; L sided weakness ll1 from previous CVA; GERD; diabetes mellitus; depressive disorder; Hyperlipidemia; chronic DVT; CHF; CAD; Anxiety; Sleep Apnea; - PSHx: 12:59 Left upper arm fistula; ll1 - Immunization history:: Adult Immunizations up to date. - Social history:: Smoking status: Patient denies any tobacco usage or history of. - Family history:: not pertinent. - Hospitalizations: : No recent hospitalization is reported. Screenin:58 [facility] ED Fall Risk Assessment (Adult) Score/Fall Risk Level 0 - 2 = Low Risk ll1 Oriented to surroundings, Maintained a safe environment, Educated pt \T\ family on fall prevention, incl call for assistance when getting out of bed, Hourly rounding (assess needs \T\ fall precautionary measures) done. Abuse screen: Denies threats or abuse. Nutritional screening: No deficits noted. Tuberculosis screening: No symptoms or risk factors identified. Assessment: 17:48 Reassessment: No changes from previously documented assessment. Patient and/or family ll1 updated on plan of care and expected duration. Pain level reassessed. Patient is alert, oriented x 3, equal unlabored respirations, skin warm/dry/pink. Vital Signs: 13:00 BP 93 / 45; Pulse 76; Resp 22; Temp 99; Pulse Ox 91% ; Weight 81.65 kg; Height 5 ft. 2 ll1 in. ; Pain 9/10; 14:46 BP 106 / 52; Pulse 72; Resp 14; Pulse Ox 96% 4 lpm ; ph 16:00 BP 108 / 54; Pulse 72; Resp 20; Pulse Ox 95% on 4 lpm NC; ph 17:47 BP 107 / 52; Pulse 70; Resp 18; Pulse Ox 94% on 4 lpm NC; ll1 13:00 Body Mass Index 32.92 (81.65 kg, 157.48 cm) ll1 13:00 Pain Scale: Adult ll1 ED Course: 12:50 Patient arrived in ED. mr 12:54 Gorge Munoz MD is Attending Physician. rn 13:02 Triage completed. ll1 13:05 Arm band placed on. ll1 13:34 Melissa Linton, RN is Primary Nurse. ph 14:25 Chest Single View XRAY In Process Unspecified. EDMS 14:32 Inserted saline lock: 24 gauge in right antecubital area, using aseptic technique. ds4 14:32 Inserted saline lock: 24 gauge in right wrist, using aseptic technique. Blood collected.ds4 15:58 Yoon Silverman MD is Hospitalizing Provider. rn 16:45 Thorax Wo Con In Process Unspecified. EDMS 17:58 No provider procedures requiring assistance completed. Patient admitted, IV remains in ll1 place. 17:59 Patient has correct armband on for positive identification. Bed in low position. Call ll1 light in reach. Provided Education on: n/a. Client placed on continuous cardiac and pulse oximetry monitoring. NIBP monitoring applied. 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 Administered Medications: 14:20 Drug: NS 0.9% IV 250 ml IV at bolus once Route: IV; Rate: bolus; Site: right wrist; ph 18:00 Follow up: Response: No adverse reaction; IV Status: Completed infusion; IV Intake: ll1 250ml 16:35 Drug: levofloxacin IVPB 500 mg 100 ml IVPB once over 60 mins Volume: 100 ml; Route: ph IVPB; Infused Over: 60 mins; Site: right wrist; 18:00 Follow up: Response: No adverse reaction; IV Status: Completed infusion; IV Intake: ll1 100ml Medication: 17:59 VIS not applicable for this client. ll1 Intake: 18:00 IV: 100ml; Total: 100ml. ll1 18:00 IV: 250ml; Total: 350ml. ll1 Outcome: 15:58 Decision to Hospitalize by Provider. rn 17:58 Admitted to Med/surg accompanied by tech, via stretcher, room 219, with oxygen, with ll1 chart, Report called to CRIS Rider 17:58 Condition: stable 17:58 Instructed on the need for admit, 18:18 Patient left the ED. ph Signatures: Dispatcher [employer] EDMS Nancy Brady, Luc Calle mr Gorge Munoz MD MD rn Swanson, Donovan ds4 Melissa Linton RN RN ph Carmina Quiroga RN RN ll1 Corrections: (The following items were deleted from the chart) 15:23 15:23 NS 0.9% IV 250 ml IV at bolus in right wrist ph ph
--- NOTE | 2023-06-20 15:59 | EDPHYS ---
Physician Documentation [facility] Name: Consuelo Trujillo Age: 72 yrs Sex: Female : 1950 Arrival Date: 06/20/2023 Time: 12:48 Bed 20 Private MD: ED Physician Gorge Munoz HPI: 06/20 15:53 This 72 yrs old Female presents to ER via Wheelchair with complaints of rn Weakness. 15:53 The patient has shortness of breath at rest, with light activity. rn 15:54 Onset: The symptoms/episode began/occurred yesterday. Duration: The symptoms are rn continuous. The patient's shortness of breath is aggravated by nothing, is alleviated by nothing. Associated signs and symptoms: Pertinent positives: productive cough, fever, Pertinent negatives: hemoptysis. Severity of symptoms: At their worst the symptoms were moderate in the emergency department the symptoms are unchanged. The patient has experienced similar episodes in the past. reports cough and generalized weakness with shortness of breath since yesterday. Got worse today. Similar to previous episodes of pneumonia. Last dialysis was Wednesday.. Historical: - Allergies: 12:59 hydrocodone bitartrate; ll1 12:59 PENICILLINS; ll1 - PMHx: 12:59 End stage renal disease; CVA; angina pectoris; Hypertensive disorder; L sided weakness ll1 from previous CVA; GERD; diabetes mellitus; depressive disorder; Hyperlipidemia; chronic DVT; CHF; CAD; Anxiety; Sleep Apnea; - PSHx: 12:59 Left upper arm fistula; ll1 - Immunization history:: Adult Immunizations up to date. - Social history:: Smoking status: Patient denies any tobacco usage or history of. - Family history:: not pertinent. - Hospitalizations: : No recent hospitalization is reported. ROS: 15:54 Constitutional: Positive for fever Eyes: Negative for injury, pain, redness, and director of learning, Cardiovascular: Negative for chest pain, palpitations, and edema, Respiratory: Positive for cough and shortness of breath Abdomen/GI: Negative for abdominal pain, nausea, vomiting, diarrhea, and constipation, MS/Extremity: Negative for injury and deformity, Skin: Negative for injury, rash, and discoloration, Neuro: Positive for generalized weakness Exam: 15:54 Constitutional: This is a well developed, well nourished patient who is somnolent but rn awakens to voice, sitting in a wheelchair Head/Face: Normocephalic, atraumatic. ENT: Dry mucous membranes Cardiovascular: Regular rate and rhythm. No pulse deficits. Respiratory: Mild tachypnea, diminished breath sounds bilateral bases Abdomen/GI: Soft, non-tender MS/ Extremity: Pulses equal, no cyanosis. Neuro: Somnolent, oriented to person and situation. Moves all 4 extremities. Vital Signs: 13:00 BP 93 / 45; Pulse 76; Resp 22; Temp 99; Pulse Ox 91% ; Weight 81.65 kg; Height 5 ft. 2 ll1 in. ; Pain 9/10; 14:46 BP 106 / 52; Pulse 72; Resp 14; Pulse Ox 96% 4 lpm ; ph 16:00 BP 108 / 54; Pulse 72; Resp 20; Pulse Ox 95% on 4 lpm NC; ph 17:47 BP 107 / 52; Pulse 70; Resp 18; Pulse Ox 94% on 4 lpm NC; ll1 13:00 Body Mass Index 32.92 (81.65 kg, 157.48 cm) ll1 13:00 Pain Scale: Adult ll1 MDM: 12:54 Patient medically screened. rn 15:54 Differential diagnosis: Anemia Anxiety Reaction pneumonia, Pneumothorax pulmonary rn edema. Antibiotic administration: Data reviewed: vital signs, nurses notes, lab test result(s), radiologic studies, plain films, and as a result, I will admit patient. Care significantly affected by the following chronic conditions: Chronic Kidney Disease. Counseling: I had a detailed discussion with the patient and/or guardian regarding the historical points, exam findings, and any diagnostic results supporting the discharge/admit diagnosis, lab results, radiology results, the need for further work-up and treatment in the hospital. 06/20 13:00 Order name: Blood Culture Adult (2) rn 06/20 13:00 Order name: CBC with Diff; Complete Time: 15:25 rn 06/20 13:00 Order name: CMP; Complete Time: 15:25 rn 06/20 13:00 Order name: Lactate w/ 2H reflex if indic.; Complete Time: 15:25 rn 06/20 13:00 Order name: Protime (+inr); Complete Time: 15:25 rn 06/20 13:00 Order name: Ptt, Activated; Complete Time: 15:25 rn 06/20 13:00 Order name: SARS-COV-2 RT PCR; Complete Time: 15:25 rn 06/20 13:00 Order name: Flu; Complete Time: 15:25 rn 06/20 15:07 Order name: CBC Smear Scan; Complete Time: 15:25 EDMS 06/20 15:54 Order name: Procalcitonin EDMS 06/20 16:58 Order name: CBC with Automated Diff EDMS 06/20 16:58 Order name: CBC with Automated Diff EDMS 06/20 16:58 Order name: Comprehensive Metabolic Panel EDMS 06/20 16:58 Order name: Comprehensive Metabolic Panel EDMS 06/20 16:58 Order name: Lipid Profile EDMS 06/20 16:58 Order name: Lipid Profile EDMS 06/20 16:58 Order name: Magnesium EDMS 06/20 16:58 Order name: Magnesium EDMS 06/20 16:58 Order name: NT PRO-BNP EDMS 06/20 16:58 Order name: NT PRO-BNP EDMS 06/20 16:58 Order name: Phosphorus EDMS 06/20 16:58 Order name: Phosphorus EDMS 06/20 16:58 Order name: Protime (+INR) EDMS 06/20 16:58 Order name: Protime (+INR) EDMS 06/20 16:58 Order name: PTT, Activated Partial Thromb EDMS 06/20 16:58 Order name: PTT, Activated Partial Thromb EDMS 06/20 13:00 Order name: Chest Single View XRAY; Complete Time: 14:33 rn 06/20 15:54 Order name: Thorax Wo Con; Complete Time: 17:02 EDMS 06/20 13:00 Order name: EKG; Complete Time: 13:01 rn 06/20 16:58 Order name: CONS Physician Consult EDMS 06/20 13:00 Order name: Accucheck; Complete Time: 15:23 rn 06/20 13:00 Order name: Cardiac monitoring; Complete Time: 14:31 rn 06/20 13:00 Order name: EKG - Nurse/Tech; Complete Time: 14:31 rn 06/20 13:00 Order name: IV Saline Lock - Large Bore; Complete Time: 14:31 rn 06/20 13:00 Order name: Labs collected and sent; Complete Time: 14:31 rn 06/20 13:00 Order name: O2 Per Protocol; Complete Time: 14:31 rn 06/20 13:00 Order name: O2 Sat Monitoring; Complete Time: 14: rn 06/20 13:00 Order name: Vital Signs; Complete Time: : rn Administered Medications: 14:20 Drug: NS 0.9% IV 250 ml IV at bolus once Route: IV; Rate: bolus; Site: right wrist; ph 18:00 Follow up: Response: No adverse reaction; IV Status: Completed infusion; IV Intake: ll1 250ml 16:35 Drug: levofloxacin IVPB 500 mg 100 ml IVPB once over 60 mins Volume: 100 ml; Route: ph IVPB; Infused Over: 60 mins; Site: right wrist; 18:00 Follow up: Response: No adverse reaction; IV Status: Completed infusion; IV Intake: ll1 100ml Disposition Summary: 06/20/23 15:58 Hospitalization Ordered Notes: Hospitalization Status: Inpatient Admission rn Provider: Yoon Silverman rn Location: Telemetry/[facility] (Inpatient) rn Condition: Stable rn Problem: new rn Symptoms: are unchanged rn Bed/Room Type: Standard rn Room Assignment: 219(06/20/23 17:54) ll1 Diagnosis - Pneumonia, unspecified organism rn - Hypoxemia rn Forms: - Medication Reconciliation Form rn - SBAR form rn - Leadership Thank You Letter rn Signatures: Dispatcher [employer] Gorge Torres MD MD rn Hall, Patricia, RN RN Nano Bolden Lynsay, RN RN ll1 Corrections: (The following items were deleted from the chart) 17:17 15:58 rn 17:54 17:[address] [place], [place] [address]
[2023-06-20] MEDS ORDERED: ACETAMINOPHEN 500 MG TAB PO PRN (16:53)
[2023-06-20] MEDS ORDERED: ONDANSETRON 4 MG/2 ML VIAL IV PRN (16:53)
--- NOTE | 2023-06-20 16:54 | RAD REPORT ---
EXAM DESCRIPTION: CT - Thorax Wo Con - 06/20/2023 4:43 pm CLINICAL HISTORY: RUL consolidation COMPARISON: Thorax Wo Con dated 01/25/2023; Chest Abd Pelvis Wo Con dated 12/28/2022 FINDINGS: Chest Wall: No suspicious thyroid nodules or pathologic lymphadenopathy. Lungs: Right upper lobe consolidation with air bronchograms. Interlobular septal thickening. Scattere d ground-glass opacities. Pleura: No significant effusions or pneumothorax. Mediastinum/marilyn: No pathologic lymphadenopathy. Pulmonary arteries/Aorta: Limited evaluation without contrast. No aortic aneurysm. Heart: No significant pericardial effusion. Cardiomegaly. Coronary artery calcifications. Sternotomy. Similar metallic structure at the right ventricular apex. Upper abdomen: Gastric wall thickening which is nonspecific. Bones: No acute abnormality. Bridging osteophytes in the thoracic spine. Sternotomy. All CT scans are performed using dose optimization technique as appropriate and may include automated exposure control or mA/KV adjustment according to patient size. IMPRESSION: Right upper lobe consolidation concerning for pneumonia. Background of pulmonary edema. Small pleural effusions.
--- NOTE | 2023-06-20 17:03 | P.HP ---
Certification for Inpatient Patient admitted to: Observation With expected LOS: <2 Midnights Patient will require the following post-hospital care: None Practitioner: I am a practitioner with admitting privileges, knowledge of patient current condition, hospital course, and medical plan of care. Services: Services provided to patient in accordance with Admission requirements found in Title 42 Section 412.3 of the Code of Federal Regulations Patient History Date of Service: 06/20/23 Reason for admission: Right upper lobe consolidated pneumonia History of Present Illness: Patient is a 72-year-old female who came to the hospital with generalized weakness and she was lethargic. She was not feeling like herself and she had recently been in the hospital for pneumonia. She has a history of end-stage renal disease. She denies coughing or congestion. She just was not feeling like herself so her brought her into the emergency room. She was able to walk herself into a scooter and then get to the car and got herself into the vehicle. She was recently in the hospital about a month ago and was treated for a pneumonia that was seen on the chest x-ray which is in the same area consolidation that we are seeing today. She was treated with antibiotics and discharged at that time. She has been following up with her torpedo worker and she has been going to her dialysis appointments as scheduled. Otherwise, she denies any complaints. Her O2 sats are stable and she does not have a white blood cell count. Lactic acid was normal. Her CT scan does show air bronchograms and a consolidated right upper lobe pneumonia. She will be admitted for observation. Allergies hydrocodone Allergy (Verified 11/22/21 16:55) Hives/Rash Penicillins Allergy (Verified 11/22/21 16:55) Hives/Rash Home Medications: Atorvastatin Calcium 80 mg PO BEDTIME 11/23/21 Hydralazine [Apresoline*] 50 mg PO TID 11/23/21 Isosorbide Dinit [Isordil*] 20 mg PO TID PRN 11/23/21 Meclizine HCl 12.5 mg PO TID 11/23/21 Mirtazapine 15 mg PO BEDTIME 11/23/21 Omeprazole [Prilosec] 40 mg PO DAILY 11/23/21 Ranolazine [Ranolazine ER] 500 mg PO BID 11/23/21 carvediloL [Carvedilol] 6.25 mg PO BID 11/23/21 Allopurinol 100 mg PO DAILY 12/28/22 Bumetanide [Bumex*] 1 mg PO BID 12/28/22 Nitroglycerin 0.4 mg SL DIRECTED PRN 12/28/22 Sodium Bicarbonate 650 mg PO BID 12/28/22 Benzonatate [Tessalon Perle*] 100 mg PO TID PRN #30 cap 01/29/23 Warfarin Sodium [Coumadin*] 6 mg PO DAILY tab 01/29/23 Aspirin [Aspirin EC] 1 tab PO DAILY 05/31/23 Calcium Carbonate [Calcium] 1 tab PO DAILY 05/31/23 Cyanocobalamin (Vitamin B-12) [Vitamin B-12] 1 tab PO DAILY 05/31/23 Divalproex Sodium See Rx Instructions .ROUTE .COMPLEX 05/31/23 Levothyroxine [Synthroid*] 0.05 mg PO DAILYAC #30 tab 06/01/23 Sevelamer Carbonate [Renvela*] 800 mg PO TIDWM #90 tab 06/01/23 levoFLOXacin [Levaquin] 500 mg PO Q48H #3 tab 06/01/23 - Past Medical/Surgical History Diabetic: Yes -: Chronic kidney disease stage V- HemoDialysis -: Chronic diastolic heart failure -: Hypertension -: Diabetes mellitus -: Hypothyroidism -: Coronary artery disease -: DVT -: CVA -: CABG -: Clemente knee replacement -: Fistula Left Upper Arm -: Right Subclavian Dialysis access - Family History Father Medical History: Cancer, Other (see notes) Notes: Leukemia Mother Medical History: Heart disease, Seizures - Social History Smoking Status: Former smoker Alcohol use: No CD- Drugs: No Caffeine use: No Review of Systems 10-point ROS is otherwise unremarkable Physical Examination - Vital Signs Temperature: 99 F (reviewed) - Physical Exam General: Alert, In no apparent distress, Oriented x3 HEENT: Atraumatic, PERRLA, Mucous membr. moist/pink, EOMI, Sclerae nonicteric Neck: Supple, 2+ carotid pulse no bruit, No LAD, Without JVD or thyroid abnormality Respiratory: Diminished (Right upper lobe) Cardiovascular: Regular rate/rhythm, Normal S1 S2, Systolic murmur Gastrointestinal: Normal bowel sounds, Soft and benign, Non-distended, No tenderness Musculoskeletal: No clubbing, No swelling, No tenderness Integumentary: No rashes Neurological: Normal speech, Normal tone, Sensation intact, Cranial nerves 3-12 intact, Normal affect, Abnormal gait, Abnormal strength Lymphatics: No axilla or inguinal lymphadenopathy - Studies Laboratory Data (last 24 hrs) 06/20/23 06/20/23 06/20/23 14:20 14:20 14:20 WBC 9.80 Hgb 10.6 L Hct 31.0 L Plt Count 118 L PT 34.9 H INR 3.17 APTT 62.6 H Sodium 134 L Potassium 4.4 BUN 55 H Creatinine 5.27 H Glucose 142 H Total Bilirubin 0.4 AST 29 ALT 11 L Alkaline Phosphatase 74 Microbiology Data (last 24 hrs): 06/20/23 14:25 Nasopharnyx Influenza Type A Antigen Screen - Final 06/20/23 14:25 Nasopharnyx Influenza Type B Antigen Screen - Final Assessment & Plan - Problems (Diagnosis) (1) Pneumonia Current Visit: Yes Status: Acute Qualifiers: Pneumonia type: due to unspecified organism Laterality: right Lung location: upper lobe of lung Qualified Code(s): J18.9 - Pneumonia, unspecified organism (2) AMS (altered mental status) Current Visit: No Status: Acute (3) Diabetes mellitus Current Visit: No Status: Acute Qualifiers: Diabetes mellitus type: type 2 (4) ESRD (end stage renal disease) Current Visit: No Status: Acute (5) Nausea and vomiting Current Visit: No Status: Acute - Plan Plan: 1. Continue with IV antibiotics 2. Awaiting sputum and blood culture 3. Repeat chest x-ray 4. CT scan of the chest with consolidative right upper lobe pneumonia 5. Infectious disease consultation if patient's symptoms worsen 6. Continue with nebs as needed 7. O2 per protocol 8. Continue with gentle hydration 9. Repeat labs; procalcitonin level pending 10. GI and DVT prophylaxis Discharge Plan: Home Plan to discharge in: 24 Hours - Advance Directives Does patient have a Living Will: No Does patient have a Durable POA for Healthcare: No - Code Status/Comfort Care Code Status Assessed: Yes Code Status: Full Code Critical Care: No Time Spent Managing PTS Care (In Minutes): 45
[2023-06-20] MEDS ORDERED: VANCOMYCIN 2 GM in NA CHLORIDE 0.9% 500 ML IVPB ONE (19:00)
[2023-06-20 20:42] VITALS: BMI 32.9
[2023-06-20] MEDS ORDERED: NA CHLORIDE 0.9% 500 ML ONE (20:53)
[2023-06-20] MEDS ORDERED: VANCOMYCIN 1 GM/VIAL ONE (20:53)
[2023-06-21 03:14] LABS: Absolute Lymphocytes (CBC) 1.4 K/uL (0.7-4.9); Hematocrit 29.7 % (36.0-45.0); Lymphocytes % 19.1 % (15.3-44.8); MPV 8.3 fL (7.6-11.3); Platelets 117 thou/uL (152-406); RBC Red Blood Cell Count 2.74 M/uL (3.86-4.86)
[2023-06-21 03:19] LABS: MCV 108.5 fL (80-100)
[2023-06-21 03:53] LABS: Protime INR 3.38
[2023-06-21 04:14] LABS: AST/SGOT 29 U/L (15-37); Albumin 2.3 g/dL (3.4-5.0); Alkaline Phosphatase 72 U/L (45-117); BUN Blood Urea Nitrogen 60 mg/dL (7-18); Bicarbonate 27 mEq/L (21-32); Bilirubin Total 0.4 mg/dL (0.2-1.0); Glomerular Filtration Rate 7 ml/min (=/>90); Glucose Level 138 mg/dL (74-106); HDL Cholesterol 56 mg/dL (40-60); LDL Cholesterol, Calculated 49 mg/dL (<130); Magnesium 2.1 mg/dL (1.6-2.4); Phosphorus 4.9 mg/dL (2.5-4.9); Potassium 4.5 mEq/L (3.5-5.1); Protein, Total 6.1 g/dL (6.4-8.2); Sodium Level 134 mEq/L (136-145)
[2023-06-21 04:15] LABS: ALT/SGPT < 10 U/L (13-56)
[2023-06-21] MEDS ORDERED: PNEUMOCOCCAL VACCINE 0.5 ML IMVAC ONE (12:00)
--- NOTE | 2023-06-21 12:16 | EKG ---
Test Date: 2023-06-20 Test Time: 14:29:06 Antisubmarine Weapons Officer: JS MEASUREMENT RESULTS: Intervals: Rate: 74 TN: 168 QRSD: 174 QT: 466 QTc: 517 [place]: P: 59 TN: 168 QRS: 127 T: 87 INTERPRETIVE STATEMENTS: Normal sinus rhythm Right bundle branch block Left posterior fascicular block Bifascicular block Abnormal ECG Compared to ECG 05/31/2023 23:28:22 Myocardial infarct finding no longer present Bifascicular block still present Electronically Signed On 06-21-23 12:14:37 CDT by Alessio Hyman
[2023-06-21] MEDS ORDERED: ALPRAZOLAM 0.25 MG TABLET PO ONE (15:57)
[2023-06-21] MEDS ORDERED: VANCOMYCIN 1 GM in NA CHLORIDE 0.9% 250 ML IVPB SCH (17:00)
--- NOTE | 2023-06-21 18:10 | P.PN ---
Subjective Date of Service: 06/21/23 Chief Complaint: Right upper lobe consolidated pneumonia No acute events overnight. She reports that her breathing is slightly improved compared to yesterday. This morning, she is on 3 L of nasal cannula with a pulse oximetry reading of 95% on room air. She denies any chest pain, palpitations, fevers, or chills. Review of Systems 10-point ROS is otherwise unremarkable Respiratory: Cough, Shortness of Breath Physical Examination - Vital Signs Temperature: 97.9 F Blood Pressure: 136/64 Pulse: 73 Respirations: 16 Pulse Ox (%): 96 - Physical Exam General: Alert, In no apparent distress, Oriented x3 HEENT: Atraumatic, Mucous membr. moist/pink, Sclerae nonicteric Neck: JVD not distended Respiratory: Diminished, Rhonchi/gurgles (right-sided) Cardiovascular: Regular rate/rhythm, Normal S1 S2, No gallops, No rubs, No murmurs, Edema (1-2+ BLE) Gastrointestinal: Normal bowel sounds, Soft and benign, Non-distended, No tenderness, No rebound, No guarding Musculoskeletal: No clubbing Integumentary: No rashes Neurological: Normal speech, Normal affect - Studies Microbiology Data (last 24 hrs): 06/20/23 14:05 Blood - Blood Anaerobic Blood Culture - Final 06/20/23 14:20 Blood - Blood Anaerobic Blood Culture - Final 06/20/23 14:25 Nasopharnyx Influenza Type A Antigen Screen - Final 06/20/23 14:25 Nasopharnyx Influenza Type B Antigen Screen - Final Assessment And Plan - Plan # Community Acquired Pneumonia - Evaluation thus far: - Does not meet sepsis criteria - Procalcitonin = 1.04 - Chest x-ray = "developing consolidation in the right upper lobe concerning for pneumonia." - CT chest = "right upper lobe consolidation concerning for pneumonia. Background of pulmonary edema. Small pleural effusions." - Management Plan: - Started ceftriaxone + doxycycline - Consulted Respiratory Therapy - Supplemental oxygen to maintain SpO2 > 92% - Encouraged incentive spirometry # End-Stage Renal Disease on iHD - Nephrology consulted - recommendations appreciated - Continue home sodium bicarbonate, allopurinol # Coronary Artery Disease s/p CABG # Hypertension # Hyperlipidemia - Continue home aspirin, atorvastatin, carvedilol, hydralazine, ranolazine # Chronic Diastolic Congestive Herat Failure - Continue home bumetaine, carvedilol # History of Deep Venous Thrombosis - Continue home warfarin # Type II Diabetes Mellitus - Correction scale insulin # Hypothyroidism - Continue home levothyroxine Mirza Avery M.D.
[2023-06-21] MEDS: CEFTRIAXONE 1,000 MG in NA CHLORIDE 0.9% 50 ML IVPB SCH (20:36)
[2023-06-21] MEDS: BUMETANIDE 1 MG TABLET PO SCH (20:37)
[2023-06-21] MEDS: SODIUM BICARB 325 MG TAB PO SCH (20:37)
[2023-06-21] MEDS: HYDRALAZINE HCL 25 MG TABLET PO SCH (20:37)
[2023-06-21] MEDS ORDERED: HOME MED 1 EA UNK (Sodium Bicarbonate [Sodium Bicarbonate] 650 MG Tablet) PO SCH (21:00)
[2023-06-21] MEDS ORDERED: carvediloL 6.25 MG TAB PO SCH (21:00)
[2023-06-21] MEDS: DOXYCYCLINE 100 MG in NA CHLORIDE 0.9% 100 ML IVPB SCH (21:31)
--- NOTE | 2023-06-22 02:22 | CON ---
Date of Consultation: 06/21/2023 Chief Complaint: End-stage renal disease, on hemodialysis. History Of Present Illness: Patient is admitted to the hospital because of right upper lobe consolidated and pneumonia. Patient is a 72-year-old woman with end-stage renal disease, on hemodialysis Wednesday, Wednesday, Wednesday; hypertension; history of gout; hyperlipidemia; peptic ulcer disease. Patient came to the hospital because she developed generalized weakness, progressively shortness of breath, and productive cough. Primarily she denied cough, although subsequently she developed some productive cough. Patient was unable to ambulate. Recently, she was treated for pneumonia in the hospital. On chest x- ray, which was done in the hospital, there was a consolidation present. Patient was treated with antibiotics and subsequently discharged to home. O2 saturations were stable. Lactic acid was within normal limits. Review of Systems: Constitutional: Patient complains of generalized weakness. Eyes: Denies vision changes. Ears, Nose, Mouth, and Throat: Denies sore throat, earache. Respiratory: Denies PND or orthopnea. Has generalized weakness. She has some cough, which was slightly productive. GI: Denies nausea, vomiting. : Denies dysuria or hematuria. All other systems reviewed and all are negative. Past Medical History: End-stage renal disease, on hemodialysis; chronic diastolic congestive heart failure; hypertension; diabetes mellitus with renal manifestation; hypothyroidism; coronary artery disease; DVT; CVA; CABG; bilateral knee replacement; hemodialysis access procedure AVF upper extremity; right IJ dialysis catheter and this was removed. Family History: Cancer. Father had leukemia. Mother; heart disease, seizure. Social History: Former smoker. Denies alcohol, illicit drugs. Physical Examination: General: Patient is awake, alert, follows commands, oriented x3. HEENT: Atraumatic, normocephalic. Anicteric sclerae. Neck: Supple. No JVD. No bruits. Respiratory: Diminished right upper lobe. Cardiovascular: S1, S2. 3/6 systolic murmur, left lower sternal border. GI: Normal bowel sounds. No rebound. No guarding. Extremities: No clubbing, no swelling, no tenderness. Neurologic: Cranial nerves intact. Sensation intact. Normal speech. Laboratory Work: Sodium 134, potassium 4.4, chloride is 113, creatinine 5.27, glucose 142, total bilirubin 0.4, AST 29, ALT 11, AP 74. Hemoglobin 10.4, WBC 9.8, platelet count 118,000. Impression And Plan: 1. Pneumonia. Patient was resumed on antibiotics. Upper lobe pneumonia, unspecified organism. Continue antibiotics and inhalers as needed. 2. Altered mental status, encephalopathy likely secondary to pneumonia. 3. Diabetes mellitus. Monitor blood glucose. Avoid hypoglycemic agent. Continue insulin. 4. Nausea, vomiting. Antiemetics as tolerated. 5. Anemia in chronic kidney disease. Monitor hemoglobin level and resume FIDELIA as needed. 6. Renal osteodystrophy. Continue binders and monitor phosphorus level. DEA/MODL Voice ID: [id number] Report ID: [id number] ALAN
[2023-06-22 03:33] LABS: Protime INR 1.95
[2023-06-22 03:57] LABS: Potassium 3.8 mEq/L (3.5-5.1)
[2023-06-22] MEDS: LEVOTHYROXINE SOD 0.05 MG TABLET PO SCH (06:02)
[2023-06-22] MEDS ORDERED: HOME MED 1 EA UNK (Calcium Carbonate [Calcium] 600 MG Tablet) PO SCH (09:00)
[2023-06-22] MEDS ORDERED: HOME MED 1 EA UNK (Omeprazole [Prilosec] 40 MG Capsule.Dr) PO SCH (09:00)
[2023-06-22] MEDS ORDERED: HOME MED 1 EA UNK (Cyanocobalamin (Vitamin B-12) [Vitamin B-12] 1,000 MCG Capsule) PO SCH (09:00)
[2023-06-22] MEDS ORDERED: HOME MED 1 EA UNK (Aspirin [Aspirin Ec] 81 MG Tablet.Dr) PO SCH (09:00)
[2023-06-22] MEDS: allopurinoL 100 MG TAB PO SCH (09:01)
[2023-06-22] MEDS: CALCIUM CARBONATE 500 MG TAB PO SCH (09:02)
[2023-06-22] MEDS: BUMETANIDE 1 MG TABLET PO SCH ×2 (09:02→20:30)
[2023-06-22] MEDS: carvediloL 6.25 MG TAB PO SCH ×2 (09:02→16:05)
[2023-06-22] MEDS: HYDRALAZINE HCL 25 MG TABLET PO SCH ×3 (09:02→20:29)
[2023-06-22] MEDS: PANTOPRAZOLE 40MG TABLET PO SCH (09:03)
[2023-06-22] MEDS: ASPIRIN EC 81 MG TAB PO SCH (09:03)
[2023-06-22] MEDS: WARFARIN SODIUM 6 MG TAB PO SCH (09:03)
[2023-06-22] MEDS: CYANOCOBALAMIN 1,000 MCG TAB PO SCH (09:03)
[2023-06-22] MEDS: MIRTAZAPINE 15 MG TAB PO SCH (09:04)
[2023-06-22] MEDS: ATORVASTATIN 40 MG TAB PO SCH (09:04)
[2023-06-22] MEDS: SODIUM BICARB 325 MG TAB PO SCH (09:04)
[2023-06-22] MEDS: CEFTRIAXONE 1,000 MG in NA CHLORIDE 0.9% 50 ML IVPB SCH (09:06)
[2023-06-22] MEDS: DOXYCYCLINE 100 MG in NA CHLORIDE 0.9% 100 ML IVPB SCH (09:06)
--- NOTE | 2023-06-22 12:37 | P.PN ---
Subjective Date of Service: 06/22/23 (Hospitalist) Chief Complaint: Right upper lobe consolidated pneumonia Subjective: Improving (Patient is improving she was admitted with weakness at the bedside denies any cough had some fever patient is requiring more oxygen) Review of Systems Unremarkable General: Weakness Physical Examination - Vital Signs Temperature: 97.2 F Blood Pressure: 132/59 Pulse: 74 Respirations: 20 Pulse Ox (%): 96 - Physical Exam General: Alert, Oriented x3 Neck: Supple Respiratory: Clear to auscultation bilaterally Cardiovascular: No edema, Regular rate/rhythm, Normal S1 S2 - Studies Microbiology Data (last 24 hrs): 06/20/23 14:05 Blood - Blood Anaerobic Blood Culture - Final 06/20/23 14:20 Blood - Blood Anaerobic Blood Culture - Final Assessment And Plan - Current Problems (Diagnosis) (1) Pneumonia Current Visit: Yes Status: Acute Plan: Patient is 72 years of age end-stage renal disease admitted with right upper lobe consolidation presumed pneumonia labs reviewed mild macrocytic anemia patient is on dialysis vital signs are stable there is no fever CT scan reviewed dense consolidation in the right upper lobe blood cultures are so far negative patient is at risk for resistant organism we will change to cefepime and p.o. doxycycline to cover for MRSA Qualifiers: Pneumonia type: due to unspecified organism Laterality: right Lung location: upper lobe of lung Qualified Code(s): J18.9 - Pneumonia, unspecified organism
[2023-06-22] MEDS ORDERED: VANCOMYCIN 1.25 GM in NA CHLORIDE 0.9% 250 ML IVPB SCH ×2 (17:00→19:00)
--- NOTE | 2023-06-22 18:47 | PN ---
Date of Progress Note: 06/22/2023 Subjective: The patient was admitted to the hospital with question of pneumonia and over-volume. The patient was dialyzed yesterday. The patient felt better after dialysis. Physical Examination: Vital Signs: When I saw the patient, blood pressure 132/59, pulse of 74, afebrile. Chest: Faint rales bilateral, more prominent on the right side. Heart: S1, S2. Systolic murmur. Abdomen: Soft, nontender. Extremities: Trace edema. Neurologic: Alert. No focality. Laboratory Data: Hemoglobin 10.2. Sodium 135, potassium 3.8, bicarb 30, BUN 40, creatinine 4.5, calcium 7.7. Current Medications: Include: 1. Aspirin. 2. Cefepime. 3. Doxycycline. 4. Coumadin. 5. Tums. 6. Atorvastatin. 7. Carvedilol 6.25 b.i.d. 8. Hydralazine 50 t.i.d. 9. Ranexa. 10. Mirtazapine. 11. Alprazolam. 12. Bumex 1 mg b.i.d. 13. Sodium bicarb. 14. Allopurinol. Assessment And Plan: 1. End-stage renal disease with over-volume. We will continue to challenge the patient. I am going to go ahead and arrange for dialysis tomorrow. 2. Hypertension, controlled, optimal. We will keep utilizing blood pressure for more ultrafiltration. 3. Anemia of chronic kidney disease, stable. No need for FIDELIA currently. 4. Secondary hyperpara. Continue calcium carbonate. 5. Acidosis, currently on alkalosis. Discontinue sodium bicarb. 6. Pneumonia. As by primary. Will follow up culture. Follow up Pulmonary. Time spent examining the patient [id number], reviewing data, lab and radiology, placing order, discussing the case with the patient, discussing the case with the engineer steam including the hospitalist and nursing staff more than 35 minutes. NEGRA Voice ID: [id number] Report ID: [id number] MTDD
[2023-06-22] MEDS: CEFEPIME 1 GM in NA CHLORIDE 0.9% 100 ML IV SCH (20:30)
[2023-06-22] MEDS: DOXYCYCLINE 100 MG CAP PO SCH (20:33)
[2023-06-23 05:36] LABS: Protime INR 1.38
[2023-06-23 05:48] LABS: Hematocrit 28.1 % (36.0-45.0); MCV 106.8 fL (80-100); MPV 8.3 fL (7.6-11.3); Platelets 129 thou/uL (152-406); RBC Red Blood Cell Count 2.63 M/uL (3.86-4.86)
[2023-06-23] MEDS: LEVOTHYROXINE SOD 0.05 MG TABLET PO SCH (05:48)
--- NOTE | 2023-06-23 08:18 | P.DS ---
Admission Date: 06/22/23 Discharge Date: 06/23/23 Disposition: ROUTINE DISCHARGE Discharge Condition: FAIR Reason for Admission: Right upper lobe consolidated pneumonia - Problems (1) Pneumonia Current Visit: Yes Status: Acute Qualifiers: Pneumonia type: due to unspecified organism Laterality: right Lung loc ation: upper lobe of lung Qualified Code(s): J18.9 - Pneumonia, unspecified organism Brief History of Present Illness: Patient is 72 years of age admitted with weakness right upper lobe pneumonia Hospital Course: She did well during the course of her stay all cultures were negative normal white count patient did have right upper lobe consolidation was treated with IV antibiotics At the time of discharge alert oriented x3 vital signs are okay chest clear cardiovascular stem heart sounds normal To be discharged home on levofloxacin 750 mg after each dialysis for 2 weeks doxycycline for 10 days and a low-dose prednisone 10milligrams twice a day/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 resume all other medications Vital Signs/Physical Exam: Temp Pulse Resp BP Pulse Ox 97.9 F 67 18 139/63 94 06/23/23 04:00 06/23/23 04:00 06/23/23 04:00 06/23/23 04:00 06/23/23 04:00 Laboratory Data at Discharge: WBC 5.10 thou/uL (4.3-10.9) 06/23/23 04:45 Hgb 9.8 g/dL (12.0-15.0) L 06/23/23 04:45 Hct 28.1 % (36.0-45.0) L 06/23/23 04:45 Plt Count 129 thou/uL (152-406) L 06/23/23 04:45 PT 15.2 SECONDS (9.5-12.5) H 06/23/23 04:45 INR 1.38 06/23/23 04:45 APTT 65.0 SECONDS (24.3-36.9) H 06/21/23 02:07 Sodium 135 mEq/L (136-145) L 06/22/23 03:05 Potassium 3.8 mEq/L (3.5-5.1) D 06/22/23 03:05 BUN 40 mg/dL (7-18) H 06/22/23 03:05 Creatinine 4.52 mg/dL (0.55-1.02) H 06/22/23 03:05 Glucose 139 mg/dL (74-106) H 06/22/23 03:05 Phosphorus 4.9 mg/dL (2.5-4.9) 06/21/23 02:07 Magnesium 2.1 mg/dL (1.6-2.4) 06/21/23 02:07 Total Bilirubin 0.4 mg/dL (0.2-1.0) 06/21/23 02:07 AST 29 U/L (15-37) 06/21/23 02:07 ALT < 10 U/L (13-56) L 06/21/23 02:07 Alkaline Phosphatase 72 U/L (45-117) 06/21/23 02:07 Triglycerides 127 mg/dL (<150) 06/21/23 02:07 Cholesterol 130 mg/dL (<200) 06/21/23 02:07 HDL Cholesterol 56 mg/dL (40-60) 06/21/23 02:07 Cholesterol/HDL Ratio 2.32 06/21/23 02:07 Home Medications: Atorvastatin Calcium 40 mg PO DAILY 11/23/21 Hydralazine [Apresoline*] 50 mg PO TID 11/23/21 Mirtazapine 15 mg PO DAILY 11/23/21 Omeprazole [Prilosec] 40 mg PO DAILY 11/23/21 Ranolazine [Ranolazine ER] 500 mg PO BID 11/23/21 carvediloL [Carvedilol] 6.25 mg PO BID 11/23/21 Allopurinol 100 mg PO DAILY 12/28/22 Bumetanide [Bumex*] 1 mg PO BID 12/28/22 Nitroglycerin 0.4 mg SL DIRECTED PRN 12/28/22 Sodium Bicarbonate 650 mg PO BID 12/28/22 Warfarin Sodium [Coumadin*] 6 mg PO DAILY tab 01/29/23 Aspirin [Aspirin EC] 1 tab PO DAILY 05/31/23 Calcium Carbonate [Calcium] 1 tab PO DAILY 05/31/23 Cyanocobalamin (Vitamin B-12) [Vitamin B-12] 1 tab PO DAILY 05/31/23 Divalproex Sodium 2 tab PO DAILY 05/31/23 Levothyroxine [Synthroid*] 50 mcg PO DAILYAC 06/21/23 Divalproex Sodium 1 tab PO BEDTIME 06/22/23 Doxycycline Hyclate 100 mg PO BID 10 Days #20 tab 06/23/23 Prednisone [Sterapred Ds] 10 mg PO BID 7 Days #14 tab 06/23/23 levoFLOXacin [Levofloxacin] 750 mg PO AFTER EACH DIALYSIS 14 Days #6 06/23/23 New Medications: Doxycycline Hyclate 100 mg PO BID 10 Days #20 tab levoFLOXacin [Levofloxacin] 750 mg PO AFTER EACH DIALYSIS 14 Days #6 Prednisone [Sterapred Ds] 10 mg PO BID 7 Days #14 tab Physician Discharge Instructions: Patient to take leave Levaquin doxycycline and prednisone have a chest x-ray in a week's time follow-up with me in a week Diet: Renal Followup: Mingo Montoya MD [ACTIVE - CAN ADMIT] - Surya Saldana DO [Primary Care Provider] -
[2023-06-23] MEDS: ATORVASTATIN 40 MG TAB PO SCH (08:23)
[2023-06-23] MEDS: CALCIUM CARBONATE 500 MG TAB PO SCH (08:24)
[2023-06-23] MEDS: DOXYCYCLINE 100 MG CAP PO SCH (08:24)
[2023-06-23] MEDS: BUMETANIDE 1 MG TABLET PO SCH (08:24)
[2023-06-23] MEDS: CYANOCOBALAMIN 1,000 MCG TAB PO SCH (08:24)
[2023-06-23] MEDS: allopurinoL 100 MG TAB PO SCH (08:24)
[2023-06-23] MEDS: carvediloL 6.25 MG TAB PO SCH (08:25)
[2023-06-23] MEDS: PANTOPRAZOLE 40MG TABLET PO SCH (08:25)
[2023-06-23] MEDS: HYDRALAZINE HCL 25 MG TABLET PO SCH (08:25)
[2023-06-23] MEDS: WARFARIN SODIUM 6 MG TAB PO SCH (08:25)
[2023-06-23] MEDS: ASPIRIN EC 81 MG TAB PO SCH (08:25)
[2023-06-23] MEDS: MIRTAZAPINE 15 MG TAB PO SCH (08:25)
[2023-06-23] MEDS: CEFEPIME 1 GM in NA CHLORIDE 0.9% 100 ML IV SCH (08:26)
[2023-06-23 09:14] VITALS: TEMP 97.1
[2023-06-23 12:13] VITALS: BP 127/60
--- NOTE | 2023-06-23 15:57 | PN ---
Date of Progress Note: 06/23/2023 Subjective: The patient was admitted to the hospital with over-volume. The patient had dialysis yesterday and another session today. The patient is feeling better. The patient on room air. Physical Examination: Vital Signs: Blood pressure 133/62, pulse of 67, afebrile. Chest: Clear to auscultation. Heart: S1 and S2 regular. Abdomen: Soft, nontender. Extremities: Trace edema. Neurologic: Alert. No focality. Laboratory Data: Hemoglobin 9.8. Sodium 135, potassium 3.8, bicarb 30, BUN 40, creatinine 4.5, calcium 7.7. Current Medications: The patient on include: 1. Doxycycline. 2. Cefepime. 3. Calcium carbonate. 4. Ranexa. 5. Carvedilol 6.25 b.i.d. 6. Atorvastatin. 7. Bumex 1 mg b.i.d. 8. Levothyroxine. 9. Pantoprazole. Assessment And Plan: 1. End-stage renal disease with over volume, status post daily dialysis, back to normal volume. We will go back to dialysis 3 times a week Wednesday, Wednesday, Wednesday. 2. Over volume, status post challenging. Normal volume. We will adjust her dry weight. 3. Alkalosis, corrected with dialysis. 4. Hyponatremia secondary to dilutional, corrected with dialysis. 5. Secondary hyperpara, stable phosphorus and calcium. 6. Hypokalemia, will be corrected with dialysis. The patient cleared from the Renal standpoint for discharge planning after dialysis. time spent examining the patient [id number] reviewing that her lab and the radiology placing order discussing the case with the patient discussing the case with the meat service team member including hospitalists and nursing staff more than 35 minutes NEGRA Voice ID: [id number] Report ID: [id number] ALAN
[2023-06-23 16:18] VITALS: O2SAT 98
[2023-06-23] MEDS ORDERED: CEFEPIME 1 GM in NA CHLORIDE 0.9% 100 ML IV SCH (21:00)
== END 2023-06-23 14:05 | disposition home or self-care (01) | DRG 193 ==
LOC: ER 12:48 → ERHOLD 16:53 → 2ND 17:59 → OBSVTOIN 06-22 14:20
PROVIDERS: ADMIT Hospitalist; ATTEND Internal Medicine Sleep Medicine
PROC: 5A1D70Z Performance of Urinary Filtration, Intermittent, Less than 6 Hours Per Day (ICD-10-PCS; principal; 2023-06-21)
DX: J18.9 Pneumonia, unspecified organism (principal); N18.6 End stage renal disease; I50.32 Chronic diastolic (congestive) heart failure; I13.2 Hypertensive heart and chronic kidney disease with heart failure and with stage 5 chronic kidney disease, or end stage renal disease; E87.20 Acidosis, unspecified; E87.3 Alkalosis; E87.1 Hypo-osmolality and hyponatremia; E11.22 Type 2 diabetes mellitus with diabetic chronic kidney disease; D63.1 Anemia in chronic kidney disease; M10.9 Gout, unspecified; E78.5 Hyperlipidemia, unspecified; E03.9 Hypothyroidism, unspecified; E87.6 Hypokalemia; N25.0 Renal osteodystrophy; K21.9 Gastro-esophageal reflux disease without esophagitis; K27.9 Peptic ulcer, site unspecified, unspecified as acute or chronic, without hemorrhage or perforation; I25.10 Atherosclerotic heart disease of native coronary artery without angina pectoris; Z88.5 Allergy status to narcotic agent; Z88.0 Allergy status to penicillin; Z99.2 Dependence on renal dialysis; Z11.52 Encounter for screening for COVID-19; Z86.73 Personal history of transient ischemic attack (TIA), and cerebral infarction without residual deficits; Z79.02 Long term (current) use of antithrombotics/antiplatelets; Z79.01 Long term (current) use of anticoagulants; Z79.82 Long term (current) use of aspirin; Z79.890 Hormone replacement therapy; Z79.899 Other long term (current) drug therapy; Z96.653 Presence of artificial knee joint, bilateral; Z86.718 Personal history of other venous thrombosis and embolism; Z87.891 Personal history of nicotine dependence
CPT/HCPCS: 36415; 71045; 71250; 80048; 80053; 80061; 80202; 82947; 83605; 83735; 83880; 84100; 84145; 85025; 85027; 85610; 85730; 87040; 87635; 87804; 93005; 94010; 94760; 96365; 96366; 97116; 97163; 97530; 99285; G0378; J0692; J0696; J7040; J7050

== ENCOUNTER 2023-07-21 10:01 | Inpatient (IN) | payer OTHER ==
[2023-07-21 11:02] LABS: Absolute Lymphocytes (CBC) 1.2 K/uL (0.7-4.9); Hematocrit 28.1 % (36.0-45.0); Lymphocytes % 31.4 % (15.3-44.8); MCV 108.9 fL (80-100); MPV 8.4 fL (7.6-11.3); Platelets 123 thou/uL (152-406); RBC Red Blood Cell Count 2.58 M/uL (3.86-4.86)
[2023-07-21 11:12] LABS: Protime INR 5.69
--- NOTE | 2023-07-21 11:36 | RAD REPORT ---
[facility] 11[facility]02 am CLINICAL HISTORY: CONGESTION COMPARISON: Chest Single View dated 06/20/2023; Chest Single View dated 05/31/2023; Chest Single View dated 01/25/2023; Chest Single View dated 12/28/2022 TECHNIQUE: Portable AP view of the chest. FINDINGS: Patchy mid to lower lung airspace opacities worse on the right. Background interstitial pr ominence. The peripheral mid lung consolidative opacity has partially improved. No pneumothorax or e ffusion. The cardiomediastinal contours are unchanged. Sequelae of prior CABG and implantable rhythm monitoring device. IMPRESSION: Patchy mid to lower lung airspace opacities, with background interstitial prominence. Fi ndings may reflect pulmonary edema. Superimposed pneumonia cannot be entirely excluded, although the consolidative right midlung opacity seen on the prior exam has partially improved.
[2023-07-21 11:59] LABS: AST/SGOT 19 U/L (15-37); Albumin 2.7 g/dL (3.4-5.0); Alkaline Phosphatase 109 U/L (45-117); BUN Blood Urea Nitrogen 52 mg/dL (7-18); Bicarbonate 27 mEq/L (21-32); Bilirubin Direct 0.1 mg/dL (0-0.2); Bilirubin Indirect, Calculated 0.2 mg/dL (0.2-0.8); Bilirubin Total 0.3 mg/dL (0.2-1.0); Glomerular Filtration Rate 7 ml/min (=/>90); Glucose Level 210 mg/dL (74-106); Phosphorus 5.5 mg/dL (2.5-4.9); Potassium 4.7 mEq/L (3.5-5.1); Protein, Total 6.5 g/dL (6.4-8.2); Sodium Level 134 mEq/L (136-145); Troponin High Sensitivity 48.8 pg/mL (<58.9)
[2023-07-21 12:00] LABS: SARS-CoV-2 Antigen Rapid Res Negative (Negative)
[2023-07-21 12:04] LABS: Anisocytosis 1+; Blood Morphology Comment NOTED (NOT SEEN); Macrocytosis 1+; Platelet Estimate ADEQ
[2023-07-21 12:26] LABS: ALT/SGPT < 10 U/L (13-56)
--- NOTE | 2023-07-21 12:31 | EDPHYS ---
Physician Documentation [facility] Name: Consuelo Trujillo Age: 72 yrs Sex: Female : 1950 Arrival Date: 07/21/2023 Time: 10:01 Bed IV Therapy Private MD: ED Physician Raymon Blue HPI: 07/21 11:15 This 72 yrs old Female presents to ER via Wheelchair with complaints of snw Abdominal Swelling, Hand Swelling. 11:15 The patient presents with swelling to face, abdomen, needs inpatient dialysis. Onset: snw The symptoms/episode began/occurred acutely. The patient has experienced similar episodes in the past. It is unknown whether or not the patient has recently seen a physician. pt had dialysis Wednesday but it was incomplete. Arrives today with edema and weakness with BP 101/30. Historical: - Allergies: 10:16 PENICILLINS; iw 10:16 Hydrocodone-Acetaminophen; iw - Home Meds: 10:16 aspirin 81 mg Oral TbEC 1 tab once daily [Active]; atorvastatin 40 mg Oral tab 1 tab iw once daily [Active]; Bumex 1 mg Oral tab 1 tab 2 times per day [Active]; Coreg 6.25 mg Oral tab 1 tab 2 times per day [Active]; cyanocobalamin (vitamin B-12) 1 Oral cap [Active]; divalproex 500 mg Oral Tb24 2 tabs once daily [Active]; ferrous sulfate 325 mg (65 mg iron) Oral cpER [Active]; hydralazine 50 mg Oral tab every 8 hours [Active]; isosorbide dinitrate 10 mg Oral tab 1 tab 3 times per day [Active]; levothyroxine 200 mcg oral tablet daily [Active]; meclizine 12.5 mg Oral chew every 8 hours [Active]; mirtazapine 15 mg Oral tab 1 tab once daily [Active]; omeprazole 40 mg Oral cpDR 1 cap once daily [Active]; ranolazine 500 mg Oral Tb12 1 tab 2 times per day [Active]; tamsulosin 0.4 mg Oral cap 1 cap once daily [Active]; warfarin 3 mg Oral tab [Active]; - PMHx: 10:16 angina pectoris; depressive disorder; CHF; Anxiety; Hyperlipidemia; End stage renal iw disease; Sleep Apnea; chronic DVT; Hypertensive disorder; 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 - Social history:: Smoking status: Patient denies any tobacco usage or history of. ROS: 11:14 Eyes: Negative for injury, pain, redness, and discharge, ENT: Negative for injury, snw pain, and discharge, Neck: Negative for injury, pain, and swelling, Cardiovascular: Negative for chest pain, palpitations, and edema, Respiratory: Negative for shortness of breath, cough, wheezing, and pleuritic chest pain, Abdomen/GI: Negative for abdominal pain, nausea, vomiting, diarrhea, and constipation, Back: Negative for injury and pain, : Negative for injury, bleeding, discharge, and swelling, MS/Extremity: Negative for injury and deformity, Skin: Negative for injury, rash, and discoloration, Psych: Negative for depression, anxiety, suicide ideation, homicidal ideation, and hallucinations, 11:14 Constitutional: Positive for body aches, malaise, poor PO intake, edema, 11:14 Neuro: Positive for weakness, Exam: 11:12 ENT: Nares patent. No nasal discharge, no septal abnormalities noted. Tympanic snw membranes are normal and external auditory canals are clear. Oropharynx with no redness, swelling, or masses, exudates, or evidence of obstruction, uvula midline. Mucous membranes moist. Neck: Trachea midline, no thyromegaly or masses palpated, and no cervical lymphadenopathy. Supple, full range of motion without nuchal rigidity, or vertebral point tenderness. No Meningismus. Chest/axilla: Normal chest wall appearance and motion. Nontender with no deformity. No lesions are appreciated. 11:12 Respiratory: Lungs have equal breath sounds bilaterally, clear to auscultation and percussion. No rales, rhonchi or wheezes noted. No increased work of breathing, no retractions or nasal flaring. Abdomen/GI: Soft, non-tender, with normal bowel sounds. No distension or tympany. No guarding or rebound. No evidence of tenderness throughout. Back: No spinal tenderness. No costovertebral tenderness. Full range of motion. Psych: Awake, alert, with orientation to person, place and time. Behavior, mood, and affect are within normal limits. 11:12 Constitutional: The patient appears awake, listless, pale, 11:12 Head/face: Noted is swelling, that is moderate, 11:12 Eyes: Conjunctiva: pale, 11:12 Cardiovascular: Heart sounds: murmur, systolic, grade 3 over 6, Edema: generalized, 11:12 Neuro: Orientation: is normal, Mentation: is normal, seizure activity, is not displayed by the patient, gait not tested, + generalized weakness, Vital Signs: 10:13 BP 101 / 30; Pulse 65; Resp 16; Temp 98.4; Pulse Ox 92% on 2 lpm NC; Weight 81.65 kg; iw Height 5 ft. 2 in. ; 11:00 Pulse 63; Pulse Ox 96% on R/A; eh3 12:00 Pulse 66; Pulse Ox 98% on R/A; eh3 12:30 BP 111 / 25; Pulse 69; Resp 18; Pulse Ox 95% on 2 lpm NC; eh3 13:30 BP 104 / 44; Pulse 70; Resp 18; Pulse Ox 96% on R/A; eh3 14:30 BP 116 / 50; Pulse 71; Resp 18; Pulse Ox 96% on R/A; eh3 10:13 Body Mass Index 32.92 (81.65 kg, 157.48 cm) iw MDM: 10:37 Patient medically screened. snw 11:17 Differential diagnosis: fluid overload, electrolyte derangement. Data reviewed: vital snw signs, nurses notes. Historians other than the Patient: Spouse/Significant Other: . 12:30 Management of patient was discussed with the following: Hospitalist: Dr. Kemp to [facility] admit for dialysis. 07/21 10:33 Order name: Basic Metabolic Panel; Complete Time: 12:27 snw 07/21 10:33 Order name: CBC with Diff; Complete Time: 12:05 snw 07/21 10:33 Order name: LFT's; Complete Time: 12:27 snw 07/21 10:33 Order name: Magnesium; Complete Time: 12:27 snw 07/21 10:33 Order name: NT PRO-BNP; Complete Time: 12:27 snw 07/21 10:33 Order name: PT-INR; Complete Time: 11:49 snw 07/21 10:33 Order name: Troponin HS; Complete Time: 12:27 snw 07/21 10:33 Order name: Phosphorus; Complete Time: 12:27 snw 07/21 11:12 Order name: SARS RAPID; Complete Time: 12:05 snw 07/21 11:12 Order name: Flu; Complete Time: 12:05 snw 07/21 11:12 Order name: Lactate w/ 2H reflex if indic.; Complete Time: 12:05 snw 07/21 11:12 Order name: Blood Culture Adult (2) snw 07/21 11:50 Order name: Manual Differential; Complete Time: 12:05 EDMS 07/21 13:06 Order name: Thyroid Stimulating Hormone EDMS 07/21 13:06 Order name: Basic Metabolic Panel EDMS 07/21 13:06 Order name: Basic Metabolic Panel EDMS 07/21 13:06 Order name: Basic Metabolic Panel EDMS 07/21 13:06 Order name: Basic Metabolic Panel EDMS 07/21 13:06 Order name: CBC with Automated Diff EDMS 07/21 13:06 Order name: CBC with Automated Diff EDMS 07/21 13:06 Order name: CBC with Automated Diff EDMS 07/21 13:06 Order name: CBC with Automated Diff EDMS 07/21 13:06 Order name: Lipid Profile EDMS 07/21 13:06 Order name: Lipid Profile EDMS 07/21 13:06 Order name: Magnesium EDMS 07/21 13:06 Order name: Magnesium EDMS 07/21 13:06 Order name: Magnesium EDMS 07/21 13:06 Order name: Magnesium EDMS 07/21 13:06 Order name: Phosphorus EDMS 07/21 13:06 Order name: Phosphorus EDMS 07/21 13:06 Order name: Phosphorus EDMS 07/21 13:06 Order name: Phosphorus EDMS 07/21 13:06 Order name: Protime (+INR) EDMS 07/21 13:06 Order name: Protime (+INR) EDMS 07/21 13:06 Order name: Protime (+INR) EDMS 07/21 13:06 Order name: Protime (+INR) EDMS 07/21 10:33 Order name: XRAY Chest (1 view); Complete Time: 11:40 snw 07/21 10:33 Order name: EKG; Complete Time: 10:34 snw 07/21 13:06 Order name: CONS Physician Consult EDMS 07/21 10:33 Order name: Cardiac monitoring; Complete Time: 10:55 snw 07/21 10:33 Order name: EKG - Nurse/Tech; Complete Time: 11:25 snw 07/21 10:33 Order name: IV Saline Lock; Complete Time: 10:56 snw 07/21 10:33 Order name: Labs collected and sent; Complete Time: 10:56 snw 07/21 10:33 Order name: O2 Per Protocol; Complete Time: 10:56 snw 07/21 10:33 Order name: O2 Sat Monitoring; Complete Time: 10:56 snw 07/21 12:42 Order name: Misc. Order: recheck bp and change SUE to 2; Complete Time: 12:48 snw EC:20 Rate is 64 beats/min. Rhythm is regular. QRS interval is prolonged. T waves are snw Flattened in leads aVL, V1, V6. Clinical impression: NSR w/ Non-specific ST/T Changes. Administered Medications: No medications were administered Disposition: 16:29 I was immediately available on-site in the Emergency Department for consultation in the ms3 care of the patient. Disposition Summary: 07/21/23 12:30 Hospitalization Ordered Notes: Hospitalization Status: Inpatient Admission snw Provider: Sarthak Kemp snw Condition: Fair snw Problem: an acute exacerbation snw Symptoms: have worsened snw Bed/Room Type: Standard snw Location: Telemetry/MedSurg (Inpatient)(07/21/23 20:19) cg Room Assignment: [facility](07/21/23 20:19) cg Diagnosis - Dependence on renal dialysis snw - Fluid overload snw - Hypotension, unspecified snw Forms: - Medication Reconciliation Form snw - SBAR form snw - Leadership Thank You Letter snw Signatures: Dispatcher [employer] Bailee Frey FNP-Sy COMMISSARY HELPER-Csnw Noemy Bruce RN CRIS iw Guera Green RN RN cg Leal, Jahala, RN RN jl7 Raymon Blue DO DO ms3 Corrections: (The following items were deleted from the chart) 10:18 10:16 Allergies: hydrocodone bitartrate; iw iw 15:11 12:30 Telemetry/MedSurg (Inpatient) snw jl7 15:11 12:30 snw jl7 20:19 15:11 [facility] ER HOLD jl7 cg 20:19 15:11 ERHOLD- jl7 cg
--- NOTE | 2023-07-21 12:31 | ER ---
Nurse's Notes [facility] Name: Consuelo Trujillo Age: 72 yrs Sex: Female : 1950 Arrival Date: 07/21/2023 Time: 10:01 Bed IV Therapy Private MD: Diagnosis: Dependence on renal dialysis;Fluid overload;Hypotension, unspecified Presentation: 07/21 10:13 Chief complaint: Patient states: she is starting to get swollen in left hand and in her iw face, dialysis said they can' t take off all the fluid they need to, she didn't feel good last night , she's been feeling weak. Coronavirus screen: At this time, the client does not indicate any symptoms associated with coronavirus-19. Ebola Screen: Patient negative for fever greater than or equal to 101.5 degrees Fahrenheit, and additional compatible Ebola Virus Disease symptoms Patient denies exposure to infectious person. Patient denies travel to an Ebola-affected area in the 21 days before illness onset. No symptoms or risks identified at this time. Initial Sepsis Screen: Does the patient meet any 2 criteria? No. Patient's initial sepsis screen is negative. Does the patient have a suspected source of infection? No. Patient's initial sepsis screen is negative. Risk Assessment: Do you want to hurt yourself or someone else? Patient reports no desire to harm self or others. Onset of symptoms was July 20, 2023. 10:13 Method Of Arrival: Wheelchair iw 10:13 Acuity: SUE 2 eh3 Historical: - Allergies: 10:16 PENICILLINS; iw 10:16 Hydrocodone-Acetaminophen; iw - Home Meds: 10:16 aspirin 81 mg Oral TbEC 1 tab once daily [Active]; atorvastatin 40 mg Oral tab 1 tab iw once daily [Active]; Bumex 1 mg Oral tab 1 tab 2 times per day [Active]; Coreg 6.25 mg Oral tab 1 tab 2 times per day [Active]; cyanocobalamin (vitamin B-12) 1 Oral cap [Active]; divalproex 500 mg Oral Tb24 2 tabs once daily [Active]; ferrous sulfate 325 mg (65 mg iron) Oral cpER [Active]; hydralazine 50 mg Oral tab every 8 hours [Active]; isosorbide dinitrate 10 mg Oral tab 1 tab 3 times per day [Active]; levothyroxine 200 mcg oral tablet daily [Active]; meclizine 12.5 mg Oral chew every 8 hours [Active]; mirtazapine 15 mg Oral tab 1 tab once daily [Active]; omeprazole 40 mg Oral cpDR 1 cap once daily [Active]; ranolazine 500 mg Oral Tb12 1 tab 2 times per day [Active]; tamsulosin 0.4 mg Oral cap 1 cap once daily [Active]; warfarin 3 mg Oral tab [Active]; - PMHx: 10:16 angina pectoris; depressive disorder; CHF; Anxiety; Hyperlipidemia; End stage renal iw disease; Sleep Apnea; chronic DVT; Hypertensive disorder; 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 - Social history:: Smoking status: Patient denies any tobacco usage or history of. Screenin:40 [facility] ED Fall Risk Assessment (Adult) Score/Fall Risk Level 0 - 2 = Low Risk. Abuse eh3 screen: Denies threats or abuse. Denies injuries from another. Nutritional screening: No deficits noted. Tuberculosis screening: No symptoms or risk factors identified. Assessment: 10:40 General: Appears in no apparent distress. uncomfortable, Behavior is cooperative. Pain: eh3 Complains of pain in abdomen and right hand. Neuro: Level of Consciousness is awake, alert, obeys commands, Oriented to person, place, situation. Cardiovascular: Capillary refill < 3 seconds Patient's skin is warm and dry. Edema is 1+ to right hand. Respiratory: Airway is patent Respiratory effort is even, unlabored, Respiratory pattern is regular, symmetrical. GI: Abdomen is round Bowel sounds hypoactive in right upper quadrant, left upper quadrant, right lower quadrant and left lower quadrant Abd is soft X 4 quads Abdomen is tender to palpation X 4 quads. Derm: Skin is pink, warm \T\ dry. Musculoskeletal: Circulation, motion, and sensation intact. 11:30 Reassessment: Patient appears in no apparent distress at this time. Patient and/or eh3 family updated on plan of care and expected duration. Pain level reassessed. Patient is alert, oriented x 3, equal unlabored respirations, skin warm/dry/pink. 12:30 Reassessment: Patient appears in no apparent distress at this time. Patient and/or eh3 family updated on plan of care and expected duration. Pain level reassessed. Patient is alert, oriented x 3, equal unlabored respirations, skin warm/dry/pink. 13:30 Reassessment: Patient appears in no apparent distress at this time. Patient and/or eh3 family updated on plan of care and expected duration. Pain level reassessed. Patient is alert, oriented x 3, equal unlabored respirations, skin warm/dry/pink. 14:30 Reassessment: Patient appears in no apparent distress at this time. Patient and/or eh3 family updated on plan of care and expected duration. Pain level reassessed. Patient is alert, oriented x 3, equal unlabored respirations, skin warm/dry/pink. Vital Signs: 10:13 BP 101 / 30; Pulse 65; Resp 16; Temp 98.4; Pulse Ox 92% on 2 lpm NC; Weight 81.65 kg; iw Height 5 ft. 2 in. ; 11:00 Pulse 63; Pulse Ox 96% on R/A; eh3 12:00 Pulse 66; Pulse Ox 98% on R/A; eh3 12:30 BP 111 / 25; Pulse 69; Resp 18; Pulse Ox 95% on 2 lpm NC; eh3 13:30 BP 104 / 44; Pulse 70; Resp 18; Pulse Ox 96% on R/A; eh3 14:30 BP 116 / 50; Pulse 71; Resp 18; Pulse Ox 96% on R/A; eh3 10:13 Body Mass Index 32.92 (81.65 kg, 157.48 cm) iw ED Course: 10:05 Patient arrived in ED. gm2 10:08 Bailee Trujillo FNP-C is PHCP. snw 10:08 Raymon Blue DO is Attending Physician. snw 10:16 Triage completed. iw 10:18 Arm band placed on. iw 10:40 Patient has correct armband on for positive identification. Bed in low position. Call eh3 light in reach. Side rails up X2. Adult w/ patient. Provided Education on: Use of call ortega. Client placed on continuous cardiac and pulse oximetry monitoring. NIBP monitoring applied. 10:43 Shruthi Linton RN is Primary Nurse. eh3 10:59 Inserted saline lock: 22 gauge in right antecubital area, using aseptic technique. ds4 Blood collected. 11:04 XRAY Chest (1 view) In Process Unspecified. EDMS 12:28 Sarthak Kemp MD is Hospitalizing Provider. snw 15:00 No provider procedures requiring assistance completed. Patient admitted, IV remains in eh3 place. Administered Medications: No medications were administered Medication: 15:00 VIS not applicable for this client. 3 Outcome: 12:30 Decision to Hospitalize by Provider. snw 15:00 Admitted to ER Hold. Please see [facility] for further documentation. 3 15:00 Condition: stable 15:00 Instructed on the need for admit, 20:45 Admitted to Med/surg Other Pt currently in dialysis Report called to [facility] 21:03 Patient left the ED. 3 Signatures: Dispatcher [employer] EDMS Bailee Trujillo, TOWEL INSPECTOR-C TOWEL INSPECTOR-Csnw Noemy Bruce RN RN Merrill Vaughn ds4 Shruthi Linton RN RN 3 Analilia Diaz gm2 Corrections: (The following items were deleted from the chart) 10:18 10:16 Allergies: hydrocodone bitartrate; [facility] 12:47 10:13 Acuity: SUE 3 [facility]
[2023-07-21] MEDS ORDERED: MAGNESIUM HYDROXIDE 8% 30 ML PO PRN (12:59)
[2023-07-21] MEDS ORDERED: ALBUTEROL 2.5 MG/3 ML NEB SOL NEB PRN (12:59)
[2023-07-21] MEDS ORDERED: ACETAMINOPHEN 500 MG TAB PO PRN (12:59)
--- NOTE | 2023-07-21 13:09 | P.HP ---
Certification for Inpatient With expected LOS: <2 Midnights Patient will require the following post-hospital care: None Practitioner: I am a practitioner with admitting privileges, knowledge of patient current condition, hospital course, and medical plan of care. Services: Services provided to patient in accordance with Admission requirements found in Title 42 Section 412.3 of the Code of Federal Regulations Patient History Date of Service: 07/21/23 Reason for admission: Fatigue, fluid overload, missed hemodialysis History of Present Illness: 72-year-old female with a past medical history of congestive heart failure, hyperlipidemia, end-stage renal disease on hemodialysis, chronic DVT, hypertension, CVA with left-sided weakness, diabetes mellitus. Patient pr esented to the emergency room with complaining of severe weakness and malaise. Patient reports that she had dialysis on Wednesday but it was not complete. Patient came to the hospital today as she was too weak to go to the hemodialysis center. Patient denies palpitation, chest pain or shortness of breath. Patient denies fever, chills or weight loss. Patient is negative for injury, bleeding, discharge and swelling. ED course vital signs blood pressure 101/30, pulse 65, respirations 16, temperature 98.4, pulse ox 92% on 2 L of oxygen.. EKG showing sinus rhythm with right bundle branch block block with no specific ST/T changes. Chest x-ray shows patchy mild to lower lung and airspace opacities with background interstitial prominence may reflect pulmonary edema, superimposed pneumonia cannot be entirely excluded. Initial labs significant for low hemoglobin 9.4, elevated BUN 52, creatinine 6 with a GFR 7. Admitting the patient with the diagnosis of fluid overload, hypotension, end-stage renal failure dependence on renal dialysis. Allergies hydrocodone Allergy (Verified 11/22/21 16:55) Hives/Rash Penicillins Allergy (Verified 11/22/21 16:55) Hives/Rash Home Medications: Atorvastatin Calcium 40 mg PO DAILY 11/23/21 Hydralazine [Apresoline*] 50 mg PO TID 11/23/21 Mirtazapine 15 mg PO DAILY 11/23/21 Omeprazole [Prilosec] 40 mg PO DAILY 11/23/21 Ranolazine [Ranolazine ER] 500 mg PO BID 11/23/21 carvediloL [Carvedilol] 6.25 mg PO BID 11/23/21 Allopurinol 100 mg PO DAILY 12/28/22 Bumetanide [Bumex*] 1 mg PO BID 12/28/22 Nitroglycerin 0.4 mg SL DIRECTED PRN 12/28/22 Sodium Bicarbonate 650 mg PO BID 12/28/22 Warfarin Sodium [Coumadin*] 6 mg PO DAILY tab 01/29/23 Aspirin [Aspirin EC] 1 tab PO DAILY 05/31/23 Calcium Carbonate [Calcium] 1 tab PO DAILY 05/31/23 Cyanocobalamin (Vitamin B-12) [Vitamin B-12] 1 tab PO DAILY 05/31/23 Divalproex Sodium 2 tab PO DAILY 05/31/23 Levothyroxine [Synthroid*] 50 mcg PO DAILYAC 06/21/23 Divalproex Sodium 1 tab PO BEDTIME 06/22/23 Doxycycline Hyclate 100 mg PO BID 10 Days #20 tab 06/23/23 Prednisone [Sterapred Ds] 10 mg PO BID 7 Days #14 tab 06/23/23 levoFLOXacin [Levofloxacin] 750 mg PO AFTER EACH DIALYSIS 14 Days #6 06/23/23 Prednisone [Sterapred Ds] 10 mg PO BID 7 Days #14 tab 06/25/23 levoFLOXacin [Levaquin*] 750 mg PO DAILY 12 Days #6 tab 06/25/23 predniSONE [Deltasone*] 10 mg PO BID 7 Days #14 tab 06/25/23 - Past Medical/Surgical History Diabetic: Yes -: Chronic kidney disease stage V- HemoDialysis -: Chronic diastolic heart failure -: Hypertension -: Diabetes mellitus -: Hypothyroidism -: Coronary artery disease -: DVT -: CVA -: CABG -: Clemente knee replacement -: Fistula Left Upper Arm -: Right Subclavian Dialysis access - Family History Father -: Cancer, Other (see notes) Notes: Leukemia Mother -: Heart disease, Seizures - Social History Alcohol use: No CD- Drugs: No Caffeine use: No Review of Systems 10-point ROS is otherwise unremarkable Physical Examination - Physical Exam General: In no apparent distress, Oriented x3 HEENT: Atraumatic, Normocephalic, PERRLA Neck: Supple, 2+ carotid pulse no bruit Respiratory: Clear to auscultation bilaterally, Diminished (At the bases) Cardiovascular: Normal pulses, Normal S1 S2, Edema (1+ lower extremity edema) Capillary refill: <2 Seconds Gastrointestinal: Normal bowel sounds, Soft and benign, W/out succussion splash Musculoskeletal: No clubbing, Other (Multiple ecchymotic spots on the arms) Integumentary: No breakdown, Rash(es) (Multiple ecchymotic spots on the arms) Neurological: Normal speech, Normal tone, Normal affect - Studies Laboratory Data (last 24 hrs) 07/21/23 07/21/23 07/21/23 10:54 10:54 10:54 WBC 3.90 L Hgb 9.4 L Hct 28.1 L Plt Count 123 L PT 62.6 H INR 5.69 Sodium 134 L Potassium 4.7 BUN 52 H Creatinine 6.00 H Glucose 210 H Phosphorus 5.5 H Magnesium 2.0 Total Bilirubin 0.3 AST 19 ALT < 10 L Alkaline Phosphatase 109 Microbiology Data (last 24 hrs): 07/21/23 11:30 Nasopharnyx Influenza Type A Antigen Screen - Final 07/21/23 11:30 Nasopharnyx Influenza Type B Antigen Screen - Final Assessment and Plan - Problems (Diagnosis) (1) Acute on chronic diastolic heart failure Current Visit: No Status: Chronic Plan: Acute on chronic due to missed hemodialysis Admitted the patient Consulted Dr. Gómez Close monitoring of vital signs Continue oxygen 2 L/min to keep SPO2 above 92% Albuterol bronchodilators as needed for shortness of breath ordered Acute on chronic # Acute on Chronic Decompensated Systolic/Diastolic Congestive Heart Failure with unknown ejection Fraction Patient presents with symptoms of extreme fatigue and malaise. On exam, patient demonstrates minimal bilateral lower extremity edema, a. Patient reported that she missed dialysis due to extreme weakness. Chest x-ray shows pulmonary edema/ fluid overload. at this time, will admit for hemodialysis and medical optimization. - Ordered transthoracic echocardiogram - Continue home meds once patient is more stabilized - Daily weights - Strict I/O - Cardiac diet, 2 L fluid restriction, 2 g Na restriction . (2) Chronic kidney disease, stage V Current Visit: No Status: Chronic (3) ESRD (end stage renal disease) Current Visit: No Status: Chronic Plan: Chronic on hemodialysis 3 times a week Last dialysis on Wednesday incomplete Patient missed dialysis today With the fluid overload, needing new oxygen We will admit the patient in the hospital for dialysis and follow-up with spout worker Consulted spout worker Dr. Gómez (4) Malaise and fatigue Current Visit: Yes Status: Acute Plan: Acute severe fatigue and malaise since few days Patient missed dialysis today Chest x-ray showing fluid overload/pulmonary edema Admitted the patient contacted Dr. Childress for possible dialysis in the hospital We will continue to monitor (5) Constipation Current Visit: Yes Status: Acute Plan: Acute patient reports that patient did not have a bowel movement for last 10 days Denies abdominal pain, distention High-fiber diet Senna 8.62 capsule at bedtime Lactulose 30 mL p.o. twice daily as needed constipation Qualifiers: Constipation type: slow transit constipation Qualified Code(s): K59.01 - Slow transit constipation Discharge Plan: Home Plan to discharge in: 48 Hours - Advance Directives Does patient have a Living Will: No Does patient have a Durable POA for Healthcare: No - Code Status/Comfort Care Code Status Assessed: Yes (Full code) Code Status: Full Code Physician Review: Patient Assessed, Agree with Above Assessment and Plan Critical Care: Yes Time Spent Managing Pts Care (In Minutes): 55 (Minutes)
[2023-07-21] MEDS ORDERED: LACTULOSE 20 GM/30 ML UCUP PO PRN (13:11)
[2023-07-21 14:53] VITALS: BMI 32.9
[2023-07-21] MEDS: HEPARIN 5000 UNIT/ML 1 ML VIAL SQ SCH ×2 (17:00→23:56)
[2023-07-21] MEDS: DOCUSATE NA/SENNA CONC 1 TAB PO SCH (23:56)
[2023-07-22 00:17] LABS: Thyroid Stimulating Hormone 32.7 uIU/mL (0.358-3.740)
[2023-07-22 02:43] LABS: Absolute Lymphocytes (CBC) 0.9 K/uL (0.7-4.9); Hematocrit 27.4 % (36.0-45.0); Lymphocytes % 28.8 % (15.3-44.8); MPV 8.5 fL (7.6-11.3); Platelets 116 thou/uL (152-406); RBC Red Blood Cell Count 2.57 M/uL (3.86-4.86)
[2023-07-22 02:51] LABS: Protime INR 5.8
[2023-07-22 02:52] LABS: MCV 106.5 fL (80-100)
[2023-07-22 03:05] LABS: Phosphorus 3.7 mg/dL (2.5-4.9); Potassium 3.6 mEq/L (3.5-5.1)
[2023-07-22] MEDS ORDERED: SODIUM BICARB 325 MG TAB PO SCH (09:00)
[2023-07-22] MEDS ORDERED: HYDRALAZINE HCL 25 MG TABLET PO SCH (09:00)
[2023-07-22] MEDS: BUMETANIDE 1 MG TABLET PO SCH ×2 (09:43→18:03)
[2023-07-22] MEDS: allopurinoL 100 MG TAB PO SCH (09:43)
[2023-07-22] MEDS: DIVALPROEX DR 500MG TAB PO SCH ×2 (09:44→21:52)
[2023-07-22] MEDS: PANTOPRAZOLE 40MG TABLET PO SCH (09:44)
[2023-07-22] MEDS: CALCIUM CARBONATE 500 MG TAB PO SCH (09:44)
[2023-07-22] MEDS: CYANOCOBALAMIN 1,000 MCG TAB PO SCH (09:45)
[2023-07-22] MEDS: ASPIRIN EC 81 MG TAB PO SCH (09:45)
[2023-07-22] MEDS: HEPARIN 5000 UNIT/ML 1 ML VIAL SQ SCH ×2 (09:45→18:03)
[2023-07-22] MEDS: carvediloL 6.25 MG TAB PO SCH ×2 (09:45→21:51)
[2023-07-22] MEDS: ATORVASTATIN 40 MG TAB PO SCH (09:48)
--- NOTE | 2023-07-22 10:26 | P.PN ---
Subjective Date of Service: 07/22/23 Chief Complaint: Fatigue, fluid overload, missed hemodialysis Subjective: No new changes, Improving, Doing well Patient is alert and oriented Denies any new complaints Denies pain or discomfort, shortness of breath Patient is breathing normally on oxygen 2 L via nasal cannula Patient had hemodialysis last night Vital stable Adam with the nursing staff Review of Systems 10-point ROS is otherwise unremarkable Physical Examination - Vital Signs Temperature: 96.8 F Blood Pressure: 123/60 Pulse: 70 Respirations: 19 Pulse Ox (%): 95 - Physical Exam General: Alert, In no apparent distress, Oriented x3 HEENT: Atraumatic, Normocephalic Neck: Supple, 2+ carotid pulse no bruit Respiratory: Clear to auscultation bilaterally, Normal air movement Cardiovascular: No edema, Normal pulses, Normal S1 S2, Other (Left upper arm AV fistula) Capillary refill: <2 Seconds Gastrointestinal: Normal bowel sounds, Hypoactive, Non-distended Musculoskeletal: No clubbing, No swelling Integumentary: No rashes, No breakdown Neurological: Normal gait, Normal speech, Normal tone, Normal affect - Studies Laboratory Data (last 24 hrs) 07/21/23 07/21/23 07/21/23 10:54 10:54 10:54 WBC 3.90 L Hgb 9.4 L Hct 28.1 L Plt Count 123 L PT 62.6 H INR 5.69 Sodium 134 L Potassium 4.7 BUN 52 H Creatinine 6.00 H Glucose 210 H Phosphorus 5.5 H Magnesium 2.0 Total Bilirubin 0.3 AST 19 ALT < 10 L Alkaline Phosphatase 109 Microbiology Data (last 24 hrs): 07/21/23 11:30 Nasopharnyx Influenza Type A Antigen Screen - Final 07/21/23 11:30 Nasopharnyx Influenza Type B Antigen Screen - Final Assessment And Plan - Current Problems (Diagnosis) (1) Acute on chronic diastolic heart failure Current Visit: No Status: Chronic Plan: Acute on chronic due to missed hemodialysis Improving, breathing normally on 2 L of oxygen via nasal cannula, SPO2 96% Denies shortness of breath Close monitoring of vital signs Continue oxygen 2 L/min to keep SPO2 above 92% Albuterol bronchodilators as needed for shortness of breath ordered - Ordered transthoracic echocardiogram - Continue home meds once patient is more stabilized - Daily weights - Strict I/O - Cardiac diet, 2 L fluid restriction, 2 g Na restriction . (2) Chronic kidney disease, stage V Current Visit: No Status: Chronic (3) ESRD (end stage renal disease) Current Visit: No Status: Chronic Plan: Chronic on hemodialysis 3 times a week Patient was dialyzed last night Discussed with the patient about compliance with scheduled dialysis Patient voiced understanding -We will follow-up with train control technician Dr. Gómez (4) Malaise and fatigue Current Visit: Yes Status: Acute Plan: Acute, improving Patient had hemodialysis last night To follow directions Dr. Childress We will continue to monitor (5) Constipation Current Visit: Yes Status: Acute Plan: Acute patient reports that patient did not have a bowel movement for last 10 days Denies abdominal pain, distention High-fiber diet Senna 8.62 capsule at bedtime Lactulose 30 mL p.o. twice daily as needed constipation Qualifiers: Constipation type: slow transit constipation Qualified Code(s): K59.01 - Slow transit constipation Discharge Plan: Home Plan to discharge in: 24 Hours - Code Status/Comfort Care Code Status Assessed: Yes (Full code) Code Status: Full Code Physician Review: Patient Assessed, Agree with Above Assessment and Plan Critical Care: No Time Spent Managing PTS Care (In Minutes): 35 (Minutes)
[2023-07-22] MEDS ORDERED: EPOETIN 4,000 UNIT/ML VIAL IV SCH (12:45)
[2023-07-22] MEDS: HYDRALAZINE HCL 25 MG TABLET PO SCH ×2 (15:10→21:00)
--- NOTE | 2023-07-22 16:45 | CON ---
Date of Consultation: 07/22/2023 Reason For Consultation: Elevated BUN and creatinine, overvolume. 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 Patient according to her she came to the hospital. She was complaining from constipation, then started having some shortness of breath and c hest tightness, took nitroglycerin, had some relief, but her shortness of breath got worse. For that reason, patient was brought to the hospital. Upon arrival to the hospital, patient was found overvo lume. Patient missed her dialysis yesterday. For that reason, we took the patient for dialysis. Th e patient was hypoxemic down to 92. Patient today feeling better. Yesterday we managed to remove 2. 5 L. Today, we see her on the dialysis, we for 3 L. Past Medical History: Includes: 1.End-stage renal disease, on hemodialysis Wednesday, Wednesday, Wednesday at [facility]. 2.Diabetes complicated with the neuropathy and nephropathy. 3.Seizure. 4.CAD, status post cardiac arrest, status post CABG complicated with congestive heart failure, eject ion fraction of 45%, status post ICD. 5.Renal cyst. 6.Hyperlipidemia. Past Surgical History: Includes ICD, CABG, and the PermCath placement. Family History: Positive for diabetes and hypertension. Social History: Denied smoking. Denied drinking. Denied drugs abuse. Lives with the . Review of Systems: Head and Neck: No red eye. No ear pain. GI: No nausea. No vomiting. Has constipation. : No polyuria. No dysuria. No hematuria. 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 Respiratory: Has shortness of breath. Cardiovascular: Has chest tightness, has orthopnea. Endocrine: No polydipsia. Skin: No rash. Neuro: Has neuropathy. Musculoskeletal: Generalized fatigue. Physical Examination: General: When I saw the patient, patient lying in bed, slightly shortness of breath. Vital Signs: Blood pressure 123/60, pulse of 70, afebrile. Chest: Crackles, bilateral base. Heart: S1, S2. Systolic murmur. Abdomen: Soft, nontender. Extremities: Trace edema. Neurologic: Alert. No focality. Laboratory Data: Hemoglobin 9.3, sodium 136, potassium 3.6, bicarb 30, BUN 34, creatinine 4.3, calci um 7.7, phosphorus 3.7, magnesium of 2. Current Medications: The patient on, it includes: 1.Atorvastatin. 2.Carvedilol 6.25 b.i.d. 3.Hydralazine 50 t.i.d. 4.Ranexa. 5.Mirtazapine. 6.Bumex 1 mg b.i.d. 7.Sodium bicarb. 8.Levothyroxine. 9.Allopurinol. Assessment And Plan: 1.End-stage renal disease, overvolume. We dialyzed the patient yesterday and today, currently back to normal volume. I am going to back the patient to her regular dialysis schedule Wednesday, Wednesday, Wednesday. We will dialyze her tomorrow and we will continue to monitor the patient. 2.Hypertension, controlled, optimal. I am going to go ahead and decrease her hydralazine to 25 mg t o avoid any further low blood pressure. 3.Acidosis. The patient is going to be corrected with the dialysis. I am going to discontinue any sodium bicarb. 4.Congestive heart failure with exacerbation as above. Currently, normal volume. Follow up with ca rdiology. Back to her schedule 3 times a week on the dialysis. 5.Secondary hyperparathyroidism. Continue calcium carbonate. 6.Anemia of chronic kidney disease. Resume Retacrit. 7.Diabetes, as by primary. JUANITA/KERI Voice ID: [id number] Report ID: [id number]
[2023-07-22] MEDS: DOCUSATE NA/SENNA CONC 1 TAB PO SCH (21:52)
[2023-07-22] MEDS: MIRTAZAPINE 15 MG TAB PO SCH (21:52)
[2023-07-22 22:56] LABS: Hepatitis B surface AG Interp. Nonreactive (Nonreactive)
[2023-07-23] MEDS: HEPARIN 5000 UNIT/ML 1 ML VIAL SQ SCH ×3 (01:32→16:43)
[2023-07-23 02:45] LABS: Absolute Lymphocytes (CBC) 1.1 K/uL (0.7-4.9); Hematocrit 27.2 % (36.0-45.0); Lymphocytes % 37.2 % (15.3-44.8); MCV 106.4 fL (80-100); MPV 8.8 fL (7.6-11.3); Platelets 116 thou/uL (152-406); RBC Red Blood Cell Count 2.56 M/uL (3.86-4.86)
[2023-07-23 02:46] LABS: Protime INR 1.86
[2023-07-23 03:06] LABS: Magnesium 1.8 mg/dL (1.6-2.4); Phosphorus 3.7 mg/dL (2.5-4.9); Potassium 3.6 mEq/L (3.5-5.1)
[2023-07-23] MEDS: LEVOTHYROXINE SOD 0.1 MG TAB PO SCH (06:01)
--- NOTE | 2023-07-23 06:57 | P.PN ---
Subjective Date of Service: 07/23/23 Primary Care Provider: Dr. Iraheta Chief Complaint: Fatigue, fluid overload, missed hemodialysis Subjective: Improving Review of Systems 10-point ROS is otherwise unremarkable Physical Examination - Vital Signs Temperature: 97.6 F Blood Pressure: 160/65 Pulse: 82 Respirations: 18 Pulse Ox (%): 97 - Physical Exam General: Alert, In no apparent distress, Obese HEENT: Atraumatic, Normocephalic Neck: Supple, 2+ carotid pulse no bruit Respiratory: Normal air movement, Diminished Cardiovascular: Edema Capillary refill: <2 Seconds Gastrointestinal: Normal bowel sounds, Soft and benign Musculoskeletal: No clubbing, No swelling Integumentary: No rashes, No breakdown Neurological: Normal speech, Normal strength at 5/5 x4 extr Urinary: Dialysis catheter Assessment And Plan - Plan Assessment and plan end-stage renal disease on hemodialysis Nephrology consult, fluid restriction, I&O, Dialysis Wednesday Acute on chronic heart failure secondary to fluid volume overload Telemetry, diuretics, resume dialysis per nephrology Elevated BNP 355812 Troponin normal 48.8 Trend BNP Chest x-ray IMPRESSION: Patchy mid to lower lung airspace opacities, with background interstitial prominence. Findings may reflect pulmonary edema. Superimposed pneumonia cannot be entirely excluded, although the consolidative right midlung opacity seen on the prior exam has partially improved Essential hypertension Resume appropriate home meds As needed hydralazine Anemia secondary chronic kidney disease Trend H&H, History of DVT Supratherapeutic INR Coumadin resumed today, daily INRs Hyperparathyroidism Continue appropriate home meds calcium carbonate Full code DVT heparin Diet renal Discharge Plan: Home Plan to discharge in: 48 Hours Physician Review: Patient Assessed, Agree with Above Assessment and Plan Critical Care: No Time Spent Managing PTS Care (In Minutes): 35
[2023-07-23] MEDS: PANTOPRAZOLE 40MG TABLET PO SCH (09:46)
[2023-07-23] MEDS: HYDRALAZINE HCL 25 MG TABLET PO SCH ×3 (09:47→20:47)
[2023-07-23] MEDS: DIVALPROEX DR 500MG TAB PO SCH ×2 (09:47→20:48)
[2023-07-23] MEDS: ASPIRIN EC 81 MG TAB PO SCH (09:47)
[2023-07-23] MEDS: BUMETANIDE 1 MG TABLET PO SCH ×2 (09:47→16:41)
[2023-07-23] MEDS: ATORVASTATIN 40 MG TAB PO SCH (09:47)
[2023-07-23] MEDS: carvediloL 6.25 MG TAB PO SCH ×2 (09:47→20:47)
[2023-07-23] MEDS: allopurinoL 100 MG TAB PO SCH (09:48)
[2023-07-23] MEDS: CALCIUM CARBONATE 500 MG TAB PO SCH (09:48)
[2023-07-23] MEDS: CYANOCOBALAMIN 1,000 MCG TAB PO SCH (09:48)
--- NOTE | 2023-07-23 14:26 | P.PN ---
Subjective Date of Service: 07/23/23 Chief Complaint: Fatigue, fluid overload, missed hemodialysis Subjective: Other (Received HD today.) Physical Examination - Vital Signs Temperature: 96.8 F Blood Pressure: 140/59 Pulse: 78 Respirations: 17 Pulse Ox (%): 98 - Physical Exam General: Other (chronically ill-appearing) HEENT: Atraumatic, Normocephalic Neck: Supple Respiratory: Other (symmetric chest expansion) Cardiovascular: No rubs, No murmurs Gastrointestinal: No rebound Musculoskeletal: No clubbing Integumentary: No warmth Neurological: Normal tone Urinary: Other (no bladder distention) External genitalia: Deferred Rectal: Deferred Assessment And Plan - Plan 1. End-stage renal disease, overvolume. HD received today. 2. Hypertension, controlled, optimal. Cont current med regimen. 3. Acidosis. HD as above. 4. Congestive heart failure with exacerbation as above. Currently, normal volume. Follow up with cardiology. Back to her schedule 3 times a week on the dialysis. 5. Secondary hyperparathyroidism. Continue calcium carbonate. 6. Anemia of chronic kidney disease. Resume Retacrit. 7. Diabetes, as by primary. 8. Dispo. [place] plan to rehab facility ongoing. Physician Review: Patient Assessed, Agree with Above Assessment and Plan
[2023-07-23] MEDS ORDERED: WARFARIN SODIUM 6 MG TAB PO SCH (17:00)
[2023-07-23] MEDS: DOCUSATE NA/SENNA CONC 1 TAB PO SCH (20:48)
[2023-07-23] MEDS: MIRTAZAPINE 15 MG TAB PO SCH (20:48)
[2023-07-24] MEDS: HEPARIN 5000 UNIT/ML 1 ML VIAL SQ SCH ×2 (01:39→08:49)
[2023-07-24 02:08] VITALS: TEMP 96.8
[2023-07-24 03:16] LABS: Absolute Lymphocytes (CBC) 1.3 K/uL (0.7-4.9); Hematocrit 28.7 % (36.0-45.0); Lymphocytes % 35.2 % (15.3-44.8); MCV 105.9 fL (80-100); MPV 8.8 fL (7.6-11.3); Platelets 126 thou/uL (152-406); RBC Red Blood Cell Count 2.71 M/uL (3.86-4.86)
[2023-07-24 03:17] LABS: Protime INR 1.23
[2023-07-24 04:07] LABS: Magnesium 2.2 mg/dL (1.6-2.4); Phosphorus 3.7 mg/dL (2.5-4.9)
[2023-07-24] MEDS: LEVOTHYROXINE SOD 0.1 MG TAB PO SCH (06:15)
[2023-07-24] MEDS ORDERED: LEVOTHYROXINE SOD 0.05 MG TABLET PO SCH (06:30)
--- NOTE | 2023-07-24 07:34 | P.PN ---
Subjective Date of Service: 07/24/23 Primary Care Provider: Dr. Iraheta Chief Complaint: Fatigue, fluid overload, missed hemodialysis Physical Examination - Vital Signs Temperature: 96.8 F Blood Pressure: 138/91 Pulse: 75 Respirations: 16 Pulse Ox (%): 99 Assessment And Plan - Plan Assessment and plan Fluid volume over load end-stage renal disease on hemodialysis acute Nephrology consult, fluid restriction, I&O, Dialysis Wednesday Acute on chronic heart failure secondary to fluid volume overload Telemetry, diuretics, resume dialysis per nephrology (had 3 days of consec HD) Elevated BNP 825177 Troponin normal 48.8 Trend BNP Chest x-ray IMPRESSION: Patchy mid to lower lung airspace opacities, with background interstitial prominence. Findings may reflect pulmonary edema. Superimposed pneumonia cannot be entirely excluded, although the consolidative right midlung opacity seen on the prior exam has partially improved Chronic DVT chronic anticoaguation Coumadin resumed, daily INR ordered Pharm consulted for dosing based on daily INR Generalized weakness PT eval, pt/family discussed DC Plan, will to Short term snf for rehab after DC, order placed for SS to eval Essential hypertension Resume appropriate home meds As needed hydralazine Anemia secondary chronic kidney disease Trend H&H, History of DVT Supratherapeutic INR Coumadin resumed today, daily INRs Hyperparathyroidism Continue appropriate home meds calcium carbonate Full code DVT heparin Diet renal Discharge Plan: Custodial - Code Status/Comfort Care Code Status: Full Code Physician Review: Patient Assessed, Agree with Above Assessment and Plan Critical Care: No Time Spent Managing PTS Care (In Minutes): 35
[2023-07-24 08:18] VITALS: BP 140/59
[2023-07-24] MEDS: CALCIUM CARBONATE 500 MG TAB PO SCH (08:48)
[2023-07-24] MEDS: BUMETANIDE 1 MG TABLET PO SCH (08:48)
[2023-07-24] MEDS: ATORVASTATIN 40 MG TAB PO SCH (08:48)
[2023-07-24] MEDS: HYDRALAZINE HCL 25 MG TABLET PO SCH (08:48)
[2023-07-24] MEDS: DIVALPROEX DR 500MG TAB PO SCH (08:48)
[2023-07-24] MEDS: carvediloL 6.25 MG TAB PO SCH (08:49)
[2023-07-24] MEDS: CYANOCOBALAMIN 1,000 MCG TAB PO SCH (08:49)
[2023-07-24] MEDS: PANTOPRAZOLE 40MG TABLET PO SCH (08:49)
[2023-07-24] MEDS: allopurinoL 100 MG TAB PO SCH (08:49)
[2023-07-24] MEDS: ASPIRIN EC 81 MG TAB PO SCH (08:49)
[2023-07-24 09:21] VITALS: O2SAT 99
--- NOTE | 2023-07-24 11:22 | P.DS ---
Admission Date: 07/21/23 Discharge Date: 07/24/23 Disposition: ROUTINE DISCHARGE Discharge Condition: FAIR Reason for Admission: Fatigue, fluid overload, missed hemodialysis - Problems (1) ESRD (end stage renal disease) on dialysis Current Visit: Yes Status: Acute Brief History of Present Illness: 72-year-old female with a past medical history of congestive heart failure, hyperlipidemia, end-stage renal disease on hemodialysis, chronic DVT, hypertension, CVA with left-sided weakness, diabetes mellitus. Patient presented to the emergency room with complaining of severe weakness and malaise. Patient reports that she had dialysis on Wednesday but it was not complete. Patient came to the hospital today as she was too weak to go to the hemodialysis center. Patient denies palpitation, chest pain or shortness of breath. Patient denies fever, chills or weight loss. Patient is negative for injury, bleeding, discharge and swelling. ED course vital signs blood pressure 101/30, pulse 65, respirations 16, temperature 98.4, pulse ox 92% on 2 L of oxygen.. - Physical Exam General: Alert, In no apparent distress, Obese HEENT: Atraumatic, Normocephalic Neck: Supple, 2+ carotid pulse no bruit Respiratory: Normal air movement, Diminished Cardiovascular: Edema Capillary refill: <2 Seconds Gastrointestinal: Normal bowel sounds, Soft and benign Musculoskeletal: No clubbing, No swelling Integumentary: No rashes, No breakdown Neurological: Normal speech, Normal strength at 5/5 x4 extr Urinary: Dialysis catheter Assessment And Plan Hospital Course: Ms. Jc was treated for fluid volume overload secondary to end-stage renal disease on hemodialysis. Had 3 days of dialysis while inpatient. Ambulated with physical therapy 250 feet prior to discharge. Plan to discharge home with as primary caregiver. Follow-up with PCP in 7 to 10 days. Continued with dialysis Wednesday. Resume home medications. Diet as tolerated, activity as tolerated. Return to the emergency room for worsening of symptoms. Vital Signs/Physical Exam: Temp Pulse Resp BP Pulse Ox 96.8 F 78 17 140/59 L 98 07/24/23 08:18 07/24/23 08:18 07/24/23 08:18 07/24/23 08:18 07/24/23 08:18 General: Alert, In no apparent distress, Oriented x3 HEENT: Atraumatic, Normocephalic, PERRLA Neck: Supple, 2+ carotid pulse no bruit Respiratory: Clear to auscultation bilaterally, Normal air movement Cardiovascular: No edema, Normal pulses, Regular rate/rhythm Capillary refill: <2 Seconds Gastrointestinal: Normal bowel sounds, Soft and benign Musculoskeletal: No clubbing, No swelling Integumentary: No rashes, No breakdown Laboratory Data at Discharge: WBC 3.70 thou/uL (4.3-10.9) L 07/24/23 03:01 Hgb 9.8 g/dL (12.0-15.0) L 07/24/23 03:01 Hct 28.7 % (36.0-45.0) L 07/24/23 03:01 Plt Count 126 thou/uL (152-406) L 07/24/23 03:01 PT 13.5 SECONDS (9.5-12.5) H 07/24/23 03:01 INR 1.23 07/24/23 03:01 Sodium 133 mEq/L (136-145) L 07/24/23 03:01 Potassium 4.0 mEq/L (3.5-5.1) 07/24/23 03:01 BUN 29 mg/dL (7-18) H 07/24/23 03:01 Creatinine 3.78 mg/dL (0.55-1.02) H 07/24/23 03:01 Glucose 160 mg/dL (74-106) H 07/24/23 03:01 Phosphorus 3.7 mg/dL (2.5-4.9) 07/24/23 03:01 Magnesium 2.2 mg/dL (1.6-2.4) 07/24/23 03:01 Total Bilirubin 0.3 mg/dL (0.2-1.0) 07/21/23 10:54 AST 19 U/L (15-37) 07/21/23 10:54 ALT < 10 U/L (13-56) L 07/21/23 10:54 Alkaline Phosphatase 109 U/L (45-117) 07/21/23 10:54 Triglycerides 189 mg/dL (<150) H 07/22/23 02:24 Cholesterol 148 mg/dL (<200) 07/22/23 02:24 HDL Cholesterol 46 mg/dL (40-60) 07/22/23 02:24 Cholesterol/HDL Ratio 3.22 07/22/23 02:24 Home Medications: Atorvastatin Calcium 40 mg PO DAILY 11/23/21 Hydralazine [Apresoline*] 50 mg PO TID 11/23/21 Mirtazapine 15 mg PO DAILY 11/23/21 Omeprazole [Prilosec] 40 mg PO DAILY 11/23/21 Ranolazine [Ranolazine ER] 500 mg PO BID 11/23/21 carvediloL [Carvedilol] 6.25 mg PO BID 11/23/21 Allopurinol 100 mg PO DAILY 12/28/22 Bumetanide [Bumex*] 1 mg PO BID 12/28/22 Nitroglycerin 0.4 mg SL DIRECTED PRN 12/28/22 Sodium Bicarbonate 650 mg PO BID 12/28/22 Warfarin Sodium [Coumadin*] 6 mg PO DAILY tab 01/29/23 Aspirin [Aspirin EC] 1 tab PO DAILY 05/31/23 Calcium Carbonate [Calcium] 1 tab PO DAILY 05/31/23 Cyanocobalamin (Vitamin B-12) [Vitamin B-12] 1 tab PO DAILY 05/31/23 Divalproex Sodium 1 tab PO BID 05/31/23 Levothyroxine [Synthroid*] 50 mcg PO DAILYAC 06/21/23 Divalproex Sodium 1 tab PO BEDTIME 06/22/23 Docusate/Senna [Senokot-S*] 2 tab PO BEDTIME tab 07/23/23 Levothyroxine [Synthroid*] 0.1 mg PO DAILYAC tab 07/23/23 Physician Discharge Instructions: Resume home medications Continue with dialysis Wednesday -Follow up with PCP in 1 to 2 weeks -Please call nursing station [phone] if you have any questions regarding your medications, or hospital stay -Please return to the emergency department if your symptoms worsen Followup: Surya Saldana DO [Primary Care Provider] -
[2023-07-24] MEDS ORDERED: DOCUSATE NA/SENNA CONC 1 TAB PO PRN (12:18)
--- NOTE | 2023-07-24 14:22 | EKG ---
Test Date: 2023-07-21 Test Time: 11:20:50 Lease Examiner: JS MEASUREMENT RESULTS: Intervals: Rate: 64 NE: 172 QRSD: 180 QT: 534 QTc: 550 [place]: P: 69 NE: 172 QRS: 132 T: 68 INTERPRETIVE STATEMENTS: Normal sinus rhythm Right bundle branch block Abnormal ECG Compared to ECG 06/20/2023 14:29:06 Left posterior fascicular block no longer present Bifascicular block no longer present Electronically Signed On 07-24-23 14:11:46 SUBASSEMBLY SUPERVISOR by Alessio Hyman
[2023-07-24] MEDS ORDERED: WARFARIN SODIUM 1 MG TAB PO SCH (17:00)
--- NOTE | 2023-07-24 23:37 | PN ---
Date of Progress Note: 07/24/2023 Chief Complaint: End-stage renal disease, fatigue, and fluid overload. The patient missed dialysis and she received dialysis yesterday in the hospital. Review of Systems: Denies chest pain or palpitation. She is feeling better. She denies dyspnea. Denies fatigue. Physical Examination: Lungs: Clear to auscultation bilaterally. Heart: S1 and S2. Abdomen: Soft. Extremities: No edema. Impression And Plan: 1.End-stage renal disease. The patient presented with fluid overload, received dialysis yesterday. She has stable volemia. 2.Hypertension, controlled optimal. Continue current medication regimen. 3.Acidosis. Dialysis was done to treat metabolic acidosis related to end-stage renal disease. 4.Congestive heart failure exacerbation. The patient had fluid overload and received dialysis for v olume control. The patient will follow up with Cardiology. 5.Secondary hyperparathyroidism. Continue calcium carbonate. 6.Anemia of chronic kidney disease. Resume Retacrit. 7.Diabetes mellitus per primary team. DEA/KERI Voice ID: [id number] Report ID: [id number]
--- NOTE | 2023-07-26 08:01 | ECHO ---
HEIGHT: 5 ft 2 in WEIGHT: 180 lb 0 oz DATE OF STUDY: 07/23/[address]: Tanmay Light NP 2-DIMENSIONAL: YES M.MODE: YES DOPPLER: YES COLOR FLOW: YES TDS: PORTABLE: YES DEFINITY: BUBBLE STUDY: DIAGNOSIS: CONGESTIVE HEART FAILURE CARDIAC HISTORY: CATHERIZATION: YES SURGERY: YES PROSTHETIC VALVE: NO PACEMAKER: NO MEASUREMENTS (cm) DIASTOLIC (NORMALS) SYSTOLIC (NORMALS) IVSd 1.3 (0.6-1.2) LA Diam 3.1 (1.9-4.0) LVEF 35-40% LVIDd 5.0 (3.5-5.7) LVIDs 4.4 (2.0-3.5) %FS 11% LVPWd 1.3 (0.6-1.2) Ao Diam 2.6 (2.0-3.7) 2 DIMENSIONAL ASSESSMENT: RIGHT ATRIUM: NORMAL LEFT ATRIUM: NORMAL RIGHT VENTRICLE: NORMAL LEFT VENTRICLE: DEPRESSED EJECTION FRACTION TRICUSPID VALVE: MODERATE MITRAL VALVE: MILD MITRAL REGURGITATION PULMONIC VALVE: NORMAL AORTIC VALVE: CALCIFIED AORTIC VALVE PERICARDIAL EFFUSION: NONE AORTIC ROOT: NORMAL LEFT VENTRICULAR WALL MOTION: MODERATE GLOBAL HYPOKINESIS DOPPLER/COLOR FLOW: SEE BELOW COMMENTS: 1. VERY POOR WINDOWS 2. LEFT VENTRICULAR EJECTION FRACTION APPEARS MODERATELY DEPRESSED 3. MODERATE DIASTOLIC DYSFUNCTION 4. MILD TO MODERATE MITRAL REGURGITATION 5. MODERATE TRICUSPID REGURGITATION 6. SEVERE PULMONARY HYPERTENSION WITH RIGHT VENTRICULAR SYSTOLIC PRESSURE GREATER THAN 60 mmHg TECHNOLOGIST: MERRITT CABRAL
== END 2023-07-24 12:30 | disposition home or self-care (01) | DRG 291 ==
LOC: ER 10:01 → ERHOLD 12:57 → 2ND 20:49
PROVIDERS: ADMIT Internal Medicine Nephrology; ATTEND Internal Medicine Nephrology
PROC: 5A1D70Z Performance of Urinary Filtration, Intermittent, Less than 6 Hours Per Day (ICD-10-PCS; principal; 2023-07-21)
DX: I13.2 Hypertensive heart and chronic kidney disease with heart failure and with stage 5 chronic kidney disease, or end stage renal disease (principal); I50.43 Acute on chronic combined systolic (congestive) and diastolic (congestive) heart failure; N18.6 End stage renal disease; E87.20 Acidosis, unspecified; N25.81 Secondary hyperparathyroidism of renal origin; E11.22 Type 2 diabetes mellitus with diabetic chronic kidney disease; E11.40 Type 2 diabetes mellitus with diabetic neuropathy, unspecified; D63.1 Anemia in chronic kidney disease; E78.5 Hyperlipidemia, unspecified; E03.9 Hypothyroidism, unspecified; I45.10 Unspecified right bundle-branch block; K59.01 Slow transit constipation; N28.1 Cyst of kidney, acquired; K21.9 Gastro-esophageal reflux disease without esophagitis; I25.10 Atherosclerotic heart disease of native coronary artery without angina pectoris; Z99.2 Dependence on renal dialysis; Z95.1 Presence of aortocoronary bypass graft; Z88.0 Allergy status to penicillin; Z88.5 Allergy status to narcotic agent; Z79.82 Long term (current) use of aspirin; Z11.52 Encounter for screening for COVID-19; Z79.52 Long term (current) use of systemic steroids; Z79.02 Long term (current) use of antithrombotics/antiplatelets; Z79.01 Long term (current) use of anticoagulants; Z86.73 Personal history of transient ischemic attack (TIA), and cerebral infarction without residual deficits; Z79.899 Other long term (current) drug therapy; Z86.718 Personal history of other venous thrombosis and embolism; Z79.890 Hormone replacement therapy; Z28.310 Unvaccinated for COVID-19; Z91.158 Patient's noncompliance with renal dialysis for other reason; Z96.653 Presence of artificial knee joint, bilateral
CPT/HCPCS: 36415; 71045; 80048; 80061; 80076; 83605; 83735; 83880; 84100; 84439; 84443; 84484; 85025; 85610; 87040; 87340; 87804; 87811; 90935; 93005; 93306; 97116; 99285; J1644; Q5105

== ENCOUNTER 2023-08-04 08:28 | Emergency (ER) | payer OTHER ==
[2023-08-04 09:50] LABS: Absolute Lymphocytes (CBC) 1.2 K/uL (0.7-4.9); Hematocrit 27.5 % (36.0-45.0); Lymphocytes % 26.9 % (15.3-44.8); MCV 108.2 fL (80-100); MPV 8.9 fL (7.6-11.3); Platelets 170 thou/uL (152-406); RBC Red Blood Cell Count 2.54 M/uL (3.86-4.86)
[2023-08-04 09:52] LABS: Specific Gravity 1.025 (1.005-1.030); Urine Bacteria <20 /HPF (<20); Urine Bilirubin NEGATIVE (Negative); Urine Blood Trace (Negative); Urine Clarity Extremely Turbid (Clear); Urine Color Light-Orange (Yellow); Urine Glucose NEGATIVE (Negative); Urine Mucus Slight /HPF (None Seen); Urine Protein 3+ (Negative); Urine RBC >50 /HPF (None Seen); Urine Urobilinogen Normal (Normal); Urine pH 5.5 (5.0-7.0)
--- NOTE | 2023-08-04 10:04 | RAD REPORT ---
EXAM DESCRIPTION: CT - Head C Spine Cap Wo Con - 08/04/2023 8:56 am CLINICAL HISTORY: TRAUMA COMPARISON: No comparisons TECHNIQUE: Head and cervical spine CT images were obtained without IV contrast. Chest, abdomen, and pelvis CT images were obtained also without IV contrast. Multiplanar reformats were generated and rev iewed. All CT scans are performed using dose optimization technique as appropriate and may include automated exposure control or mA/KV adjustment according to patient size. FINDINGS: CT HEAD: No intracranial hemorrhage, mass effect, or edema. No evidence of acute territorial infarct. No midli ne shift or abnormal fluid collection. The ventricles are normal in caliber and configuration for age . Basal cisterns are patent. Mastoid aircells and paranasal sinuses are clear. No acute skull fractur e. Left periorbital soft tissue swelling. CT CERVICAL SPINE: No acute cervical spine fracture or subluxation. Vertebral body heights are well maintained. Facet ayo ints are normal in alignment. No hyperattenuating canal hematoma. Prevertebral and paraspinous soft t issues are unremarkable. CT CHEST: No pneumothorax, or evidence of a pulmonary contusion. Small to moderate left and small right pleural effusions. Central interstitial edematous changes and subsegmental dependent atelectasis. Decreased distention of the central airways, may relate to expiratory phase. No mediastinal hematoma and the ao rta and pulmonary arteries are unremarkable. No chest will mass or abnormal axillary finding. No disp laced rib fracture or other significant bony finding. CT ABDOMEN/ PELVIS: No evidence of traumatic injury to solid abdominal viscera. Gallbladder is contracted limiting evalua tion. Small calculus near the neck. . No bowel injury or significant finding. No free air, free fluid or abnormal fat stranding. No urinary bladder abnormality. IVC filter in place. Broad-based infraumb ilical ventral hernia containing nondistended small bowel. No significant bony finding. Asymmetric soft tissue swelling along the right gluteal region with subcutaneous no localized hematom a. Body wall edema more so along the left flank. Mild free ascites. Findings may relate to third-spac ing/fluid overload. IMPRESSION: Left periorbital soft tissue swelling. Asymmetric soft tissue swelling along the right gluteal region with subcutaneous no localized hematom a. No other acute traumatic findings. Bilateral pleural effusions, larger on the left. Central interstitial edematous changes. Findings sug gests a degree of pulmonary edema, although decreased inspiratory effort limits evaluation. Body wall edema more so along the left flank. Mild free ascites. Findings may relate to third-spacing /fluid overload. Other incidental findings as above.
[2023-08-04 10:13] LABS: Albumin 2.7 g/dL (3.4-5.0); Bilirubin Direct 0.1 mg/dL (0-0.2); Bilirubin Indirect, Calculated 0.2 mg/dL (0.2-0.8); Bilirubin Total 0.3 mg/dL (0.2-1.0); Magnesium 1.9 mg/dL (1.6-2.4); Potassium 4.1 mEq/L (3.5-5.1); Protein, Total 6.2 g/dL (6.4-8.2)
[2023-08-04 10:15] LABS: Troponin High Sensitivity 82.7 pg/mL (<58.9)
[2023-08-04 10:22] LABS: SARS-CoV-2 Antigen Rapid Res Negative (Negative)
[2023-08-04] MEDS ORDERED: CEFTRIAXONE 1000 MG/VIAL ONE (10:33)
[2023-08-04] MEDS ORDERED: FLUCONAZOLE 100 MG TAB ONE (10:33)
[2023-08-04] MEDS ORDERED: NA CHLORIDE 0.9% 50 ML ONE (10:33)
[2023-08-04 10:35] LABS: Blood Morphology Comment NOTED (NOT SEEN); Macrocytosis 1+; Platelet Estimate ADEQ; White Blood Cell Scan OK (OK)
--- NOTE | 2023-08-04 11:10 | ER ---
Nurse's Notes [facility] Name: Consuelo Trujillo Age: 72 yrs Sex: Female : 1950 Arrival Date: 08/04/2023 Time: 08:28 Bed 5 Private MD: Diagnosis: UTI/ Urinary tract infection, site not specified;Fall on same level, unspecified Presentation: 08/04 08:44 Chief complaint: Spouse and/or significant other states: she fell yesterday while iw cooking, fell on her left side, today she told me she may have hit her head, she has been very weak today and seems swollen. 08:44 Acuity: SUE 3 iw 09:08 Coronavirus screen: At this time, the client does not indicate any symptoms associated hb with coronavirus-19. Ebola Screen: No symptoms or risks identified at this time. Initial Sepsis Screen: Does the patient meet any 2 criteria? No. Patient's initial sepsis screen is negative. Does the patient have a suspected source of infection? No. Patient's initial sepsis screen is negative. Risk Assessment: Do you want to hurt yourself or someone else? Patient reports no desire to harm self or others. Onset of symptoms was August 03, 2023. 09:08 Method Of Arrival: Ambulatory hb Historical: - Allergies: 10:09 Hydrocodone-Acetaminophen; hb 10:09 PENICILLINS; hb - PMHx: 10:09 End stage renal disease; CHF; depressive disorder; Hyperlipidemia; GERD; diabetes hb mellitus; CVA; CAD; chronic DVT; Anxiety; Hypertensive disorder; angina pectoris; L sided weakness from previous CVA; Sleep Apnea; - PSHx: 10:09 Left upper arm fistula; hb - Immunization history:: Adult Immunizations up to date. - Social history:: Smoking status: Patient denies any tobacco usage or history of. Screenin:07 [facility] ED Fall Risk Assessment (Adult) Score/Fall Risk Level 0 - 2 = Low Risk hb Oriented to surroundings, Maintained a safe environment. Abuse screen: Denies threats or abuse. Denies injuries from another. Nutritional screening: No deficits noted. Tuberculosis screening: No symptoms or risk factors identified. Assessment: 09:52 General: Appears uncomfortable, Behavior is cooperative, appropriate for age. Pain: ap3 Complains of pain in right side and hips. Neuro: Level of Consciousness is awake, alert, obeys commands, Oriented to person, place, time, situation. Cardiovascular: Patient's skin is warm and dry. Respiratory: Airway is patent Respiratory effort is even, unlabored, Respiratory pattern is regular, symmetrical. 11:15 Reassessment: pt ambulated out to nurse's station with walker, steady gait, no weakness iw noted, with pt. Vital Signs: 09:53 Pulse 68; Pulse Ox 100% on R/A; ap3 10:06 BP 132 / 69; ap3 10:26 Weight 119.75 kg; ap3 11:26 BP 134 / 65; Pulse 65; Resp 16; Pulse Ox 97% on R/A; iw ED Course: 08:30 Patient arrived in ED. mr 08:31 Anne Hanson PA-C is PHCP. sb4 08:31 Gorge Munoz MD is Attending Physician. sb4 08:45 Triage completed. iw 08:58 CT Traumagram (Head C Spine CAP wo con) In Process Unspecified. EDMS 09:07 Arm band placed on. hb 09:46 Flu Sent. bc6 09:46 SARS RAPID Sent. bc6 09:46 Magnesium Sent. bc6 09:46 LFT's Sent. bc6 09:46 Troponin High Sensitivity Sent. bc6 09:46 BNP Sent. bc6 09:46 UAM Sent. bc6 09:46 Basic Metabolic Panel Sent. bc6 09:46 CBC with Diff Sent. bc6 09:46 Inserted saline lock: 22 gauge in right antecubital area, using aseptic technique. bc6 Blood collected. 09:53 Patient has correct armband on for positive identification. Bed in low position. Call ap3 light in reach. Side rails up X2. Adult w/ patient. 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 Pulse ox on. NIBP on. 09:58 Urine Culture Sent. bc6 11:28 No provider procedures requiring assistance completed. IV discontinued, intact, iw bleeding controlled, No redness/swelling at site. Pressure dressing applied. Administered Medications: 10:26 Drug: Rocephin IV 1 grams IV at calculated rate once; Given slow IV push per pharmacy ap3 instructions Route: IV; Rate: calculated rate; Site: right antecubital; :26 Drug: Fluconazole PO 200 mg PO once Route: PO; ap3 Medication: 11:28 VIS not applicable for this client. iw Outcome: 11: Discharge ordered by MD. jaquez 11: Discharged to home via wheelchair, with family, iw 11: Condition: good :28 Discharge instructions given to patient, family, Instructed on discharge instructions, follow up and referral plans. Demonstrated understanding of instructions, follow-up care, : Patient left the ED. iw Signatures: Dispatcher [employer] EDCT Jose AntonioNancy, Reg Reg mr Noemy Bruce RN CRIS iw Nuria Shultz RN RN hb Prokisch, Amanda, RN RN ap3 Anne Hanson, PA-C PA-C sb4 Raya Lawler bc6
--- NOTE | 2023-08-04 11:10 | EDPHYS ---
Physician Documentation [facility] Name: Consuelo Trujillo Age: 72 yrs Sex: Female : 1950 Arrival Date: 08/04/2023 Time: 08:28 Bed 5 Private MD: ED Physician Gorge Munoz HPI: 08/04 08:51 This 72 yrs old Female presents to ER via Unassigned with complaints of Fall sb4 Injury. 08:51 Patient states that she fell yesterday from a standing position secondary to feeling sb4 off balance. She is a poor historian and cannot tell me where or if she injured herself. thought he felt a bump on her head and she was acting off today so he brought her in to be evaluated. She is on dialysis Wednesday, last completed on Wednesday. Patient states she feels very weak and is complaining of pain to her right hip and side. Patient reports blood thinner use. Historical: - Allergies: 10:09 Hydrocodone-Acetaminophen; hb 10:09 PENICILLINS; hb - PMHx: 10:09 End stage renal disease; CHF; depressive disorder; Hyperlipidemia; GERD; diabetes hb mellitus; CVA; CAD; chronic DVT; Anxiety; Hypertensive disorder; angina pectoris; L sided weakness from previous CVA; Sleep Apnea; - PSHx: 10:09 Left upper arm fistula; hb - Immunization history:: Adult Immunizations up to date. - Social history:: Smoking status: Patient denies any tobacco usage or history of. ROS: 08:51 Cardiovascular: Negative for chest pain, palpitations, and edema, Respiratory: Negative sb4 for shortness of breath, cough, wheezing, and pleuritic chest pain, 08:51 MS/extremity: Positive for pain, right side and hip, 08:51 Neuro: Positive for weakness, 08:51 All other systems are negative, Exam: 08:51 Head/Face: Normocephalic, atraumatic. Eyes: Extra-ocular motions intact. Periorbital sb4 areas with no swelling, redness, or edema. ENT: Mucous membranes moist. Cardiovascular: Regular rate and rhythm with a normal S1 and S2. Respiratory: Lungs have equal breath sounds bilaterally, clear to auscultation and percussion. No rales, rhonchi or wheezes noted. No increased work of breathing, no retractions or nasal flaring. Abdomen/GI: Soft, non-tender, no distension. Skin: Warm, dry with normal turgor. Normal color with no rashes, no lesions, and no evidence of cellulitis. MS/ Extremity: Pulses equal, no cyanosis. Neurovascular intact. Full, normal range of motion. Neuro: Awake and alert, GCS 15, oriented to person, place, time, and situation. Motor strength 5/5 in all extremities. Sensory grossly intact. 08:51 Constitutional: The patient appears alert, awake, obese, Vital Signs: 09:53 Pulse 68; Pulse Ox 100% on R/A; ap3 10:06 BP 132 / 69; ap3 10:26 Weight 119.75 kg; ap3 11:26 BP 134 / 65; Pulse 65; Resp 16; Pulse Ox 97% on R/A; iw MDM: 08:36 Patient medically screened. sb4 08:51 Differential diagnosis: closed head injury, fracture, UTI, fluid overload. sb4 11:16 Data reviewed: vital signs, nurses notes, lab test result(s), radiologic studies, I sb4 have discussed the patient's presentation/case with the attending Emergency Department Physician; and as a result, I will discharge patient. Consideration of Admission/Observation Escalation of care including admission/observation considered. Historians other than the Patient: Spouse/Significant Other: . Care significantly affected by the following chronic conditions: Diabetes, Hypertension, Congestive Heart Failure, Obesity, Chronic Kidney Disease. Counseling: I had a detailed discussion with the patient and/or guardian regarding the historical points, exam findings, and any diagnostic results supporting the discharge/admit diagnosis, the presence of at least one elevated blood pressure reading (>120/80) during this emergency department visit, lab results, radiology results, to return to the emergency department if symptoms worsen or persist or if there are any questions or concerns that arise at home. 08/04 08:45 Order name: Basic Metabolic Panel; Complete Time: 10:28 sb4 08/04 08:45 Order name: CBC with Diff; Complete Time: 10:41 sb4 08/04 08:45 Order name: UAM; Complete Time: 09:58 sb4 08/04 08:45 Order name: BNP; Complete Time: 10:28 sb4 08/04 08:45 Order name: Troponin High Sensitivity; Complete Time: 10:28 sb4 08/04 08:45 Order name: LFT's; Complete Time: 10:28 sb4 08/04 08:45 Order name: Magnesium; Complete Time: 10:28 sb4 08/04 08:55 Order name: SARS RAPID; Complete Time: 10:23 sb4 08/04 08:55 Order name: Flu; Complete Time: 10:22 sb4 08/04 09:55 Order name: Urine Culture EDAK 08/04 10:36 Order name: CBC Smear Scan; Complete Time: 10:41 EDMS 08/04 08:45 Order name: CT Traumagram (Head C Spine CAP wo con); Complete Time: 10:09 sb4 08/04 08:45 Order name: Labs collected and sent; Complete Time: 09:41 sb4 08/04 08:45 Order name: Accucheck; Complete Time: 10:10 sb4 08/04 08:58 Order name: EKG - Nurse/Tech; Complete Time: 09:56 sb4 08/04 09:29 Order name: Labs - recollect needed: recollect cbc,c7; Complete Time: 09:46 bd Administered Medications: 10:26 Drug: Rocephin IV 1 grams IV at calculated rate once; Given slow IV push per pharmacy ap3 instructions Route: IV; Rate: calculated rate; Site: right antecubital; 10:26 Drug: Fluconazole PO 200 mg PO once Route: PO; ap3 Disposition: 12:37 Co-signature as Attending Physician, Gorge Munoz MD I reviewed the patient's care rn provided by the Advanced Practice Provider and agree with the diagnosis and treatment plan. Disposition Summary: 08/04/23 11:09 Discharge Ordered Notes: Location: Home sb4 Problem: new sb4 Symptoms: have improved sb4 Condition: Stable sb4 Diagnosis - UTI/ Urinary tract infection, site not specified sb4 - Fall on same level, unspecified sb4 Followup: sb4 - With: Emergency Department - When: As needed - Reason: Trouble breathing, Worsening of condition Discharge Instructions: - Discharge Summary Sheet sb4 - Fall Prevention in the Home, Adult sb4 - Urinary Tract Infection, Adult, [id number] sb4 Forms: - Medication Reconciliation Form sb4 - Thank You Letter sb4 - Antibiotic Education sb4 - Prescription Opioid Use sb4 - Patient Portal Instructions sb4 - Leadership Thank You Letter sb4 Prescriptions: - Fluconazole 200 mg Oral tablet - take 1 tablet ORAL route 3 times per wk take one tablet after dialysis; 10 sb4 tablet; Refills: 0, Product Selection Permitted - Tramadol 50 mg Oral Tablet - take 1 tablet ORAL route every 8 hours as needed; 12 tablet; Refills: 0, sb4 Product Selection Permitted - cefpodoxime 100 mg Oral tablet - take 1 tablet ORAL route 3 times per wk for 10 days take with food after sb4 dialysis; 5 tablet; Refills: 0, Product Selection Permitted Signatures: Dispatcher [employer] Josselyn Ramirez Roman, MD MD rn Baxter, Heather, RN RN hb Prokisch, Amanda, RN RN ap3 Brown, Sophia, PA-C PA-C sb4 Corrections: (The following items were deleted from the chart) 08:56 08:51 Patient states that she fell yesterday from a standing position secondary to sb4 feeling off balance. She is a poor historian and cannot tell me where or if she injured herself. thought he felt a bump on her head and she was acting off today so he brought her in to be evaluated. She is on dialysis Wednesday, last completed on Wednesday. Patient states she feels very weak and is complaining of pain to her right hip and side. sb4 09:38 08:51 Patient states that she fell yesterday from a standing position secondary to sb4 feeling off balance. She is a poor historian and cannot tell me where or if she injured herself. thought he felt a bump on her head and she was acting off today so he brought her in to be evaluated. She is on dialysis Wednesday, last completed on Wednesday. Patient states she feels very weak and is complaining of pain to her right hip and side. Patient denies blood thinner use. sb4
[2023-08-04 11:36] VITALS: BP 134/65; O2SAT 97
== END 2023-08-04 11:28 | disposition home or self-care (01) ==
LOC: ER 08:28
DX: N39.0 Urinary tract infection, site not specified (principal); W18.30XA Fall on same level, unspecified, initial encounter; Z11.52 Encounter for screening for COVID-19; M25.551 Pain in right hip; Z79.01 Long term (current) use of anticoagulants; Z88.0 Allergy status to penicillin; Z88.5 Allergy status to narcotic agent
CPT/HCPCS: 87088; 85025; 81001; 87086; 80048; 36415; 83735; 80076; 84484; 83880; 87804 ×2; 70450; 71250; 72125; 96374; 99285; 87811; J0696